=== PATIENT | male | born 1935 | race Caucasian/White ===

== ENCOUNTER → 2018-06-21 | Outpatient (CLI) | payer MEDICARE, BC ==
--- NOTE | 2018-06-21 15:39 | US ---
EXAMINATION TYPE: US kidneys/renal and bladder DATE OF EXAM: 06/21/2018 COMPARISON: 05/06/2015 CLINICAL HISTORY: D49.4 Neoplasm of unspecified behavior of bladder. EXAM MEASUREMENTS: Right Kidney: 10.6 x 6.6 x 6.2 cm Left Kidney: 12.7 x 4.4 x 5.2 cm Kidneys are difficult to visualize as they blend in with surrounding tissues. Right Kidney: thinned cortex, loss of corticomedullary differentiation Left Kidney: thinned cortex, loss of corticomedullary differentiation Bladder: surgically absent No hydronephrosis or nephrolithiasis. IMPRESSION: Findings suggest chronic medical renal disease.
--- NOTE | 2018-06-21 16:06 | XR ---
EXAMINATION TYPE: XR chest 2V DATE OF EXAM: 06/21/2018 COMPARISON: Prior chest x-ray 03/26/[address] chest 04/24/2015 HISTORY: Bladder carcinoma TECHNIQUE: Frontal and lateral views of the chest are obtained on 3 images. FINDINGS: There is no focal air space opacity, pleural effusion, or pneumothorax seen. The cardiac silhouette size is stable. Pulmonary artery is prominent, correlate for possible pulmonary artery hyp ertension. The aorta is dense. The osseous structures are intact. There is some scarring in the right costophrenic angle, chronic pleural reaction. IMPRESSION: No acute cardiopulmonary process.
== END ==
LOC: RADUSWWP 14:51
PROVIDERS: ATTEND Urology
DX: D49.4 Neoplasm of unspecified behavior of bladder (principal); Z91.013 Allergy to seafood
CPT/HCPCS: 71046; 76770

== ENCOUNTER 2018-07-01 06:49 | Day surgery (SDC) | payer MEDICARE, BC ==
[2018-06-29 09:57] VITALS: BMI 25.8
[~2018-07-01 06:49] MED LIST: LACTATED RINGERS 1,000 ML IV SCH; LIDOCAINE 1% 20 ML VIAL (10MG/ML) FOR IV START INTRADERMA PRN
[2018-07-01 07:21] VITALS: TEMP 96.5
[2018-07-01 07:25] LABS: Glucose,Whole Blood 128 mg/dL (75-99)
[2018-07-01] MEDS ORDERED: LIDOCAINE 1% INJ 10MG/ML (20 ML MDV) ONE (07:30)
[2018-07-01] MEDS ORDERED: PROPOFOL 10 MG/ML 20 ML VIAL IV ONE (07:30)
--- NOTE | 2018-07-01 07:30 | P.GSHP ---
History of Present Illness H&P Date: 07/01/18 CHIEF COMPLAINT: Colon screen HISTORY OF PRESENT ILLNESS: The patient is a 82-year-old male who presents for colon screen. Lower endoscopy was offered for further evaluation and management. PAST MEDICAL HISTORY: Please see list. PAST SURGICAL HISTORY: Please see list. MEDICATIONS: Please see list. ALLERGIES: Please see list. SOCIAL HISTORY: No illicit drug use FAMILY HISTORY: No reports of Crohn disease or ulcerative colitis. REVIEW OF ORGAN SYSTEMS: CONSTITUTIONAL: No reports of fevers or chills. PHYSICAL EXAM: VITAL SIGNS: Stable GENERAL: Well-developed pleasant in no acute distress. HEENT: No scleral icterus. Extraocular movements grossly intact. Moist buccal mucosa. NECK: Supple without lymphadenopathy. CHEST: Unlabored respirations. Equal bilateral excursions. CARDIOVASCULAR: Regular rate and rhythm. Distal 2+ pulses. ABDOMEN: Soft, nontender, nondistended. MUSCULOSKELETAL: No clubbing, cyanosis, or edema. ASSESSMENT: 1. Colon screen. PLAN: 1. Recommend proceeding with a lower endoscopy Past Medical History Past Medical History: Asthma, Cancer, COPD, Diabetes Mellitus, Hyperlipidemia, Hypertension, Myocardial Infarction (OR), Osteoarthritis (OA) Additional Past Medical History / Comment(s): VARICOSE VEINS; ARTHRITIS BACK, NECK; HX PROSTATE, BLADDER, SKIN, PLASMACYTOMA LEFT FEMUR, CANCERS. PNEUMONIA 04/01/15. HAS UROSTOMA. FX RT HIP 6 WEEKS AGO Last Myocardial Infarction Date:: 2012- UNSURE- STATES DISCOVERED ON EKG. History of Any Multi-Drug Resistant Organisms: ESBL Date of last positivie culture/infection: 03/26/2015 MDRO Source:: Urine- E.coli ESBL Past Surgical History: Bladder Surgery, Joint Replacement, Prostate Surgery Additional Past Surgical History / Comment(s): EXC LEFT FEMUR CANCER; CHEST TUMOR EXC; RADICAL PROSTATECTOMY 07/2004. TURBT 12/2014. ROBOTIC RADICAL CYSTECTOMY 02/2015. UROSTOMY, COLONOSCOPY, PARTIAL RT HIP REPLACEMENT 6 WEEKS AGO Past Anesthesia/Blood Transfusion Reactions: No Reported Reaction Smoking Status: Former smoker - Past Family History Son(s) Family Medical History: Cancer Additional Family Medical History / Comment(s): LEUKEMIA Medications and Allergies Home Medications Medication Instructions Recorded Confirmed Type Atenolol [Tenormin] 25 mg PO DAILY 12/28/14 07/01/18 History Fluticasone/Salmeterol [Advair 1 inhalation PO RT-BID 12/28/14 07/01/18 History 500-50 Diskus] Montelukast [Singulair] 10 mg PO HS 12/28/14 07/01/18 History Tiotropium [place] [Spiriva] 1 puff IH RT-DAILY 12/28/14 07/01/18 History amLODIPine BESYLATE [Norvasc] 10 mg PO DAILY 12/28/14 07/01/18 History Levothyroxine Sodium [Synthroid] 25 mcg PO DAILY 03/27/15 07/01/18 History Glimepiride [Amaryl] 8 mg PO BID 05/17/15 07/01/18 History Aspirin [Adult Low Dose Aspirin EC] 81 mg PO DAILY 06/29/18 07/01/18 History Ferrous Sulfate [Iron (65 MG 325 mg PO DAILY 06/29/18 07/01/18 History Elemental)] Insulin Glargine [Lantus] 20 unit SQ HS 06/29/18 07/01/18 History Lisinopril [Zestril] 20 mg PO BID 06/29/18 07/01/18 History Allergies Allergy/AdvReac Type Severity Reaction Status Date / Time shellfish derived [Shellfish] Allergy Mild Rash/Hives Verified 06/29/18 09:50 "if consumes alot," per patient Surgical - Exam Vital Signs Temp Pulse Resp BP Pulse Ox 96.5 F L 94 17 144/73 96 07/01/18 07:17 07/01/18 07:17 07/01/18 07:17 07/01/18 07:17 07/01/18 07:17 Results - Labs Abnormal Lab Results - Last 24 Hours (Table) 07/01/18 Range/Units 07:20 POC Glucose (mg/dL) 128 H (75-99) mg/dL
--- NOTE | 2018-07-01 07:53 | P.PCN ---
Date of Procedure: 07/01/18 Description of Procedure: PREOPERATIVE DIAGNOSIS: Personal history of colon polyps POSTOPERATIVE DIAGNOSIS: Personal history of colon polyps Sigmoid colon stricture Diverticulosis Rectal adenoma OPERATION: Colonoscopy with snare polypectomy, rectum Colonoscopy to the sigmoid colon, 40 cm from the anal verge SURGEON: Lashae Hunt MD. ANESTHESIA: MAC. INDICATIONS: The patient is a 82-year-old female who presents for colonoscopy screening. He has history of high-risk polyps. Last colonoscopy 5 years ago. Benefits and risks were described and informed consent was obtained. DESCRIPTION OF PROCEDURE: The patient had undergone Gatorade, MiraLAX and Dulcolax prep. He had been brought into the operating room and laid in the left lateral decubitus position. After adequate intravenous sedation, the rectum was examined with 2% lidocaine jelly. The prostate was without abnormalities. No external hemorrhoids were encountered. The rectal tone was loose. No lesions were palpated in the rectal vault. An Olympus colonoscope was advanced along the rectum to a very tortuous sigmoid colon. The scope was then exchanged for a pediatric colonoscope. Despite multiple maneuvers, the sigmoid colon had severe tortuosity including a stricture at 40 cm from the anal verge preventing further advancement of scope. The scope was passed to 40 cm from the anal verge. Rectal polyp of 4 mm adenoma at 10 cm from the anal verge was removed with hot snare. As the patient posed high risk for perforation with persistence of the procedure, the procedure was discontinued. The colon was desufflated. The patient had tolerated the procedure well. Withdrawal time was over 6 minutes. FINDINGS: Tortuous sigmoid colon with stricture preventing further advancement of the scope. Rectal polyp of 4 mm adenoma at 10 cm from the anal verge was removed with hot snare. Scope advanced to sigmoid colon at 40 cm. No arteriovenous malformations. Sigmoid stricture at 40 cm from the anal verge Severe sigmoid diverticulosis No focal colitis. RECOMMENDATIONS: Completion of colonoscopy evaluation with barium enema. Plan - Discharge Summary New Discharge Prescriptions: No Action amLODIPine BESYLATE [Norvasc] 10 mg PO DAILY Montelukast [Singulair] 10 mg PO HS Atenolol [Tenormin] 25 mg PO DAILY Fluticasone/Salmeterol [Advair 500-50 Diskus] 1 inhalation PO RT-BID Tiotropium [place] [Spiriva] 1 puff IH RT-DAILY Levothyroxine Sodium [Synthroid] 25 mcg PO DAILY Glimepiride [Amaryl] 8 mg PO BID Aspirin [Adult Low Dose Aspirin EC] 81 mg PO DAILY Ferrous Sulfate [Iron (65 MG Elemental)] 325 mg PO DAILY Insulin Glargine [Lantus] 20 unit SQ HS Lisinopril [Zestril] 20 mg PO BID Discharge Medication List Atenolol [Tenormin] 25 mg PO DAILY 12/28/14 [History] Fluticasone/Salmeterol [Advair 500-50 Diskus] 1 inhalation PO RT-BID 12/28/14 [ History] Montelukast [Singulair] 10 mg PO HS 12/28/14 [History] Tiotropium [place] [Spiriva] 1 puff IH RT-DAILY 12/28/14 [History] amLODIPine BESYLATE [Norvasc] 10 mg PO DAILY 12/28/14 [History] Levothyroxine Sodium [Synthroid] 25 mcg PO DAILY 03/27/15 [History] Glimepiride [Amaryl] 8 mg PO BID 05/17/15 [History] Aspirin [Adult Low Dose Aspirin EC] 81 mg PO DAILY 06/29/18 [History] Ferrous Sulfate [Iron (65 MG Elemental)] 325 mg PO DAILY 06/29/18 [History] Insulin Glargine [Lantus] 20 unit SQ HS 06/29/18 [History] Lisinopril [Zestril] 20 mg PO BID 06/29/18 [History]
[2018-07-01 08:08] VITALS: RESP 16
[2018-07-01 08:38] VITALS: BP 112/78; PULSE 88
[2018-07-01] MEDS ORDERED: oxyCODONE ER 20 MG TAB.ER.12H PO STA (12:20)
== END 2018-07-01 09:01 | disposition home or self-care (01) ==
LOC: ORWHC2ENDO 06:49
PROVIDERS: ATTEND Surgery Plastic and Reconstructive Surgery
DX: Z12.11 Encounter for screening for malignant neoplasm of colon (principal); K63.5 Polyp of colon; K62.1 Rectal polyp; Q43.8 Other specified congenital malformations of intestine; Z86.010 Personal history of colon polyps; J44.9 Chronic obstructive pulmonary disease, unspecified; E11.9 Type 2 diabetes mellitus without complications; E78.5 Hyperlipidemia, unspecified; I10 Essential (primary) hypertension; I25.2 Old myocardial infarction; M19.90 Unspecified osteoarthritis, unspecified site; Z85.46 Personal history of malignant neoplasm of prostate; Z85.51 Personal history of malignant neoplasm of bladder; Z85.828 Personal history of other malignant neoplasm of skin; Z85.89 Personal history of malignant neoplasm of other organs and systems; Z87.891 Personal history of nicotine dependence; Z79.82 Long term (current) use of aspirin; Z79.890 Hormone replacement therapy; Z79.4 Long term (current) use of insulin; Z79.899 Other long term (current) drug therapy; Z91.013 Allergy to seafood
CPT/HCPCS: 88305; 45385; J2001; J2704

== ENCOUNTER → 2018-07-11 | Outpatient (CLI) | payer MEDICARE, BC ==
--- NOTE | 2018-07-12 10:31 | XR ---
Abdomen HISTORY: Barium enema preprocedure Correlation to prior CT abdomen pelvis 04/01/2015 Frontal view of the abdomen on 2 images And postop change noted to the right hip, surgical clips are present in the pelvis. There is an ostom y in the right lower quadrant. Retained fecal debris is present throughout the distribution of the co sahra in the ascending and transverse colon regions. Lung bases are clear. Degenerative disc changes ar e present in the visualized spine. There are dense vascular calcifications. Distortion over the left iliac wing is chronic. Sclerotic focus in the left ilium is again noted. Heterotopic new bone formati on present about the right hip prosthesis, postop change also noted to the left hip. Probable vascula r calcifications over the kidneys. IMPRESSION: Retained fecal debris. Postop changes. Additional findings above.
== END | disposition home or self-care (01) ==
LOC: RADFLMAIN 08:52
PROVIDERS: ATTEND Surgery Plastic and Reconstructive Surgery
DX: R19.5 Other fecal abnormalities (principal); M89.8X5 Other specified disorders of bone, thigh; M89.8X8 Other specified disorders of bone, other site; R93.7 Abnormal findings on diagnostic imaging of other parts of musculoskeletal system; Z98.890 Other specified postprocedural states; Z93.3 Colostomy status
CPT/HCPCS: 74018

== ENCOUNTER → 2018-07-26 | Outpatient (CLI) | payer MEDICARE, BC ==
--- NOTE | 2018-07-26 10:15 | FL ---
EXAMINATION TYPE: FL barium enema DATE OF EXAM: 07/26/2018 COMPARISON: Abdominal x-ray July 11, 2018. CT abdomen and pelvis April 01, 2015. HISTORY: Incomplete colonoscopy rule out sigmoid stricture TECHNIQUE: A single contrast barium enema study is performed as requested. Double contrast however c annot be performed due to patient's limited mobility. 54 seconds of fluoroscopic time was utilized du ring procedure. 17 images are saved. FINDINGS: Collection Clerk view of the abdomen shows overall non-obstructive bowel gas pattern. Right-sided loo p ostomy from cystectomy is redemonstrated. Numerous surgical clips and pelvis are seen. Metallic nnamdi dware right hip arthroplasty is noted. There is partial visualization of fixation hardware in the lef t proximal femur with moderate to advanced narrowing, some loss of spherical shape in the femoral hea d is noted. Cannot exclude some avascular necrosis at this level. There is successful filling to the cecum. No obstructing mass or significant stricture is identified with particular attention to the sigmoid colon at area of clinical concern. Reflux of contrast into t erminal ileum is noted which is felt within normal limits. Patient had poor prep with retained fecal debris. IMPRESSION: Suboptimal study but no obstructing or constricting mass or significant stricture identi fied with successful retrograde filling to the cecum.
== END | disposition home or self-care (01) ==
LOC: RADFLMAIN 08:51
PROVIDERS: ATTEND Surgery Plastic and Reconstructive Surgery
DX: Z09 Encounter for follow-up examination after completed treatment for conditions other than malignant neoplasm (principal); Z87.19 Personal history of other diseases of the digestive system
CPT/HCPCS: 74270

== ENCOUNTER → 2018-11-21 | Outpatient (CLI) | payer MEDICARE, BC ==
--- NOTE | 2018-11-21 17:29 | US ---
EXAMINATION TYPE: US kidneys/renal and bladder DATE OF EXAM: 11/21/2018 COMPARISON: US 2018 CLINICAL HISTORY: Renal failure N18.9. CKD, history of bladder CA, bladder removed EXAM MEASUREMENTS: Right Kidney: 10.7 x 5.2 x 5.5 cm Left Kidney: 13.1 x 6.0 x 5.5 cm Right Kidney: thinned cortex, loss of corticomedullary differentiation Left Kidney: thinned cortex, loss of corticomedullary differntiation Bladder: surgically absent There is no evidence for hydronephrosis at this point in time. No nephrolithiasis is seen. No negra s are identified. The urinary bladder is anechoic. Bilateral ureteral jets are seen. IMPRESSION: Sonographic sequela of medical renal disease without hydronephrosis or nephrolithiasis. Urinary bladd er is surgically absent.
== END | disposition home or self-care (01) ==
LOC: RADUSWWP 14:54
PROVIDERS: ATTEND Family Medicine
DX: N18.9 Chronic kidney disease, unspecified (principal); Z90.6 Acquired absence of other parts of urinary tract
CPT/HCPCS: 76770

== ENCOUNTER 2019-03-03 05:48 | Day surgery (SDC) | payer MEDICARE, BC ==
[2019-03-01 09:09] VITALS: BMI 26.6
--- NOTE | 2019-03-02 23:04 | P.GSHP ---
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 He now presents for excision. PAST MEDICAL HISTORY: Please see list. PAST SURGICAL HISTORY: Please see list. MEDICATIONS: Please see list. ALLERGIES: Please see list. SOCIAL HISTORY: No illicit drug use FAMILY HISTORY: Has ulcerative colitis. REVIEW OF ORGAN SYSTEMS: CONSTITUTIONAL: No reports of fevers or chills. GI: Denies any blood in stools or constipation. PHYSICAL EXAM: VITAL SIGNS: Stable SKIN: Lesion identified along right posterior thigh and left volar hand GENERAL: Well developed and in no acute distress. Pleasant. HEENT: No sclera icterus. Extraocular movements grossly intact. Moist buccal mucosa. Head is atraumatic, normocephalic. Hears conversational speech. No nasal drainage. NECK: Supple without lymphadenopathy. No JV distention. CHEST: Non-labored respirations and equal bilateral excursions. CARDIOVASCULAR: Regular rate and rhythm. Palpable 2+ radial pulses. ABDOMEN: Soft. Non-tender. Nondistended. NEUROLOGIC: No focal or lateralizing signs. PSYCH: Appropriate affect. Alert and oriented to person, place and time. ASSESSMENT: 1. Squamous cell cancer left hand 2. Squamous cell cancer right thigh PLAN: 1. Will proceed of excision of squamous cell cancer left hand and right thigh 2. DVT prophylaxis. 3. Antibiotic prophylaxis. 4. Time of recovery, at least one week. Past Medical History Past Medical History: Asthma, Cancer, COPD, Diabetes Mellitus, Hyperlipidemia, Hypertension, Osteoarthritis (OA), Prostate Disorder Additional Past Medical History / Comment(s): VARICOSE VEINS; ARTHRITIS BACK, NECK; HX PROSTATE, BLADDER, SKIN CANDER , PLASMACYTOMA LEFT FEMUR- CANCERS. PNEUMONIA 04/01/15. HAS UROSTOMY , FX RT HIP -2018." RENAL DISEASE STAGE 4 -NO DIALYSIS " Last Myocardial Infarction Date:: 2012- UNSURE- STATES DISCOVERED ON EKG. History of Any Multi-Drug Resistant Organisms: ESBL Date of last positivie culture/infection: 03/26/2015 MDRO Source:: Urine- E.coli ESBL Past Surgical History: Bladder Surgery, Joint Replacement, Prostate Surgery Additional Past Surgical History / Comment(s): EXC LEFT FEMUR CANCER; CHEST TUMOR EXC; RADICAL PROSTATECTOMY 07/2004. , ROBOTIC RADICAL CYSTECTOMY 02/2015- UROSTOMY, COLONOSCOPY, PARTIAL RT HIP REPLACEMENT Past Anesthesia/Blood Transfusion Reactions: No Reported Reaction Smoking Status: Former smoker - Past Family History Son(s) Family Medical History: Cancer Additional Family Medical History / Comment(s): LEUKEMIA Medications and Allergies Home Medications Medication Instructions Recorded Confirmed Type Atenolol [Tenormin] 25 mg PO DAILY 12/28/14 03/01/19 History Fluticasone/Salmeterol [Advair 1 inhalation PO RT-BID 12/28/14 03/01/19 History 500-50 Diskus] Montelukast [Singulair] 10 mg PO HS 12/28/14 03/01/19 History Tiotropium [place] [Spiriva] 1 puff IH RT-DAILY 12/28/14 03/01/19 History amLODIPine BESYLATE [Norvasc] 10 mg PO DAILY 12/28/14 03/01/19 History Levothyroxine Sodium [Synthroid] 25 mcg PO DAILY 03/27/15 03/01/19 History Glimepiride [Amaryl] 8 mg PO BID 05/17/15 03/01/19 History Aspirin [Adult Low Dose Aspirin EC] 81 mg PO DAILY 06/29/18 03/01/19 History Insulin Glargine [Lantus] 20 unit SQ HS 06/29/18 03/01/19 History Cephalexin [Keflex] 500 mg PO Q8HR 03/01/19 03/01/19 History Allergies Allergy/AdvReac Type Severity Reaction Status Date / Time shellfish derived [Shellfish] Allergy Mild Rash/Hives Verified 03/01/19 09:27 "if consumes alot," per patient
[~2019-03-03 05:48] MED LIST changes: +DEXAMETHASONE SOD PHOSPHATE 10 MG/ML 1 ML VIAL IV ONE; +MIDAZOLAM 2 MG/2 ML VIAL IV PRN; +ONDANSETRON 4 MG/2 ML VIAL IVP ONE; +Pre Op ABX Message 1 EACH MISC MISCELLANE ONE; +ceFAZolin IN SWFI 2 GM/20 ML SYRINGE IVP ONE; +fentaNYL (PF) 50 MCG/ML 2 ML AMP IV PRN
[2019-03-03] MEDS ORDERED: LACTATED RINGERS 1,000 ML IV ONE (06:14)
[2019-03-03 06:21] VITALS: TEMP 97.8
[2019-03-03] MEDS ORDERED: DEXTROSE 50% SYRINGE 50 ML IVP ONE (06:29)
[2019-03-03 06:32] LABS: Glucose,Whole Blood 49 mg/dL (75-99)
[2019-03-03 06:36] LABS: Glucose,Whole Blood 48 mg/dL (75-99)
[2019-03-03 06:46] LABS: Glucose,Whole Blood 115 mg/dL (75-99)
[2019-03-03] MEDS ORDERED: PROPOFOL 10 MG/ML 20 ML VIAL IV ONE (07:02)
[2019-03-03] MEDS ORDERED: BUPIVACAIN-EPI 0.25%-1:200,000 30 ML VIAL SQ ONE ×2 (07:23→07:41)
[2019-03-03 08:35] VITALS: RESP 16
[2019-03-03 08:48] LABS: Glucose,Whole Blood 90 mg/dL (75-99)
--- NOTE | 2019-03-03 09:16 | P.PCN ---
Date of Procedure: 03/03/19 Description of Procedure: SURGEON: LASHAE HUNT MD DROP HAMMER MECHANIC: NONE. PREOPERATIVE DIAGNOSES: 1. Malignant neoplasm right posterior thigh, left volar hand 2. Hypertensive heart disease 3. Asthma 4. Diabetes type 2, insulin-dependent 5. Hypothyroidism 6. History of prostate cancer 7. History of bladder cancer 8. Stage 4 renal disease 9. Hyperlipidemia 10. Chronic obstructive pulmonary disease POSTOPERATIVE DIAGNOSES: 1. Malignant neoplasm right posterior thigh, left volar hand 2. Hypertensive heart disease 3. Asthma 4. Diabetes type 2, insulin-dependent 5. Hypothyroidism 6. History of prostate cancer 7. History of bladder cancer 8. Stage 4 renal disease 9. Hyperlipidemia 10. Chronic obstructive pulmonary disease Procedure(s) Performed: 1. Excision of posterior thigh lesion 6 cm x 3.5 cm, subcutaneous with complex skin closure, 6 cm 2. Excision of left volar hand 5 cm x 2 cm, subcutaneous with simple skin closure Anesthesia: MAC, local Estimated Blood Loss (ml): 20 Pathology: other (1. Posterior thigh, long superior, short medial) Condition: stable (2. Lower hand long medial short lateral) Disposition: same day Operative Findings: 1. Very thin skin of left volar hand with full-thickness excision. 2. Area 1.3 x 0.8 cm to heal by secondary intention 3. Application of left hand splint in neutral position 4. Subcutaneous excision of lesion posterior thigh COMPLICATIONS: None. INDICATIONS: The patient is an 83-year-old male who presents with right posterior thigh subcutaneous tumor and left volar hand malignant lesion. Surgical options, including excision was discussed. Benefits and risks were described. Informed consent was obtained. DESCRIPTION OF PROCEDURE: Patient was brought into the operating room, laid in prone position. After adequate IV sedation, the right lower leg and left hand was prepped and draped in standard sterile fashion using ChloraPrep. A timeout protocol was confirmed with the surgical team regarding patient's name including procedures to be performed. Preoperative medications was administered. Attention was brought to the right posterior thigh. Next, a local field block was administered. The right posterior thigh was measured using a ruler with borders marked with indelible marker. An elliptical incision of 6 x 3.5 cm in size into the dermis followed by circumferential dissection using electro-Bovie cautery into the subcutaneous tissue. Hemostasis was checked with electrocautery cautery. The wound was closed in multiple layers including 0 Vicryl for the deep subcutaneous tissue. 3-0 Vicryl was placed interrupted along the deep dermis. The skin was closed using 4-0 Monocryl. Dermabond tape including liquid glue and tape was used as the final fourth layer. The skin was cleansed. Optifoam dressing was placed. Attention was brought to the left volar hand. A local field block was administered. The left volar hand was measured using a ruler with borders marked with indelible marker. A longitudinal elliptical incision of 5 x 2 cm in size into the dermis was carefully placed. The skin was very thin of left volar hand with full-thickness excision performed. An area 1.3 x 0.8 cm was left to heal by secondary intention as the wound could not close from the poor integrity of his skin. To protect the skin, exofin tape with Optif oam was placed. To protect the closure, application of left hand splint in neutral position was made. At the end of the procedure, needle, sponge, and instrument count had been verified correct by the orthopedic technician. The patient was taken to the postanesthesia care unit in stable condition. Plan - Discharge Summary Discharge Rx Participant: Yes New Discharge Prescriptions: New Acetaminophen [Tylenol] 325 mg PO Q4H #30 tab No Action amLODIPine BESYLATE [Norvasc] 10 mg PO DAILY Montelukast [Singulair] 10 mg PO HS Atenolol [Tenormin] 25 mg PO DAILY Fluticasone/Salmeterol [Advair 500-50 Diskus] 1 inhalation PO RT-BID Tiotropium [place] [Spiriva] 1 puff IH RT-DAILY Levothyroxine Sodium [Synthroid] 25 mcg PO DAILY Glimepiride [Amaryl] 8 mg PO BID Aspirin [Adult Low Dose Aspirin EC] 81 mg PO DAILY Insulin Glargine [Lantus] 20 unit SQ HS Cephalexin [Keflex] 500 mg PO Q8HR Discharge Medication List Atenolol [Tenormin] 25 mg PO DAILY 12/28/14 [History] Fluticasone/Salmeterol [Advair 500-50 Diskus] 1 inhalation PO RT-BID 12/28/14 [History] Montelukast [Singulair] 10 mg PO HS 12/28/14 [History] Tiotropium [place] [Spiriva] 1 puff IH RT-DAILY 12/28/14 [History] amLODIPine BESYLATE [Norvasc] 10 mg PO DAILY 12/28/14 [History] Levothyroxine Sodium [Synthroid] 25 mcg PO DAILY 03/27/15 [History] Glimepiride [Amaryl] 8 mg PO BID 05/17/15 [History] Aspirin [Adult Low Dose Aspirin EC] 81 mg PO DAILY 06/29/18 [History] Insulin Glargine [Lantus] 20 unit SQ HS 06/29/18 [History] Cephalexin [Keflex] 500 mg PO Q8HR 03/01/19 [History] Acetaminophen [Tylenol] 325 mg PO Q4H #30 tab 03/03/19 [Rx] Follow up Appointment(s)/Referral(s): Lashae Hunt MD [STAFF PHYSICIAN] - 03/07/19 11:40 am Patient Instructions/Handouts: *Surgery [facility] - (Anesthesia) Discharge Instructions Outpatient Surgery, Excision of Skin Lesion (DC) Activity/Diet/Wound Care/Special Instructions: DO NOT REMOVE DRESSINGS. May shower. No bathtub soaks. SURGEON TO REMOVE DRESSING IN OFFICE WednesdayMARCH 07. Do not remove splint. Discharge Disposition: HOME SELF-CARE
[2019-03-03 09:30] LABS: Glucose,Whole Blood 138 mg/dL (75-99)
[2019-03-03 09:57] VITALS: BP 138/60; PULSE 67
== END 2019-03-03 09:48 | disposition home or self-care (01) ==
LOC: OR 05:48
PROVIDERS: ATTEND Surgery Plastic and Reconstructive Surgery
DX: D04.62 Carcinoma in situ of skin of left upper limb, including shoulder (principal); B07.9 Viral wart, unspecified; I13.10 Hypertensive heart and chronic kidney disease without heart failure, with stage 1 through stage 4 chronic kidney disease, or unspecified chronic kidney disease; N18.4 Chronic kidney disease, stage 4 (severe); E11.22 Type 2 diabetes mellitus with diabetic chronic kidney disease; E78.5 Hyperlipidemia, unspecified; E03.9 Hypothyroidism, unspecified; J44.9 Chronic obstructive pulmonary disease, unspecified; M19.90 Unspecified osteoarthritis, unspecified site; I25.2 Old myocardial infarction; Z96.641 Presence of right artificial hip joint; Z87.891 Personal history of nicotine dependence; Z85.46 Personal history of malignant neoplasm of prostate; Z85.51 Personal history of malignant neoplasm of bladder; Z90.79 Acquired absence of other genital organ(s); Z90.6 Acquired absence of other parts of urinary tract; Z87.01 Personal history of pneumonia (recurrent); Z79.82 Long term (current) use of aspirin; Z79.890 Hormone replacement therapy; Z79.4 Long term (current) use of insulin; Z79.899 Other long term (current) drug therapy; Z79.2 Long term (current) use of antibiotics; Z91.013 Allergy to seafood
CPT/HCPCS: 11626; 11406; 12032; 88305; J1100; J2405; J2704; J0690

== ENCOUNTER → 2019-06-26 | Outpatient (CLI) | payer MEDICARE, BC ==
--- NOTE | 2019-06-26 15:48 | US ---
EXAMINATION TYPE: US kidneys/renal and bladder DATE OF EXAM: 06/26/2019 COMPARISON: US dated 11/21/2018 CLINICAL HISTORY: D49.4 Follow up staging for bladder cancer. EXAM MEASUREMENTS: Right Kidney: 9.9 x 4.1 x 5.1 cm Left Kidney: 12.0 x 4.1 x 4.5 cm Right Kidney: thinned cortex, loss of corticomedullary differentiation. Right upper pole renal cyst i s seen measuring 1.5 x 1.3 x 1.2 cm. This has increased through transmission and is anechoic. Left Kidney: thinned cortex, loss of corticomedullary differentiation Bladder: surgically absent There is no evidence for hydronephrosis at this point in time. No nephrolithiasis is seen. No suspi cious masses are identified. The urinary bladder is surgically absent. IMPRESSION: Sequela of chronic medical renal disease. Simple appearing benign right renal cyst measuring 1.5 cm. No suspicious sonographic renal masses otherwise. Urinary bladder is surgically absent.
--- NOTE | 2019-06-26 19:33 | XR ---
EXAMINATION TYPE: XR chest 2V DATE OF EXAM: 06/26/2019 COMPARISON: Prior chest x-ray 06/21/2018 HISTORY: Follow up staging for bladder cancer TECHNIQUE: Frontal and lateral views of the chest are obtained on 3 images. FINDINGS: The exam is stable. Heart size is enlarged and unchanged. There is some patchy density pre sent at the right costophrenic angle as on prior exam, chronic pleural reaction. No evident pneumotho rax or pleural effusion. Pulmonary vascularity and rosie are stable. Aorta is dense. IMPRESSION: No acute cardiopulmonary process. Stable basilar scarring.
== END | disposition home or self-care (01) ==
LOC: RADUSWWP 14:47
PROVIDERS: ATTEND Urology
DX: J98.4 Other disorders of lung (principal); D46.9 Myelodysplastic syndrome, unspecified; Z90.6 Acquired absence of other parts of urinary tract
CPT/HCPCS: 71046; 76770

== ENCOUNTER → 2020-01-04 | Outpatient (CLI) | payer MEDICARE, BC ==
[2020-01-04 09:54] LABS: HCT 42.7 % (39.0-53.0); HGB 13.8 gm/dL (13.0-17.5); MCH 28.4 pg (25.0-35.0); MCHC 32.2 g/dL (31.0-37.0); MCV 88.1 fL (80.0-100.0); Mean Platelet Volume 6.9; Platelet Count 286 k/uL (150-450); RBC 4.85 m/uL (4.30-5.90); RDW 13.6 % (11.5-15.5); WBC 9.9 k/uL (3.8-10.6)
[2020-01-04 10:44] LABS: Amorphous Sediment,Urine Rare /hpf; Appearance,Urine Cloudy (Clear); Bacteria,Urine Occasional /hpf; Bilirubin,Urine Negative (Negative); Blood,Urine Negative (Negative); Color,Urine Yellow; Glucose,Urine (UA) Negative (Negative); Ketones,Urine Negative (Negative); Leukocyte Esterase,Urine Trace (Negative); Nitrite,Urine Negative (Negative); Protein,Urine 3+ (Negative); RBC,Urine 1 /hpf (0-5); Specific Gravity,Urine 1.012 (1.001-1.035); Squamous Epithelial Cell,Urine <1 /hpf (0-4); Triple Phosphate Crystal,Urine Occasional /hpf; WBC,Urine 10 /hpf (0-5)
[2020-01-04 15:58] LABS: Urine Creatinine 57.3 mg/dL
[2020-01-04 16:20] LABS: % Iron Saturation 30.92 (15.00-50.00); African American GFR (CKD) 25.3 (60.0-200.0); Albumin/Globulin Ratio 1.82 (1.60-3.17); Anion Gap 9.3 mmol/L (4.00-12.00); Calcium 8.7 mg/dL (8.7-10.3); Carbon Dioxide 24.7 mmol/L (21.6-31.8); Globulin 2.2 g/dL (1.6-3.3); Non-African American GFR(CKD) 21.8 (60.0-200.0); Phosphorus 4.4 mg/dL (2.4-5.1); Potassium 5.6 mmol/L (3.5-5.5); Total Bilirubin 0.5 mg/dL (0.3-1.2); Total Protein 6.2 g/dL (6.2-8.2); Uric Acid 7.5 mg/dL (3.7-8.7)
[2020-01-04 16:30] LABS: Ferritin 260.4 ng/mL (22.0-322.0)
== END | disposition home or self-care (01) ==
LOC: LABWHC1 09:26
PROVIDERS: ATTEND Internal Medicine
DX: N18.4 Chronic kidney disease, stage 4 (severe) (principal); D64.9 Anemia, unspecified; N39.0 Urinary tract infection, site not specified; R80.9 Proteinuria, unspecified; N25.81 Secondary hyperparathyroidism of renal origin; E55.9 Vitamin D deficiency, unspecified; M10.9 Gout, unspecified
CPT/HCPCS: 36415; 80053; 81001; 82043; 82306; 82570; 82728; 83540; 83550; 83735; 83970; 84100; 84550; 85027

== ENCOUNTER → 2020-05-05 | Outpatient (CLI) | payer MEDICARE, BC ==
[2020-05-05 09:32] LABS: HCT 40.5 % (39.0-53.0); HGB 12.5 gm/dL (13.0-17.5); Hypochromasia Slight; MCH 27.6 pg (25.0-35.0); MCHC 30.9 g/dL (31.0-37.0); MCV 89.3 fL (80.0-100.0); Platelet Count 295 k/uL (150-450); RBC 4.53 m/uL (4.30-5.90); RDW 14.2 % (11.5-15.5); WBC 8.4 k/uL (3.8-10.6)
[2020-05-05 10:33] LABS: Bacteria,Urine Many /hpf; Mucus,Urine Rare /hpf; RBC,Urine 8 /hpf (0-5); Squamous Epithelial Cell,Urine <1 /hpf (0-4); WBC,Urine >182 /hpf (0-5)
[2020-05-05 10:38] LABS: Appearance,Urine Slightly Cloudy (Clear); Color,Urine Yellow; Specific Gravity,Urine 1.005 (1.001-1.035)
[2020-05-05 10:39] LABS: Bilirubin,Urine Negative (Negative); Glucose,Urine (UA) Negative (Negative); Ketones,Urine Negative (Negative); Protein,Urine 3+ (Negative)
[2020-05-05 10:40] LABS: Blood,Urine Small (Negative); Leukocyte Esterase,Urine Large (Negative); Nitrite,Urine Negative (Negative); Urobilinogen,Urine <2.0 mg/dL (<2.0)
[2020-05-06 11:37] LABS: Ferritin 293.4 ng/mL (22.0-322.0)
[2020-05-06 12:02] LABS: % Iron Saturation 18.75 (15.00-50.00); ALT <8 U/L (10-49); AST 10 U/L (14-35); African American GFR (CKD) 19.7 (60.0-200.0); Albumin/Globulin Ratio 1.77 (1.60-3.17); Alkaline Phosphatase 137 U/L (41-126); BUN/Creat Ratio 18.75 Ratio (12.00-20.00); Calcium 8.4 mg/dL (8.7-10.3); Carbon Dioxide 20.4 mmol/L (21.6-31.8); Chloride 116 mmol/L (96-109); Globulin 2.2 g/dL (1.6-3.3); Glucose 184 mg/dL (70-110); Iron 36 ug/dL (65-175); Magnesium 2.1 mg/dL (1.5-2.4); Phosphorus 4.5 mg/dL (2.4-5.1); Sodium 139 mmol/L (135-145); Total Bilirubin 0.2 mg/dL (0.3-1.2); Total Iron Binding Capacity 192 ug/dL (228-460); Total Protein 6.1 g/dL (6.2-8.2); Uric Acid 8.3 mg/dL (3.7-8.7)
[2020-05-07 08:22] LABS: Potassium 6.1 mmol/L (3.5-5.5)
== END | disposition home or self-care (01) ==
LOC: LABMAIN 08:48
PROVIDERS: ATTEND Nurse Practitioner Family
DX: N39.0 Urinary tract infection, site not specified (principal); N25.81 Secondary hyperparathyroidism of renal origin; E55.9 Vitamin D deficiency, unspecified; M10.9 Gout, unspecified; N18.4 Chronic kidney disease, stage 4 (severe); D63.1 Anemia in chronic kidney disease
CPT/HCPCS: 36415; 80053; 81001; 82306; 82728; 83540; 83550; 83735; 83970; 84100; 84550; 85027; 87086

== ENCOUNTER → 2020-05-10 | Outpatient (CLI) | payer MEDICARE, BC ==
[2020-05-11 01:18] LABS: African American GFR (CKD) 21.3 (60.0-200.0); Anion Gap 10.9 mmol/L (4.00-12.00); BUN/Creat Ratio 21.33 Ratio (12.00-20.00); Calcium 8.4 mg/dL (8.7-10.3); Carbon Dioxide 22.1 mmol/L (21.6-31.8); Non-African American GFR(CKD) 18.4 (60.0-200.0); Potassium 4.6 mmol/L (3.5-5.5)
== END | disposition home or self-care (01) ==
LOC: LABWHC1 12:26
PROVIDERS: ATTEND Internal Medicine
DX: E78.5 Hyperlipidemia, unspecified (principal)
CPT/HCPCS: 36415; 80048

== ENCOUNTER 2020-06-07 14:31 | Observation (INO) | payer MEDICARE, BC ==
[2020-06-07] MEDS ORDERED: SODIUM CHLORIDE 0.9% 1,000 ML IV STA (14:41)
--- NOTE | 2020-06-07 14:52 | ED ---
General Adult HPI - General Chief complaint: Recheck/Abnormal Lab/Rx Stated complaint: Sent by pcp,Kidney related Time Seen by Provider: 06/07/20 14:40 Source: patient Mode of arrival: wheelchair Limitations: no limitations - History of Present Illness Initial comments: Dictation was produced using Flashnotes dictation software. please excuse any gramm atical, word or spelling errors. This patient was cared for during a federal and state declared state of emergency secondary to Covid 19 Chief Complaint: 84-year-old male past medical history of cancer, diabetes, urostomy presents with abnormal outpatient lab. History of Present Illness: Patient is a 4-year-old male he reports he does not have any history of kidney problems. He had outpatient labs are performed. According to patient patient has been persistently elevated creatinine and BUN. Patient not sure what the exact numbers were. States that he's had his kidney markers watched outpatient leave for several months. He had blood drawn yesterday and was told to come to the emergency department. Patient has no complaints. He has a urostomy details please 5-6 years ago. Doesn't remember why. Patient denies any abnormal coloration to his urine. He has no pain compl aints. He denies any other symptoms. The ROS documented in this emergency department record has been reviewed and confirmed by me. Those systems with pertinent positive or negative responses have been documented in the HPI. All other systems are other negative and/or noncontributory. PHYSICAL EXAM: General Impression: Alert and oriented x3, not in acute distress HEENT: Normocephalic atraumatic, extra-ocular movements intact, pupils equal and reactive to light bilaterally, mucous membranes moist. Cardiovascular: Heart regular rate and rhythm Chest: Able to complete full sentences, no retractions, no tachypnea Abdomen: abdomen soft, non-tender, non-distended, no organomegaly, urostomy at the right lower quadrant, stoma is pink and well-perfused, urine and the reservoir is yellow and clear. Musculoskeletal: Pulses present and equal in all extremities, no peripheral edema Motor: no focal deficits noted Neurological: CN II-XII grossly intact, no focal motor or sensory deficits noted Skin: Intact with no visualized rashes Psych: Normal affect and mood ED course: 84-year-old male presents with elevating creatinine and BUN. Signs upon arrival are within acceptable limits. Chart review was performed. Patient has elevating creatinine and BUN since 2018. Last available BUN and creatinine shows 64.0 and 3.0 respectively from 05/10/2020. States that he had labs drawn yesterday was found to be elevated.Laboratory evaluation obtained. Mild leukocytosis 11.2. Metabolic panel shows potassium 5.3, BUN of 74, creatinine 2.05. Glucose 191. Urinalysis shows 2+ protein. Patient be admitted with consultation to nephrology. Patient given 1 L bolus normal saline. He will also be placed on maintenance fluids. Patient be admitted to [facility] hospitalist group. - Related Data Home Medications Medication Instructions Recorded Confirmed Montelukast [Singulair] 10 mg PO HS 12/28/14 06/07/20 amLODIPine BESYLATE [Norvasc] 10 mg PO DAILY 12/28/14 06/07/20 atenoloL [Tenormin] 25 mg PO DAILY 12/28/14 06/07/20 Levothyroxine Sodium [Synthroid] 25 mcg PO DAILY 03/27/15 06/07/20 Glimepiride [Amaryl] 4 mg PO BID 05/17/15 06/07/20 Aspirin [Adult Low Dose Aspirin EC] 81 mg PO DAILY 06/29/18 06/07/20 Albuterol Inhaler [Ventolin Hfa 2 puff INHALATION RT-QID PRN 06/07/20 06/07/20 Inhaler] Atorvastatin Calcium [Lipitor] 20 mg PO DAILY 06/07/20 06/07/20 Insulin Glargine,Hum.rec.anlog 20 unit SQ DAILY 06/07/20 06/07/20 [Basaglar [place] U-100] Levofloxacin [Levaquin] 500 mg PO DAILY 06/07/20 06/07/20 Tiotropium [place] [Spiriva 2 spray INHALATION RT-DAILY 06/07/20 06/07/20 Respimat] calcitrioL [Calcitriol] 0.25 mcg PO DAILY 06/07/20 06/07/20 lisinopriL 20 mg PO DAILY 06/07/20 06/07/20 predniSONE See Taper PO DIRECTED 06/07/20 06/07/20 Allergies Allergy/AdvReac Type Severity Reaction Status Date / Time shellfish derived [Shellfish] Allergy Mild Rash/Hives Verified 06/07/20 14:37 "if consumes alot," per patient Review of Systems ROS Statement: Those systems with pertinent positive or pertinent negative responses have been documented in the HPI. ROS Other: All systems not noted in ROS Statement are negative. Past Medical History Past Medical History: Asthma, Cancer, COPD, Diabetes Mellitus, Hyperlipidemia, Hypertension, Osteoarthritis (OA), Prostate Disorder Additional Past Medical History / Comment(s): VARICOSE VEINS; ARTHRITIS BACK, NECK; HX PROSTATE, BLADDER, SKIN CANDER , PLASMACYTOMA LEFT FEMUR- CANCERS. PNEUMONIA 04/01/15. HAS UROSTOMY , FX RT HIP -2017." RENAL DISEASE STAGE 4 -NO DIALYSIS " Last Myocardial Infarction Date:: 2012- UNSURE- STATES DISCOVERED ON EKG. History of Any Multi-Drug Resistant Organisms: ESBL Date of last positivie culture/infection: 03/26/2015 MDRO Source:: Urine- E.coli ESBL Past Surgical History: Bladder Surgery, Joint Replacement, Prostate Surgery Additional Past Surgical History / Comment(s): EXC LEFT FEMUR CANCER; CHEST TUMOR EXC; RADICAL PROSTATECTOMY 07/2004. , ROBOTIC RADICAL CYSTECTOMY 02/2015- UROSTOMY, COLONOSCOPY, PARTIAL RT HIP REPLACEMENT Past Anesthesia/Blood Transfusion Reactions: No Reported Reaction Past Psychological History: No Psychological Hx Reported Smoking Status: Former smoker Past Alcohol Use History: None Reported Past Drug Use History: None Reported - Past Family History Son(s) Family Medical History: Cancer Additional Family Medical History / Comment(s): LEUKEMIA General Exam Limitations: no limitations Course Vital Signs 06/07/20 14:37 Temperature 97.7 F Pulse Rate 63 Respiratory 18 Rate Blood Pressure 158/70 O2 Sat by Pulse 100 Oximetry Medical Decision Making - Lab Data Result diagrams: 06/07/20 14:55 06/07/20 14:55 Lab Results 06/07/20 06/07/20 06/07/20 Range/Units 14:55 14:55 14:55 WBC 11.2 H (3.8-10.6) k/uL RBC 4.89 (4.30-5.90) m/uL Hgb 13.3 (13.0-17.5) gm/dL Hct 42.8 (39.0-53.0) % MCV 87.4 (80.0-100.0) fL MCH 27.2 (25.0-35.0) pg MCHC 31.1 (31.0-37.0) g/dL RDW 13.8 (11.5-15.5) % Plt Count 284 (150-450) k/uL Neutrophils % 93 % Lymphocytes % 4 % Monocytes % 3 % Eosinophils % 1 % Basophils % 0 % Neutrophils # 10.4 H (1.3-7.7) k/uL Lymphocytes # 0.5 L (1.0-4.8) k/uL Monocytes # 0.3 (0-1.0) k/uL Eosinophils # 0.1 (0-0.7) k/uL Basophils # 0.0 (0-0.2) k/uL Sodium 137 (137-145) mmol/L Potassium 5.3 H (3.5-5.1) mmol/L Chloride 110 H (98-107) mmol/L Carbon Dioxide 18 L (22-30) mmol/L Anion Gap 9 mmol/L BUN 74 H (9-20) mg/dL Creatinine 3.05 H (0.66-1.25) mg/dL Est GFR (CKD-EPI)AfAm 21 (>60 ml/min/1.73 sqM) Est GFR (CKD-EPI)NonAf 18 (>60 ml/min/1.73 sqM) Glucose 191 H (74-99) mg/dL Calcium 8.4 (8.4-10.2) mg/dL Total Bilirubin 0.4 (0.2-1.3) mg/dL AST 13 L (17-59) U/L ALT 16 (4-49) U/L Alkaline Phosphatase 82 (38-126) U/L Total Protein 6.3 (6.3-8.2) g/dL Albumin 3.7 (3.5-5.0) g/dL Urine Color Light Yellow Urine Appearance Clear (Clear) Urine pH 6.0 (5.0-8.0) Ur Specific Halls 1.011 (1.001-1.035) Urine Protein 2+ H (Negative) Urine Glucose (UA) Trace H (Negative) Urine Ketones Negative (Negative) Urine Blood Negative (Negative) Urine Nitrite Negative (Negative) Urine Bilirubin Negative (Negative) Urine Urobilinogen <2.0 (<2.0) mg/dL Ur Leukocyte Esterase Negative (Negative) Urine RBC <1 (0-5) /hpf Urine WBC <1 (0-5) /hpf Urine Mucus Rare H (None) /hpf Disposition Clinical Impression: SWETHA (acute kidney injury) Disposition: ADMITTED IP TO THIS HOSP Condition: Fair Referrals: Kev Queen MD [Primary Care Provider] - 1-2 days Decision Time: 16:01
[2020-06-07 15:07] LABS: Appearance,Urine Clear (Clear); Bilirubin,Urine Negative (Negative); Blood,Urine Negative (Negative); Color,Urine Light Yellow; Glucose,Urine (UA) Trace (Negative); Ketones,Urine Negative (Negative); Leukocyte Esterase,Urine Negative (Negative); Mucus,Urine Rare /hpf; Nitrite,Urine Negative (Negative); Protein,Urine 2+ (Negative); RBC,Urine <1 /hpf (0-5); Specific Gravity,Urine 1.011 (1.001-1.035); Urobilinogen,Urine <2.0 mg/dL (<2.0); WBC,Urine <1 /hpf (0-5)
[2020-06-07 15:35] LABS: Basophils % (A) 0 %; Eosinophils # (A) 0.1 k/uL (0-0.7); Eosinophils % (A) 1 %; HCT 42.8 % (39.0-53.0); HGB 13.3 gm/dL (13.0-17.5); Lymphocytes # (A) 0.5 k/uL (1.0-4.8); Lymphocytes % (A) 4 %; MCH 27.2 pg (25.0-35.0); MCHC 31.1 g/dL (31.0-37.0); MCV 87.4 fL (80.0-100.0); Mean Platelet Volume 6.7; Monocytes # (A) 0.3 k/uL (0-1.0); Monocytes % (A) 3 %; Neutrophils # (A) 10.4 k/uL (1.3-7.7); Neutrophils % (A) 93 %; Platelet Count 284 k/uL (150-450); RBC 4.89 m/uL (4.30-5.90); RDW 13.8 % (11.5-15.5); WBC 11.2 k/uL (3.8-10.6)
[2020-06-07 15:47] LABS: Albumin 3.7 g/dL (3.5-5.0); Calcium 8.4 mg/dL (8.4-10.2); Potassium 5.3 mmol/L (3.5-5.1); Total Bilirubin 0.4 mg/dL (0.2-1.3); Total Protein 6.3 g/dL (6.3-8.2)
[2020-06-07] MEDS ORDERED: NALOXONE 0.4 MG/ML 1 ML VIAL IV PRN (16:01)
[2020-06-07] MEDS: SODIUM CHLORIDE 0.9% 1,000 ML IV SCH (16:08)
[2020-06-07] MEDS ORDERED: ALBUTEROL NEBULIZED 2.5 MG/3 ML INHALATION PRN (18:21)
[2020-06-07] MEDS ORDERED: hydrALAZINE HCL 20 MG/ML 1 ML VIAL IVP STA (18:28)
[2020-06-07] MEDS ORDERED: predniSONE 1 MG TAB PO ONE (18:45)
[2020-06-07] MEDS: amLODIPine 10 MG TAB PO SCH (19:48)
[2020-06-07] MEDS: atenoloL 25 MG TAB PO SCH (19:48)
[2020-06-07] MEDS ORDERED: MONTELUKAST 10 MG TAB PO SCH (21:00)
[2020-06-07 21:50] LABS: Glucose,Whole Blood 248 mg/dL (75-99)
[2020-06-07] MEDS: INSULIN ASPART (NovoLOG) 100 UNIT/ML VIAL SQ SCH (22:02)
[2020-06-08] MEDS: SODIUM CHLORIDE 0.9% 1,000 ML IV SCH (03:33)
[2020-06-08 06:00] LABS: Glucose,Whole Blood 69 mg/dL (75-99)
[2020-06-08 06:30] LABS: Glucose,Whole Blood 87 mg/dL (75-99)
[2020-06-08] MEDS ORDERED: LEVOTHYROXINE 25 MCG TAB PO SCH (06:30)
[2020-06-08] MEDS: IPRATROPIUM 0.5 MG/2.5 ML NEBU INHALATION SCH ×2 (07:29→11:25)
[2020-06-08] MEDS: INSULIN ASPART (NovoLOG) 100 UNIT/ML VIAL SQ SCH ×2 (08:20→12:34)
[2020-06-08] MEDS: amLODIPine 10 MG TAB PO SCH (08:26)
[2020-06-08] MEDS: atenoloL 25 MG TAB PO SCH (08:27)
[2020-06-08] MEDS ORDERED: LEVOFLOXACIN 250 MG TAB PO SCH (09:00)
[2020-06-08] MEDS ORDERED: ATORVASTATIN 20 MG TAB PO SCH (09:00)
[2020-06-08] MEDS ORDERED: ASPIRIN 81 MG PO SCH (09:00)
[2020-06-08] MEDS ORDERED: predniSONE 1 MG TAB PO SCH (09:00)
[2020-06-08 09:46] VITALS: BP 147/67; RESP 18; TEMP 98.2
[2020-06-08 11:40] VITALS: PULSE 96
[2020-06-08 12:01] LABS: Glucose,Whole Blood 199 mg/dL (75-99)
[2020-06-08 13:19] LABS: Calcium 7.8 mg/dL (8.4-10.2); Potassium 4.9 mmol/L (3.5-5.1)
--- NOTE | 2020-06-08 13:37 | CONS ---
CONSULTATION REASON FOR CONSULT: Renal failure. HISTORY OF PRESENT ILLNESS: Patient is an 84-year-old male with history of chronic kidney disease, NKF stage IV with most recent baseline creatinine of about 3 mg/dL. Patient was admitted to the hospital due to abnormal labs as outpatient. He has a history of prostatic cancer status post cystectomy and ileal loop urostomy. The patient's potassium was 5.3 mEq/L on admission. He denied any complaints of nausea, vomiting, abdominal pain or diarrhea. He states his appetite is fair. The patient denies any urinary symptoms. He states his output from the urostomy has been adequate. Blood pressure has been improved. Initially it was 198, but running now at 137-147 mmHg systolic. Serum creatinine is at 3.0 mg/dL. PAST MEDICAL HISTORY: CKD stage 4, history of prostatic cancer with bladder cancer, status post cystectomy ileal loop urostomy, history of plasmacytoma left femur, pneumonia, COPD, type 2 diabetes, hyperlipidemia, hypertension, asthma, history of varicose veins, osteoarthritis. PAST SURGICAL HISTORY: Cystectomy, prostatectomy, colonoscopy, ileal loop urostomy, left femur surgery for excision of cancer. SOCIAL HISTORY: Patient is a former smoker. No history of drug abuse or alcohol abuse. MEDICATIONS: Medications at home prior to admission included Singulair, Norvasc Tenormin, Synthroid, Amaryl, aspirin, Lipitor, Levaquin, calcitriol, lisinopril, prednisone. ALLERGIES: INCLUDE SHELLFISH CAUSES RASH AND HIVES. REVIEW OF SYSTEMS: As per HPI. Other systems negative. EXAMINATION: Patient is comfortable, awake, alert, oriented x3, not in any acute distress. Blood pressure is 147/67, heart rate 98 per minute. He is afebrile. Examination of the heart S1, S2. Examination of the lungs, bilateral breath sounds are heard. Abdomen is soft, nontender. Examination of lower extremities shows no evidence of edema. PRIVATE D[employer]Y AIDE exam is grossly intact. LABS SHOW: Sodium of 137, potassium 5.3, chloride 110, CO2 is 18, BUN 74, serum creatinine 3.05. Hemoglobin 13.3 g/dL. ASSESSMENT: 1. Chronic kidney disease NKF stage IV with renal function currently close to baseline. No plans for dialysis at this time. I will decrease the dose of GHAZAL inhibitors given the mild hyperkalemia and if patient develops acute kidney injury or worsening hyperkalemia, we can discontinue the GHAZAL inhibitors. 2. Hypertension currently controlled. Continue with Norvasc and decrease dose of lisinopril. 3. CKD mineral bone disorder. 4. Mild hyperkalemia associated with chronic kidney disease which is advanced in the setting of use of GHAZAL inhibitors. PLAN: Decrease the dose of lisinopril post discharge. Maintain patient on low-potassium diet. Repeat labs in 3-4 days as outpatient. May continue other medications as prescribed. We will see the patient back for followup in about one week's time post discharge. He will consider discontinuation of GHAZAL inhibitors depending on repeat labs and renal function. Thank you for this consultation. Will continue to follow the patient with you during his hospitalization. MMODL / IJN: [id number] /
--- NOTE | 2020-06-08 14:31 | P.HPIM ---
History of Present Illness Patient is a 84-year-old male he reports he does not have any history of kidney problems. He had outpatient labs are performed. According to patient patient has been persistently elevated creatinine and BUN. Patient not sure what the exact numbers were. States that he's had his kidney markers watched outpatient leave for several months. He had blood drawn yesterday and was told to come to the emergency department. Patient has no complaints. He has a urostomy details please 5-6 years ago. Doesn't remember why. Patient denies any abnormal coloration to his urine. He has no pain complaints. He denies any other symptoms. Patient creatinine was around 2.0. Patient baseline is around that. Patient was given IV fluids was subsequently admitted to the hospital. Patient is found to have elevated potassium. Nephrology valid the patient since the creatinine is at his baseline and patient avidly eventually will need hemodialysis they recommended discharging the patient patient will be discharged and followed nephrology as outpatient because of hyperkalemia and cutting down the dose of lisinopril. was advised to use low potassium and low sodium, cardiac diet. Review of Systems REVIEW OF SYSTEMS: CONSTITUTIONAL: No fever, no malaise, no fatigue. HEENT: No recent visual problems or hearing problems. Denied any sore throat. CARDIOVASCULAR: No chest pain, orthopnea, PND, no palpitations, no syncope. PULMONARY: No shortness of breath, no cough, no hemoptysis. GASTROINTESTINAL: No diarrhea, no nausea, no vomiting, no abdominal pain. NEUROLOGICAL: No headaches, no weakness, no numbness. HEMATOLOGICAL: Denies any bleeding or petechiae. GENITOURINARY: Denies any burning micturition, frequency, or urgency. MUSCULOSKELETAL/RHEUMATOLOGICAL: Denies any joint pain, swelling, or any muscle pain. ENDOCRINE: Denies any polyuria or polydipsia. The rest of the 14-point review of systems is negative. Past Medical History Past Medical History: Asthma, Cancer, COPD, Diabetes Mellitus, Hyperlipidemia, Hypertension, Osteoarthritis (OA), Prostate Disorder Additional Past Medical History / Comment(s): VARICOSE VEINS; ARTHRITIS BACK, NECK; HX PROSTATE, BLADDER, SKIN CANDER , PLASMACYTOMA LEFT FEMUR- CANCERS. PNEUMONIA 04/01/15. HAS UROSTOMY , FX RT HIP -2018." RENAL DISEASE STAGE 4 -NO DIALYSIS " Last Myocardial Infarction Date:: 2012- UNSURE- STATES DISCOVERED ON EKG. History of Any Multi-Drug Resistant Organisms: ESBL Date of last positivie culture/infection: 03/26/2015 MDRO Source:: Urine- E.coli ESBL Past Surgical History: Bladder Surgery, Joint Replacement, Prostate Surgery Additional Past Surgical History / Comment(s): EXC LEFT FEMUR CANCER; CHEST TUMOR EXC; RADICAL PROSTATECTOMY 07/2004. , ROBOTIC RADICAL CYSTECTOMY 02/2015- UROSTOMY, COLONOSCOPY, PARTIAL RT HIP REPLACEMENT Past Anesthesia/Blood Transfusion Reactions: No Reported Reaction Past Psychological History: No Psychological Hx Reported Smoking Status: Former smoker Past Alcohol Use History: None Reported Additional Past Alcohol Use History / Comment(s): STARTED AGE 14 QUIT 1957 SMOKED 1PPD Past Drug Use History: None Reported - Past Family History Son(s) Family Medical History: Cancer Additional Family Medical History / Comment(s): LEUKEMIA Medications and Allergies Home Medications Medication Instructions Recorded Confirmed Type Montelukast [Singulair] 10 mg PO HS 12/28/14 06/07/20 History amLODIPine BESYLATE [Norvasc] 10 mg PO DAILY 12/28/14 06/07/20 History atenoloL [Tenormin] 25 mg PO DAILY 12/28/14 06/07/20 History Levothyroxine Sodium [Synthroid] 25 mcg PO DAILY 03/27/15 06/07/20 History Glimepiride [Amaryl] 4 mg PO BID 05/17/15 06/07/20 History Aspirin [Adult Low Dose Aspirin EC] 81 mg PO DAILY 06/29/18 06/07/20 History Albuterol Inhaler [Ventolin Hfa 2 puff INHALATION RT-QID PRN 06/07/20 06/07/20 History Inhaler] Atorvastatin Calcium [Lipitor] 20 mg PO DAILY 06/07/20 06/07/20 History Insulin Glargine,Hum.rec.anlog 20 unit SQ DAILY 06/07/20 06/07/20 History [Basaglar Kwikpen U-100] Levofloxacin [Levaquin] 500 mg PO DAILY 06/07/20 06/07/20 History Tiotropium [place] [Spiriva 2 spray INHALATION RT-DAILY 06/07/20 06/07/20 History Respimat] calcitrioL [Calcitriol] 0.25 mcg PO DAILY 06/07/20 06/07/20 History predniSONE See Taper PO DIRECTED 06/07/20 06/07/20 History lisinopriL 10 mg PO DAILY #0 06/08/20 06/07/20 Rx Allergies Allergy/AdvReac Type Severity Reaction Status Date / Time shellfish derived [Shellfish] Allergy Mild Rash/Hives Verified 06/07/20 14:37 "if consumes alot," per patient Physical Exam Vitals: Vital Signs Temp Pulse Pulse Resp BP BP Pulse Ox 06/08/20 11:39 96 06/08/20 11:25 94 06/08/20 09:00 98.2 F 98 18 147/67 98 06/08/20 07:40 66 06/08/20 07:29 66 06/08/20 03:00 97.9 F 61 16 141/67 99 06/07/20 22:24 68 06/07/20 22:17 66 06/07/20 21:35 98.1 F 69 16 137/50 99 06/07/20 16:30 97.9 F 89 16 157/74 97 06/07/20 16:12 98.9 F 64 16 198/84 98 06/07/20 14:37 97.7 F 63 18 158/70 100 Intake and Output 06/07/20 06/08/20 06/08/20 22:59 06:59 14:59 Output Total 700 Balance -700 Output: Urine 700 Other: # Voids 1 Weight 77.111 kg PHYSICAL EXAMINATION: GENERAL: The patient is alert and oriented x3, not in any acute distress. Well developed, well nourished. HEENT: Pupils are round and equally reacting to light. EOMI. No scleral icterus. No conjunctival pallor. Normocephalic, atraumatic. No pharyngeal erythema. No thyromegaly. CARDIOVASCULAR: S1 and S2 present. No murmurs, rubs, or gallops. PULMONARY: Chest is clear to auscultation, no wheezing or crackles. ABDOMEN: Soft, nontender, nondistended, normoactive bowel sounds. No palpable organomegaly. MUSCULOSKELETAL: No joint swelling or deformity. EXTREMITIES: No cyanosis, clubbing, or pedal edema. NEUROLOGICAL: Gross neurological examination did not reveal any focal deficits. SKIN: No rashes. Results CBC & Chem 7: 06/07/20 14:55 06/08/20 12:25 Labs: Abnormal Lab Results - Last 24 Hours (Table) 06/07/20 06/07/20 06/07/20 Range/Units 14:55 14:55 14:55 WBC 11.2 H (3.8-10.6) k/uL Neutrophils # 10.4 H (1.3-7.7) k/uL Lymphocytes # 0.5 L (1.0-4.8) k/uL Potassium 5.3 H (3.5-5.1) mmol/L Chloride 110 H (98-107) mmol/L Carbon Dioxide 18 L (22-30) mmol/L BUN 74 H (9-20) mg/dL Creatinine 3.05 H (0.66-1.25) mg/dL Glucose 191 H (74-99) mg/dL POC Glucose (mg/dL) (75-99) mg/dL Calcium (8.4-10.2) mg/dL AST 13 L (17-59) U/L Urine Protein 2+ H (Negative) Urine Glucose (UA) Trace H (Negative) Urine Mucus Rare H (None) /hpf 06/07/20 06/08/20 06/08/20 Range/Units 21:47 05:57 12:00 WBC (3.8-10.6) k/uL Neutrophils # (1.3-7.7) k/uL Lymphocytes # (1.0-4.8) k/uL Potassium (3.5-5.1) mmol/L Chloride (98-107) mmol/L Carbon Dioxide (22-30) mmol/L BUN (9-20) mg/dL Creatinine (0.66-1.25) mg/dL Glucose (74-99) mg/dL POC Glucose (mg/dL) 248 H 69 L 199 H (75-99) mg/dL Calcium (8.4-10.2) mg/dL AST (17-59) U/L Urine Protein (Negative) Urine Glucose (UA) (Negative) Urine Mucus (None) /hpf 06/08/20 Range/Units 12:25 WBC (3.8-10.6) k/uL Neutrophils # (1.3-7.7) k/uL Lymphocytes # (1.0-4.8) k/uL Potassium (3.5-5.1) mmol/L Chloride 115 H (98-107) mmol/L Carbon Dioxide 16 L (22-30) mmol/L BUN 67 H (9-20) mg/dL Creatinine 2.77 H (0.66-1.25) mg/dL Glucose 208 H (74-99) mg/dL POC Glucose (mg/dL) (75-99) mg/dL Calcium 7.8 L (8.4-10.2) mg/dL AST (17-59) U/L Urine Protein (Negative) Urine Glucose (UA) (Negative) Urine Mucus (None) /hpf Thrombosis Risk Factor Assmnt - Choose All That Apply Any of the Below Risk Factors Present?: No Other Risk Factors: No Thrombosis Risk Factor Assessment Level: Very Low Risk Assessment and Plan Plan: -Renal failure: Mostly appears to be chronic kidney disease stage IV patient's creatinine is close to his baseline patient will be discharged today. Patient has mild acute renal failure which improved at this time -Hyperkalemia secondary to GHAZAL inhibitor and acute renal failure lisinopril dose will be decreased to 10 mg and patient will be changed to renal light and cardiac diet -Hypertension continue with Norvasc and cutting down the lisinopril as mentioned above -Type 2 diabetes mellitus -COPD -Hyperlipidemia -Hypertension - benign prostatic hypertrophy For above-mentioned chronic medical problems patient can resume his home medications.
--- NOTE | 2020-06-08 14:31 | P.DS ---
Providers Date of admission: 06/07/20 16:06 Attending physician: Shira Gilbert Consults: 06/07/20 15:52 Consult Physician Routine Consulting Provider: Larissa Powell Consult Reason/Comments: dahlia Do you want consulting provider notified?: Yes Primary care physician: Kev Queen [facility] Course: Please refer to my history of present illness for further details Patient Condition at Discharge: Fair Plan - Discharge Summary Discharge Rx Participant: Yes New Discharge Prescriptions: Continue amLODIPine BESYLATE [Norvasc] 10 mg PO DAILY Montelukast [Singulair] 10 mg PO HS atenoloL [Tenormin] 25 mg PO DAILY Levothyroxine Sodium [Synthroid] 25 mcg PO DAILY Glimepiride [Amaryl] 4 mg PO BID Aspirin [Adult Low Dose Aspirin EC] 81 mg PO DAILY Albuterol Inhaler [Ventolin Hfa Inhaler] 2 puff INHALATION RT-QID PRN PRN Reason: Shortness Of Breath Atorvastatin Calcium [Lipitor] 20 mg PO DAILY calcitrioL [Calcitriol] 0.25 mcg PO DAILY Insulin Glargine,Hum.rec.anlog [Basaglar Kwikpen U-100] 20 unit SQ DAILY Levofloxacin [Levaquin] 500 mg PO DAILY Tiotropium [place] [Spiriva Respimat] 2 spray INHALATION RT-DAILY predniSONE See Taper PO DIRECTED Changed lisinopriL 10 mg PO DAILY #0 Discharge Medication List Montelukast [Singulair] 10 mg PO HS 12/28/14 [History] amLODIPine BESYLATE [Norvasc] 10 mg PO DAILY 12/28/14 [History] atenoloL [Tenormin] 25 mg PO DAILY 12/28/14 [History] Levothyroxine Sodium [Synthroid] 25 mcg PO DAILY 03/27/15 [History] Glimepiride [Amaryl] 4 mg PO BID 05/17/15 [History] Aspirin [Adult Low Dose Aspirin EC] 81 mg PO DAILY 06/29/18 [History] Albuterol Inhaler [Ventolin Hfa Inhaler] 2 puff INHALATION RT-QID PRN 06/07/20 [History] Atorvastatin Calcium [Lipitor] 20 mg PO DAILY 06/07/20 [History] Insulin Glargine,Hum.rec.anlog [Basaglar Kwikpen U-100] 20 unit SQ DAILY 06/07/20 [History] Levofloxacin [Levaquin] 500 mg PO DAILY 06/07/20 [History] Tiotropium [place] [Spiriva Respimat] 2 spray INHALATION RT-DAILY 06/07/20 [History] calcitrioL [Calcitriol] 0.25 mcg PO DAILY 06/07/20 [History] predniSONE See Taper PO DIRECTED 06/07/20 [History] lisinopriL 10 mg PO DAILY #0 06/08/20 [Rx] Follow up Appointment(s)/Referral(s): Kev Queen MD [Primary Care Provider] - 3 Days Ambulatory/Diagnostic Orders: Basic Metabolic Panel [LAB.AMB] Time Frame: 2 Days, Location: None Selected Patient Instructions/Handouts: Acute Kidney Injury (GEN) Activity/Diet/Wound Care/Special Instructions: low potassium and cardiac diet Discharge Disposition: HOME SELF-CARE
[2020-06-08 16:21] LABS: Hemoglobin A1C 6.1 % (4.0-6.0)
--- NOTE | 2020-06-13 16:44 | CDI ---
Date: 06.13.2020 CDS/Sound Designer Name: Karma Gonzalez Phone: If any questions, call Vicky Santiago Zumba Instructor at [phone] Patient Name: Mame Banks Admit Date 06.07.20 Discharge Date: 06.08.20 ATTENTION: The [facility] Coding Staff appreciate your assistance in clarifying documentation. Please respond to the clarification below the line at the bottom and electronically sign. The [facility] Coding staff will review the response and follow-up if needed. Please note: Queries are made part of the Legal Health Record. If you have any questions, please contact the Zumba Instructor. Dear Dr. Whelan In order to code to the greatest specificity and for data accuracy I need the following information: On your H&P, you documented under the past medical/surgical history that the pt had a radical prostatectomy 07/2004, then under the assessment and plan, you documented benign prostatic hypertrophy. Please clarify whether pt has history of radical prostatectomy or he indeed does have BPH currently? Thank you for your kind consideration. BPH is past history not current MTDD
== END 2020-06-08 15:00 | disposition home or self-care (01) ==
LOC: EC 14:31 → 1SOBS 16:06
PROVIDERS: ADMIT Hospitalist; ATTEND Hospitalist
DX: I12.9 Hypertensive chronic kidney disease with stage 1 through stage 4 chronic kidney disease, or unspecified chronic kidney disease (principal); N18.4 Chronic kidney disease, stage 4 (severe); N17.9 Acute kidney failure, unspecified; E87.5 Hyperkalemia; E11.22 Type 2 diabetes mellitus with diabetic chronic kidney disease; J44.9 Chronic obstructive pulmonary disease, unspecified; E78.5 Hyperlipidemia, unspecified; Z93.6 Other artificial openings of urinary tract status; D72.829 Elevated white blood cell count, unspecified; M19.90 Unspecified osteoarthritis, unspecified site; I83.90 Asymptomatic varicose veins of unspecified lower extremity; M89.9 Disorder of bone, unspecified; E83.9 Disorder of mineral metabolism, unspecified; M47.892 Other spondylosis, cervical region; Z79.899 Other long term (current) drug therapy; Z79.890 Hormone replacement therapy; Z79.82 Long term (current) use of aspirin; Z79.4 Long term (current) use of insulin; Z91.013 Allergy to seafood; Z85.46 Personal history of malignant neoplasm of prostate; Z85.51 Personal history of malignant neoplasm of bladder; Z85.828 Personal history of other malignant neoplasm of skin; Z85.79 Personal history of other malignant neoplasms of lymphoid, hematopoietic and related tissues; Z87.01 Personal history of pneumonia (recurrent); Z87.81 Personal history of (healed) traumatic fracture; Z86.19 Personal history of other infectious and parasitic diseases; Z98.890 Other specified postprocedural states; Z96.641 Presence of right artificial hip joint; Z90.79 Acquired absence of other genital organ(s); Z90.6 Acquired absence of other parts of urinary tract; Z87.891 Personal history of nicotine dependence; Z80.6 Family history of leukemia
CPT/HCPCS: 96374; 96361; 99284; 36415; 94640 ×3; 80053; 80048; 85025; 81001; 83036; G0378 ×2; J0360; J7512 ×2

== ENCOUNTER → 2020-07-19 | Outpatient (CLI) | payer MEDICARE, BC ==
[2020-07-19 14:53] LABS: Basophils % (A) 1 %; Eosinophils # (A) 0.1 k/uL (0-0.7); Eosinophils % (A) 2 %; HCT 39.1 % (39.0-53.0); HGB 12.3 gm/dL (13.0-17.5); Hypochromasia Slight; Lymphocytes # (A) 0.7 k/uL (1.0-4.8); Lymphocytes % (A) 11 %; MCH 28.6 pg (25.0-35.0); MCHC 31.5 g/dL (31.0-37.0); MCV 90.9 fL (80.0-100.0); Mean Platelet Volume 6.9; Monocytes # (A) 0.3 k/uL (0-1.0); Monocytes % (A) 5 %; Neutrophils # (A) 5.1 k/uL (1.3-7.7); Neutrophils % (A) 81 %; Platelet Count 233 k/uL (150-450); RDW 14.1 % (11.5-15.5); WBC 6.4 k/uL (3.8-10.6)
[2020-07-19 15:03] LABS: Amorphous Sediment,Urine Few /hpf; Appearance,Urine Cloudy (Clear); Bacteria,Urine Many /hpf; Bilirubin,Urine Negative (Negative); Blood,Urine Trace (Negative); Color,Urine Yellow; Glucose,Urine (UA) Negative (Negative); Granular Casts,Urine 24 /lpf (0); Hyaline Casts,Urine 2 /lpf (0-2); Ketones,Urine Negative (Negative); Leukocyte Esterase,Urine Negative (Negative); Mucus,Urine Rare /hpf; Nitrite,Urine Negative (Negative); PH, Urine 6.5 (5.0-8.0); Protein,Urine 3+ (Negative); RBC,Urine 1 /hpf (0-5); Specific Gravity,Urine 1.013 (1.001-1.035); Squamous Epithelial Cell,Urine <1 /hpf (0-4); Urobilinogen,Urine <2.0 mg/dL (<2.0); WBC,Urine 5 /hpf (0-5)
[2020-07-19 20:20] LABS: Ferritin 260.9 ng/mL (22.0-322.0)
[2020-07-19 20:21] LABS: % Iron Saturation 13.79 (15.00-50.00); African American GFR (CKD) 25.3 (60.0-200.0); Albumin 3.6 g/dL (3.80-4.90); Albumin/Globulin Ratio 1.89 (1.60-3.17); Anion Gap 9.7 mmol/L (4.00-12.00); BUN/Creat Ratio 17.69 Ratio (12.00-20.00); Calcium 8.3 mg/dL (8.7-10.3); Carbon Dioxide 18.3 mmol/L (21.6-31.8); Globulin 1.9 g/dL (1.6-3.3); Magnesium 1.7 mg/dL (1.5-2.4); Non-African American GFR(CKD) 21.8 (60.0-200.0); Phosphorus 4.3 mg/dL (2.4-5.1); Potassium 4.4 mmol/L (3.5-5.5); Total Bilirubin 0.3 mg/dL (0.2-1.2); Total Protein 5.5 g/dL (6.2-8.2); Uric Acid 8.8 mg/dL (3.7-8.7)
== END | disposition home or self-care (01) ==
LOC: LABWHC1 13:21
PROVIDERS: ATTEND Nurse Practitioner Family
DX: N39.0 Urinary tract infection, site not specified (principal); N18.4 Chronic kidney disease, stage 4 (severe); D63.1 Anemia in chronic kidney disease; N25.81 Secondary hyperparathyroidism of renal origin; E55.9 Vitamin D deficiency, unspecified; M10.9 Gout, unspecified
CPT/HCPCS: 36415; 80053; 81001; 82306; 82728; 83540; 83550; 83735; 83970; 84100; 84550; 85025

== ENCOUNTER → 2020-07-31 | Outpatient (CLI) | payer MEDICARE, BC ==
--- NOTE | 2020-07-31 16:15 | US ---
EXAMINATION TYPE: US kidneys/renal and bladder DATE OF EXAM: 07/31/2020 COMPARISON: US 2018. CT April 01, 2015 CLINICAL HISTORY: D49.4 Staging for Bladder Cancer. EXAM MEASUREMENTS: Right Kidney: 11.1 x 7.5 x 6.0 cm Left Kidney: 12.1 x 5.1 x 5.9 cm Technically difficult study due to echogenic kidneys are hard to see. Right Kidney: cyst upper pole measures 1.9 x 1.6 x 1.7 cm. thinned cortex. Left Kidney: thinned cortex Bladder: surgically absent Increased cortical echogenicity and cortical thinning bilaterally. Technologist doyle a 1.7 cm simple appearing thin-walled cyst right kidney upper pole level. No hydronephrosis is noted bilaterally. IMPRESSION: Findings of chronic medical renal disease. No hydronephrosis noted bilaterally.
== END | disposition home or self-care (01) ==
LOC: RADUSWWP 15:03
PROVIDERS: ATTEND Urology
DX: D49.4 Neoplasm of unspecified behavior of bladder (principal)
CPT/HCPCS: 76770

== ENCOUNTER → 2020-08-09 | Outpatient (CLI) | payer MEDICARE, BC | END | disposition home or self-care (01) | LOC: LABWHC1 12:08 | PROVIDERS: ATTEND Nurse Practitioner | DX: Z20.828 Contact with and (suspected) exposure to other viral communicable diseases (principal) | CPT/HCPCS: U0003; C9803 ==

== ENCOUNTER 2020-09-06 15:39 | Observation (INO) | payer MEDICARE, BC ==
--- NOTE | 2020-09-06 16:12 | ED ---
General Adult HPI - General Chief complaint: Recheck/Abnormal Lab/Rx Stated complaint: High Potassium Time Seen by Provider: 09/06/20 15:53 Source: patient, RN notes reviewed, Caregiver Mode of arrival: wheelchair Limitations: no limitations - History of Present Illness Initial comments: 84-year-old male with a past medical history of asthma, COPD, diabetes mellitus, hyperlipidemia, hypertension, cancer, stage IV renal disease presents to the emergency room for a chief complaint of high potassium and low kidney function. Patient reports he gets his blood drawn every 2 months at his doctor's office. States that today his doctor told him his potassium was high and his kidney function was lower than normal. He recommended he come to the ER. Patient states he feels completely fine otherwise.Patient has no other complaints at this time including shortness of breath, chest pain, abdominal pain, nausea or vomiting, headache, or visual changes. - Related Data Home Medications Medication Instructions Recorded Confirmed Montelukast [Singulair] 10 mg PO HS 12/28/14 06/07/20 amLODIPine BESYLATE [Norvasc] 10 mg PO DAILY 12/28/14 06/07/20 atenoloL [Tenormin] 25 mg PO DAILY 12/28/14 06/07/20 Levothyroxine Sodium [Synthroid] 25 mcg PO DAILY 03/27/15 06/07/20 Glimepiride [Amaryl] 4 mg PO BID 05/17/15 06/07/20 Aspirin [Adult Low Dose Aspirin EC] 81 mg PO DAILY 06/29/18 06/07/20 Albuterol Inhaler [Ventolin Hfa 2 puff INHALATION RT-QID PRN 06/07/20 06/07/20 Inhaler] Atorvastatin Calcium [Lipitor] 20 mg PO DAILY 06/07/20 06/07/20 Insulin Glargine,Hum.rec.anlog 20 unit SQ DAILY 06/07/20 06/07/20 [Basaglbrianda Mcclellan U-100] Levofloxacin [Levaquin] 500 mg PO DAILY 06/07/20 06/07/20 Tiotropium [place] [Spiriva 2 spray INHALATION RT-DAILY 06/07/20 06/07/20 Respimat] calcitrioL [Calcitriol] 0.25 mcg PO DAILY 06/07/20 06/07/20 predniSONE See Taper PO DIRECTED 06/07/20 06/07/20 Previous Rx's Medication Instructions Recorded lisinopriL 10 mg PO DAILY #0 06/08/20 Allergies Allergy/AdvReac Type Severity Reaction Status Date / Time shellfish derived [Shellfish] Allergy Mild Rash/Hives Verified 09/06/20 15:48 "if consumes alot," per patient Review of Systems ROS Statement: Those systems with pertinent positive or pertinent negative responses have been documented in the HPI. ROS Other: All systems not noted in ROS Statement are negative. Past Medical History Past Medical History: Asthma, Cancer, COPD, Diabetes Mellitus, Hyperlipidemia, Hypertension, Osteoarthritis (OA), Prostate Disorder Additional Past Medical History / Comment(s): VARICOSE VEINS; ARTHRITIS BACK, NECK; HX PROSTATE, BLADDER, SKIN CANDER , PLASMACYTOMA LEFT FEMUR- CANCERS. PNEUMONIA 04/01/15. HAS UROSTOMY , FX RT HIP -2017." RENAL DISEASE STAGE 4 -NO DIALYSIS " Last Myocardial Infarction Date:: 2012- UNSURE- STATES DISCOVERED ON EKG. History of Any Multi-Drug Resistant Organisms: ESBL Date of last positivie culture/infection: 03/26/2015 MDRO Source:: Urine- E.coli ESBL Past Surgical History: Bladder Surgery, Joint Replacement, Prostate Surgery Additional Past Surgical History / Comment(s): EXC LEFT FEMUR CANCER; CHEST TUMOR EXC; RADICAL PROSTATECTOMY 07/2004. , ROBOTIC RADICAL CYSTECTOMY 02/2015- UROSTOMY, COLONOSCOPY, PARTIAL RT HIP REPLACEMENT Past Anesthesia/Blood Transfusion Reactions: No Reported Reaction Past Psychological History: No Psychological Hx Reported Smoking Status: Former smoker Past Alcohol Use History: None Reported Past Drug Use History: None Reported - Past Family History Son(s) Family Medical History: Cancer Additional Family Medical History / Comment(s): LEUKEMIA General Exam Limitations: no limitations General appearance: alert, in no apparent distress Head exam: Present: atraumatic, normocephalic, normal inspection Eye exam: Present: normal appearance, PERRL, EOMI. Absent: scleral icterus, conjunctival injection, periorbital swelling ENT exam: Present: normal exam, mucous membranes moist Neck exam: Present: normal inspection, full ROM. Absent: tenderness, meningismus, lymphadenopathy Respiratory exam: Present: normal lung sounds bilaterally. Absent: respiratory distress, wheezes, rales, rhonchi, stridor Cardiovascular Exam: Present: regular rate, normal rhythm, normal heart sounds. Absent: systolic murmur, diastolic murmur, rubs, gallop, clicks GI/Abdominal exam: Present: soft, normal bowel sounds. Absent: distended, tenderness, guarding, rebound, rigid Course Vital Signs 09/06/20 15:45 Temperature 97.9 F Pulse Rate 104 H Respiratory 18 Rate Blood Pressure 152/83 O2 Sat by Pulse 100 Oximetry EKG Findings - EKG Comments: EKG Findings:: Sinus rhythm, ventricular rate 91, OH interval 166, QTC 496 Medical Decision Making - Medical Decision Making Vitals are stable. Patient was sent over by his doctor for his high potassium. In the office it was 6.1. Today in the ER it is 5.3 which is improved. Creatinine however has remained elevated at 3.46. EKG does not show any acute hyperkalemic changes. This was compared to previous EKG from 03/03/2019. I did discuss this case with Dr. Bret Campbell's nurse practitioner who does wish to admit the patient. I discussed this with patient and he does agree to stay in the hospital for further management. Patient was given calcium as well as insulin/dextrose. His potassium will be rechecked in 4 hours and again tomorrow morning. - Lab Data Result diagrams: 09/06/20 16:02 09/06/20 16:02 Lab Results 09/06/20 09/06/20 Range/Units 16:02 16:02 WBC 7.7 (3.8-10.6) k/uL RBC 4.37 (4.30-5.90) m/uL Hgb 12.5 L (13.0-17.5) gm/dL Hct 37.5 L (39.0-53.0) % MCV 86.0 (80.0-100.0) fL MCH 28.6 (25.0-35.0) pg MCHC 33.3 (31.0-37.0) g/dL RDW 14.2 (11.5-15.5) % Plt Count 303 (150-450) k/uL MPV 6.8 Neutrophils % 77 % Lymphocytes % 11 % Monocytes % 5 % Eosinophils % 6 % Basophils % 0 % Neutrophils # 5.9 (1.3-7.7) k/uL Lymphocytes # 0.8 L (1.0-4.8) k/uL Monocytes # 0.4 (0-1.0) k/uL Eosinophils # 0.5 (0-0.7) k/uL Basophils # 0.0 (0-0.2) k/uL Sodium 138 (137-145) mmol/L Potassium 5.3 H (3.5-5.1) mmol/L Chloride 112 H (98-107) mmol/L Carbon Dioxide 18 L (22-30) mmol/L Anion Gap 8 mmol/L BUN 73 H (9-20) mg/dL Creatinine 3.46 H (0.66-1.25) mg/dL Est GFR (CKD-EPI)AfAm 18 (>60 ml/min/1.73 sqM) Est GFR (CKD-EPI)NonAf 15 (>60 ml/min/1.73 sqM) Glucose 276 H (74-99) mg/dL Calcium 8.4 (8.4-10.2) mg/dL Magnesium 2.0 (1.6-2.3) mg/dL Total Bilirubin 0.4 (0.2-1.3) mg/dL AST 14 L (17-59) U/L ALT 9 (4-49) U/L Alkaline Phosphatase 135 H (38-126) U/L Total Protein 6.6 (6.3-8.2) g/dL Albumin 3.6 (3.5-5.0) g/dL Disposition Clinical Impression: Hyperkalemia, Acute on chronic renal failure Disposition: ADMITTED IP TO THIS HOSP Is patient prescribed a controlled substance at d/c from ED?: No Referrals: Kev Queen MD [Primary Care Provider] - 1-2 days Time of Disposition: 17:00
[2020-09-06 16:19] LABS: Basophils % (A) 0 %; Eosinophils # (A) 0.5 k/uL (0-0.7); Eosinophils % (A) 6 %; HCT 37.5 % (39.0-53.0); HGB 12.5 gm/dL (13.0-17.5); Lymphocytes # (A) 0.8 k/uL (1.0-4.8); Lymphocytes % (A) 11 %; MCH 28.6 pg (25.0-35.0); MCHC 33.3 g/dL (31.0-37.0); Mean Platelet Volume 6.8; Monocytes # (A) 0.4 k/uL (0-1.0); Monocytes % (A) 5 %; Neutrophils # (A) 5.9 k/uL (1.3-7.7); Neutrophils % (A) 77 %; Platelet Count 303 k/uL (150-450); RBC 4.37 m/uL (4.30-5.90); RDW 14.2 % (11.5-15.5); WBC 7.7 k/uL (3.8-10.6)
[2020-09-06 16:34] LABS: Albumin 3.6 g/dL (3.5-5.0); Calcium 8.4 mg/dL (8.4-10.2); Potassium 5.3 mmol/L (3.5-5.1); Total Bilirubin 0.4 mg/dL (0.2-1.3); Total Protein 6.6 g/dL (6.3-8.2)
[2020-09-06] MEDS ORDERED: INSULIN REGULAR 100 UNIT/ML VIAL IV ONE (16:52)
[2020-09-06] MEDS ORDERED: CALCIUM GLUCONATE 1 GM in SODIUM CHLORIDE 0.9% 100 ML IVPB ONE (16:52)
[2020-09-06] MEDS ORDERED: DEXTROSE 50% SYRINGE 50 ML IVP ONE (16:52)
[2020-09-06] MEDS ORDERED: NALOXONE 0.4 MG/ML 1 ML VIAL IV PRN (16:54)
[2020-09-06] MEDS: SODIUM CHLORIDE 0.9% 1,000 ML IV STA (17:06)
[2020-09-06 17:11] LABS: Glucose,Whole Blood 261 mg/dL (75-99)
[2020-09-06] MEDS: INSULIN ASPART (NovoLOG) 100 UNIT/ML VIAL SQ SCH (17:56)
[2020-09-06 21:31] LABS: Glucose,Whole Blood 83 mg/dL (75-99)
[2020-09-06] MEDS: MONTELUKAST 10 MG TAB PO SCH (21:42)
[2020-09-06] MEDS: ATORVASTATIN 20 MG TAB PO SCH (21:42)
[2020-09-07 07:44] LABS: Glucose,Whole Blood 142 mg/dL (75-99)
[2020-09-07] MEDS: IPRATROPIUM 0.5 MG/2.5 ML NEBU INHALATION SCH ×4 (07:52→20:42)
[2020-09-07] MEDS: SYMBICORT 160-4.5 MCG INHALER INHALATION SCH ×2 (07:52→20:42)
[2020-09-07] MEDS: INSULIN DETEMIR (LEVEMIR) 100 UNIT/ML SYR SQ SCH (07:56)
[2020-09-07] MEDS: INSULIN ASPART (NovoLOG) 100 UNIT/ML VIAL SQ SCH ×5 (08:04→22:45)
[2020-09-07] MEDS: atenoloL 25 MG TAB PO SCH ×2 (08:06→08:13)
[2020-09-07] MEDS: amLODIPine 10 MG TAB PO SCH (08:13)
[2020-09-07 11:36] LABS: Basophils % (A) 0 %; Eosinophils # (A) 0.5 k/uL (0-0.7); Eosinophils % (A) 7 %; HCT 33.2 % (39.0-53.0); HGB 10.8 gm/dL (13.0-17.5); Lymphocytes # (A) 0.7 k/uL (1.0-4.8); Lymphocytes % (A) 11 %; MCHC 32.6 g/dL (31.0-37.0); MCV 85.7 fL (80.0-100.0); Monocytes # (A) 0.3 k/uL (0-1.0); Monocytes % (A) 5 %; Neutrophils % (A) 75 %; Platelet Count 253 k/uL (150-450); RBC 3.88 m/uL (4.30-5.90); RDW 14.5 % (11.5-15.5); WBC 6.7 k/uL (3.8-10.6)
[2020-09-07 12:25] LABS: Glucose,Whole Blood 211 mg/dL (75-99)
[2020-09-07] MEDS: SODIUM CHLORIDE 0.9% 1,000 ML IV STA (12:41)
--- NOTE | 2020-09-07 14:43 | P.NPCON ---
History of Present Illness - Reason for Consult Consult date: 09/07/20 acute renal failure, hyperkalemia - Chief Complaint Abnormal labs - History of Present Illness Presented to the hospital with abnormal labs. He has history of CK D stage IV with a baseline creatinine around 3.0 MG per DL. He has prostate cancer status post cystectomy with ileo-loop urostomy. String of hyperkalemia in the past. Currently creatinine slightly higher than baseline. Also takes lisinopril 20 mg twice a day at home. Unable to get a good history. No recent contrast studies or NSAID use. Currently on IV fluids Review of Systems Constitutional: Reports as per HPI Past Medical History Past Medical History: Asthma, Cancer, COPD, Diabetes Mellitus, Hyperlipidemia, Hypertension, Osteoarthritis (OA), Prostate Disorder Additional Past Medical History / Comment(s): VARICOSE VEINS; ARTHRITIS BACK, NECK; HX PROSTATE, BLADDER, (4 -5 years ago) & SKIN CANCER (4-5 yrs ago) , PLASMACYTOMA LEFT FEMUR- CANCERS. PNEUMONIA 04/01/15. HAS UROSTOMY , FX RT HIP -2017." RENAL DISEASE STAGE 4 -NO DIALYSIS as yet not at that advanced stage" Last Myocardial Infarction Date:: 2012- UNSURE- STATES DISCOVERED ON EKG. History of Any Multi-Drug Resistant Organisms: ESBL Date of last positivie culture/infection: 03/26/2015 MDRO Source:: Urine- E.coli ESBL Past Surgical History: Bladder Surgery, Joint Replacement, Prostate Surgery Additional Past Surgical History / Comment(s): EXC LEFT FEMUR CANCER; CHEST TUMOR EXC; RADICAL PROSTATECTOMY 07/2004. , ROBOTIC RADICAL CYSTECTOMY 02/2015- UROSTOMY, COLONOSCOPY, PARTIAL RT HIP REPLACEMENT Past Anesthesia/Blood Transfusion Reactions: No Reported Reaction Past Psychological History: No Psychological Hx Reported Smoking Status: Former smoker Past Alcohol Use History: None Reported Additional Past Alcohol Use History / Comment(s): STARTED AGE 14 QUIT 8 S MOKED 1PPD Past Drug Use History: None Reported - Past Family History Son(s) Family Medical History: Cancer Additional Family Medical History / Comment(s): LEUKEMIA Medications and Allergies Home Medications Medication Instructions Recorded Confirmed Type Montelukast [Singulair] 10 mg PO HS 12/28/14 09/06/20 History amLODIPine BESYLATE [Norvasc] 10 mg PO DAILY 12/28/14 09/06/20 History atenoloL [Tenormin] 25 mg PO DAILY 12/28/14 09/06/20 History Glimepiride [Amaryl] 4 mg PO BID 05/17/15 09/06/20 History Albuterol Inhaler [Ventolin Hfa 2 puff INHALATION RT-QID PRN 06/07/20 09/06/20 History Inhaler] Atorvastatin Calcium [Lipitor] 20 mg PO HS 06/07/20 09/06/20 History Insulin Glargine,Hum.rec.anlog 20 unit SQ DAILY 06/07/20 09/06/20 History [Basaglar Kwikpen U-100] Tiotropium [place] [Spiriva 2 spray INHALATION RT-DAILY 06/07/20 09/06/20 History Respimat] calcitrioL [Calcitriol] 0.25 mcg PO DAILY 06/07/20 09/06/20 History Fluticasone Propion/Salmeterol 1 puff INHALATION RT-BID 09/06/20 09/06/20 His tory [Wixela 500-50 Inhub] lisinopriL 20 mg PO BID 09/06/20 09/06/20 History Allergies Allergy/AdvReac Type Severity Reaction Status Date / Time shellfish derived [Shellfish] Allergy Mild Rash/Hives Verified 09/06/20 17:32 "if consumes alot," per patient Physical Exam Vitals: Vital Signs Temp Pulse Pulse Resp BP BP BP 09/07/20 11:29 83 09/07/20 11:20 81 09/07/20 08:28 97.1 F L 79 16 191/78 09/07/20 08:05 86 09/07/20 07:55 87 09/07/20 02:31 97.2 F L 65 16 182/69 09/06/20 23:15 98.4 F 64 20 142/66 09/06/20 20:30 20 09/06/20 20:00 97.8 F 74 20 179/80 09/06/20 18:55 97.0 F L 16 145/78 09/06/20 18:02 86 16 154/89 09/06/20 15:45 97.9 F 104 H 18 152/83 Pulse Ox 09/07/20 11:29 09/07/20 11:20 09/07/20 08:28 09/07/20 08:05 09/07/20 07:55 09/07/20 02:31 99 09/06/20 23:15 100 09/06/20 20:30 09/06/20 20:00 98 09/06/20 18:55 09/06/20 18:02 97 09/06/20 15:45 100 Intake and Output 09/06/20 09/07/20 09/07/20 22:59 06:59 14:59 Intake Total 360 550 Output Total 1250 600 Balance 360 -700 -600 Intake: Intake, IV Titration 550 Amount Sodium Chloride 0.9% 1, 550 000 ml @ 50 mls/hr IV . Q20H STA Rx#:[id number] Oral 360 Output: Urine 1250 600 Other: Voiding Method Ileal Conduit (Right) # Bowel Movements 1 Weight 78.018 kg 78.018 kg No acute distress S1-S2 heard Lungs clear Abdomen soft with urostomy bag No edema Results - Lab Results Most recent lab results Calcium 8.4 mg/dL (8.4-10.2) 09/06/20 16:02 Magnesium 2.0 mg/dL (1.6-2.3) 09/06/20 16:02 09/07/20 11:14 09/06/20 21:11 Assessment and Plan Assessment: #1 nonoliguric acute kidney injury suspect prerenal process. #2 hyperkalemia recurrent secondary to lisinopril. Rule out obstruction #3 metabolic acidosis secondary to acute kidney injury #4 prostate cancer status post cystectomy with ileostomy loop #5 chronic kidney disease stage IV with a baseline creatinine around 3.0 MG per DL. Plan: #1 continue with IV fluids, change to bicarb drip at 75 ML's an hour. #2 check renal ultrasound to rule out hydronephrosis #3 urine analysis, urine electrolytes. #4 medical management for hyperkalemia #5 labs in the morning
--- NOTE | 2020-09-07 15:38 | US ---
EXAMINATION TYPE: US kidneys/renal and bladder DATE OF EXAM: 09/07/2020 COMPARISON: US CLINICAL HISTORY: hydronephrosis. history of bladder cancer. EXAM MEASUREMENTS: Right Kidney: 8.9 x 5.9 x 4.5 cm Left Kidney: 13.2 x 4.3 x 4.9 cm Kidneys are difficult to visualize. Left kidney is enlarged as compared to right. Right Kidney: upper pole cyst measures 2.1 x 1.9 x 2.1 cm Left Kidney: lower pole cyst measures 1.0 x 1.0 x 1.4 cm Bladder: surgically absent IMPRESSION: No evidence of a solid renal mass. Small renal cortical cysts. No evidence of renal obstruction.
[2020-09-07 16:40] LABS: Amorphous Sediment,Urine Rare /hpf; Appearance,Urine Turbid (Clear); Bacteria,Urine Many /hpf; Bilirubin,Urine Negative (Negative); Blood,Urine Trace (Negative); Color,Urine Light Yellow; Glucose,Urine (UA) Negative (Negative); Ketones,Urine Negative (Negative); Leukocyte Esterase,Urine Large (Negative); Nitrite,Urine Negative (Negative); Protein,Urine 2+ (Negative); RBC,Urine 3 /hpf (0-5); Specific Gravity,Urine 1.012 (1.001-1.035); Urobilinogen,Urine <2.0 mg/dL (<2.0); WBC,Urine 73 /hpf (0-5)
[2020-09-07 16:45] LABS: Glucose,Whole Blood 107 mg/dL (75-99)
[2020-09-07 17:37] LABS: ALT 8 U/L (4-49); AST 13 U/L (17-59); African American GFR (CKD) 20 (>60 ml/min/1.73 sqM); Albumin 2.9 g/dL (3.5-5.0); Albumin/Globulin Ratio 1.1; Alkaline Phosphatase 106 U/L (38-126); Anion Gap 4 mmol/L; Blood Urea Nitrogen 66 mg/dL (9-20); Carbon Dioxide 19 mmol/L (22-30); Chloride 114 mmol/L (98-107); Globulin 2.7 g/dL; Glucose 110 mg/dL (74-99); Non-African American GFR(CKD) 18 (>60 ml/min/1.73 sqM); Sodium 137 mmol/L (137-145); Total Bilirubin 0.4 mg/dL (0.2-1.3); Total Protein 5.6 g/dL (6.3-8.2)
[2020-09-07 18:15] LABS: Potassium 6.3 mmol/L (3.5-5.1)
[2020-09-07] MEDS ORDERED: SODIUM POLYSTYRENE SULFONATE 15 GM/60 ML BOTTLE PO STA (18:28)
[2020-09-07] MEDS ORDERED: DEXTROSE 50% SYRINGE 50 ML IVP STA (18:29)
[2020-09-07] MEDS ORDERED: SODIUM POLYSTYRENE SULFONATE 15 GM/60 ML BOTTLE PO ONE (18:31)
[2020-09-07] MEDS ORDERED: INSULIN REGULAR 100 UNIT/ML VIAL IV ONE (18:31)
[2020-09-07] MEDS ORDERED: DEXTROSE 50% SYRINGE 50 ML IVP ONE (18:31)
[2020-09-07 19:06] LABS: African American GFR (CKD) 21.3 (60.0-200.0); Albumin 3.3 g/dL (3.80-4.90); Albumin/Globulin Ratio 1.74 (1.60-3.17); Anion Gap 6.2 mmol/L (4.00-12.00); Calcium 8.3 mg/dL (8.7-10.3); Carbon Dioxide 18.8 mmol/L (21.6-31.8); Globulin 1.9 g/dL (1.6-3.3); Magnesium 1.9 mg/dL (1.5-2.4); Non-African American GFR(CKD) 18.4 (60.0-200.0); Potassium 5.6 mmol/L (3.5-5.5); Total Bilirubin 0.2 mg/dL (0.3-1.2); Total Protein 5.2 g/dL (6.2-8.2)
[2020-09-07 19:13] LABS: Glucose,Whole Blood 166 mg/dL (75-99)
[2020-09-07] MEDS: DEXTROSE 5% IN WATER 1,000 ML with SODIUM BICARB (1 MEQ/ML) 150 ML IV SCH (19:20)
[2020-09-07] MEDS: ATORVASTATIN 20 MG TAB PO SCH (20:09)
[2020-09-07] MEDS: MONTELUKAST 10 MG TAB PO SCH (20:09)
[2020-09-07 20:30] LABS: Glucose,Whole Blood 137 mg/dL (75-99)
--- NOTE | 2020-09-07 21:22 | P.HPIM ---
History of Present Illness H&P Date: 09/07/20 Chief Complaint: Hyperkalemia Patient is a 84-year-old male with a known history of hypertension, hyperlipidemia, diabetes type 2 insulin-dependent, osteoarthritis, COPD, chronic kidney disease stage IV, history of prostate, bladder cancer status post radical prostatectomy and cystectomy with urostomy and previous history of plasmacytoma left femur and previous history of smoking and other multiple medical problems was sent to ER by his primary care physician due to acute kidney injury and elevated potassium level. Patient states that he recently had blood test done h is primary care physician's office. Patient states that he has been feeling weak recently. Denied any complaints of nausea vomiting or diarrhea. No complaints of abdominal pain. No complaints of chest pain or shortness of breath. Laboratory data showed WBC 6.7, hemoglobin 10.8, platelets 253, sodium 140, potassium 5.6 and chloride 115, BUN 72 and creatinine 3.0 Blood sugar is 214 Review of Systems Constitutional: Patient denies any fever or chills . generalized weakness present. Abdomen: Patient denied nausea vomiting and diarrhea and abdominal pain. Cardiovascular: Patient denies any chest pain or short of breath no palpitations. Respiratory: patient denied any cough or sputum production. No shortness of breath Neurologic: Patient denied any numbness or tingling headache. Musculoskeletal: Patient denies any complaints of joint swelling or deformity. Skin: Negative Psychiatric: Negative Endocrine: No heat or cold intolerance. No recent weight gain. Genitourinary: No dysuria or hematuria. All other 14 point ROS negative except the above Past Medical History Past Medical History: Asthma, Cancer, COPD, Diabetes Mellitus, Hyperlipidemia, Hypertension, Osteoarthritis (OA), Prostate Disorder Additional Past Medical History / Comment(s): VARICOSE VEINS; ARTHRITIS BACK, NECK; HX PROSTATE, BLADDER, (4 -5 years ago) & SKIN CANCER (4-5 yrs ago) , PLASMACYTOMA LEFT FEMUR- CANCERS. PNEUMONIA 04/01/15. HAS UROSTOMY , FX RT HIP -2018." RENAL DISEASE STAGE 4 -NO DIALYSIS as yet not at that advanced stage" Last Myocardial Infarction Date:: 2012- UNSURE- STATES DISCOVERED ON EKG. History of Any Multi-Drug Resistant Organisms: ESBL Date of last positivie culture/infection: 03/26/2015 MDRO Source:: Urine- E.coli ESBL Past Surgical History: Bladder Surgery, Joint Replacement, Prostate Surgery Additional Past Surgical History / Comment(s): EXC LEFT FEMUR CANCER; CHEST TUMOR EXC; RADICAL PROSTATECTOMY 07/2004. , ROBOTIC RADICAL CYSTECTOMY 02/2015- UROSTOMY, COLONOSCOPY, PARTIAL RT HIP REPLACEMENT Past Anesthesia/Blood Transfusion Reactions: No Reported Reaction Past Psychological History: No Psychological Hx Reported Smoking Status: Former smoker Past Alcohol Use History: None Reported Additional Past Alcohol Use History / Comment(s): STARTED AGE 14 QUIT 8 SMOKED 1PPD Past Drug Use History: None Reported - Past Family History Son(s) Family Medical History: Cancer Additional Family Medical History / Comment(s): LEUKEMIA Medications and Allergies Home Medications Medication Instructions Recorded Confirmed Type Montelukast [Singulair] 10 mg PO HS 12/28/14 09/06/20 History amLODIPine BESYLATE [Norvasc] 10 mg PO DAILY 12/28/14 09/06/20 History atenoloL [Tenormin] 25 mg PO DAILY 12/28/14 09/06/20 History Glimepiride [Amaryl] 4 mg PO BID 05/17/15 09/06/20 History Albuterol Inhaler [Ventolin Hfa 2 puff INHALATION RT-QID PRN 06/07/20 09/06/20 History Inhaler] Atorvastatin Calcium [Lipitor] 20 mg PO HS 06/07/20 09/06/20 History Insulin Glargine,Hum.rec.anlog 20 unit SQ DAILY 06/07/20 09/06/20 History [Basaglar Kwikpen U-100] Tiotropium [place] [Spiriva 2 spray INHALATION RT-DAILY 06/07/20 09/06/20 History Respimat] calcitrioL [Calcitriol] 0.25 mcg PO DAILY 06/07/20 09/06/20 History Fluticasone Propion/Salmeterol 1 puff INHALATION RT-BID 09/06/20 09/06/20 History [Wixela 500-50 Inhub] lisinopriL 20 mg PO BID 09/06/20 09/06/20 History Allergies Allergy/AdvReac Type Severity Reaction Status Date / Time shellfish derived [Shellfish] Allergy Mild Rash/Hives Verified 09/06/20 17:32 "if consumes alot," per patient Physical Exam Vitals: Vital Signs Temp Pulse Pulse Resp BP BP BP 09/07/20 11:29 83 09/07/20 11:20 81 09/07/20 08:28 97.1 F L 79 16 191/78 09/07/20 08:05 86 09/07/20 07:55 87 09/07/20 02:31 97.2 F L 65 16 182/69 09/06/20 23:15 98.4 F 64 20 142/66 09/06/20 20:30 20 09/06/20 20:00 97.8 F 74 20 179/80 09/06/20 18:55 97.0 F L 16 145/78 09/06/20 18:02 86 16 154/89 09/06/20 15:45 97.9 F 104 H 18 152/83 Pulse Ox 09/07/20 11:29 09/07/20 11:20 09/07/20 08:28 09/07/20 08:05 09/07/20 07:55 09/07/20 02:31 99 09/06/20 23:15 100 09/06/20 20:30 09/06/20 20:00 98 09/06/20 18:55 09/06/20 18:02 97 09/06/20 15:45 100 Intake and Output 09/06/20 09/07/20 09/07/20 22:59 06:59 14:59 Intake Total 360 550 Output Total 1250 600 Balance 360 -700 -600 Intake: Intake, IV Titration 550 Amount Sodium Chloride 0.9% 1, 550 000 ml @ 50 mls/hr IV . Q20H STA Rx#:[id number] Oral 360 Output: Urine 1250 600 Other: Voiding Method Ileal Conduit (Right) # Bowel Movements 1 Weight 78.018 kg 78.018 kg PHYSICAL EXAMINATION: Patient is lying in the bed comfortably, no acute distress, awake alert and oriented.. HEENT: Normocephalic. Neck is supple. Pupils reactive. Nostrils clear. Oral cavity is moist. Ears reveal no drainage. Neck reveals no JVD, carotid bruits, or thyromegaly. CHEST EXAMINATION: Trachea is central. Symmetrical expansion. Lung cline clear to auscultation and percussion. CARDIAC: Normal S1, S2 with no gallops. No murmurs ABDOMEN: Soft. Bowel sounds normal. No organomegaly. No abdominal bruits. Extremities: reveal no edema. No clubbing or cyanosis Neurologically awake, alert, oriented x3 with well-coordinated movements. No focal deficits noted Skin: No rash or skin lesions. Psychiatric: Coperative. Nonsuicidal Musculoskeletal: No joint swelling or deformity. Normal range of motion. Results CBC & Chem 7: 09/07/20 11:14 09/07/20 16:57 Labs: Abnormal Lab Results - Last 24 Hours (Table) 09/06/20 09/06/20 09/06/20 Range/Units 16:02 16:02 17:03 RBC (4.30-5.90) m/uL Hgb 12.5 L (13.0-17.5) gm/dL Hct 37.5 L (39.0-53.0) % Lymphocytes # 0.8 L (1.0-4.8) k/uL Potassium 5.3 H (3.5-5.1) mmol/L Chloride 112 H (98-107) mmol/L Carbon Dioxide 18 L (22-30) mmol/L BUN 73 H (9-20) mg/dL Creatinine 3.46 H (0.66-1.25) mg/dL Glucose 276 H (74-99) mg/dL POC Glucose (mg/dL) 261 H (75-99) mg/dL AST 14 L (17-59) U/L Alkaline Phosphatase 135 H (38-126) U/L 09/06/20 09/07/20 09/07/20 Range/Units 21:11 07:42 11:14 RBC 3.88 L (4.30-5.90) m/uL Hgb 10.8 L (13.0-17.5) gm/dL Hct 33.2 L (39.0-53.0) % Lymphocytes # 0.7 L (1.0-4.8) k/uL Potassium 5.3 H (3.5-5.1) mmol/L Chloride (98-107) mmol/L Carbon Dioxide (22-30) mmol/L BUN (9-20) mg/dL Creatinine (0.66-1.25) mg/dL Glucose (74-99) mg/dL POC Glucose (mg/dL) 142 H (75-99) mg/dL AST (17-59) U/L Alkaline Phosphatase (38-126) U/L 09/07/20 Range/Units 12:24 RBC (4.30-5.90) m/uL Hgb (13.0-17.5) gm/dL Hct (39.0-53.0) % Lymphocytes # (1.0-4.8) k/uL Potassium (3.5-5.1) mmol/L Chloride (98-107) mmol/L Carbon Dioxide (22-30) mmol/L BUN (9-20) mg/dL Creatinine (0.66-1.25) mg/dL Glucose (74-99) mg/dL POC Glucose (mg/dL) 211 H (75-99) mg/dL AST (17-59) U/L Alkaline Phosphatase (38-126) U/L Thrombosis Risk Factor Assmnt - DVT/VTE Prophylaxis DVT/VTE Prophylaxis: Pharmacologic Prophylaxis ordered - Choose All That Apply Each Risk Factor Represents 3 Points: Age 75 years or older Other congenital or acquired thrombophilia - If yes, enter type in comment: No Thrombosis Risk Factor Assessment Total Risk Factor Score: 3 Thrombosis Risk Factor Assessment Level: Moderate Risk Assessment and Plan Assessment: Acute on chronic kidney disease stage IV Hyperkalemia secondary to acute kidney injury nonoliguric Uncontrolled hypertension Diabetes type 2 insulin-dependent History of prostate and bladder cancer status post prostatectomy, radical cystectomy and urostomy placement. Hyperlipidemia Asthma/COPD Previous history of smoking DVT prophylaxis with heparin subcu Plan: Patient will be continued IV hydration and monitor renal function. Patient was given insulin/dextrose for hyperkalemia and follow-up repeat potassium level. Nephrology was consulted. Continue with blood pressure medications including Norvasc and atenolol. Insulin sliding scale and continue with Levemir. Lisinopril is on hold due to hyperkalemia. Follow-up CBC and BMP and further recommendations based on clinical course. Time with Patient: Greater than 30
[2020-09-07 21:50] LABS: Glucose,Whole Blood 145 mg/dL (75-99)
[2020-09-07] MEDS: hydrALAZINE HCL 25 MG TAB PO SCH (22:47)
[2020-09-08 06:17] LABS: Glucose,Whole Blood 144 mg/dL (75-99)
[2020-09-08 07:39] LABS: Glucose,Whole Blood 152 mg/dL (75-99)
[2020-09-08] MEDS: INSULIN DETEMIR (LEVEMIR) 100 UNIT/ML SYR SQ SCH (08:10)
[2020-09-08] MEDS: INSULIN ASPART (NovoLOG) 100 UNIT/ML VIAL SQ SCH ×4 (08:15→23:16)
[2020-09-08] MEDS: ALBUTEROL NEBULIZED 2.5 MG/3 ML INHALATION PRN ×2 (08:40→12:53)
[2020-09-08] MEDS: SYMBICORT 160-4.5 MCG INHALER INHALATION SCH ×2 (08:40→20:34)
[2020-09-08] MEDS: IPRATROPIUM 0.5 MG/2.5 ML NEBU INHALATION SCH ×4 (08:41→20:34)
[2020-09-08 09:18] LABS: Basophils % (A) 1 %; Eosinophils # (A) 0.6 k/uL (0-0.7); Eosinophils % (A) 8 %; HGB 10.5 gm/dL (13.0-17.5); Lymphocytes # (A) 0.7 k/uL (1.0-4.8); Lymphocytes % (A) 10 %; MCH 28.2 pg (25.0-35.0); MCHC 32.9 g/dL (31.0-37.0); MCV 85.7 fL (80.0-100.0); Mean Platelet Volume 6.9; Monocytes # (A) 0.3 k/uL (0-1.0); Monocytes % (A) 5 %; Neutrophils # (A) 5.1 k/uL (1.3-7.7); Neutrophils % (A) 76 %; Platelet Count 249 k/uL (150-450); RBC 3.74 m/uL (4.30-5.90); RDW 14.4 % (11.5-15.5); WBC 6.8 k/uL (3.8-10.6)
[2020-09-08 09:25] LABS: ALT 8 U/L (4-49); AST 11 U/L (17-59); African American GFR (CKD) 23 (>60 ml/min/1.73 sqM); Albumin 2.6 g/dL (3.5-5.0); Alkaline Phosphatase 100 U/L (38-126); Anion Gap 5 mmol/L; Blood Urea Nitrogen 60 mg/dL (9-20); Calcium 7.8 mg/dL (8.4-10.2); Carbon Dioxide 23 mmol/L (22-30); Chloride 108 mmol/L (98-107); Globulin 2.5 g/dL; Glucose 217 mg/dL (74-99); Magnesium 1.7 mg/dL (1.6-2.3); Non-African American GFR(CKD) 20 (>60 ml/min/1.73 sqM); Potassium 5.3 mmol/L (3.5-5.1); Sodium 136 mmol/L (137-145); Total Bilirubin 0.4 mg/dL (0.2-1.3); Total Protein 5.1 g/dL (6.3-8.2)
[2020-09-08] MEDS: atenoloL 25 MG TAB PO SCH (09:42)
[2020-09-08] MEDS: amLODIPine 10 MG TAB PO SCH (09:42)
[2020-09-08] MEDS: hydrALAZINE HCL 25 MG TAB PO SCH ×4 (09:43→21:32)
[2020-09-08] MEDS: DEXTROSE 5% IN WATER 1,000 ML with SODIUM BICARB (1 MEQ/ML) 150 ML IV SCH (09:55)
[2020-09-08 11:49] LABS: Glucose,Whole Blood 235 mg/dL (75-99)
--- NOTE | 2020-09-08 14:29 | P.PN ---
Subjective Progress Note Date: 09/08/20 Follow-up for acute kidney injury. Feeling better. Sitting in the chair. No nausea vomiting diarrhea. Objective - Vital Signs Vital signs: Vital Signs Temp 97.6 F 09/08/20 08:15 Pulse 83 09/08/20 13:03 Resp 16 09/08/20 08:15 BP 157/72 09/08/20 08:15 Pulse Ox 98 09/08/20 08:15 Intake & Output 09/07/20 09/08/20 09/08/20 18:59 06:59 18:59 Intake Total 530 1235 486 Output Total 600 1700 Balance -70 -465 486 Intake: Intake, IV Titration 875 Amount Dextrose 5% in Water 1, 825 000 ml @ 75 mls/hr IV . [id number] WOLFGANG with Sodium Bicarb (1 Meq/ml) 150 ml Rx#:[id number] cefTRIAXone 1 gm In 50 Sodium Chloride 0.9% 50 ml @ 100 mls/hr IVPB Q24H WOLFGANG Rx#:[id number] Oral 530 360 486 Output: Urine 600 1700 Other: Voiding Method Ileal Conduit (Right) Ileal Conduit (Right) # Bowel Movements 1 - Exam No acute distress. S1-S2 heard Diminished breath sounds Urostomy bag right iliac fossa Trace edema - Labs CBC & Chem 7: 09/08/20 08:49 09/08/20 08:49 Labs: Abnormal Lab Results - Last 24 Hours (Table) 09/07/20 09/07/20 09/07/20 Range/Units 11:14 16:04 16:43 RBC (4.30-5.90) m/uL Hgb (13.0-17.5) gm/dL Hct (39.0-53.0) % Lymphocytes # (1.0-4.8) k/uL Sodium (137-145) mmol/L Potassium 5.6 H (3.5-5.5) mmol/L Chloride 115 H (96-109) mmol/L Carbon Dioxide 18.8 L (21.6-31.8) mmol/L BUN 72.0 H (9.0-27.0) mg/dL Creatinine 3.0 H (0.6-1.5) mg/dL Est GFR (CKD-EPI)AfAm 21.3 L (60.0-200.0) Est GFR (CKD-EPI)NonAf 18.4 L (60.0-200.0) BUN/Creatinine Ratio 24.00 H (12.00-20.00) Ratio Glucose 214 H (70-110) mg/dL POC Glucose (mg/dL) 107 H (75-99) mg/dL Calcium 8.3 L (8.7-10.3) mg/dL Total Bilirubin 0.2 L (0.3-1.2) mg/dL AST 9 L (14-35) U/L Alkaline Phosphatase 127 H (41-126) U/L Total Protein 5.2 L (6.2-8.2) g/dL Albumin 3.30 L (3.80-4.90) g/dL Urine Protein 2+ H (Negative) Urine Blood Trace H (Negative) Ur Leukocyte Esterase Large H (Negative) Urine WBC 73 H (0-5) /hpf Urine WBC Clumps Many H (None) /hpf Amorphous Sediment Rare H (None) /hpf Urine Bacteria Many H (None) /hpf 09/07/20 09/07/20 09/07/20 Range/Units 16:57 19:11 20:18 RBC (4.30-5.90) m/uL Hgb (13.0-17.5) gm/dL Hct (39.0-53.0) % Lymphocytes # (1.0-4.8) k/uL Sodium (137-145) mmol/L Potassium 6.3 H* (3.5-5.5) mmol/L Chloride 114 H (96-109) mmol/L Carbon Dioxide 19 L (21.6-31.8) mmol/L BUN 66 H (9.0-27.0) mg/dL Creatinine 3.12 H (0.6-1.5) mg/dL Est GFR (CKD-EPI)AfAm (60.0-200.0) Est GFR (CKD-EPI)NonAf (60.0-200.0) BUN/Creatinine Ratio (12.00-20.00) Ratio Glucose 110 H (70-110) mg/dL POC Glucose (mg/dL) 166 H 137 H (75-99) mg/dL Calcium 8.0 L (8.7-10.3) mg/dL Total Bilirubin (0.3-1.2) mg/dL AST 13 L (14-35) U/L Alkaline Phosphatase (41-126) U/L Total Protein 5.6 L (6.2-8.2) g/dL Albumin 2.9 L (3.80-4.90) g/dL Urine Protein (Negative) Urine Blood (Negative) Ur Leukocyte Esterase (Negative) Urine WBC (0-5) /hpf Urine WBC Clumps (None) /hpf Amorphous Sediment (None) /hpf Urine Bacteria (None) /hpf 09/07/20 09/08/20 09/08/20 Range/Units 21:38 00:23 06:16 RBC (4.30-5.90) m/uL Hgb (13.0-17.5) gm/dL Hct (39.0-53.0) % Lymphocytes # (1.0-4.8) k/uL Sodium (137-145) mmol/L Potassium 5.5 H (3.5-5.5) mmol/L Chloride (96-109) mmol/L Carbon Dioxide (21.6-31.8) mmol/L BUN (9.0-27.0) mg/dL Creatinine (0.6-1.5) mg/dL Est GFR (CKD-EPI)AfAm (60.0-200.0) Est GFR (CKD-EPI)NonAf (60.0-200.0) BUN/Creatinine Ratio (12.00-20.00) Ratio Glucose (70-110) mg/dL POC Glucose (mg/dL) 145 H 144 H (75-99) mg/dL Calcium (8.7-10.3) mg/dL Total Bilirubin (0.3-1.2) mg/dL AST (14-35) U/L Alkaline Phosphatase (41-126) U/L Total Protein (6.2-8.2) g/dL Albumin (3.80-4.90) g/dL Urine Protein (Negative) Urine Blood (Negative) Ur Leukocyte Esterase (Negative) Urine WBC (0-5) /hpf Urine WBC Clumps (None) /hpf Amorphous Sediment (None) /hpf Urine Bacteria (None) /hpf 09/08/20 09/08/20 09/08/20 Range/Units 07:37 08:49 08:49 RBC 3.74 L (4.30-5.90) m/uL Hgb 10.5 L (13.0-17.5) gm/dL Hct 32.0 L (39.0-53.0) % Lymphocytes # 0.7 L (1.0-4.8) k/uL Sodium 136 L (137-145) mmol/L Potassium 5.3 H (3.5-5.5) mmol/L Chloride 108 H (96-109) mmol/L Carbon Dioxide (21.6-31.8) mmol/L BUN 60 H (9.0-27.0) mg/dL Creatinine 2.83 H (0.6-1.5) mg/dL Est GFR (CKD-EPI)AfAm (60.0-200.0) Est GFR (CKD-EPI)NonAf (60.0-200.0) BUN/Creatinine Ratio (12.00-20.00) Ratio Glucose 217 H (70-110) mg/dL POC Glucose (mg/dL) 152 H (75-99) mg/dL Calcium 7.8 L (8.7-10.3) mg/dL Total Bilirubin (0.3-1.2) mg/dL AST 11 L (14-35) U/L Alkaline Phosphatase (41-126) U/L Total Protein 5.1 L (6.2-8.2) g/dL Albumin 2.6 L (3.80-4.90) g/dL Urine Protein (Negative) Urine Blood (Negative) Ur Leukocyte Esterase (Negative) Urine WBC (0-5) /hpf Urine WBC Clumps (None) /hpf Amorphous Sediment (None) /hpf Urine Bacteria (None) /hpf 09/08/20 Range/Units 11:48 RBC (4.30-5.90) m/uL Hgb (13.0-17.5) gm/dL Hct (39.0-53.0) % Lymphocytes # (1.0-4.8) k/uL Sodium (137-145) mmol/L Potassium (3.5-5.5) mmol/L Chloride (96-109) mmol/L Carbon Dioxide (21.6-31.8) mmol/L BUN (9.0-27.0) mg/dL Creatinine (0.6-1.5) mg/dL Est GFR (CKD-EPI)AfAm (60.0-200.0) Est GFR (CKD-EPI)NonAf (60.0-200.0) BUN/Creatinine Ratio (12.00-20.00) Ratio Glucose (70-110) mg/dL POC Glucose (mg/dL) 235 H (75-99) mg/dL Calcium (8.7-10.3) mg/dL Total Bilirubin (0.3-1.2) mg/dL AST (14-35) U/L Alkaline Phosphatase (41-126) U/L Total Protein (6.2-8.2) g/dL Albumin (3.80-4.90) g/dL Urine Protein (Negative) Urine Blood (Negative) Ur Leukocyte Esterase (Negative) Urine WBC (0-5) /hpf Urine WBC Clumps (None) /hpf Amorphous Sediment (None) /hpf Urine Bacteria (None) /hpf Assessment and Plan Assessment: #1 nonoliguric acute kidney injury suspect prerenal process. #2 hyperkalemia recurrent secondary to lisinopril. Rule out obstruction #3 metabolic acidosis secondary to acute kidney injury #4 prostate cancer status post cystectomy with ileostomy loop #5 chronic kidney disease stage IV with a baseline creatinine around 3.0 MG per DL. Plan: #1 stop IV fluids. #2 no hydronephrosis on renal ultrasound. #3 urine analysis consistent with UTI. #4 add Lasix 40 mg by mouth twice a day #5 labs in the morning
[2020-09-08] MEDS: FUROSEMIDE 40 MG TAB PO SCH (16:19)
[2020-09-08 16:49] LABS: Glucose,Whole Blood 263 mg/dL (75-99)
[2020-09-08] MEDS: ATORVASTATIN 20 MG TAB PO SCH (21:32)
[2020-09-08] MEDS: MONTELUKAST 10 MG TAB PO SCH (21:32)
[2020-09-08 21:41] LABS: Glucose,Whole Blood 259 mg/dL (75-99)
[2020-09-08] MEDS ORDERED: Potassium Replacement Protocol 1 EACH MISC MISCELLANE PRN (23:10)
--- NOTE | 2020-09-08 23:11 | P.PN ---
Subjective Progress Note Date: 09/08/20 Principal diagnosis: Acute on chronic kidney disease stage IV Patient is a 84-year-old male with a known history of hypertension, hyperlipidemia, diabetes type 2 insulin-dependent, osteoarthritis, COPD, chronic kidney disease stage IV, history of prostate, bladder cancer status post radical prostatectomy and cystectomy with urostomy and previous history of plasmacytoma left femur and previous history of smoking and other multiple medical problems was sent to ER by his primary care physician due to acute kidney injury and elevated potassium level. Patient states that he recently had blood test done his primary care physician's office. Patient states that he has been feeling weak recently. Denied any complaints of nausea vomiting or diarrhea. No complaints of abdominal pain. No complaints of chest pain or shortness of breath. Laboratory data showed WBC 6.7, hemoglobin 10.8, platelets 253, sodium 140, potassium 5.6 and chloride 115, BUN 72 and creatinine 3.0 Blood sugar is 214 09/08/2018 Patient is currently sitting in a chair comfortably. Potassium came down to 5.3. Patient was started on Lasix. Nephrology is following. Patient otherwise denied any complaints of chest pain or shortness of breath. Blood sugar is slightly elevated and patient was started on preprandial insulin. Other lab data reviewed.Laboratory test showed sodium 136, potassium 5.3, BUN 60 and creatinine 2.83 magnesium 1.7 Current medications reviewed. Objective - Vital Signs Vital signs: Vital Signs Temp 99.0 F 09/08/20 14:00 Pulse 80 09/08/20 20:46 Resp 16 09/08/20 20:46 BP 164/74 09/08/20 14:00 Pulse Ox 98 09/08/20 14:00 Intake & Output 09/08/20 09/08/20 09/09/20 06:59 18:59 06:59 Intake Total 1235 486 Output Total 1700 900 Balance -465 -414 Intake: Intake, IV Titration 875 Amount Dextrose 5% in Water 1, 825 000 ml @ 75 mls/hr IV . [id number] WOLFGANG with Sodium Bicarb (1 Meq/ml) 150 ml Rx#:[id number] cefTRIAXone 1 gm In 50 Sodium Chloride 0.9% 50 ml @ 100 mls/hr IVPB Q24H WOLFGANG Rx#:[id number] Oral 360 486 Output: Urine 1700 900 Other: Voiding Method Ileal Conduit (Right) Ileal Conduit (Right) - Exam PHYSICAL EXAMINATION: Patient is lying in the bed comfortably, no acute distress, awake alert and oriented.. HEENT: Normocephalic. Neck is supple. Pupils reactive. Nostrils clear. Oral cavity is moist. Ears reveal no drainage. Neck reveals no JVD, carotid bruits, or thyromegaly. CHEST EXAMINATION: Trachea is central. Symmetrical expansion. Lung cline clear to auscultation and percussion. CARDIAC: Normal S1, S2 with no gallops. No murmurs ABDOMEN: Soft. Bowel sounds normal. No organomegaly. No abdominal bruits. Extremities: + edema. No clubbing or cyanosis Neurologically awake, alert, oriented x3 with well-coordinated movements. No focal deficits noted Skin: No rash or skin lesions. Psychiatric: Coperative. Nonsuicidal Musculoskeletal: No joint swelling or deformity. Normal range of motion. - Labs CBC & Chem 7: 09/08/20 08:49 09/08/20 08:49 Labs: Abnormal Lab Results - Last 24 Hours (Table) 09/08/20 09/08/20 09/08/20 Range/Units 00:23 06:16 07:37 RBC (4.30-5.90) m/uL Hgb (13.0-17.5) gm/dL Hct (39.0-53.0) % Lymphocytes # (1.0-4.8) k/uL Sodium (137-145) mmol/L Potassium 5.5 H (3.5-5.1) mmol/L Chloride (98-107) mmol/L BUN (9-20) mg/dL Creatinine (0.66-1.25) mg/dL Glucose (74-99) mg/dL POC Glucose (mg/dL) 144 H 152 H (75-99) mg/dL Calcium (8.4-10.2) mg/dL AST (17-59) U/L Total Protein (6.3-8.2) g/dL Albumin (3.5-5.0) g/dL 09/08/20 09/08/20 09/08/20 Range/Units 08:49 08:49 11:48 RBC 3.74 L (4.30-5.90) m/uL Hgb 10.5 L (13.0-17.5) gm/dL Hct 32.0 L (39.0-53.0) % Lymphocytes # 0.7 L (1.0-4.8) k/uL Sodium 136 L (137-145) mmol/L Potassium 5.3 H (3.5-5.1) mmol/L Chloride 108 H (98-107) mmol/L BUN 60 H (9-20) mg/dL Creatinine 2.83 H (0.66-1.25) mg/dL Glucose 217 H (74-99) mg/dL POC Glucose (mg/dL) 235 H (75-99) mg/dL Calcium 7.8 L (8.4-10.2) mg/dL AST 11 L (17-59) U/L Total Protein 5.1 L (6.3-8.2) g/dL Albumin 2.6 L (3.5-5.0) g/dL 09/08/20 09/08/20 Range/Units 16:47 21:40 RBC (4.30-5.90) m/uL Hgb (13.0-17.5) gm/dL Hct (39.0-53.0) % Lymphocytes # (1.0-4.8) k/uL Sodium (137-145) mmol/L Potassium (3.5-5.1) mmol/L Chloride (98-107) mmol/L BUN (9-20) mg/dL Creatinine (0.66-1.25) mg/dL Glucose (74-99) mg/dL POC Glucose (mg/dL) 263 H 259 H (75-99) mg/dL Calcium (8.4-10.2) mg/dL AST (17-59) U/L Total Protein (6.3-8.2) g/dL Albumin (3.5-5.0) g/dL Assessment and Plan Assessment: Acute on chronic kidney disease stage IV Hyperkalemia secondary to acute kidney injury nonoliguric Uncontrolled hypertension Diabetes type 2 insulin-dependent History of prostate and bladder cancer status post prostatectomy, radical cystectomy and urostomy placement. Hyperlipidemia Asthma/COPD Previous history of smoking DVT prophylaxis with heparin subcu Plan: Patient will be continued IV hydration and monitor renal function. Patient was given insulin/dextrose for hyperkalemia and follow-up repeat potassium level. Nephrology is following. Continue with blood pressure medications including Norvasc and atenolol. Insulin sliding scale and continue with Levemir. Lisinopril is on hold due to hyperkalemia. Follow-up CBC and BMP and further recommendations based on clinical course. Time with Patient: Greater than 30
[2020-09-08] MEDS: MAGNESIUM SULFATE-D5W PMX 1 GM in DEXTROSE/WATER 1 100ML.BAG IVPB SCH (23:43)
[2020-09-09] MEDS: MAGNESIUM SULFATE-D5W PMX 1 GM in DEXTROSE/WATER 1 100ML.BAG IVPB SCH (00:55)
[2020-09-09] MEDS: SYMBICORT 160-4.5 MCG INHALER INHALATION SCH (07:52)
[2020-09-09] MEDS: IPRATROPIUM 0.5 MG/2.5 ML NEBU INHALATION SCH ×3 (07:52→16:43)
[2020-09-09 08:26] LABS: Glucose,Whole Blood 205 mg/dL (75-99)
[2020-09-09] MEDS: hydrALAZINE HCL 25 MG TAB PO SCH ×2 (08:26→12:08)
[2020-09-09] MEDS: amLODIPine 10 MG TAB PO SCH (08:26)
[2020-09-09] MEDS: atenoloL 25 MG TAB PO SCH (08:26)
[2020-09-09] MEDS: FUROSEMIDE 40 MG TAB PO SCH (08:26)
[2020-09-09] MEDS: INSULIN DETEMIR (LEVEMIR) 100 UNIT/ML SYR SQ SCH (08:26)
[2020-09-09] MEDS: INSULIN ASPART (NovoLOG) 100 UNIT/ML VIAL SQ SCH ×4 (08:34→13:20)
--- NOTE | 2020-09-09 10:28 | P.PN ---
Subjective Patient is seen in follow-up for acute kidney injury on chronic kidney disease. Awake and alert. Oral intake fair. No vomiting or diarrhea. Eager to go home. Vital signs are stable. General: The patient appeared well nourished and normally developed. HEENT: Head exam is unremarkable. Neck is without jugular venous distension. LUNGS: Breath sounds decreased. HEART: Rate and Rhythm are regular. ABDOMEN: Soft, nontender. EXTREMITITES: Trace edema. Objective - Vital Signs Vital signs: Vital Signs Temp 97.1 F L 09/09/20 08:00 Pulse 88 09/09/20 08:03 Resp 20 09/09/20 08:00 BP 179/80 09/09/20 08:00 Pulse Ox 96 09/09/20 08:00 Intake & Output 09/08/20 09/09/20 09/09/20 18:59 06:59 18:59 Intake Total 486 Output Total 900 1700 Balance -414 -1700 Intake: Oral 486 Output: Urine 900 1700 Other: Voiding Method Ileal Conduit (Right) Ileal Conduit (Right) # Voids 700 # Bowel Movements 1 - Labs CBC & Chem 7: 09/08/20 08:49 09/08/20 08:49 Labs: Abnormal Lab Results - Last 24 Hours (Table) 09/08/20 09/08/20 09/08/20 Range/Units 11:48 16:47 21:40 POC Glucose (mg/dL) 235 H 263 H 259 H (75-99) mg/dL 09/09/20 Range/Units 08:24 POC Glucose (mg/dL) 205 H (75-99) mg/dL Assessment and Plan Plan: Assessment: 1. Acute kidney injury mostly prerenal. Creatinine 2.83 as of yesterday. Nonoliguric. 2. Hyperkalemia secondary to acute kidney injury and lisinopril. No evidence of hydronephrosis on renal ultrasound. 3. Chronic kidney disease stage IV with baseline creatinine near 3 secondary to diabetic kidney disease. 4. Prostate cancer status post cystectomy with ileostomy loop. 5. Metabolic acidosis secondary to acute kidney injury. Improved. 6. Chronic kidney disease mineral bone disease maintained on calcitriol. 7. Hypertension with chronic kidney disease. Stable. 8. Diabetes mellitus. Plan: Maintain Lasix 40 mg orally twice daily. Continue to monitor renal function and urine output. Increase dose of hydralazine if blood pressures staying persistently above 140/90. Morning labs pending.
[2020-09-09 11:44] LABS: Basophils % (A) 0 %; Eosinophils # (A) 0.5 k/uL (0-0.7); Eosinophils % (A) 5 %; HCT 32.8 % (39.0-53.0); Lymphocytes # (A) 0.7 k/uL (1.0-4.8); Lymphocytes % (A) 9 %; MCH 28.5 pg (25.0-35.0); MCHC 33.5 g/dL (31.0-37.0); MCV 84.8 fL (80.0-100.0); Mean Platelet Volume 6.7; Monocytes # (A) 0.5 k/uL (0-1.0); Monocytes % (A) 5 %; Neutrophils # (A) 6.8 k/uL (1.3-7.7); Neutrophils % (A) 80 %; Platelet Count 256 k/uL (150-450); RBC 3.87 m/uL (4.30-5.90); RDW 14.3 % (11.5-15.5); WBC 8.5 k/uL (3.8-10.6)
[2020-09-09 11:49] LABS: Glucose,Whole Blood 219 mg/dL (75-99)
[2020-09-09 12:34] VITALS: RESP 18
[2020-09-09 15:28] LABS: ALT 10 U/L (4-49); AST 13 U/L (17-59); African American GFR (CKD) 23 (>60 ml/min/1.73 sqM); Albumin 3.1 g/dL (3.5-5.0); Albumin/Globulin Ratio 1.1; Alkaline Phosphatase 115 U/L (38-126); Anion Gap 6 mmol/L; Blood Urea Nitrogen 63 mg/dL (9-20); Calcium 8.4 mg/dL (8.4-10.2); Carbon Dioxide 24 mmol/L (22-30); Chloride 106 mmol/L (98-107); Globulin 2.7 g/dL; Glucose 80 mg/dL (74-99); Magnesium 2.2 mg/dL (1.6-2.3); Non-African American GFR(CKD) 20 (>60 ml/min/1.73 sqM); Potassium 4.7 mmol/L (3.5-5.1); Sodium 136 mmol/L (137-145); Total Bilirubin 0.3 mg/dL (0.2-1.3); Total Protein 5.8 g/dL (6.3-8.2)
[2020-09-09 16:11] VITALS: BP 148/73; TEMP 98
[2020-09-09 16:44] VITALS: PULSE 84
[2020-09-09 17:14] LABS: Glucose,Whole Blood 125 mg/dL (75-99)
--- NOTE | 2020-09-10 12:34 | P.DS ---
Providers Date of admission: 09/06/20 16:54 Expected date of discharge: 09/09/20 Attending physician: Kev Queen Consults: 09/06/20 16:54 Consult Physician Routine Consulting Provider: Driss Holloway Consult Reason/Comments: acute on chronic renal failure, hyperkalemia Do you want consulting provider notified?: Yes Primary care physician: Kev Queen Hospital Course: Final diagnosis Acute on chronic kidney disease stage IV Hyperkalemia secondary to acute kidney injury nonoliguric Uncontrolled hypertension Diabetes type 2 insulin-dependent History of prostate and bladder cancer status post prostatectomy, radical cystectomy and urostomy placement. Hyperlipidemia Asthma/COPD Previous history of smoking DVT prophylaxis Discharge disposition Patient is being discharged in a stable condition with guarded prognosis to home. Patient will follow-up with Dr. Queen in the outpatient setting upon discharge. Patient is to continue with hydralazine 3 times daily along with Norvasc, Lasix, and atenolol. Patient will continue to hold lisinopril until primary care follow-up. Patient will also continue on a short course of oral antibiotics in the form of Ceftin 500 mg twice daily for the next 4 days to complete the course. Total time taken is greater than 35 minutes. History of present illness This is a 84-year-old male who was recently admitted with acute kidney injury along with elevated potassium level. Patient was on lisinopril which will be held until primary care follow-up. Patient's repeat potassium today was 4.7 and creatinine slowly trending down at 2.84. Patient provided prescriptions for repeat labs in a few days and instructed to follow-up with primary care provider in the outpatient setting. Patient was seen and evaluated by nephrology recommending continue Lasix, Norvasc, atenolol and continue to hold lisinopril and follow a low potassium diet as well. Patient was also being treated for possible acute urinary tract infection in the form of ceftriaxone IV and will continue with oral Ceftin 500 mg twice daily for the next 4 days to complete the course. Currently no reports of chest pain, shortness of breath, or palpit ations. Patient is afebrile. No reports of nausea or vomiting and patient is tolerating diet. Patient will be going discharged home today. On exam vital signs are stable. Temp is 98.0F, pulse is 84, respirations are 18, blood pressure is 148/73, oxygen saturation is 95% on room air. Cardio S1, S2 are muffled. Respiratory system shows diminished breath sounds at the bases with no wheezing or rhonchi noted. Abdomen is soft and nontender. Nervous system shows no focal deficits. Please refer to medication reconciliation sheet for a list of medications. Patient Condition at Discharge: Fair Plan - Discharge Summary Discharge Rx Participant: No New Discharge Prescriptions: New hydrALAZINE HCL [Apresoline] 25 mg PO QID 30 Days #120 tab Furosemide [Lasix] 40 mg PO BID@0900,1600 30 Days #60 tab Cefuroxime Axetil [Ceftin] 500 mg PO BID 4 Days #8 tab Continue amLODIPine BESYLATE [Norvasc] 10 mg PO DAILY Montelukast [Singulair] 10 mg PO HS atenoloL [Tenormin] 25 mg PO DAILY Glimepiride [Amaryl] 4 mg PO BID Albuterol Inhaler [Ventolin Hfa Inhaler] 2 puff INHALATION RT-QID PRN PRN Reason: Shortness Of Breath Atorvastatin Calcium [Lipitor] 20 mg PO HS calcitrioL [Calcitriol] 0.25 mcg PO DAILY Insulin Glargine,Hum.rec.anlog [Basaglar Kwikpen U-100] 20 unit SQ DAILY Tiotropium [place] [Spiriva Respimat] 2 spray INHALATION RT-DAILY Fluticasone Propion/Salmeterol [Wixela 500-50 Inhub] 1 puff INHALATION RT-BID Discontinued lisinopriL 20 mg PO BID Discharge Medication List Montelukast [Singulair] 10 mg PO HS 12/28/14 [History] amLODIPine BESYLATE [Norvasc] 10 mg PO DAILY 12/28/14 [History] atenoloL [Tenormin] 25 mg PO DAILY 12/28/14 [History] Glimepiride [Amaryl] 4 mg PO BID 05/17/15 [History] Albuterol Inhaler [Ventolin Hfa Inhaler] 2 puff INHALATION RT-QID PRN 06/07/20 [History] Atorvastatin Calcium [Lipitor] 20 mg PO HS 06/07/20 [History] Insulin Glargine,Hum.rec.anlog [Basaglar Kwikpen U-100] 20 unit SQ DAILY 06/07/20 [History] Tiotropium [place] [Spiriva Respimat] 2 spray INHALATION RT-DAILY 06/07/20 [History] calcitrioL [Calcitriol] 0.25 mcg PO DAILY 06/07/20 [History] Fluticasone Propion/Salmeterol [Wixela 500-50 Inhub] 1 puff INHALATION RT-BID 09/06/20 [History] Cefuroxime Axetil [Ceftin] 500 mg PO BID 4 Days #8 tab 09/09/20 [Rx] Furosemide [Lasix] 40 mg PO BID@0900,1600 30 Days #60 tab 09/09/20 [Rx] hydrALAZINE HCL [Apresoline] 25 mg PO QID 30 Days #120 tab 09/09/20 [Rx] Follow up Appointment(s)/Referral(s): Kev Queen MD [Primary Care Provider] - 09/11/20 11:00 am Ambulatory/Diagnostic Orders: Basic Metabolic Panel [LAB.AMB] Time Frame: 3 Days, Location: None Selected Patient Instructions/Handouts: Hyperkalemia (GEN) Activity/Diet/Wound Care/Special Instructions: Awaiting repeat blood draw for potassium Activity Limited until follow-up Continue with antibiotics for the next 4 days to complete the course Follow-up with primary care provider upon discharge Continue to monitor blood pressure and keep a diary for primary care follow-up Continue to hold lisinopril Repeat labs in 2-3 days to monitor kidney functions and electrolytes Continue with low potassium diet Discharge Disposition: HOME SELF-CARE
== END 2020-09-09 17:30 | disposition home or self-care (01) ==
LOC: EC 15:39 → 5NMEDONC 16:54
PROVIDERS: ADMIT Family Medicine; ATTEND Family Medicine
DX: N17.9 Acute kidney failure, unspecified (principal); I12.9 Hypertensive chronic kidney disease with stage 1 through stage 4 chronic kidney disease, or unspecified chronic kidney disease; E11.22 Type 2 diabetes mellitus with diabetic chronic kidney disease; N18.4 Chronic kidney disease, stage 4 (severe); E87.2 Acidosis; M19.90 Unspecified osteoarthritis, unspecified site; I83.90 Asymptomatic varicose veins of unspecified lower extremity; T46.4X5A Adverse effect of angiotensin-converting-enzyme inhibitors, initial encounter; E87.5 Hyperkalemia; E78.5 Hyperlipidemia, unspecified; M47.812 Spondylosis without myelopathy or radiculopathy, cervical region; M47.816 Spondylosis without myelopathy or radiculopathy, lumbar region; J44.9 Chronic obstructive pulmonary disease, unspecified; Z87.891 Personal history of nicotine dependence; Z85.46 Personal history of malignant neoplasm of prostate; Z85.51 Personal history of malignant neoplasm of bladder; Z85.828 Personal history of other malignant neoplasm of skin; Z87.81 Personal history of (healed) traumatic fracture; Z85.79 Personal history of other malignant neoplasms of lymphoid, hematopoietic and related tissues; Z87.01 Personal history of pneumonia (recurrent); Z93.6 Other artificial openings of urinary tract status; I25.2 Old myocardial infarction; Z86.19 Personal history of other infectious and parasitic diseases; Z90.79 Acquired absence of other genital organ(s); Z96.641 Presence of right artificial hip joint; Z98.890 Other specified postprocedural states; Z80.6 Family history of leukemia; M89.8X9 Other specified disorders of bone, unspecified site; Z79.890 Hormone replacement therapy; Z79.4 Long term (current) use of insulin; Z79.82 Long term (current) use of aspirin; Z79.899 Other long term (current) drug therapy; Z91.013 Allergy to seafood
CPT/HCPCS: 96376; 96366 ×2; 96367; 96368; 96365; 96375; 99285; 36415; 94640 ×6; 93005 ×2; 82570; 80053 ×4; 84133; 83735 ×4; 84132 ×2; 85025 ×4; 81001; 76770; G0378 ×4; J0696 ×2; J3475 ×2; J0610

== ENCOUNTER 2021-01-24 19:33 | Inpatient (IN) | payer MEDICARE, BC ==
[2021-01-24] MEDS ORDERED: SODIUM CHLORIDE 0.9% 500 ML 500 ML IV ONE (20:05)
--- NOTE | 2021-01-24 20:07 | ED ---
Recheck HPI - General Chief Complaint: Recheck/Abnormal Lab/Rx Stated Complaint: Kidney problems Time Seen by Provider: 01/24/21 19:53 Source: patient, family Mode of arrival: ambulatory - History of Present Illness Initial Comments: 85 year-old male patient presents to the emergency department sent by his primary care physician for abnormal labs. Reports that his kidney function is worsening. Patient states he was having routine labs performed when this was found. States he feels well. Has been eating and drinking without difficulty. Has nausea or vomiting. Denies any pain. Having normal bowel movements. Has seen nephrology in the past. He has a urostomy, reports normal output. Patient denies any recent rash, fever, chills, cough, shortness of breath, chest pain, abdominal pain, diarrhea, constipation, back pain, numbness, tingling, dizziness, weakness, hematuria, headache, visual changes, or any other complaints. - Related Data Home Medications Medication Instructions Recorded Confirmed Montelukast [Singulair] 10 mg PO HS 12/28/14 01/24/21 amLODIPine BESYLATE [Norvasc] 10 mg PO DAILY 12/28/14 01/24/21 atenoloL [Tenormin] 25 mg PO DAILY 12/28/14 01/24/21 Atorvastatin Calcium [Lipitor] 20 mg PO HS 06/07/20 01/24/21 Insulin Glargine,Hum.rec.anlog 20 unit SQ HS 06/07/20 01/24/21 [Basaglar Kwikpen U-100] Fluticasone Propion/Salmeterol 1 puff INHALATION RT-BID 09/06/20 01/24/21 [Wixela 500-50 Inhub] Albuterol Inhaler [Ventolin Hfa 2 puff INHALATION RT-QID PRN 01/24/21 01/24/21 Inhaler] Tiotropium 2.5 Mcg/Puff [Spiriva 2 puff INHALATION RT-DAILY 01/24/21 01/24/21 Respimat 2.5 Mcg] Allergies Allergy/AdvReac Type Severity Reaction Status Date / Time shellfish derived [Shellfish] Allergy Mild Rash/Hives Verified 01/24/21 21:24 "if consumes alot," per patient Review of Systems ROS Statement: Those systems with pertinent positive or pertinent negative responses have been documented in the HPI. ROS Other: All systems not noted in ROS Statement are negative. Past Medical History Past Medical History: Asthma, Cancer, COPD, Diabetes Mellitus, Hyperlipidemia, Hypertension, Osteoarthritis (OA), Prostate Disorder Additional Past Medical History / Comment(s): VARICOSE VEINS; ARTHRITIS BACK, NECK; HX PROSTATE, BLADDER, (4 -5 years ago) & SKIN CANCER (4-5 yrs ago) , PLASMACYTOMA LEFT FEMUR- CANCERS. PNEUMONIA 04/01/15. HAS UROSTOMY , FX RT HIP -2017." RENAL DISEASE STAGE 4 -NO DIALYSIS as yet not at that advanced stage" Last Myocardial Infarction Date:: 2012- UNSURE- STATES DISCOVERED ON EKG. History of Any Multi-Drug Resistant Organisms: ESBL Date of last positivie culture/infection: 03/26/2015 MDRO Source:: Urine- E.coli ESBL Past Surgical History: Bladder Surgery, Joint Replacement, Prostate Surgery Additional Past Surgical History / Comment(s): EXC LEFT FEMUR CANCER; CHEST TUMOR EXC; RADICAL PROSTATECTOMY 07/2004. , ROBOTIC RADICAL CYSTECTOMY 02/2015- UROSTOMY, COLONOSCOPY, PARTIAL RT HIP REPLACEMENT Past Anesthesia/Blood Transfusion Reactions: No Reported Reaction Past Psychological History: No Psychological Hx Reported Smoking Status: Former smoker Past Alcohol Use History: None Reported Past Drug Use History: None Reported - Past Family History Son(s) Family Medical History: Cancer Additional Family Medical History / Comment(s): LEUKEMIA General Exam General appearance: alert, in no apparent distress, other (This is a well- developed, well-nourished elderly male patient in no acute distress. Vital signs upon presentation are temperature 98.0F, pulse 70, respirations 16, blood pressure 167/61, pulse ox 100% on room air.) Eye exam: Present: normal appearance, PERRL, EOMI. Absent: scleral icterus, conjunctival injection, periorbital swelling ENT exam: Present: normal exam, normal oropharynx, mucous membranes moist Respiratory exam: Present: normal lung sounds bilaterally. Absent: respiratory distress, wheezes, rales, rhonchi, stridor Cardiovascular Exam: Present: regular rate, normal rhythm, normal heart sounds. Absent: systolic murmur, diastolic murmur, rubs, gallop, clicks GI/Abdominal exam: Present: soft, normal bowel sounds. Absent: distended, tenderness, guarding, rebound, rigid Neurological exam: Present: alert, oriented X3, CN II-XII intact Psychiatric exam: Present: normal affect, normal mood Skin exam: Present: warm, dry, intact, normal color. Absent: rash Course Vital Signs 01/24/21 19:45 Temperature 98.0 F Pulse Rate 70 Respiratory 16 Rate Blood Pressure 167/61 O2 Sat by Pulse 100 Oximetry Medical Decision Making - Medical Decision Making 85-year-old male patient who presented for abnormal labs. Reviewed outpatient labs which showed elevated BUN and Cr. Repeated labs here they remain elevated. Potassium is 5.2. He will be admitted for further evaluation by nephrology. He was given IV fluids. He is agreeable. Case discussed with my attending Dr. Perry. - Lab Data Result diagrams: 01/24/21 20:15 01/24/21 20:15 Lab Results 01/24/21 01/24/21 Range/Units 20:15 20:15 WBC 9.7 (3.8-10.6) k/uL RBC 3.67 L (4.30-5.90) m/uL Hgb 11.1 L (13.0-17.5) gm/dL Hct 33.3 L (39.0-53.0) % MCV 90.8 (80.0-100.0) fL MCH 30.2 (25.0-35.0) pg MCHC 33.3 (31.0-37.0) g/dL RDW 15.4 (11.5-15.5) % Plt Count 256 (150-450) k/uL MPV 7.4 Neutrophils % 79 % Lymphocytes % 10 % Monocytes % 5 % Eosinophils % 5 % Basophils % 0 % Neutrophils # 7.7 (1.3-7.7) k/uL Lymphocytes # 1.0 (1.0-4.8) k/uL Monocytes # 0.5 (0-1.0) k/uL Eosinophils # 0.5 (0-0.7) k/uL Basophils # 0.0 (0-0.2) k/uL Hypochromasia Slight Poikilocytosis Slight Sodium 138 (137-145) mmol/L Potassium 5.2 H (3.5-5.1) mmol/L Chloride 114 H (98-107) mmol/L Carbon Dioxide 13 L (22-30) mmol/L Anion Gap 11 mmol/L BUN 100 H (9-20) mg/dL Creatinine 4.80 H (0.66-1.25) mg/dL Est GFR (CKD-EPI)AfAm 12 (>60 ml/min/1.73 sqM) Est GFR (CKD-EPI)NonAf 10 (>60 ml/min/1.73 sqM) Glucose 130 H (74-99) mg/dL Calcium 7.8 L (8.4-10.2) mg/dL Magnesium 2.0 (1.6-2.3) mg/dL Total Bilirubin 0.3 (0.2-1.3) mg/dL AST 15 L (17-59) U/L ALT 10 (4-49) U/L Alkaline Phosphatase 109 (38-126) U/L Total Protein 5.9 L (6.3-8.2) g/dL Albumin 3.3 L (3.5-5.0) g/dL Disposition Clinical Impression: Acute kidney injury Disposition: ADMITTED IP TO THIS [facility] Condition: Serious Decision to Admit Reason: Admit from EC Decision Date: 01/24/21 Decision Time: 21:14
[2021-01-24 20:26] LABS: Basophils % (A) 0 %; Eosinophils # (A) 0.5 k/uL (0-0.7); Eosinophils % (A) 5 %; HCT 33.3 % (39.0-53.0); HGB 11.1 gm/dL (13.0-17.5); Hypochromasia Slight; Lymphocytes % (A) 10 %; MCH 30.2 pg (25.0-35.0); MCHC 33.3 g/dL (31.0-37.0); MCV 90.8 fL (80.0-100.0); Mean Platelet Volume 7.4; Monocytes # (A) 0.5 k/uL (0-1.0); Monocytes % (A) 5 %; Neutrophils # (A) 7.7 k/uL (1.3-7.7); Neutrophils % (A) 79 %; Platelet Count 256 k/uL (150-450); Poikilocytosis Slight; RBC 3.67 m/uL (4.30-5.90); RDW 15.4 % (11.5-15.5); WBC 9.7 k/uL (3.8-10.6)
[2021-01-24 20:39] LABS: Albumin 3.3 g/dL (3.5-5.0); Calcium 7.8 mg/dL (8.4-10.2); Potassium 5.2 mmol/L (3.5-5.1); Total Bilirubin 0.3 mg/dL (0.2-1.3); Total Protein 5.9 g/dL (6.3-8.2)
[2021-01-24] MEDS ORDERED: NALOXONE 0.4 MG/ML 1 ML VIAL IV PRN (21:13)
--- NOTE | 2021-01-25 09:02 | P.NPCON ---
History of Present Illness - Reason for Consult acute renal failure, chronic renal failure - History of Present Illness Reason for consultation: Acute kidney injury on chronic kidney disease History of present illness: Patient is a 85-year-old male seen in renal consultation for acute kidney injury on chronic kidney disease. Patient has chronic kidney disease stage IV with baseline creatinine in the range of 2.5-3 secondary to diabetic kidney disease. Patient was sent to the hospital by the primary care physician yesterday due to worsening renal function and acidosis. Creatinine on admission yesterday was 4.8 and bicarb level was 13. He did receive a liter of normal saline bolus but is currently not on any fluids. He has a right-sided urostomy with good output and also voids on his own. Denies any hematuria or dysuria. No vomiting or diarrhea. Oral intake is fair. Denies chest pain or shortness of breath. No edema. Hemodynamically stable. Patient has long-standing history of diabetes mellitus. Denies use of nonsteroidals. Vital signs are stable. General: The patient appeared well nourished and normally developed. HEENT: Head exam is unremarkable. LUNGS: Breath sounds decreased. HEART: Rate and Rhythm are regular. ABDOMEN: Soft, nontender. Urostomy noted. EXTREMITITES: No edema. Past Medical History Past Medical History: Asthma, Cancer, COPD, Diabetes Mellitus, Hyperlipidemia, Hypertension, Osteoarthritis (OA), Prostate Disorder Additional Past Medical History / Comment(s): VARICOSE VEINS; ARTHRITIS BACK, NECK; HX PROSTATE, BLADDER, (4 -5 years ago) & SKIN CANCER (4-5 yrs ago) , PLASMACYTOMA LEFT FEMUR- CANCERS. PNEUMONIA 04/01/15. HAS UROSTOMY , FX RT HIP -2017." RENAL DISEASE STAGE 4 -NO DIALYSIS as yet not at that advanced stage" Last Myocardial Infarction Date:: 2012- UNSURE- STATES DISCOVERED ON EKG. History of Any Multi-Drug Resistant Organisms: ESBL Date of last positivie culture/infection: 03/26/2015 MDRO Source:: Urine- E.coli ESBL Past Surgical History: Bladder Surgery, Joint Replacement, Prostate Surgery Additional Past Surgical History / Comment(s): EXC LEFT FEMUR CANCER; CHEST TUMOR EXC; RADICAL PROSTATECTOMY 07/2004. , ROBOTIC RADICAL CYSTECTOMY 02/2015- UROSTOMY, COLONOSCOPY, PARTIAL RT HIP REPLACEMENT Past Anesthesia/Blood Transfusion Reactions: No Reported Reaction Past Psychological History: No Psychological Hx Reported Smoking Status: Former smoker Past Alcohol Use History: None Reported Past Drug Use History: None Reported - Past Family History Son(s) Family Medical History: Cancer Additional Family Medical History / Comment(s): LEUKEMIA Medications and Allergies Home Medications Medication Instructions Recorded Confirmed Type Montelukast [Singulair] 10 mg PO HS 12/28/14 01/24/21 History amLODIPine BESYLATE [Norvasc] 10 mg PO DAILY 12/28/14 01/24/21 History atenoloL [Tenormin] 25 mg PO DAILY 12/28/14 01/24/21 History Atorvastatin Calcium [Lipitor] 20 mg PO HS 06/07/20 01/24/21 History Insulin Glargine,Hum.rec.anlog 20 unit SQ HS 06/07/20 01/24/21 History [Basaglar Kwikpen U-100] Fluticasone Propion/Salmeterol 1 puff INHALATION RT-BID 09/06/20 01/24/21 History [Wixela 500-50 Inhub] Albuterol Inhaler [Ventolin Hfa 2 puff INHALATION RT-QID PRN 01/24/21 01/24/21 History Inhaler] Tiotropium 2.5 Mcg/Puff [Spiriva 2 puff INHALATION RT-DAILY 01/24/21 01/24/21 History Respimat 2.5 Mcg] Allergies Allergy/AdvReac Type Severity Reaction Status Date / Time shellfish derived [Shellfish] Allergy Mild Rash/Hives Verified 01/24/21 21:24 "if consumes alot," per patient Physical Exam Vitals: Vital Signs Temp Pulse Pulse Resp BP BP Pulse Ox 01/25/21 04:44 98.3 F 61 18 124/62 96 01/25/21 00:54 97.7 F 63 16 177/62 98 01/25/21 00:40 64 18 143/68 97 01/24/21 21:59 98.3 F 64 18 151/74 99 01/24/21 19:45 98.0 F 70 16 167/61 100 Intake and Output 01/24/21 01/25/21 01/25/21 22:59 06:59 14:59 Intake Total 240 Output Total 300 Balance -60 Intake: Oral 240 Output: Drainage 300 Right Abdomen 300 Other: Voiding Method Ileal Conduit (Right) Ileal Conduit (Right) Weight 76.657 kg Results - Lab Results Most recent lab results Calcium 7.8 mg/dL (8.4-10.2) L 01/24/21 20:15 Magnesium 2.0 mg/dL (1.6-2.3) 01/24/21 20:15 01/24/21 20:15 01/24/21 20:15 Assessment and Plan Plan: Assessment: 1. Acute kidney injury mostly prerenal versus progression of underlying chronic kidney disease. Creatinine 4.8 yesterday. 2. Chronic kidney disease stage IV with baseline creatinine in the range of 2.5-3 secondary to diabetic kidney disease. 3. Status post right-sided urostomy. 4. Metabolic acidosis secondary to acute kidney injury. 5. Diabetes mellitus. 6. Hypertension with chronic kidney disease. Stable. Plan: Start bicarb drip at 100 mL an hour. Check bladder scan to rule out urinary retention. Check renal ultrasound. Avoid nephrotoxins. Continue to monitor renal function and urine output. Continue to assess daily for need for renal replacement therapy. Thank you for the consultation. I will continue to follow the patient with you during his hospital stay.
[2021-01-25 09:35] LABS: ALT 9 U/L (4-49); AST 12 U/L (17-59); African American GFR (CKD) 12 (>60 ml/min/1.73 sqM); Albumin 2.8 g/dL (3.5-5.0); Albumin/Globulin Ratio 1.1; Alkaline Phosphatase 97 U/L (38-126); Anion Gap 12 mmol/L; Blood Urea Nitrogen 96 mg/dL (9-20); Calcium 7.7 mg/dL (8.4-10.2); Carbon Dioxide 11 mmol/L (22-30); Chloride 117 mmol/L (98-107); Globulin 2.6 g/dL; Glucose 115 mg/dL (74-99); Magnesium 2.1 mg/dL (1.6-2.3); Non-African American GFR(CKD) 11 (>60 ml/min/1.73 sqM); Potassium 4.7 mmol/L (3.5-5.1); Sodium 140 mmol/L (137-145); Total Bilirubin 0.3 mg/dL (0.2-1.3); Total Protein 5.4 g/dL (6.3-8.2)
[2021-01-25] MEDS: DEXTROSE 5% IN WATER 1,000 ML with SODIUM BICARB (1 MEQ/ML) 150 ML IV SCH ×2 (10:22→20:43)
--- NOTE | 2021-01-25 10:51 | US ---
EXAMINATION TYPE: US kidneys/renal and bladder DATE OF EXAM: 01/25/2021 COMPARISON: Multiple US's CLINICAL HISTORY: dahlia. EXAM MEASUREMENTS: Right Kidney: 10.5 x 5.8 x 5.5 cm Left Kidney: 12.6 x 5.5 x 5.0 cm Right Kidney: Upper pole cystic area measures 1.8 x 1.4 x 1.8 cm. Left Kidney: lower pole cystic area measures 1.1 x 1.2 x 1.5 cm Bladder: surgically absent There is no evidence for hydronephrosis at this point in time. No nephrolithiasis is seen. IMPRESSION: 1. Bilateral renal cysts.
[2021-01-25] MEDS ORDERED: ALBUTEROL NEBULIZED 2.5 MG/3 ML INHALATION PRN (13:00)
--- NOTE | 2021-01-25 14:12 | P.HPIM ---
History of Present Illness H&P Date: 01/25/21 Chief Complaint: Abnormal labs Mr. Banks is an 85-year-old male with a past medical history of COPD, diabetes mellitus, hypertension, hyperlipidemia, osteoarthritis, prostate disorder, CK D stage IV was sent to the emergency department by his primary care physician Dr. Kev Queen for abnormal labs. Patient states that he had routine blood work done in his PCPs office and there she was told that his creatinine has worsened. Patient has history of right-sided urostomy with good urinary output and also voids on his own. At the time of admission patient's creatinine was 4.8 and his bicarbonate was 13, he was given IV fluids in the ED and admitted for further management. Patient denies having any fevers chills or rigors. No chest pain or palpitations. No cough or difficulty in breathing. No abdominal pain nausea vomiting or diarrhea. No dysuria or hematuria. On reviewing his vitals at the time of admission temperature of 98, heart rate 70, respiratory rate 16, blood pressure 167/66, saturating at 100% on room air. On reviewing the labs white count of 9.7, hemoglobin 11.1, platelets 256. Sodium 138, potassium 5.2, Chloride 114, bicarbonate 13, BUN 100, creatinine 4.8, calcium 7.8, albumin 3.3. Patel virus PCR negative. Review of Systems REVIEW OF SYSTEMS: CONSTITUTIONAL:Denies Generalized weakness or fatigue. No fever, chills or rigors HEENT: No recent visual problems or hearing problems. Denied any sore throat. CARDIOVASCULAR: No chest pain, orthopnea, PND, no palpitations, no syncope. PULMONARY: no hemoptysis. GASTROINTESTINAL: No diarrhea, no nausea, no vomiting, no abdominal pain. NEUROLOGICAL: As per HPI HEMATOLOGICAL: Denies any bleeding or petechiae. GENITOURINARY: Denies any burning micturition, frequency, or urgency. MUSCULOSKELETAL/RHEUMATOLOGICAL: Denies any joint pain, swelling, or any muscle pain. ENDOCRINE: Denies any polyuria or polydipsia. The rest of the 14-point review of systems is negative. Past Medical History Past Medical History: Asthma, Cancer, COPD, Diabetes Mellitus, Hyperlipidemia, Hypertension, Osteoarthritis (OA), Prostate Disorder Additional Past Medical History / Comment(s): VARICOSE VEINS; ARTHRITIS BACK, NECK; HX PROSTATE, BLADDER, (4 -5 years ago) & SKIN CANCER (4-5 yrs ago) , PL ASMACYTOMA LEFT FEMUR- CANCERS. PNEUMONIA 04/01/15. HAS UROSTOMY , FX RT HIP - 2017." RENAL DISEASE STAGE 4 -NO DIALYSIS as yet not at that advanced stage" Last Myocardial Infarction Date:: 2012- UNSURE- STATES DISCOVERED ON EKG. History of Any Multi-Drug Resistant Organisms: ESBL Date of last positivie culture/infection: 03/26/2015 MDRO Source:: Urine- E.coli ESBL Past Surgical History: Bladder Surgery, Joint Replacement, Prostate Surgery Additional Past Surgical History / Comment(s): EXC LEFT FEMUR CANCER; CHEST TUMOR EXC; RADICAL PROSTATECTOMY 07/2004. , ROBOTIC RADICAL CYSTECTOMY 02/2015- UROSTOMY, COLONOSCOPY, PARTIAL RT HIP REPLACEMENT Past Anesthesia/Blood Transfusion Reactions: No Reported Reaction Past Psychological History: No Psychological Hx Reported Smoking Status: Former smoker Past Alcohol Use History: None Reported Past Drug Use History: None Reported - Past Family History Son(s) Family Medical History: Cancer Additional Family Medical History / Comment(s): LEUKEMIA Medications and Allergies Home Medications Medication Instructions Recorded Confirmed Type Montelukast [Singulair] 10 mg PO HS 12/28/14 01/24/21 History amLODIPine BESYLATE [Norvasc] 10 mg PO DAILY 12/28/14 01/24/21 History atenoloL [Tenormin] 25 mg PO DAILY 12/28/14 01/24/21 History Atorvastatin Calcium [Lipitor] 20 mg PO HS 06/07/20 01/24/21 History Insulin Glargine,Hum.rec.anlog 20 unit SQ HS 06/07/20 01/24/21 History [Kermit Luispen U-100] Fluticasone Propion/Salmeterol 1 puff INHALATION RT-BID 09/06/20 01/24/21 History [Wixela 500-50 Inhub] Albuterol Inhaler [Ventolin Hfa 2 puff INHALATION RT-QID PRN 01/24/21 01/24/21 History Inhaler] Tiotropium 2.5 Mcg/Puff [Spiriva 2 puff INHALATION RT-DAILY 01/24/21 01/24/21 History Respimat 2.5 Mcg] Allergies Allergy/AdvReac Type Severity Reaction Status Date / Time shellfish derived [Shellfish] Allergy Mild Rash/Hives Verified 01/24/21 21:24 "if consumes alot," per patient Physical Exam Vitals: Vital Signs Temp Pulse Pulse Resp BP BP Pulse Ox 01/25/21 11:31 97.8 F 67 18 131/54 98 01/25/21 04:44 98.3 F 61 18 124/62 96 01/25/21 00:54 97.7 F 63 16 177/62 98 01/25/21 00:40 64 18 143/68 97 01/24/21 21:59 98.3 F 64 18 151/74 99 01/24/21 19:45 98.0 F 70 16 167/61 100 Intake and Output 01/24/21 01/25/21 01/25/21 22:59 06:59 14:59 Intake Total 240 Output Total 300 Balance -60 Intake: Oral 240 Output: Drainage 300 Right Abdomen 300 Other: Voiding Method Ileal Conduit (Right) Ileal Conduit (Right) Weight 76.657 kg PHYSICAL EXAMINATION: GENERAL: Elderly male lying in bed appears to be in no acute distress. HEENT: Pupils are round and equally reacting to light. EOMI. No scleral icterus. No conjunctival pallor. Normocephalic, atraumatic. No pharyngeal erythema. No thyromegaly. CARDIOVASCULAR: S1 and S2 present. PULMONARY: Bilateral breath sounds are positive. No wheeze or crackles. ABDOMEN: Soft, nontender, nondistended, normoactive bowel sounds. No palpable organomegaly. Right-sided urostomy in place good urinary output MUSCULOSKELETAL: No joint swelling or deformity. EXTREMITIES: No cyanosis, clubbing, or pedal edema. NEUROLOGICAL: patient is alert awake oriented 3 .Gross neurological examination did not reveal any focal deficits. SKIN: No rashes. Results CBC & Chem 7: 01/24/21 20:15 01/25/21 08:58 Labs: Abnormal Lab Results - Last 24 Hours (Table) 01/24/21 01/24/21 01/25/21 Range/Units 20:15 20:15 08:58 RBC 3.67 L (4.30-5.90) m/uL Hgb 11.1 L (13.0-17.5) gm/dL Hct 33.3 L (39.0-53.0) % Potassium 5.2 H (3.5-5.1) mmol/L Chloride 114 H 117 H (98-107) mmol/L Carbon Dioxide 13 L 11 L (22-30) mmol/L BUN 100 H 96 H (9-20) mg/dL Creatinine 4.80 H 4.63 H (0.66-1.25) mg/dL Glucose 130 H 115 H (74-99) mg/dL Calcium 7.8 L 7.7 L (8.4-10.2) mg/dL AST 15 L 12 L (17-59) U/L Total Protein 5.9 L 5.4 L (6.3-8.2) g/dL Albumin 3.3 L 2.8 L (3.5-5.0) g/dL Thrombosis Risk Factor Assmnt - Choose All That Apply Any of the Below Risk Factors Present?: No Other Risk Factors: Yes Each Risk Factor Represents 3 Points: Age 75 years or older Thrombosis Risk Factor Assessment Total Risk Factor Score: 3 Thrombosis Risk Factor Assessment Level: Moderate Risk Assessment and Plan Assessment: ASSESSMENT Acute kidney injury Chronic kidney disease stage IV Metabolic acidosis secondary to acute kidney injury Status post right-sided urostomy in place Anemia of chronic disease Type 2 diabetes mellitus Hypertension COPD 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 Patient was started on bicarbonate drip, by nephrology. Renal ultrasound and bladder scan was ordered. Patient has been restarted on his home medications. We will continue to monitor BMP and urine output. Further recommendations to follow depending on the progress of the patient.
[2021-01-25] MEDS: IPRATROPIUM 0.5 MG/2.5 ML NEBU INHALATION SCH ×2 (15:50→19:03)
[2021-01-25] MEDS: SYMBICORT 160-4.5 MCG INHALER INHALATION SCH (19:03)
[2021-01-25 20:16] LABS: Glucose,Whole Blood 213 mg/dL (75-99)
[2021-01-25] MEDS: INSULIN DETEMIR (LEVEMIR) 100 UNIT/ML SYR SQ SCH (20:43)
[2021-01-25] MEDS: MONTELUKAST 10 MG TAB PO SCH (20:43)
[2021-01-25] MEDS: ATORVASTATIN 20 MG TAB PO SCH (20:43)
[2021-01-25] MEDS: SODIUM BICARBONATE TAB 650 MG TAB PO SCH (20:43)
[2021-01-26 08:43] LABS: African American GFR (CKD) 13 (>60 ml/min/1.73 sqM); Anion Gap 9 mmol/L; Blood Urea Nitrogen 95 mg/dL (9-20); Calcium 7.5 mg/dL (8.4-10.2); Carbon Dioxide 20 mmol/L (22-30); Chloride 114 mmol/L (98-107); Glucose 76 mg/dL (74-99); Magnesium 1.9 mg/dL (1.6-2.3); Non-African American GFR(CKD) 11 (>60 ml/min/1.73 sqM); Potassium 4.3 mmol/L (3.5-5.1); Sodium 143 mmol/L (137-145)
[2021-01-26] MEDS: amLODIPine 10 MG TAB PO SCH (08:56)
[2021-01-26] MEDS: atenoloL 25 MG TAB PO SCH (08:56)
[2021-01-26] MEDS: SODIUM BICARBONATE TAB 650 MG TAB PO SCH ×2 (08:56→21:28)
--- NOTE | 2021-01-26 08:58 | P.PN ---
Subjective Patient is seen in follow-up for acute kidney injury and chronic kidney disease. Renal function slightly better. Acidosis improved. Currently on bicarb drip. Oral intake fair. Good urine output. Vital signs are stable. General: The patient appeared well nourished and normally developed. HEENT: Head exam is unremarkable. Neck is without jugular venous distension. LUNGS: Breath sounds decreased. HEART: Rate and Rhythm are regular. ABDOMEN: Soft, nontender. Right urostomy noted. EXTREMITITES: No edema. Objective - Vital Signs Vital signs: Vital Signs Temp 97.7 F 01/26/21 04:33 Pulse 78 01/26/21 04:33 Resp 18 01/26/21 04:33 BP 157/58 01/26/21 04:33 Pulse Ox 100 01/26/21 04:33 Intake & Output 01/25/21 01/26/21 01/26/21 18:59 06:59 18:59 Intake Total 800 1680 Output Total 1400 Balance 800 280 Intake: Intake, IV Titration 800 1200 Amount Dextrose 5% in Water 1, 800 1200 000 ml @ 100 mls/hr IV . [id number] with Sodium Bicarb (1 Meq/ml) 150 ml Rx#:[id number] Oral 480 Output: Drainage 1400 Right Abdomen 1400 Other: Voiding Method Ileal Conduit (Right) Ileal Conduit (Right) # Bowel Movements 1 - Labs CBC & Chem 7: 01/24/21 20:15 01/26/21 07:13 Labs: Abnormal Lab Results - Last 24 Hours (Table) 01/25/21 01/25/21 01/26/21 Range/Units 08:58 20:15 07:13 Chloride 117 H 114 H (98-107) mmol/L Carbon Dioxide 11 L 20 L (22-30) mmol/L BUN 96 H 95 H (9-20) mg/dL Creatinine 4.63 H 4.45 H (0.66-1.25) mg/dL Glucose 115 H (74-99) mg/dL POC Glucose (mg/dL) 213 H (75-99) mg/dL Calcium 7.7 L 7.5 L (8.4-10.2) mg/dL AST 12 L (17-59) U/L Total Protein 5.4 L (6.3-8.2) g/dL Albumin 2.8 L (3.5-5.0) g/dL Assessment and Plan Plan: Assessment: 1. Acute kidney injury mostly prerenal versus progression of underlying chronic kidney disease. Creatinine 4.8 on admission and is 4.45 today. No evidence of hydronephrosis noted on kidney ultrasound. 2. Chronic kidney disease stage IV with baseline creatinine in the range of 2.5-3 secondary to diabetic kidney disease. 3. Status post right-sided urostomy. 4. Metabolic acidosis secondary to acute kidney injury. Improved. 5. Diabetes mellitus. 6. Hypertension with chronic kidney disease. Stable. Plan: Stop bicarb drip. Start normal saline at 75 mL an hour. Maintain oral bicarb. Avoid nephrotoxins. Continue to monitor renal function and urine output. Continue to assess daily for need for renal replacement therapy. No urgency at this time. Check phosphorus level.
[2021-01-26] MEDS ORDERED: ENOXAPARIN 40 MG/0.4 ML SYRINGE SQ SCH (09:00)
[2021-01-26] MEDS: IPRATROPIUM 0.5 MG/2.5 ML NEBU INHALATION SCH ×4 (09:06→21:24)
[2021-01-26] MEDS: SYMBICORT 160-4.5 MCG INHALER INHALATION SCH ×2 (09:07→21:24)
[2021-01-26] MEDS: DEXTROSE 5% IN WATER 1,000 ML with SODIUM BICARB (1 MEQ/ML) 150 ML IV SCH (09:30)
[2021-01-26] MEDS: SODIUM CHLORIDE 0.9% 1,000 ML IV SCH ×2 (09:37→22:04)
--- NOTE | 2021-01-26 14:47 | P.PN ---
Subjective Progress Note Date: 01/26/21 Principal diagnosis: Acute metabolic acidosis due to acute kidney injury Mr. Banks is an 85-year-old male with a past medical history of COPD, diabetes mellitus, hypertension, hyperlipidemia, osteoarthritis, prostate disorder, CK D stage IV was sent to the emergency department by his primary care physician Dr. Kev Queen for abnormal labs. Patient states that he had routine blood work done in his PCPs office and there she was told that his creatinine has worsened. Patient has history of right-sided urostomy with good urinary output and also voids on his own. At the time of admission patient's creatinine was 4.8 and his bicarbonate was 13, he was given IV fluids in the ED and admitted for further management. Patient denies having any fevers chills or rigors. No chest pain or palpitations. No cough or difficulty in breathing. No abdominal pain nausea vomiting or diarrhea. No dysuria or hematuria. On reviewing his vitals at the time of admission temperature of 98, heart rate 70, respiratory rate 16, blood pressure 167/66, saturating at 100% on room air. On reviewing the labs white count of 9.7, hemoglobin 11.1, platelets 256. Sodium 138, potassium 5.2, Chloride 114, bicarbonate 13, BUN 100, creatinine 4.8, calcium 7.8, albumin 3.3. Patel virus PCR negative. On 01/26/2021 - patient was seen and examined at the bedside. No overnight acute events reported by nursing staff. As per discussion with nursing staff, patient has good urinary output since being started on IV fluids. Patient denies having any chest pain or palpations. No cough or difficulty in breathing. On our pain nausea vomiting or diarrhea. No dysuria or hematuria. He denies having any fevers chills or rigors. On reviewing his vitals temperature 98.3, heart rate 78, respiratory 16 PRESSURE 157/58, saturating 100% on room air. Reviewing the labs from this morning sodium 143, potassium 4.3, chloride 114, bicarbonate 20, BUN 95, creatinine 4.45. Phosphorus 6.5. Active Medications Albuterol Sulfate (Albuterol Nebulized 2.5 Mg/3 Ml) 2.5 mg INHALATION RT-QID PRN PRN Reason: Shortness Of Breath Amlodipine Besylate (Amlodipine 10 Mg Tab) 10 mg PO DAILY [facility] Last Admin: 01/26/21 08:56 Dose: 10 mg Documented by: Atenolol (Atenolol 25 Mg Tab) 25 mg PO DAILY [facility] Last Admin: 01/26/21 08:56 Dose: 25 mg Documented by: Atorvastatin Calcium (Atorvastatin 20 Mg Tab) 20 mg PO [facility] Last Admin: 01/25/21 20:43 Dose: 20 mg Documented by: Budesonide/Formoterol Fumarate (Symbicort 160-4.5 Mcg Inhaler) 2 puff INHALATION RT-BID [facility] Last Admin: 01/26/21 09:07 Dose: 2 puff Documented by: Enoxaparin Sodium (Enoxaparin 40 Mg/0.4 Ml Syringe) 40 mg SQ DAILY [facility] Last Admin: 01/26/21 08:56 Dose: 40 mg Documented by: Sodium Chloride (Saline 0.9%) 1,000 mls @ 75 mls/hr IV .[id number] [facility] Last Admin: 01/26/21 09:37 Dose: 75 mls/hr Documented by: Insulin Detemir (Insulin Detemir (Levemir) 100 Unit/Ml Syr) 20 unit SQ [facility] Last Admin: 01/25/21 20:43 Dose: 20 unit Documented by: Ipratropium [place] (Ipratropium 0.5 Mg/2.5 Ml Nebu) 0.5 mg INHALATION RT-QID [facility] Last Admin: 01/26/21 12:12 Dose: Not Given Documented by: Montelukast Sodium (Montelukast 10 Mg Tab) 10 mg PO [facility] Last Admin: 01/25/21 20:43 Dose: 10 mg Documented by: Naloxone HCl (Naloxone 0.4 Mg/Ml 1 Ml Vial) 0.2 mg IV Q2M PRN PRN Reason: Opioid Reversal Sodium Bicarbonate (Sodium Bicarbonate Tab 650 Mg Tab) 650 mg PO BID [facility] Last Admin: 01/26/21 08:56 Dose: 650 mg Documented by: Objective - Vital Signs Vital signs: Vital Signs Temp 97.7 F 01/26/21 04:33 Pulse 78 01/26/21 09:17 Resp 16 01/26/21 09:17 BP 157/58 01/26/21 04:33 Pulse Ox 100 01/26/21 04:33 Intake & Output 01/25/21 01/26/21 01/26/21 18:59 06:59 18:59 Intake Total 800 1680 Output Total 1400 450 Balance 800 280 -450 Intake: Intake, IV Titration 800 1200 Amount Dextrose 5% in Water 1, 800 1200 000 ml @ 100 mls/hr IV . [id number] [facility] with Sodium Bicarb (1 Meq/ml) 150 ml Rx#:[id number] Oral 480 Output: Drainage 1400 Right Abdomen 1400 Urine 450 Other: Voiding Method Ileal Conduit (Right) Ileal Conduit (Right) Ileal Conduit (Right) # Bowel Movements 1 - Exam PHYSICAL EXAMINATION: GENERAL: Elderly male lying in bed appears to be in no acute distress. HEENT: Pupils are round and equally reacting to light. EOMI. No scleral icterus. No conjunctival pallor. CARDIOVASCULAR: S1 and S2 present. PULMONARY: Bilateral breath sounds are positive. No wheeze or crackles. ABDOMEN: Soft, nontender, nondistended, normoactive bowel sounds. No palpable organomegaly. Right-sided urostomy in place good urinary output MUSCULOSKELETAL: No joint swelling or deformity. EXTREMITIES: No cyanosis, clubbing, or pedal edema. NEUROLOGICAL: patient is alert awake oriented 3 .Gross neurological examination did not reveal any focal deficits. SKIN: No rashes. 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 Patient's creatinine has been trending down slightly, acidosis improved. Renal ultrasound done showing no evidence of hydronephrosis, bilateral renal cysts. We will continue to monitor BMP and urine output. Further recommendations to follow depending on the progress of the patient.
[2021-01-26] MEDS: INSULIN DETEMIR (LEVEMIR) 100 UNIT/ML SYR SQ SCH (21:27)
[2021-01-26] MEDS: ATORVASTATIN 20 MG TAB PO SCH (21:27)
[2021-01-26] MEDS: MONTELUKAST 10 MG TAB PO SCH (21:27)
[2021-01-27] MEDS: IPRATROPIUM 0.5 MG/2.5 ML NEBU INHALATION SCH ×4 (08:28→21:15)
[2021-01-27] MEDS: SYMBICORT 160-4.5 MCG INHALER INHALATION SCH ×2 (08:28→21:15)
[2021-01-27] MEDS: ENOXAPARIN 30 MG/0.3 ML SYRINGE SQ SCH (08:40)
[2021-01-27] MEDS: amLODIPine 10 MG TAB PO SCH (08:40)
[2021-01-27] MEDS: SODIUM BICARBONATE TAB 650 MG TAB PO SCH ×3 (08:40→21:29)
[2021-01-27] MEDS: atenoloL 25 MG TAB PO SCH (08:40)
[2021-01-27 10:28] LABS: African American GFR (CKD) 14.5 (60.0-200.0); Anion Gap 7.8 mmol/L (4.00-12.00); BUN/Creat Ratio 22.44 Ratio (12.00-20.00); Calcium 7.1 mg/dL (8.7-10.3); Carbon Dioxide 20.2 mmol/L (21.6-31.8); Magnesium 1.7 mg/dL (1.5-2.4); Non-African American GFR(CKD) 12.5 (60.0-200.0); Potassium 4.4 mmol/L (3.5-5.5)
--- NOTE | 2021-01-27 10:40 | P.PN ---
Subjective Patient is seen in follow-up for acute kidney injury and chronic kidney disease. Renal function a little better today. Maintained on IV fluids. Oral intake fair. Good urine output. No edema. Good urine output. Vital signs are stable. General: The patient appeared well nourished and normally developed. HEENT: Head exam is unremarkable. Neck is without jugular venous distension. LUNGS: Breath sounds decreased. HEART: Rate and Rhythm are regular. ABDOMEN: Soft, nontender. Right urostomy noted. EXTREMITITES: No edema. Objective - Vital Signs Vital signs: Vital Signs Temp 97.7 F 01/27/21 04:15 Pulse 76 01/27/21 08:40 Resp 16 01/27/21 04:15 BP 147/68 01/27/21 04:15 Pulse Ox 96 01/27/21 04:15 Intake & Output 01/26/21 01/27/21 01/27/21 18:59 06:59 18:59 Intake Total 750 725 Output Total 450 1025 250 Balance 300 -300 -250 Intake: Intake, IV Titration 750 725 Amount Sodium Chloride 0.9% 1, 750 725 000 ml @ 75 mls/hr IV . [id number] [facility] Rx#:[id number] Output: Urine 450 1025 250 Other: Voiding Method Ileal Conduit (Right) Ileal Conduit (Right) Ileal Conduit (Right) - Labs CBC & Chem 7: 01/24/21 20:15 01/27/21 06:02 Labs: Abnormal Lab Results - Last 24 Hours (Table) 01/27/21 Range/Units 06:02 Sodium 146 H (135-145) mmol/L Chloride 118 H (96-109) mmol/L Carbon Dioxide 20.2 L (21.6-31.8) mmol/L BUN 92.0 H (9.0-27.0) mg/dL Creatinine 4.1 H (0.6-1.5) mg/dL Est GFR (CKD-EPI)AfAm 14.5 L (60.0-200.0) Est GFR (CKD-EPI)NonAf 12.5 L (60.0-200.0) BUN/Creatinine Ratio 22.44 H (12.00-20.00) Ratio Glucose 51 L (70-110) mg/dL Calcium 7.1 L (8.7-10.3) mg/dL Assessment and Plan Plan: Assessment: 1. Acute kidney injury mostly prerenal versus progression of underlying chronic kidney disease. Creatinine 4.8 on admission and is 4.1 today. No evidence of hydronephrosis noted on kidney ultrasound. 2. Chronic kidney disease stage IV with baseline creatinine in the range of 2.5-3 secondary to diabetic kidney disease. 3. Status post right-sided urostomy. 4. Metabolic acidosis secondary to acute kidney injury. Status post bicarb drip. Maintained on oral bicarbonate. 5. Diabetes mellitus. 6. Hypertension with chronic kidney disease. Stable. 7. Mild hypernatremia from lack of oral water intake. 8. Hyperphosphatemia secondary to acute kidney injury. Plan: I will change IV fluids to half-normal saline to be run at 100 mL an hour. Encourage oral intake, including free water. Maintain oral bicarb. I will increase the dose. Avoid nephrotoxins. Continue to monitor renal function and urine output. Add PhosLo with meals. Continue to assess daily for need for renal replacement therapy. No urgency at this time. Patient wishes to go home and is refusing to start dialysis this admission at this time. He will need to follow-up outpatient within 1 week for close monitoring of his renal function.
[2021-01-27] MEDS: SODIUM CHLORIDE 0.45% 1,000 ML IV SCH ×2 (11:12→22:56)
[2021-01-27] MEDS ORDERED: MAGNESIUM SULFATE-D5W PMX 1 GM in DEXTROSE/WATER 1 100ML.BAG IVPB ONE (11:30)
[2021-01-27] MEDS: CALCIUM ACETATE 667 MG TAB PO SCH ×2 (12:52→17:25)
--- NOTE | 2021-01-27 14:46 | P.PN ---
Subjective Progress Note Date: 01/27/21 Acute metabolic acidosis due to acute kidney injury Mr. Banks is an 85-year-old male with a past medical history of COPD, diabetes mellitus, hypertension, hyperlipidemia, osteoarthritis, prostate disor braulio, CK D stage IV was sent to the emergency department by his primary care physician Dr. Kev Queen for abnormal labs. Patient states that he had routine blood work done in his PCPs office and there she was told that his creatinine has worsened. Patient has history of right-sided urostomy with good urinary output and also voids on his own. At the time of admission patient's creatinine was 4.8 and his bicarbonate was 13, he was given IV fluids in the ED and admitted for further management. Patient denies having any fevers chills or rigors. No chest pain or palpitations. No cough or difficulty in breathing. No abdominal pain nausea vomiting or diarrhea. No dysuria or hematuria. On reviewing his vitals at the time of admission temperature of 98, heart rate 70, respiratory rate 16, blood pressure 167/66, saturating at 100% on room air. On reviewing the labs white count of 9.7, hemoglobin 11.1, platelets 256. Sodium 138, potassium 5.2, Chloride 114, bicarbonate 13, BUN 100, creatinine 4.8, calcium 7.8, albumin 3.3. Patel virus PCR negative. On 01/26/2021 - patient was seen and examined at the bedside. No overnight acute events reported by nursing staff. As per discussion with nursing staff, patient has good urinary output since being started on IV fluids. Patient de nies having any chest pain or palpations. No cough or difficulty in breathing. On our pain nausea vomiting or diarrhea. No dysuria or hematuria. He denies having any fevers chills or rigors. On reviewing his vitals temperature 98.3, heart rate 78, respiratory 16 PRESSURE 157/58, saturating 100% on room air. Reviewing the labs from this morning sodium 143, potassium 4.3, chloride 114, bicarbonate 20, BUN 95, creatinine 4.45. Phosphorus 6.5. 01/27/2021 Patient is seen and evaluated and follow-up with nephrology closely following. Patient sodium is worse today at 146 with a potassium of 4.4, current BUN 92 with a creatinine slightly improved at 4.1. Magnesium 1.7 will give 1 g magnesi um and repeat labs tomorrow. As mentioned previously nephrology is following and patient was started on half-normal saline and is being started on sodium bicarb tablets with repeat labs in the morning. Patient is making urine per nursing staff and will continue to follow kidney functions and monitor closely. Review of systems: Constitutional: No reports of fatigue, fever, or chills Cardiovascular: No reports of chest pain or palpitations Respiratory: No reports of shortness of breath or cough GI: No reports of nausea, vomiting, or diarrhea : No reports of dysuria or retention Neurovascular: No reports of weakness or numbness All medications have been reviewed Active Medications Albuterol Sulfate (Albuterol Nebulized 2.5 Mg/3 Ml) 2.5 mg INHALATION RT-QID HI N PRN Reason: Shortness Of Breath Amlodipine Besylate (Amlodipine 10 Mg Tab) 10 mg PO DAILY [facility] Last Admin: 01/27/21 08:40 Dose: 10 mg Documented by: Atenolol (Atenolol 25 Mg Tab) 25 mg PO DAILY [facility] Last Admin: 01/27/21 08:40 Dose: 25 mg Documented by: Atorvastatin Calcium (Atorvastatin 20 Mg Tab) 20 mg PO [facility] Last Admin: 01/26/21 21:27 Dose: 20 mg Documented by: Budesonide/Formoterol Fumarate (Symbicort 160-4.5 Mcg Inhaler) 2 puff INHALATION RT-BID [facility] Last Admin: 01/27/21 08:28 Dose: 2 puff Documented by: Calcium Acetate (Calcium Acetate 667 Mg Tab) 667 mg PO TID-W/MEALS [facility] Last Admin: 01/27/21 12:52 Dose: 667 mg Documented by: Enoxaparin Sodium (Enoxaparin 30 Mg/0.3 Ml Syringe) 30 mg SQ DAILY [facility] Last Admin: 01/27/21 08:40 Dose: 30 mg Documented by: Sodium Chloride (Saline 0.45%) 1,000 mls @ 100 mls/hr IV .Q10H [facility] Last Admin: 01/27/21 11:12 Dose: 100 mls/hr Documented by: Insulin Detemir (Insulin Detemir (Levemir) 100 Unit/Ml Syr) 20 unit SQ [facility] Last Admin: 01/26/21 21:27 Dose: 20 unit Documented by: Ipratropium [place] (Ipratropium 0.5 Mg/2.5 Ml Nebu) 0.5 mg INHALATION RT-QID [facility] Last Admin: 01/27/21 12:01 Dose: 0.5 mg Documented by: Montelukast Sodium (Montelukast 10 Mg Tab) 10 mg PO HS [facility] Last Admin: 01/26/21 21:27 Dose: 10 mg Documented by: Naloxone HCl (Naloxone 0.4 Mg/Ml 1 Ml Vial) 0.2 mg IV Q2M PRN PRN Reason: Opioid Reversal Sodium Bicarbonate (Sodium Bicarbonate Tab 650 Mg Tab) 650 mg PO TID [facility] Objective - Vital Signs Vital signs: Vital Signs Temp 97.7 F 01/27/21 04:15 Pulse 76 01/27/21 08:40 Resp 16 01/27/21 04:15 BP 147/68 01/27/21 04:15 Pulse Ox 96 01/27/21 04:15 Intake & Output 01/26/21 01/27/21 01/27/21 18:59 06:59 18:59 Intake Total 750 725 Output Total 450 1025 250 Balance 300 -300 -250 Intake: Intake, IV Titration 750 725 Amount Sodium Chloride 0.9% 1, 750 725 000 ml @ 75 mls/hr IV . [id number] [facility] Rx#:[id number] Output: Urine 450 1025 250 Other: Voiding Method Ileal Conduit (Right) Ileal Conduit (Right) Ileal Conduit (Right) - Exam GENERAL: Elderly male lying in bed appears to be in no acute distress. HEENT: Pupils are round and equally reacting to light. EOMI. No scleral icterus. No conjunctival pallor. CARDIOVASCULAR: S1 and S2 present. PULMONARY: Bilateral breath sounds are positive. No wheeze or crackles. ABDOMEN: Soft, nontender, nondistended, normoactive bowel sounds. No palpable organomegaly. Right-sided urostomy in place good urinary output MUSCULOSKELETAL: No joint swelling or deformity. EXTREMITIES: No cyanosis, clubbing, or pedal edema. NEUROLOGICAL: patient is alert awake oriented 3 .Gross neurological examination did not reveal any focal deficits. SKIN: No rashes. - Labs CBC & Chem 7: 01/24/21 20:15 01/27/21 06:02 Labs: Abnormal Lab Results - Last 24 Hours (Table) 01/27/21 Range/Units 06:02 Sodium 146 H (135-145) mmol/L Chloride 118 H (96-109) mmol/L Carbon Dioxide 20.2 L (21.6-31.8) mmol/L BUN 92.0 H (9.0-27.0) mg/dL Creatinine 4.1 H (0.6-1.5) mg/dL Est GFR (CKD-EPI)AfAm 14.5 L (60.0-200.0) Est GFR (CKD-EPI)NonAf 12.5 L (60.0-200.0) BUN/Creatinine Ratio 22.44 H (12.00-20.00) Ratio Glucose 51 L (70-110) mg/dL Calcium 7.1 L (8.7-10.3) mg/dL Assessment and Plan Assessment: Acute kidney injury Chronic kidney disease stage IV Metabolic acidosis secondary to acute kidney injury 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 Patient's creatinine continues to be trending down slightly, acidosis improved. Patient continues to have good urine output and will repeat labs. Magnesium slightly low at 1.7 and will give 1 g and repeat magnesium level as well and the morning. Further recommendations to follow depending on the progress of the patient. Possible discharge in 24 hours.
[2021-01-27 19:25] LABS: Glucose,Whole Blood 202 mg/dL (75-99)
[2021-01-27] MEDS: INSULIN DETEMIR (LEVEMIR) 100 UNIT/ML SYR SQ SCH (21:29)
[2021-01-27] MEDS: MONTELUKAST 10 MG TAB PO SCH (21:29)
[2021-01-27] MEDS: ATORVASTATIN 20 MG TAB PO SCH (21:29)
--- NOTE | 2021-01-28 06:49 | XR ---
EXAMINATION TYPE: XR chest 2V DATE OF EXAM: 01/28/2021 COMPARISON: Chest x-ray 06/26/2019 HISTORY: Shortness of breath TECHNIQUE: Frontal and lateral views of the chest are obtained. FINDINGS: Interstitium is increased. There is no evident pneumothorax. Abnormal increased density is present along the right costophrenic angle. Cardiac silhouette is enlarged, aorta is dense. There is flattening the hemidiaphragms suggesting underlying air trapping, COPD. Coronary artery calcificatio ns are suspected. IMPRESSION: Correlate for possible congestive heart failure in a patient with pre-existing COPD, rig ht pleural effusion. Pneumonia not excluded.
[2021-01-28 07:03] LABS: Basophils % (A) 0 %; Eosinophils # (A) 0.7 k/uL (0-0.7); Eosinophils % (A) 6 %; HCT 33.5 % (39.0-53.0); HGB 10.9 gm/dL (13.0-17.5); Lymphocytes # (A) 1.2 k/uL (1.0-4.8); Lymphocytes % (A) 10 %; MCH 29.4 pg (25.0-35.0); MCHC 32.6 g/dL (31.0-37.0); MCV 89.9 fL (80.0-100.0); Mean Platelet Volume 7.1; Monocytes # (A) 0.7 k/uL (0-1.0); Monocytes % (A) 6 %; Neutrophils # (A) 8.8 k/uL (1.3-7.7); Neutrophils % (A) 77 %; Platelet Count 266 k/uL (150-450); RBC 3.73 m/uL (4.30-5.90); RDW 15.1 % (11.5-15.5); WBC 11.5 k/uL (3.8-10.6)
[2021-01-28 07:15] LABS: Glucose,Whole Blood 97 mg/dL (75-99)
[2021-01-28 07:28] LABS: ALT 10 U/L (4-49); AST 14 U/L (17-59); African American GFR (CKD) 16 (>60 ml/min/1.73 sqM); Albumin 3.1 g/dL (3.5-5.0); Albumin/Globulin Ratio 1.1; Alkaline Phosphatase 103 U/L (38-126); Anion Gap 9 mmol/L; Blood Urea Nitrogen 75 mg/dL (9-20); Calcium 7.8 mg/dL (8.4-10.2); Carbon Dioxide 20 mmol/L (22-30); Chloride 112 mmol/L (98-107); Globulin 2.8 g/dL; Glucose 93 mg/dL (74-99); Magnesium 1.9 mg/dL (1.6-2.3); Non-African American GFR(CKD) 14 (>60 ml/min/1.73 sqM); Potassium 4.4 mmol/L (3.5-5.1); Sodium 141 mmol/L (137-145); Total Bilirubin 0.4 mg/dL (0.2-1.3); Total Protein 5.9 g/dL (6.3-8.2)
--- NOTE | 2021-01-28 07:36 | P.PN ---
Subjective Progress Note Date: 01/28/21 Principal diagnosis: Acute metabolic acidosis due to acute kidney injury 85-year-old male with past medical history of COPD, diabetes mellitus, hypertension, hyperlipidemia, osteoarthritis, prostate disorder chronic kidney disease stage IV was sent to the emergency department by our services for abnormal labs. Patient has history of right sided urostomy with good urinary output and also is able to void on his own. Creatinine upon admission was 4.8 and bicarb was 13, he was given IV fluids and admitted for further medical management. Nephrology was consulted for recommendations and treatment plan regarding acute kidney injury. 01/26/2021 He had significant amount of urinary output with IV fluids creatinine and BUNs improved throughout the day 01/27/2021 Patient continues to have urinary output with IV fluids and strict I&O's. Renal functioning continue to improve. 01/28/2021 Evaluated patient this a.m. resting comfortably in bed, patient having mild shortness of breath with exertion and generalized weakness throughout the night and this a.m. Lengthy discussion with patient regarding wishes for dialysis due to worsening kidney function and repeat admissions for acute kidney injury with metabolic acidosis. Consult to vascular surgery for dialysis access. Further discussion to be made with nephrology regarding plans for dialysis. Patient denies fever, chills chest pain, palpitations, abdominal pain, nausea, or diarrhea at this time. Patient continues to endorse generalized weakness and exertional shortness of breath. Awaiting diagnostic labs from this a.m. Objective - Vital Signs Vital signs: Vital Signs Temp 98 F 01/28/21 04:36 Pulse 60 01/28/21 04:36 Resp 16 01/28/21 04:36 BP 156/74 01/28/21 04:36 Pulse Ox 96 01/28/21 04:36 Intake & Output 01/27/21 01/28/21 01/28/21 18:59 06:59 18:59 Intake Total 1100 Output Total 900 1000 Balance 200 -1000 Intake: Intake, IV Titration 1100 Amount Sodium Chloride 0.45% 1, 800 000 ml @ 100 mls/hr IV . Q10H [facility] Rx#:[id number] Sodium Chloride 0.9% 1, 300 000 ml @ 75 mls/hr IV . [id number] [facility] Rx#:[id number] Output: Urine 900 1000 Other: Voiding Method Ileal Conduit (Right) Ileal Conduit (Right) - Constitutional General appearance: Present: mild distress - EENT Eyes: Present: EOMI, PERRLA, normal appearance Ears: bilateral: normal - Neck Neck: Present: normal ROM Carotids: bilateral: upstroke normal Thyroid: bilateral: normal size - Respiratory Respiratory: bilateral: diminished (Anterior lung cline), rales (Posterior lung cline) - Cardiovascular Heart rate: 60 Rhythm: regular Heart sounds: normal: S1, S2 - Peripheral edema ankle Peripheral Edema: bilateral: Trace - Peripheral pulses radial pulse Peripheral Pulses: bilateral: Normal dorsalis pedis Peripheral Pulses: bilateral: Normal - Gastrointestinal General gastrointestinal: Present: normal bowel sounds - Integumentary Integumentary: Present: pale - Neurologic Neurologic: Present: CNII-XII intact - Musculoskeletal Musculoskeletal: Present: generalized weakness - Psychiatric Psychiatric: Present: A&O x's 3, appropriate affect, intact judgment & insight - Allied health notes Allied health notes reviewed: nursing - Labs CBC & Chem 7: 01/28/21 06:38 01/27/21 06:02 Labs: Abnormal Lab Results - Last 24 Hours (Table) 01/27/21 01/27/21 01/28/21 Range/Units 06:02 19:18 06:38 WBC 11.5 H (3.8-10.6) k/uL RBC 3.73 L (4.30-5.90) m/uL Hgb 10.9 L (13.0-17.5) gm/dL Hct 33.5 L (39.0-53.0) % Neutrophils # 8.8 H (1.3-7.7) k/uL Sodium 146 H (135-145) mmol/L Chloride 118 H (96-109) mmol/L Carbon Dioxide 20.2 L (21.6-31.8) mmol/L BUN 92.0 H (9.0-27.0) mg/dL Creatinine 4.1 H (0.6-1.5) mg/dL Est GFR (CKD-EPI)AfAm 14.5 L (60.0-200.0) Est GFR (CKD-EPI)NonAf 12.5 L (60.0-200.0) BUN/Creatinine Ratio 22.44 H (12.00-20.00) Ratio Glucose 51 L (70-110) mg/dL POC Glucose (mg/dL) 202 H (75-99) mg/dL Calcium 7.1 L (8.7-10.3) mg/dL - Imaging and Cardiology Chest x-ray: report reviewed Assessment and Plan Assessment: Acute kidney injury Chronic kidney disease stage IV Metabolic acidosis secondary to acute kidney injury 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 Anemia of chronic kidney disease Diabetes mellitus type 2 Hypertension COPD History of plasmacytoma of left femur Osteoarthritis Prostate disorder Moderate protein calorie malnutrition Plan: Acute kidney injurycontinue IV fluids,monitor strict I's and O's, continue oral sodium bicarbcontinue consultation with nephrology for recommendations and treatment plan Chronic kidney disease stage IVlengthy discussion with patient regarding wishes for dialysis consulted vascular for dialysis accesscontinue consultation with nephrology for recommendations and treatment plan Metabolic acidosis secondary to acute kidney injurywith sodium bicarb Continue home medications Continue to monitor diagnostic testing and vital signs Continue medical management Further recommendations to come based on patient's clinical condition Time with Patient: Greater than 30
[2021-01-28] MEDS: INSULIN ASPART (NovoLOG) 100 UNIT/ML VIAL SQ SCH ×4 (08:37→21:18)
[2021-01-28] MEDS: IPRATROPIUM 0.5 MG/2.5 ML NEBU INHALATION SCH ×4 (08:42→20:23)
[2021-01-28] MEDS: SYMBICORT 160-4.5 MCG INHALER INHALATION SCH ×2 (08:42→20:23)
[2021-01-28] MEDS: amLODIPine 10 MG TAB PO SCH (08:43)
[2021-01-28] MEDS: atenoloL 25 MG TAB PO SCH (08:43)
[2021-01-28] MEDS: CALCIUM ACETATE 667 MG TAB PO SCH ×3 (08:45→17:20)
[2021-01-28] MEDS: SODIUM CHLORIDE 0.45% 1,000 ML IV SCH (08:45)
[2021-01-28] MEDS: SODIUM BICARBONATE TAB 650 MG TAB PO SCH ×3 (08:46→21:20)
[2021-01-28] MEDS: ENOXAPARIN 30 MG/0.3 ML SYRINGE SQ SCH (10:01)
--- NOTE | 2021-01-28 11:02 | P.PN ---
Subjective Patient is seen in follow-up for acute kidney injury and chronic kidney disease. Renal function improving. Maintained on IV fluids. Oral intake is good. Good urine output. No edema. Vital signs are stable. General: The patient appeared well nourished and normally developed. HEENT: Head exam is unremarkable. Neck is without jugular venous distension. LUNGS: Breath sounds decreased. HEART: Rate and Rhythm are regular. ABDOMEN: Soft, nontender. Right urostomy noted. EXTREMITITES: No edema. Objective - Vital Signs Vital signs: Vital Signs Temp 98 F 01/28/21 04:36 Pulse 72 01/28/21 08:55 Resp 16 01/28/21 08:00 BP 156/74 01/28/21 04:36 Pulse Ox 96 01/28/21 04:36 Intake & Output 01/27/21 01/28/21 01/28/21 18:59 06:59 18:59 Intake Total 1100 Output Total 900 1000 Balance 200 -1000 Intake: Intake, IV Titration 1100 Amount Sodium Chloride 0.45% 1, 800 000 ml @ 100 mls/hr IV . Q10H [facility] Rx#:[id number] Sodium Chloride 0.9% 1, 300 000 ml @ 75 mls/hr IV . [id number] [facility] Rx#:[id number] Output: Urine 900 1000 Other: Voiding Method Ileal Conduit (Right) Ileal Conduit (Right) Ileal Conduit (Right) - Labs CBC & Chem 7: 01/28/21 06:38 01/28/21 06:38 Labs: Abnormal Lab Results - Last 24 Hours (Table) 01/27/21 01/28/21 01/28/21 Range/Units 19:18 06:38 06:38 WBC 11.5 H (3.8-10.6) k/uL RBC 3.73 L (4.30-5.90) m/uL Hgb 10.9 L (13.0-17.5) gm/dL Hct 33.5 L (39.0-53.0) % Neutrophils # 8.8 H (1.3-7.7) k/uL Chloride 112 H (98-107) mmol/L Carbon Dioxide 20 L (22-30) mmol/L BUN 75 H (9-20) mg/dL Creatinine 3.84 H (0.66-1.25) mg/dL POC Glucose (mg/dL) 202 H (75-99) mg/dL Calcium 7.8 L (8.4-10.2) mg/dL AST 14 L (17-59) U/L Total Protein 5.9 L (6.3-8.2) g/dL Albumin 3.1 L (3.5-5.0) g/dL Assessment and Plan Plan: Assessment: 1. Acute kidney injury mostly prerenal versus progression of underlying chronic kidney disease. Creatinine 4.8 on admission and is 3.84 today. No evidence of hydronephrosis noted on kidney ultrasound. 2. Chronic kidney disease stage IV with baseline creatinine in the range of 2.5-3 secondary to diabetic kidney disease. 3. Status post right-sided urostomy. 4. Metabolic acidosis secondary to acute kidney injury. Status post bicarb drip. Maintained on oral bicarbonate. 5. Diabetes mellitus. 6. Hypertension with chronic kidney disease. Stable. 7. Mild hypernatremia from lack of oral water intake. Improved. 8. Hyperphosphatemia secondary to acute kidney injury. Maintained on PhosLo. Plan: I will change IV fluids to normal saline at 50 mL an hour. Encourage oral intake, including free water. Avoid nephrotoxins. Continue to monitor renal function and urine output. No urgent need for renal replacement therapy at this time. He will need to follow-up outpatient within 1 week for close monitoring of his renal function.
[2021-01-28] MEDS: SODIUM CHLORIDE 0.9% 1,000 ML IV SCH (11:31)
[2021-01-28 11:56] LABS: Glucose,Whole Blood 121 mg/dL (75-99)
[2021-01-28 16:24] LABS: Hemoglobin A1C 5.5 % (4.0-6.0)
[2021-01-28 17:13] LABS: Glucose,Whole Blood 181 mg/dL (75-99)
[2021-01-28 20:33] LABS: Glucose,Whole Blood 185 mg/dL (75-99)
[2021-01-28] MEDS: ATORVASTATIN 20 MG TAB PO SCH (21:19)
[2021-01-28] MEDS: MONTELUKAST 10 MG TAB PO SCH (21:19)
[2021-01-28] MEDS: AZITHROMYCIN 500 MG TAB PO SCH (21:19)
[2021-01-28] MEDS: INSULIN DETEMIR (LEVEMIR) 100 UNIT/ML SYR SQ SCH (21:19)
[2021-01-29 06:24] LABS: Basophils % (A) 0 %; Eosinophils # (A) 0.6 k/uL (0-0.7); Eosinophils % (A) 7 %; HGB 9.5 gm/dL (13.0-17.5); Lymphocytes # (A) 0.6 k/uL (1.0-4.8); Lymphocytes % (A) 7 %; MCH 29.5 pg (25.0-35.0); MCHC 32.8 g/dL (31.0-37.0); MCV 89.7 fL (80.0-100.0); Mean Platelet Volume 6.9; Monocytes # (A) 0.5 k/uL (0-1.0); Monocytes % (A) 7 %; Neutrophils # (A) 6.5 k/uL (1.3-7.7); Neutrophils % (A) 79 %; Platelet Count 213 k/uL (150-450); RBC 3.24 m/uL (4.30-5.90); RDW 14.9 % (11.5-15.5); WBC 8.3 k/uL (3.8-10.6)
[2021-01-29 06:32] LABS: ALT 9 U/L (4-49); AST 13 U/L (17-59); African American GFR (CKD) 17 (>60 ml/min/1.73 sqM); Albumin 2.6 g/dL (3.5-5.0); Alkaline Phosphatase 88 U/L (38-126); Anion Gap 7 mmol/L; Blood Urea Nitrogen 73 mg/dL (9-20); Calcium 7.6 mg/dL (8.4-10.2); Carbon Dioxide 18 mmol/L (22-30); Chloride 114 mmol/L (98-107); Globulin 2.6 g/dL; Glucose 80 mg/dL (74-99); Non-African American GFR(CKD) 14 (>60 ml/min/1.73 sqM); Potassium 4.4 mmol/L (3.5-5.1); Sodium 139 mmol/L (137-145); Total Bilirubin 0.2 mg/dL (0.2-1.3); Total Protein 5.2 g/dL (6.3-8.2)
--- NOTE | 2021-01-29 06:57 | P.PN ---
Subjective Progress Note Date: 01/29/21 Principal diagnosis: Acute metabolic acidosis due to acute kidney injury Possible community acquired pneumonia 85-year-old male with past medical history of COPD, diabetes mellitus, hypertension, hyperlipidemia, osteoarthritis, prostate disorder chronic kidney disease stage IV was sent to the emergency department by our services for abnormal labs. Patient has history of right sided urostomy with good urinary output and also is able to void on his own. Creatinine upon admission was 4.8 and bicarb was 13, he was given IV fluids and admitted for further medical management. Nephrology was consulted for recommendations and treatment plan regarding acute kidney injury. 01/26/2021 He had significant amount of urinary output with IV fluids creatinine and BUNs improved throughout the day 01/27/2021 Patient continues to have urinary output with IV fluids and strict I&O's. Renal functioning continue to improve. 01/28/2021 Evaluated patient this a.m. resting comfortably in bed, patient having mild shortness of breath with exertion and generalized weakness throughout the night and this a.m. Lengthy discussion with patient regarding wishes for dialysis due to worsening kidney function and repeat admissions for acute kidney injury with metabolic acidosis. Consult to vascular surgery for dialysis access. Further discussion to be made with nephrology regarding plans for dialysis. Patient denies fever, chills chest pain, palpitations, abdominal pain, nausea, or d iarrhea at this time. Patient continues to endorse generalized weakness and exertional shortness of breath. Awaiting diagnostic labs from this a.m. 01/29/2021 Evaluated patient this a.m. patient continues to endorse mild shortness of breath with exertion and generalized weakness.chest x-ray from 01/28/2021 showed possible pulmonary congestion versus pneumoniaelevated Procalcitonin and CRP noted. Patient started on Zithromax and Rocephin for possible community acquired pneumonia. Nephrology had discussion with patient regarding kidney function no need for vascular access at this time. Patient denies fever, chills, chest pain, palpitations, abdominal pain, nausea or diarrhea at this armen e. Kidney function improving hopeful discharge within 24 hours Objective - Vital Signs Vital signs: Vital Signs Temp 97.6 F 01/29/21 05:00 Pulse 73 01/29/21 05:00 Resp 16 01/29/21 05:00 BP 170/70 01/29/21 05:00 Pulse Ox 96 01/29/21 05:00 Intake & Output 01/28/21 01/28/21 01/29/21 06:59 18:59 06:59 Output Total 1000 900 700 Balance -1000 -900 -700 Output: Urine 1000 900 700 Other: Voiding Method Ileal Conduit (Right) Ileal Conduit (Right) Ileal Conduit (Right) # Voids 2 - Constitutional General appearance: Present: mild distress - EENT Eyes: Present: EOMI, PERRLA ENT: Present: normal oropharynx Ears: bilateral: normal - Neck Neck: Present: normal ROM Carotids: bilateral: upstroke normal Thyroid: negative: normal size - Respiratory Respiratory: bilateral: diminished (Anterior lung cline), rales (Posterior lung cline) - Cardiovascular Heart rate: 74 Rhythm: regular Heart sounds: normal: S1, S2 - Peripheral pulses radial pulse Peripheral Pulses: bilateral: Normal dorsalis pedis Peripheral Pulses: bilateral: Normal - Gastrointestinal General gastrointestinal: Present: normal bowel sounds - Integumentary Integumentary: Present: normal turgor - Neurologic Neurologic: Present: CNII-XII intact - Musculoskeletal Musculoskeletal: Present: generalized weakness - Psychiatric Psychiatric: Present: A&O x's 3, appropriate affect, intact judgment & insight - Labs CBC & Chem 7: 01/29/21 05:44 01/29/21 05:44 Labs: Abnormal Lab Results - Last 24 Hours (Table) 01/28/21 01/28/21 01/28/21 Range/Units 06:38 06:38 06:38 WBC 11.5 H (3.8-10.6) k/uL RBC 3.73 L (4.30-5.90) m/uL Hgb 10.9 L (13.0-17.5) gm/dL Hct 33.5 L (39.0-53.0) % Neutrophils # 8.8 H (1.3-7.7) k/uL Lymphocytes # (1.0-4.8) k/uL Chloride 112 H (98-107) mmol/L Carbon Dioxide 20 L (22-30) mmol/L BUN 75 H (9-20) mg/dL Creatinine 3.84 H (0.66-1.25) mg/dL POC Glucose (mg/dL) (75-99) mg/dL Calcium 7.8 L (8.4-10.2) mg/dL AST 14 L (17-59) U/L C-Reactive Protein (<1.0) mg/dL Total Protein 5.9 L (6.3-8.2) g/dL Albumin 3.1 L (3.5-5.0) g/dL Procalcitonin 0.31 H (0.02-0.09) ng/mL 01/28/21 01/28/21 01/28/21 Range/Units 06:38 11:55 16:56 WBC (3.8-10.6) k/uL RBC (4.30-5.90) m/uL Hgb (13.0-17.5) gm/dL Hct (39.0-53.0) % Neutrophils # (1.3-7.7) k/uL Lymphocytes # (1.0-4.8) k/uL Chloride (98-107) mmol/L Carbon Dioxide (22-30) mmol/L BUN (9-20) mg/dL Creatinine (0.66-1.25) mg/dL POC Glucose (mg/dL) 121 H 181 H (75-99) mg/dL Calcium (8.4-10.2) mg/dL AST (17-59) U/L C-Reactive Protein 2.9 H (<1.0) mg/dL Total Protein (6.3-8.2) g/dL Albumin (3.5-5.0) g/dL Procalcitonin (0.02-0.09) ng/mL 01/28/21 01/29/21 01/29/21 Range/Units 20:22 05:44 05:44 WBC (3.8-10.6) k/uL RBC 3.24 L (4.30-5.90) m/uL Hgb 9.5 L (13.0-17.5) gm/dL Hct 29.0 L (39.0-53.0) % Neutrophils # (1.3-7.7) k/uL Lymphocytes # 0.6 L (1.0-4.8) k/uL Chloride 114 H (98-107) mmol/L Carbon Dioxide 18 L (22-30) mmol/L BUN 73 H (9-20) mg/dL Creatinine 3.64 H (0.66-1.25) mg/dL POC Glucose (mg/dL) 185 H (75-99) mg/dL Calcium 7.6 L (8.4-10.2) mg/dL AST 13 L (17-59) U/L C-Reactive Protein (<1.0) mg/dL Total Protein 5.2 L (6.3-8.2) g/dL Albumin 2.6 L (3.5-5.0) g/dL Procalcitonin (0.02-0.09) ng/mL Assessment and Plan Assessment: Acute kidney injury Possible community acquired pneumonia Possible pulmonary congestion Chronic kidney disease stage IV Metabolic acidosis secondary to acute kidney injury 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 Anemia of chronic kidney disease Diabetes mellitus type 2 Hypertension COPD History of plasmacytoma of left femur Osteoarthritis Prostate disorder Moderate protein calorie malnutrition Full code Plan: Acute kidney injurycontinue IV fluids,monitor strict I's and O's, continue oral sodium bicarbcontinue consultation with nephrology for recommendations and treatment plan Possible community acquired pneumonia continue IV antibiotics Chronic kidney disease stage IVcontinue consultation with nephrology for recommendations and treatment plan Metabolic acidosis secondary to acute kidney injurywith sodium bicarb Continue home medications Continue to monitor diagnostic testing and vital signs Continue medical management Further recommendations to come based on patient's clinical condition Time with Patient: Greater than 30
[2021-01-29 07:10] LABS: Glucose,Whole Blood 72 mg/dL (75-99)
[2021-01-29] MEDS: INSULIN ASPART (NovoLOG) 100 UNIT/ML VIAL SQ SCH ×4 (07:17→21:30)
[2021-01-29] MEDS: SYMBICORT 160-4.5 MCG INHALER INHALATION SCH ×2 (07:56→20:58)
[2021-01-29] MEDS: IPRATROPIUM 0.5 MG/2.5 ML NEBU INHALATION SCH ×4 (07:56→20:58)
[2021-01-29] MEDS: SODIUM BICARBONATE TAB 650 MG TAB PO SCH ×2 (08:52→20:53)
[2021-01-29] MEDS: CALCIUM ACETATE 667 MG TAB PO SCH ×3 (08:52→17:53)
[2021-01-29] MEDS: atenoloL 25 MG TAB PO SCH (08:52)
[2021-01-29] MEDS: SODIUM CHLORIDE 0.9% 1,000 ML IV SCH (08:53)
[2021-01-29] MEDS: amLODIPine 10 MG TAB PO SCH (08:53)
[2021-01-29] MEDS: ENOXAPARIN 30 MG/0.3 ML SYRINGE SQ SCH (08:53)
--- NOTE | 2021-01-29 11:16 | P.PN ---
Subjective Patient is seen in follow-up for acute kidney injury and chronic kidney disease. Renal function improving. Maintained on IV fluids. Oral intake is good. Good urine output. No edema. No changes overnight. Vital signs are stable. General: The patient appeared well nourished and normally developed. HEENT: Head exam is unremarkable. Neck is without jugular venous distension. LUNGS: Breath sounds decreased. HEART: Rate and Rhythm are regular. ABDOMEN: Soft, nontender. Right urostomy noted. EXTREMITITES: No edema. Objective - Vital Signs Vital signs: Vital Signs Temp 97.6 F 01/29/21 05:00 Pulse 74 01/29/21 08:08 Resp 16 01/29/21 05:00 BP 170/70 01/29/21 05:00 Pulse Ox 96 01/29/21 05:00 Intake & Output 01/28/21 01/29/21 01/29/21 18:59 06:59 18:59 Output Total 900 700 300 Balance -900 -700 -300 Output: Urine 900 700 300 Other: Voiding Method Ileal Conduit (Right) Ileal Conduit (Right) Ileal Conduit (Right) # Voids 2 - Labs CBC & Chem 7: 01/29/21 05:44 01/29/21 05:44 Labs: Abnormal Lab Results - Last 24 Hours (Table) 01/28/21 01/28/21 01/28/21 Range/Units 06:38 06:38 11:55 RBC (4.30-5.90) m/uL Hgb (13.0-17.5) gm/dL Hct (39.0-53.0) % Lymphocytes # (1.0-4.8) k/uL Chloride (98-107) mmol/L Carbon Dioxide (22-30) mmol/L BUN (9-20) mg/dL Creatinine (0.66-1.25) mg/dL POC Glucose (mg/dL) 121 H (75-99) mg/dL Calcium (8.4-10.2) mg/dL AST (17-59) U/L C-Reactive Protein 2.9 H (<1.0) mg/dL Total Protein (6.3-8.2) g/dL Albumin (3.5-5.0) g/dL Procalcitonin 0.31 H (0.02-0.09) ng/mL 01/28/21 01/28/21 01/29/21 Range/Units 16:56 20:22 05:44 RBC 3.24 L (4.30-5.90) m/uL Hgb 9.5 L (13.0-17.5) gm/dL Hct 29.0 L (39.0-53.0) % Lymphocytes # 0.6 L (1.0-4.8) k/uL Chloride (98-107) mmol/L Carbon Dioxide (22-30) mmol/L BUN (9-20) mg/dL Creatinine (0.66-1.25) mg/dL POC Glucose (mg/dL) 181 H 185 H (75-99) mg/dL Calcium (8.4-10.2) mg/dL AST (17-59) U/L C-Reactive Protein (<1.0) mg/dL Total Protein (6.3-8.2) g/dL Albumin (3.5-5.0) g/dL Procalcitonin (0.02-0.09) ng/mL 01/29/21 01/29/21 Range/Units 05:44 07:08 RBC (4.30-5.90) m/uL Hgb (13.0-17.5) gm/dL Hct (39.0-53.0) % Lymphocytes # (1.0-4.8) k/uL Chloride 114 H (98-107) mmol/L Carbon Dioxide 18 L (22-30) mmol/L BUN 73 H (9-20) mg/dL Creatinine 3.64 H (0.66-1.25) mg/dL POC Glucose (mg/dL) 72 L (75-99) mg/dL Calcium 7.6 L (8.4-10.2) mg/dL AST 13 L (17-59) U/L C-Reactive Protein (<1.0) mg/dL Total Protein 5.2 L (6.3-8.2) g/dL Albumin 2.6 L (3.5-5.0) g/dL Procalcitonin (0.02-0.09) ng/mL Assessment and Plan Plan: Assessment: 1. Acute kidney injury mostly prerenal versus progression of underlying chronic kidney disease. Creatinine 4.8 on admission and is 3.64 today. No evidence of hydronephrosis noted on kidney ultrasound. 2. Chronic kidney disease stage IV with baseline creatinine in the range of 2.5-3 secondary to diabetic kidney disease. 3. Status post right-sided urostomy. 4. Metabolic acidosis secondary to acute kidney injury and IVFs. Status post bicarb drip. Maintained on oral bicarbonate. 5. Diabetes mellitus. 6. Hypertension with chronic kidney disease. 7. Mild hypernatremia from lack of oral water intake. Resolved. 8. Hyperphosphatemia secondary to acute kidney injury. Maintained on PhosLo. Plan: Maintain normal saline at 50 mL an hour. Encourage oral intake. Avoid nephrotoxins. Increase bicarb dose. Add hydralazine 25 mg 3 times daily. Continue to monitor renal function and urine output. No urgent need for renal replacement therapy at this time. He will need to follow-up outpatient within 1 week post-discharge for close monitoring of his renal function.
[2021-01-29 12:04] LABS: Glucose,Whole Blood 290 mg/dL (75-99)
[2021-01-29] MEDS: hydrALAZINE HCL 25 MG TAB PO SCH ×3 (12:46→21:33)
[2021-01-29 17:36] LABS: Glucose,Whole Blood 70 mg/dL (75-99)
[2021-01-29] MEDS: MONTELUKAST 10 MG TAB PO SCH (20:53)
[2021-01-29] MEDS: ATORVASTATIN 20 MG TAB PO SCH (20:54)
[2021-01-29] MEDS: INSULIN DETEMIR (LEVEMIR) 100 UNIT/ML SYR SQ SCH (21:02)
[2021-01-29 21:09] LABS: Glucose,Whole Blood 166 mg/dL (75-99)
[2021-01-29] MEDS: AZITHROMYCIN 500 MG TAB PO SCH (21:28)
[2021-01-30] MEDS: SODIUM CHLORIDE 0.9% 1,000 ML IV SCH (03:19)
--- NOTE | 2021-01-30 06:45 | XR ---
EXAMINATION TYPE: XR chest 2V DATE OF EXAM: 01/30/2021 COMPARISON: 01/28/2021 HISTORY: Pneumonia. TECHNIQUE: Frontal and lateral views of the chest are obtained. FINDINGS: There is increasing right basilar consolidation and pleural effusion and decreasing right- sided lung volume. This could be due to pneumonia. Mild pulmonary vascular congestion without overt C HF. Heart appears prominent. Mediastinum is within normal limits. There is no pneumothorax. IMPRESSION: Slight worsening compared to 2 days ago.
[2021-01-30 07:22] LABS: Glucose,Whole Blood 60 mg/dL (75-99)
[2021-01-30 07:26] LABS: Basophils % (A) 0 %; Eosinophils # (A) 0.4 k/uL (0-0.7); Eosinophils % (A) 5 %; HCT 30.1 % (39.0-53.0); HGB 9.8 gm/dL (13.0-17.5); Lymphocytes # (A) 0.7 k/uL (1.0-4.8); Lymphocytes % (A) 9 %; MCH 29.3 pg (25.0-35.0); MCHC 32.6 g/dL (31.0-37.0); MCV 89.7 fL (80.0-100.0); Mean Platelet Volume 6.9; Monocytes # (A) 0.6 k/uL (0-1.0); Monocytes % (A) 7 %; Neutrophils # (A) 6.3 k/uL (1.3-7.7); Neutrophils % (A) 78 %; Platelet Count 241 k/uL (150-450); RBC 3.35 m/uL (4.30-5.90); RDW 14.9 % (11.5-15.5)
--- NOTE | 2021-01-30 07:26 | P.PN ---
Subjective Progress Note Date: 01/30/21 Principal diagnosis: Acute metabolic acidosis due to acute kidney injury Possible community acquired pneumonia 85-year-old male with past medical history of COPD, diabetes mellitus, hypertension, hyperlipidemia, osteoarthritis, prostate disorder chronic kidney disease stage IV was sent to the emergency department by our services for abnormal labs. Patient has history of right sided urostomy with good urinary output and also is able to void on his own. Creatinine upon admission was 4.8 and bicarb was 13, he was given IV fluids and admitted for further medical management. Nephrology was consulted for recommendations and treatment plan regarding acute kidney injury. 01/26/2021 He had significant amount of urinary output with IV fluids creatinine and BUNs improved throughout the day 01/27/2021 Patient continues to have urinary output with IV fluids and strict I&O's. Renal functioning continue to improve. 01/28/2021 Evaluated patient this a.m. resting comfortably in bed, patient having mild shortness of breath with exertion and generalized weakness throughout the night and this a.m. Lengthy discussion with patient regarding wishes for dialysis due to worsening kidney function and repeat admissions for acute kidney injury with metabolic acidosis. Consult to vascular surgery for dialysis access. Further discussion to be made with nephrology regarding plans for dialysis. Patient denies fever, chills chest pain, palpitations, abdominal pain, nausea, or d iarrhea at this time. Patient continues to endorse generalized weakness and exertional shortness of breath. Awaiting diagnostic labs from this a.m. 01/29/2021 Evaluated patient this a.m. patient continues to endorse mild shortness of breath with exertion and generalized weakness.chest x-ray from 01/28/2021 showed possible pulmonary congestion versus pneumoniaelevated Procalcitonin and CRP noted. Patient started on Zithromax and Rocephin for possible community acquired pneumonia. Nephrology had discussion with patient regarding kidney function no need for vascular access at this time. Patient denies fever, chills, chest pain, palpitations, abdominal pain, nausea or diarrhea at this armen e. Kidney function improving hopeful discharge within 24 hours 01/30/2021 Elevated patient this a.m., resting comfortably in bed. Patient continues to endorse shortness of breath and generalized fatigue. This a.m. chest x-ray progression of pneumonia and pulmonary congestion without overt CHF. Patient continued to be on IV Rocephin and Zithromax for community-acquired pneumonia. Patient denies fever, chills, chest pain, palpitations, abdominal pain, nausea or diarrhea at this time. Patient possibly need for IV diuretics 1 time dose due to pulmonary congestion. Objective - Vital Signs Vital signs: Vital Signs Temp 98.1 F 01/30/21 04:26 Pulse 69 01/30/21 04:26 Resp 18 01/30/21 04:26 BP 139/72 01/30/21 04:26 Pulse Ox 93 L 01/30/21 04:26 Intake & Output 01/29/21 01/30/21 01/30/21 18:59 06:59 18:59 Intake Total 600 1040 Output Total 300 300 Balance 300 740 Intake: Intake, IV Titration 600 700 Amount Sodium Chloride 0.9% 1, 600 000 ml @ 50 mls/hr IV . Q20H [facility] Rx#:[id number] cefTRIAXone 1 gm In 600 100 Sodium Chloride 0.9% 50 ml @ 100 mls/hr IVPB HS [facility] Rx#:[id number] Oral 340 Output: Urine 300 300 Other: Voiding Method Ileal Conduit (Right) Ileal Conduit (Right) # Voids 1 - Constitutional General appearance: Present: mild distress - EENT Eyes: Present: EOMI, PERRLA ENT: Present: normal oropharynx Ears: bilateral: normal - Neck Neck: Present: normal ROM Carotids: bilateral: upstroke normal Thyroid: bilateral: normal size - Respiratory Respiratory: bilateral: wheezing (Anterior and posterior lung cline) - Cardiovascular Heart rate: 68 Rhythm: regular Heart sounds: normal: S1, S2 - Peripheral pulses radial pulse Peripheral Pulses: bilateral: Normal dorsalis pedis Peripheral Pulses: bilateral: Normal - Gastrointestinal General gastrointestinal: Present: normal bowel sounds - Integumentary Integumentary: Present: decreased turgor - Musculoskeletal Musculoskeletal: Present: generalized weakness - Psychiatric Psychiatric: Present: A&O x's 3, appropriate affect, intact judgment & insight - Allied health notes Allied health notes reviewed: nursing - Labs CBC & Chem 7: 01/29/21 05:44 01/29/21 05:44 Labs: Abnormal Lab Results - Last 24 Hours (Table) 01/29/21 01/29/21 01/29/21 Range/Units 12:03 17:35 21:08 POC Glucose (mg/dL) 290 H 70 L 166 H (75-99) mg/dL - Imaging and Cardiology Chest x-ray: report reviewed Assessment and Plan Assessment: Acute kidney injury Possible community acquired pneumonia Possible pulmonary congestion Chronic kidney disease stage IV Metabolic acidosis secondary to acute kidney injury 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 Anemia of chronic kidney disease Diabetes mellitus type 2 Hypertension COPD History of plasmacytoma of left femur Osteoarthritis Prostate disorder Moderate protein calorie malnutrition Full code Plan: Acute kidney injurycontinue IV fluids,monitor strict I's and O's, continue oral sodium bicarbcontinue consultation with nephrology for recommendations and treatment plan Possible community acquired pneumonia continue IV antibiotics Pulmonary congestionpossible need for 1 time dose of IV diuretics Chronic kidney disease stage IVcontinue consultation with nephrology for petra mmendations and treatment plan Metabolic acidosis secondary to acute kidney injurywith sodium bicarb Continue home medications Continue to monitor diagnostic testing and vital signs Continue medical management Further recommendations to come based on patient's clinical condition Time with Patient: Greater than 30
[2021-01-30 07:38] LABS: Glucose,Whole Blood 66 mg/dL (75-99)
[2021-01-30 07:46] LABS: ALT 12 U/L (4-49); AST 15 U/L (17-59); African American GFR (CKD) 17 (>60 ml/min/1.73 sqM); Albumin 2.7 g/dL (3.5-5.0); Alkaline Phosphatase 89 U/L (38-126); Anion Gap 8 mmol/L; Blood Urea Nitrogen 69 mg/dL (9-20); Carbon Dioxide 18 mmol/L (22-30); Chloride 117 mmol/L (98-107); Globulin 2.6 g/dL; Glucose 60 mg/dL (74-99); Non-African American GFR(CKD) 15 (>60 ml/min/1.73 sqM); Potassium 4.6 mmol/L (3.5-5.1); Sodium 143 mmol/L (137-145); Total Bilirubin 0.3 mg/dL (0.2-1.3); Total Protein 5.3 g/dL (6.3-8.2)
[2021-01-30] MEDS ORDERED: FUROSEMIDE 10 MG/ML 2 ML VIAL IV ONE (07:49)
[2021-01-30 07:57] LABS: Glucose,Whole Blood 90 mg/dL (75-99)
[2021-01-30] MEDS: hydrALAZINE HCL 25 MG TAB PO SCH ×3 (08:24→20:16)
[2021-01-30] MEDS: CALCIUM ACETATE 667 MG TAB PO SCH ×3 (08:24→17:00)
[2021-01-30] MEDS: atenoloL 25 MG TAB PO SCH (08:24)
[2021-01-30] MEDS: SODIUM BICARBONATE TAB 650 MG TAB PO SCH ×2 (08:24→20:16)
[2021-01-30] MEDS: amLODIPine 10 MG TAB PO SCH (08:24)
[2021-01-30] MEDS: INSULIN ASPART (NovoLOG) 100 UNIT/ML VIAL SQ SCH ×4 (08:26→20:25)
[2021-01-30] MEDS: ENOXAPARIN 30 MG/0.3 ML SYRINGE SQ SCH (08:26)
[2021-01-30] MEDS: ALBUTEROL NEBULIZED 2.5 MG/3 ML INHALATION SCH ×4 (08:34→20:23)
[2021-01-30] MEDS: IPRATROPIUM 0.5 MG/2.5 ML NEBU INHALATION SCH ×4 (08:34→20:26)
[2021-01-30] MEDS: SYMBICORT 160-4.5 MCG INHALER INHALATION SCH ×2 (08:35→20:24)
--- NOTE | 2021-01-30 11:54 | P.PN ---
Subjective Patient is seen in follow-up for acute kidney injury and chronic kidney disease. Renal function improving. Oral intake is good. Good urine output. No edema. No changes overnight. On room air. Vital signs are stable. General: The patient appeared well nourished and normally developed. HEENT: Head exam is unremarkable. Neck is without jugular venous distension. LUNGS: Breath sounds decreased. HEART: Rate and Rhythm are regular. ABDOMEN: Soft, nontender. Right urostomy noted. EXTREMITITES: No edema. Objective - Vital Signs Vital signs: Vital Signs Temp 98.1 F 01/30/21 04:26 Pulse 69 01/30/21 11:44 Resp 18 01/30/21 08:00 BP 139/72 01/30/21 04:26 Pulse Ox 93 L 01/30/21 04:26 Intake & Output 01/29/21 01/30/21 01/30/21 18:59 06:59 18:59 Intake Total 600 1040 360 Output Total 300 300 Balance 300 740 360 Intake: Intake, IV Titration 600 700 Amount Sodium Chloride 0.9% 1, 600 000 ml @ 50 mls/hr IV . Q20H [facility] Rx#:[id number] cefTRIAXone 1 gm In 600 100 Sodium Chloride 0.9% 50 ml @ 100 mls/hr IVPB HS [facility] Rx#:[id number] Oral 340 360 Output: Urine 300 300 Other: Voiding Method Ileal Conduit (Right) Ileal Conduit (Right) Ileal Conduit (Right) # Voids 1 - Labs CBC & Chem 7: 01/30/21 06:52 01/30/21 06:52 Labs: Abnormal Lab Results - Last 24 Hours (Table) 01/29/21 01/29/21 01/29/21 Range/Units 12:03 17:35 21:08 RBC (4.30-5.90) m/uL Hgb (13.0-17.5) gm/dL Hct (39.0-53.0) % Lymphocytes # (1.0-4.8) k/uL Chloride (98-107) mmol/L Carbon Dioxide (22-30) mmol/L BUN (9-20) mg/dL Creatinine (0.66-1.25) mg/dL Glucose (74-99) mg/dL POC Glucose (mg/dL) 290 H 70 L 166 H (75-99) mg/dL Calcium (8.4-10.2) mg/dL AST (17-59) U/L Total Protein (6.3-8.2) g/dL Albumin (3.5-5.0) g/dL 01/30/21 01/30/21 01/30/21 Range/Units 06:52 06:52 07:21 RBC 3.35 L (4.30-5.90) m/uL Hgb 9.8 L (13.0-17.5) gm/dL Hct 30.1 L (39.0-53.0) % Lymphocytes # 0.7 L (1.0-4.8) k/uL Chloride 117 H (98-107) mmol/L Carbon Dioxide 18 L (22-30) mmol/L BUN 69 H (9-20) mg/dL Creatinine 3.55 H (0.66-1.25) mg/dL Glucose 60 L (74-99) mg/dL POC Glucose (mg/dL) 60 L (75-99) mg/dL Calcium 8.0 L (8.4-10.2) mg/dL AST 15 L (17-59) U/L Total Protein 5.3 L (6.3-8.2) g/dL Albumin 2.7 L (3.5-5.0) g/dL 01/30/21 Range/Units 07:37 RBC (4.30-5.90) m/uL Hgb (13.0-17.5) gm/dL Hct (39.0-53.0) % Lymphocytes # (1.0-4.8) k/uL Chloride (98-107) mmol/L Carbon Dioxide (22-30) mmol/L BUN (9-20) mg/dL Creatinine (0.66-1.25) mg/dL Glucose (74-99) mg/dL POC Glucose (mg/dL) 66 L (75-99) mg/dL Calcium (8.4-10.2) mg/dL AST (17-59) U/L Total Protein (6.3-8.2) g/dL Albumin (3.5-5.0) g/dL Assessment and Plan Plan: Assessment: 1. Acute kidney injury mostly prerenal versus progression of underlying chronic kidney disease. Creatinine 4.8 on admission and is 3.55 today. No evidence of hydronephrosis noted on kidney ultrasound. 2. Chronic kidney disease stage IV with baseline creatinine in the range of 2.5-3 secondary to diabetic kidney disease. 3. Status post right-sided urostomy. 4. Metabolic acidosis secondary to acute kidney injury and IVFs. Status post bicarb drip. Maintained on oral bicarbonate. 5. Diabetes mellitus. 6. Hypertension with chronic kidney disease. Stable. 7. Mild hypernatremia from lack of oral water intake. Resolved. 8. Hyperphosphatemia secondary to acute kidney injury. Maintained on PhosLo. 9. Possible pneumonia maintained on antibiotics. Plan: Off IVFs. S/p IV lasix 20 mg this AM. Add po lasix starting tomorrow. Encourage oral intake. Avoid nephrotoxins. Continue to monitor renal function and urine output. No urgent need for renal replacement therapy at this time. He will need to follow-up outpatient within 1 week post-discharge for close monitoring of his renal function.
[2021-01-30 12:28] LABS: Glucose,Whole Blood 219 mg/dL (75-99)
[2021-01-30 15:30] VITALS: BMI 24.9
[2021-01-30 16:37] LABS: Glucose,Whole Blood 167 mg/dL (75-99)
[2021-01-30] MEDS: AZITHROMYCIN 500 MG TAB PO SCH (20:16)
[2021-01-30] MEDS: ATORVASTATIN 20 MG TAB PO SCH (20:16)
[2021-01-30] MEDS: MONTELUKAST 10 MG TAB PO SCH (20:16)
[2021-01-30] MEDS: INSULIN DETEMIR (LEVEMIR) 100 UNIT/ML SYR SQ SCH (20:17)
[2021-01-30 20:22] LABS: Glucose,Whole Blood 160 mg/dL (75-99)
[2021-01-31 05:31] LABS: Basophils % (A) 0 %; Eosinophils # (A) 0.4 k/uL (0-0.7); Eosinophils % (A) 5 %; HCT 28.1 % (39.0-53.0); HGB 9.2 gm/dL (13.0-17.5); Lymphocytes # (A) 0.6 k/uL (1.0-4.8); Lymphocytes % (A) 7 %; MCH 29.3 pg (25.0-35.0); MCHC 32.7 g/dL (31.0-37.0); MCV 89.6 fL (80.0-100.0); Mean Platelet Volume 6.9; Monocytes # (A) 0.5 k/uL (0-1.0); Monocytes % (A) 6 %; Neutrophils # (A) 7.2 k/uL (1.3-7.7); Neutrophils % (A) 82 %; Platelet Count 225 k/uL (150-450); RBC 3.14 m/uL (4.30-5.90); RDW 15.1 % (11.5-15.5); WBC 8.8 k/uL (3.8-10.6)
[2021-01-31 07:30] LABS: Glucose,Whole Blood 83 mg/dL (75-99)
--- NOTE | 2021-01-31 07:31 | XR ---
EXAMINATION TYPE: XR chest 2V DATE OF EXAM: 01/31/2021 TECHNIQUE: Frontal and lateral views of the chest are obtained. FINDINGS: There is increasing right basilar and right lateral consolidation and pleural effusion and decreasing right-sided lung volume. This could be due to pneumonia. Mild pulmonary vascular congestion without overt CHF. Heart appears prominent. Mediastinum is within normal limits. There is no pneumothorax. IMPRESSION: Increasing right lateral consolidation. Cardiomegaly. Pneumonia and CHF are in the diffe rential.
[2021-01-31] MEDS: SYMBICORT 160-4.5 MCG INHALER INHALATION SCH ×2 (07:36→20:27)
[2021-01-31] MEDS: ALBUTEROL NEBULIZED 2.5 MG/3 ML INHALATION SCH (07:36)
[2021-01-31] MEDS: IPRATROPIUM 0.5 MG/2.5 ML NEBU INHALATION SCH (07:37)
[2021-01-31] MEDS: IPRATROPIUM-ALBUTEROL 3 ML NEB INHALATION SCH ×4 (08:21→20:27)
[2021-01-31] MEDS: hydrALAZINE HCL 25 MG TAB PO SCH ×3 (08:27→20:57)
[2021-01-31] MEDS: ENOXAPARIN 30 MG/0.3 ML SYRINGE SQ SCH (08:27)
[2021-01-31] MEDS: INSULIN ASPART (NovoLOG) 100 UNIT/ML VIAL SQ SCH ×4 (08:27→21:07)
[2021-01-31] MEDS: amLODIPine 10 MG TAB PO SCH (08:27)
[2021-01-31] MEDS: atenoloL 25 MG TAB PO SCH (08:27)
[2021-01-31] MEDS: SODIUM BICARBONATE TAB 650 MG TAB PO SCH ×2 (08:27→21:06)
[2021-01-31] MEDS: CALCIUM ACETATE 667 MG TAB PO SCH ×3 (08:27→17:23)
[2021-01-31] MEDS ORDERED: FUROSEMIDE 20 MG TAB PO SCH (09:00)
[2021-01-31 10:43] LABS: African American GFR (CKD) 16.4 (60.0-200.0); Anion Gap 10.1 mmol/L (4.00-12.00); BUN/Creat Ratio 21.08 Ratio (12.00-20.00); Calcium 7.5 mg/dL (8.7-10.3); Carbon Dioxide 18.9 mmol/L (21.6-31.8); Magnesium 1.6 mg/dL (1.5-2.4); Non-African American GFR(CKD) 14.1 (60.0-200.0); Potassium 4.6 mmol/L (3.5-5.5)
[2021-01-31 12:40] LABS: Glucose,Whole Blood 129 mg/dL (75-99)
--- NOTE | 2021-01-31 13:09 | P.PN ---
Subjective Patient is seen in follow-up for acute kidney injury and chronic kidney disease. Renal function a little worse from diuresis. Oral intake is good. Good urine output. No edema. On 3 L nasal cannula. Vital signs are stable. General: The patient appeared well nourished and normally developed. HEENT: Head exam is unremarkable. Neck is without jugular venous distension. LUNGS: Breath sounds decreased. HEART: Rate and Rhythm are regular. ABDOMEN: Soft, nontender. Right urostomy noted. EXTREMITITES: No edema. Objective - Vital Signs Vital signs: Vital Signs Temp 98.2 F 01/31/21 04:48 Pulse 72 01/31/21 08:00 Resp 18 01/31/21 08:00 BP 147/68 01/31/21 04:48 Pulse Ox 99 01/31/21 04:48 Intake & Output 01/30/21 01/31/21 01/31/21 18:59 06:59 18:59 Intake Total 1606 420 240 Output Total 700 800 125 Balance 906 -380 115 Weight 76.657 kg Intake: Intake, IV Titration 50 100 Amount cefTRIAXone 1 gm In 50 100 Sodium Chloride 0.9% 50 ml @ 100 mls/hr IVPB [facility] Rx#:[id number] Oral 1556 320 240 Output: Drainage 675 Right Abdomen 675 Urine 700 125 125 Other: Voiding Method Ileal Conduit (Right) Ileal Conduit (Right) Ileal Conduit (Right) # Voids 1 # Bowel Movements 1 - Labs CBC & Chem 7: 01/31/21 04:25 01/31/21 04:25 Labs: Abnormal Lab Results - Last 24 Hours (Table) 01/30/21 01/30/21 01/31/21 Range/Units 16:35 20:16 04:25 RBC (4.30-5.90) m/uL Hgb (13.0-17.5) gm/dL Hct (39.0-53.0) % Lymphocytes # (1.0-4.8) k/uL Chloride 114 H (96-109) mmol/L Carbon Dioxide 18.9 L (21.6-31.8) mmol/L BUN 78.0 H (9.0-27.0) mg/dL Creatinine 3.7 H (0.6-1.5) mg/dL Est GFR (CKD-EPI)AfAm 16.4 L (60.0-200.0) Est GFR (CKD-EPI)NonAf 14.1 L (60.0-200.0) BUN/Creatinine Ratio 21.08 H (12.00-20.00) Ratio Glucose 125 H (70-110) mg/dL POC Glucose (mg/dL) 167 H 160 H (75-99) mg/dL Calcium 7.5 L (8.7-10.3) mg/dL 01/31/21 01/31/21 Range/Units 04:25 12:20 RBC 3.14 L (4.30-5.90) m/uL Hgb 9.2 L (13.0-17.5) gm/dL Hct 28.1 L (39.0-53.0) % Lymphocytes # 0.6 L (1.0-4.8) k/uL Chloride (96-109) mmol/L Carbon Dioxide (21.6-31.8) mmol/L BUN (9.0-27.0) mg/dL Creatinine (0.6-1.5) mg/dL Est GFR (CKD-EPI)AfAm (60.0-200.0) Est GFR (CKD-EPI)NonAf (60.0-200.0) BUN/Creatinine Ratio (12.00-20.00) Ratio Glucose (70-110) mg/dL POC Glucose (mg/dL) 129 H (75-99) mg/dL Calcium (8.7-10.3) mg/dL Microbiology - Last 24 Hours (Table) 01/30/21 08:14 Blood Culture - Preliminary Blood No Growth after 24 hours 01/30/21 08:14 Blood Culture - Preliminary Blood No Growth after 24 hours Assessment and Plan Plan: Assessment: 1. Acute kidney injury mostly prerenal versus progression of underlying chronic kidney disease. Creatinine 4.8 on admission and is 3.7 today. No evidence of hydronephrosis noted on kidney ultrasound. 2. Chronic kidney disease stage IV with baseline creatinine in the range of 2.5-3 secondary to diabetic kidney disease. 3. Status post right-sided urostomy. 4. Metabolic acidosis secondary to acute kidney injury and IVFs. Status post bicarb drip. Maintained on oral bicarbonate. 5. Diabetes mellitus. 6. Hypertension with chronic kidney disease. Stable. 7. Mild hypernatremia from lack of oral water intake. Resolved. 8. Hyperphosphatemia secondary to acute kidney injury. Maintained on PhosLo. 9. Possible pneumonia maintained on antibiotics. 10. Mild volume overload. Plan: Increase Lasix to 40 mg orally once daily. Encourage oral intake. Avoid nephrotoxins. Continue to monitor renal function and urine output. No urgent need for renal replacement therapy at this time. He will need to follow-up outpatient within 1 week post-discharge for close monitoring of his renal function.
[2021-01-31] MEDS: MAGNESIUM SULFATE-D5W PMX 1 GM in DEXTROSE/WATER 1 100ML.BAG IVPB SCH ×2 (14:00→15:26)
--- NOTE | 2021-01-31 14:52 | P.PN ---
Subjective Progress Note Date: 01/31/21 This is an 85-year-old male who follows with Dr. Queen in the outpatient setting with an extensive past medical history of chronic obstructive pulmonary disease, diabetes mellitus, hypertension, hyperlipidemia, osteoarthritis, prostate disorder, chronic kidney disease stage IV and was recently admitted for abnormal labs and is being closely monitored. Nephrology following closely his kidney functions continue to be impaired. Creatinine today is 3.7 with a BUN of 78. Sodium today is 143 with a potassium of 4.6 and magnesium found to be slightly low at 1.6 and will give a gram of magnesium. Patient also being closely monitored for increased weakness and possibly community-acquired pneumonia. Mo st recent chest x-ray done today shows increasing right lateral consolidation with cardiomegaly and possible pneumonia and CHF in the differential along with decreased right-sided lung volume. Per nursing along with patient, he experienced some shortness of breath and difficulty in breathing this morning and was placed on 3 L of oxygen. Patient states he does not normally wear oxygen in the outpatient setting. Patient was maintained on IV Lasix and is being transitioned oral Lasix. Patient is weak although states he has will begin walking around on his own. Will have PT/OT therapy evaluate the patient. Discussed with the patient about discharge planning once stabilized and he states he will be going home on discharge. Is not agreeable with any form of rehab. Patient is maintained on oral Zithromax along with IV ceftriaxone and will continue at this time along with breathing inhalational treatments. Review of systems: Constitutional: Reports fatigue, no reports of fever, or chills Cardiovascular: No reports of chest pain or palpitations Respiratory: reports of shortness of breath and continued cough this morning GI: No reports of nausea, vomiting, or diarrhea : No reports of dysuria or retention Neurovascular: RePorts generalized weakness All medications have been reviewed Active Medications Albuterol/Ipratropium (Ipratropium-Albuterol 3 Ml Neb) 3 ml INHALATION RT-QID PRN PRN Reason: Shortness Of Breath Or Wheezing Albuterol/Ipratropium (Ipratropium-Albuterol 3 Ml Neb) 3 ml INHALATION RT-QID [facility] Last Admin: 01/31/21 11:34 Dose: Not Given Documented by: Amlodipine Besylate (Amlodipine 10 Mg Tab) 10 mg PO DAILY [facility] Last Admin: 01/31/21 08:27 Dose: 10 mg Documented by: Atenolol (Atenolol 25 Mg Tab) 25 mg PO DAILY [facility] Last Admin: 01/31/21 08:27 Dose: 25 mg Documented by: Atorvastatin Calcium (Atorvastatin 20 Mg Tab) 20 mg PO [facility] Last Admin: 01/30/21 20:16 Dose: 20 mg Documented by: Azithromycin (Azithromycin 500 Mg Tab) 500 mg PO [facility] Last Admin: 01/30/21 20:16 Dose: 500 mg Documented by: Budesonide/Formoterol Fumarate (Symbicort 160-4.5 Mcg Inhaler) 2 puff INHALATION RT-BID [facility] Last Admin: 01/31/21 07:36 Dose: 2 puff Documented by: Calcium Acetate (Calcium Acetate 667 Mg Tab) 667 mg PO TID-W/MEALS [facility] Last Admin: 01/31/21 12:52 Dose: 667 mg Documented by: Enoxaparin Sodium (Enoxaparin 30 Mg/0.3 Ml Syringe) 30 mg SQ DAILY [facility] Last Admin: 01/31/21 08:27 Dose: 30 mg Documented by: Furosemide (Furosemide 40 Mg Tab) 40 mg PO DAILY [facility] Hydralazine HCl (Hydralazine Hcl 25 Mg Tab) 25 mg PO TID [facility] Last Admin: 01/31/21 08:27 Dose: 25 mg Documented by: Ceftriaxone Sodium 1 gm/ (Sodium Chloride) 50 mls @ 100 mls/hr IVPB [facility] Last Admin: 01/30/21 20:17 Dose: 100 mls/hr Documented by: Magnesium Sulfate/Dextrose 1 (gm/ IV Solution) 100 mls @ 100 mls/hr IVPB Q1H [facility] Stop: 01/31/21 15:14 Last Admin: 01/31/21 14:00 Dose: 100 mls/hr Documented by: Insulin Aspart (Insulin Aspart (Novolog) 100 Unit/Ml Vial) 0 unit SQ [facility]; Protocol Last Admin: 01/31/21 12:41 Dose: Not Given Documented by: Insulin Detemir (Insulin Detemir (Levemir) 100 Unit/Ml Syr) 20 unit SQ [facility] Last Admin: 01/30/21 20:17 Dose: 20 unit Documented by: Montelukast Sodium (Montelukast 10 Mg Tab) 10 mg PO [facility] Last Admin: 01/30/21 20:16 Dose: 10 mg Documented by: Naloxone HCl (Naloxone 0.4 Mg/Ml 1 Ml Vial) 0.2 mg IV Q2M PRN PRN Reason: Opioid Reversal Sodium Bicarbonate (Sodium Bicarbonate Tab 650 Mg Tab) 1,300 mg PO BID [facility] Last Admin: 01/31/21 08:27 Dose: 1,300 mg Documented by: Objective - Vital Signs Vital signs: Vital Signs Temp 97.5 F L 01/31/21 12:17 Pulse 77 01/31/21 12:17 Resp 18 01/31/21 12:17 BP 134/71 01/31/21 12:17 Pulse Ox 96 01/31/21 12:17 Intake & Output 01/30/21 01/31/21 01/31/21 18:59 06:59 18:59 Intake Total 1606 420 240 Output Total 700 800 125 Balance 906 -380 115 Weight 76.657 kg Intake: Intake, IV Titration 50 100 Amount cefTRIAXone 1 gm In 50 100 Sodium Chloride 0.9% 50 ml @ 100 mls/hr IVPB [facility] Rx#:[id number] Oral 1556 320 240 Output: Drainage 675 Right Abdomen 675 Urine 700 125 125 Other: Voiding Method Ileal Conduit (Right) Ileal Conduit (Right) Ileal Conduit (Right) # Voids 1 # Bowel Movements 1 - Exam Gen: This is a 85-year-old male sleeping although easily arousable. Alert and oriented 3. Ill-appearing. Temp is 98.2F, pulse is 78, respirations are 18, blood pressures 147/68, oxygen saturation is 99% on 3 L via nasal cannula HEENT: Head is atraumatic, normocephalic. Pupils equal, round. Sclerae is anicteric. NECK: Supple. No JVD. No lymphadenopathy. No thyromegaly. LUNGS: Diminished breath sounds bilaterally with some faint expiratory wheezing noted of the lower bases bilaterally. No intercostal retractions. HEART: S1, S2 are muffled ABDOMEN: Soft. Bowel sounds are present. No masses. No tenderness. EXTREMITIES: No pedal edema. No calf tenderness. NEUROLOGICAL: Patient is asleep although easily arousable, alert and oriented x3. Cranial nerves 2 through 12 are grossly intact. Diffuse weakness - Labs CBC & Chem 7: 01/31/21 04:25 01/31/21 04:25 Labs: Abnormal Lab Results - Last 24 Hours (Table) 01/30/21 01/30/21 01/31/21 Range/Units 16:35 20:16 04:25 RBC (4.30-5.90) m/uL Hgb (13.0-17.5) gm/dL Hct (39.0-53.0) % Lymphocytes # (1.0-4.8) k/uL Chloride 114 H (96-109) mmol/L Carbon Dioxide 18.9 L (21.6-31.8) mmol/L BUN 78.0 H (9.0-27.0) mg/dL Creatinine 3.7 H (0.6-1.5) mg/dL Est GFR (CKD-EPI)AfAm 16.4 L (60.0-200.0) Est GFR (CKD-EPI)NonAf 14.1 L (60.0-200.0) BUN/Creatinine Ratio 21.08 H (12.00-20.00) Ratio Glucose 125 H (70-110) mg/dL POC Glucose (mg/dL) 167 H 160 H (75-99) mg/dL Calcium 7.5 L (8.7-10.3) mg/dL 01/31/21 01/31/21 Range/Units 04:25 12:20 RBC 3.14 L (4.30-5.90) m/uL Hgb 9.2 L (13.0-17.5) gm/dL Hct 28.1 L (39.0-53.0) % Lymphocytes # 0.6 L (1.0-4.8) k/uL Chloride (96-109) mmol/L Carbon Dioxide (21.6-31.8) mmol/L BUN (9.0-27.0) mg/dL Creatinine (0.6-1.5) mg/dL Est GFR (CKD-EPI)AfAm (60.0-200.0) Est GFR (CKD-EPI)NonAf (60.0-200.0) BUN/Creatinine Ratio (12.00-20.00) Ratio Glucose (70-110) mg/dL POC Glucose (mg/dL) 129 H (75-99) mg/dL Calcium (8.7-10.3) mg/dL Microbiology - Last 24 Hours (Table) 01/30/21 08:14 Blood Culture - Preliminary Blood No Growth after 24 hours 01/30/21 08:14 Blood Culture - Preliminary Blood No Growth after 24 hours Assessment and Plan Assessment: Acute kidney injury Possible unity acquired pneumonia Possible pulmonary congestion as noted on x-ray Chronic kidney disease stage IV Metabolic acidosis secondary to acute kidney injury Status post right-sided urostomy in place Anemia of chronic disease Type 2 diabetes mellitus Hypertension COPD 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 Nephrology following closely his kidney functions continue to be elevated and was on IV Lasix and will transition to oral Lasix. Magnesium was found to be slightly low and will give 1 g of magnesium and repeat labs in the morning. C hest x-ray showing increasing right lateral consolidation with cardiomegaly the possibility of pneumonia and CHF in the differential with decreased right-sided lung volume. Per nursing staff patient had some difficulty in breathing and worsening shortness of breath throughout the night and was placed on 3 L of oxygen via nasal cannula. Patient states he does not normally wear oxygen the outpatient setting and will continue to wean as tolerated. Will have PT/OT therapy evaluate the patient as he continues to be weak although refusing rehab and states he is going home once discharged. Appreciate nephrology recommendations and will continue to follow closely. Further recommendations to follow depending on the progress of the patient. Time with Patient: Greater than 30
[2021-01-31 17:01] LABS: Glucose,Whole Blood 189 mg/dL (75-99)
[2021-01-31 20:01] LABS: Glucose,Whole Blood 225 mg/dL (75-99)
[2021-01-31] MEDS: AZITHROMYCIN 500 MG TAB PO SCH (21:06)
[2021-01-31] MEDS: MONTELUKAST 10 MG TAB PO SCH (21:06)
[2021-01-31] MEDS: INSULIN DETEMIR (LEVEMIR) 100 UNIT/ML SYR SQ SCH (21:07)
[2021-01-31] MEDS: ATORVASTATIN 20 MG TAB PO SCH (21:07)
[2021-02-01] MEDS: IPRATROPIUM-ALBUTEROL 3 ML NEB INHALATION SCH ×5 (07:21→19:24)
[2021-02-01] MEDS: SYMBICORT 160-4.5 MCG INHALER INHALATION SCH ×2 (07:21→19:25)
[2021-02-01 07:24] LABS: Glucose,Whole Blood 50 mg/dL (75-99)
[2021-02-01] MEDS: INSULIN ASPART (NovoLOG) 100 UNIT/ML VIAL SQ SCH ×4 (07:31→21:10)
[2021-02-01 07:43] LABS: Glucose,Whole Blood 74 mg/dL (75-99)
[2021-02-01] MEDS: FUROSEMIDE 40 MG TAB PO SCH (08:36)
[2021-02-01] MEDS: CALCIUM ACETATE 667 MG TAB PO SCH ×3 (08:36→18:10)
[2021-02-01] MEDS: hydrALAZINE HCL 25 MG TAB PO SCH ×4 (08:36→21:10)
[2021-02-01] MEDS: ENOXAPARIN 30 MG/0.3 ML SYRINGE SQ SCH (08:36)
[2021-02-01] MEDS: atenoloL 25 MG TAB PO SCH (08:36)
[2021-02-01] MEDS: amLODIPine 10 MG TAB PO SCH (08:36)
[2021-02-01] MEDS: SODIUM BICARBONATE TAB 650 MG TAB PO SCH ×2 (08:37→21:12)
[2021-02-01 10:03] LABS: African American GFR (CKD) 14.9 (60.0-200.0); Anion Gap 10.1 mmol/L (4.00-12.00); BUN/Creat Ratio 21.5 Ratio (12.00-20.00); Calcium 7.9 mg/dL (8.7-10.3); Carbon Dioxide 19.9 mmol/L (21.6-31.8); Magnesium 2.3 mg/dL (1.5-2.4); Non-African American GFR(CKD) 12.9 (60.0-200.0); Potassium 4.9 mmol/L (3.5-5.5)
[2021-02-01 11:49] LABS: Glucose,Whole Blood 232 mg/dL (75-99)
--- NOTE | 2021-02-01 16:24 | PN ---
PROGRESS NOTE Patient is seen for followup for acute kidney injury. The patient is being diuresed. His Lasix was decreased yesterday. Serum creatinine had increased to 3.7 from 3.5, today it is at 4.0. Overall, patient states that he is feeling better. He has had good urine. He has an ileal conduit. Twenty-four hour output documented at about 1.5 L. PHYSICAL EXAMINATION: On examination today, blood pressure was 136/62, heart rate 53 per minute, he is afebrile. Examination of the heart S1, S2. Examination of the lungs, bilateral breath sounds are heard. Abdomen is soft, nontender. Examination lower extremities: Chronic skin changes, edema 1+. [employer] exam grossly intact. LABS: Show sodium 144, potassium 4.9, chloride 114, CO2 is 19.9, BUN 86, creatinine 4.0. ASSESSMENT: 1. Acute kidney injury, mostly cardiorenal. No evidence of obstruction. 2. Chronic kidney disease, stage 4. Baseline creatinine 2.5-3 secondary to diabetic kidney disease. 3. 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 4. Metabolic acidosis associated with acute kidney injury, status post bicarb drip, currently maintained on oral sodium bicarb. 5. Hypernatremia associated with free water deficit. 6. Possible pneumonia maintained on antibiotics. PLAN: Continue with current dose of oral Lasix. Repeat labs in a.m. Avoid hypotension. Continue with oral sodium bicarb as well. No need for renal replacement therapy yet. MMODL / IJN: [id number] /
[2021-02-01 17:25] LABS: Glucose,Whole Blood 175 mg/dL (75-99)
[2021-02-01 20:14] LABS: Glucose,Whole Blood 195 mg/dL (75-99)
--- NOTE | 2021-02-01 21:02 | PN ---
PROGRESS NOTE DATE OF SERVICE: 02/01/2021 This 85-year-old gentleman who was admitted with community-acquired pneumonia also had possible pulmonary congestion. The patient also had chronic kidney stage 4. Patient is being closely monitored. No chest pain. No palpitations. No fever. PHYSICAL EXAMINATION: Alert and oriented x2. Pulse blood 77, blood pressure 130/60, respirations 16, temperature 97.2, pulse ox 98% on 3 L. HEENT: Conjunctivae normal. Oral mucosa moist. NECK: No jugular venous distention. No lymph node enlargement. CARDIOVASCULAR: S1, S2, muffled. No S3, no S4, RESPIRATORY: Diminished breath sounds at the bases. A few scattered rhonchi. ABDOMEN: Soft, nontender. LEGS: No edema, no swelling. NERVOUS SYSTEM: No focal deficits. LAB STUDIES: WBC 8, hemoglobin 9.2 and creatinine is 4. The most recent chest x-ray which was reviewed personally by me showed bilateral infiltrates and right pleural effusion. ASSESSMENT: 1. Acute community-acquired pneumonia. 2. Right pleural effusion. 3. Chronic kidney disease stage 4. 4. Metabolic acidosis secondary to acute kidney injury. 5. Acute on chronic renal failure. 6. Status post right sided urostomy in place. 7. Anemia of chronic disease. 8. Diabetes mellitus type 2. 9. Hypertension. 10.History of COPD. 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 13.Prostate disorder. 14.Moderate protein calorie malnutrition. 15.FULL CODE. RECOMMENDATIONS AND DISCUSSION: Recommend to continue current management and symptomatic treatment. Otherwise, at this time I recommend follow closely with Nephrology, the creatinine is elevated. Patient also had a pleural effusion on the right. I would also recommend pulmonary consultation for evaluation of pleural effusion. MMODL / IJN: [id number] /
[2021-02-01] MEDS: INSULIN DETEMIR (LEVEMIR) 100 UNIT/ML SYR SQ SCH (21:10)
[2021-02-01] MEDS: MELATONIN 3 MG TABLET PO PRN (21:10)
[2021-02-01] MEDS: MONTELUKAST 10 MG TAB PO SCH (21:10)
[2021-02-01] MEDS: ATORVASTATIN 20 MG TAB PO SCH (21:10)
[2021-02-01] MEDS: AZITHROMYCIN 500 MG TAB PO SCH (21:12)
[2021-02-01] MEDS: IPRATROPIUM-ALBUTEROL 3 ML NEB INHALATION PRN (23:52)
[2021-02-02 01:38] LABS: Glucose,Whole Blood 128 mg/dL (75-99)
[2021-02-02 06:04] LABS: Basophils % (A) 0 %; Eosinophils # (A) 0.4 k/uL (0-0.7); Eosinophils % (A) 4 %; HCT 27.6 % (39.0-53.0); HGB 8.8 gm/dL (13.0-17.5); Hypochromasia Slight; Lymphocytes # (A) 0.7 k/uL (1.0-4.8); Lymphocytes % (A) 7 %; MCH 29.1 pg (25.0-35.0); MCHC 31.8 g/dL (31.0-37.0); MCV 91.5 fL (80.0-100.0); Mean Platelet Volume 7.1; Monocytes # (A) 0.6 k/uL (0-1.0); Monocytes % (A) 7 %; Neutrophils % (A) 82 %; Platelet Count 241 k/uL (150-450); RBC 3.01 m/uL (4.30-5.90); RDW 14.8 % (11.5-15.5); WBC 9.7 k/uL (3.8-10.6)
[2021-02-02 07:03] LABS: Glucose,Whole Blood 105 mg/dL (75-99)
[2021-02-02] MEDS: SYMBICORT 160-4.5 MCG INHALER INHALATION SCH ×2 (08:50→21:26)
[2021-02-02] MEDS: IPRATROPIUM-ALBUTEROL 3 ML NEB INHALATION SCH ×4 (08:50→21:26)
--- NOTE | 2021-02-02 08:53 | US ---
EXAMINATION TYPE: US chest DATE OF EXAM: 02/02/2021 COMPARISON: CXR CLINICAL HISTORY: Markings for thoracentesis by pulmonary staff. Effusion TECHNIQUE: Targeted ultrasound of the posterior lower bilateral hemithoraces EXAM MEASUREMENTS: Left Pleural Effusion pocket size: 9.5 cm Left skin surface to fluid distance: 3.7 cm Right side NOT marked for possible thoracentesis outside the dept, complex collection with debris. Left side marked for possible thoracentesis outside the dept. Pulmonologists are able to review the images in the patient?s EMR. IMPRESSIONS: 1. Small complex pleural fluid on the right. 2. Left pleural effusion.
[2021-02-02] MEDS: amLODIPine 10 MG TAB PO SCH (09:04)
[2021-02-02] MEDS: ENOXAPARIN 30 MG/0.3 ML SYRINGE SQ SCH (09:04)
[2021-02-02] MEDS: hydrALAZINE HCL 25 MG TAB PO SCH ×3 (09:04→21:11)
[2021-02-02] MEDS: CALCIUM ACETATE 667 MG TAB PO SCH ×3 (09:04→17:46)
[2021-02-02] MEDS: atenoloL 25 MG TAB PO SCH (09:04)
[2021-02-02] MEDS: FUROSEMIDE 40 MG TAB PO SCH ×2 (09:05→17:46)
[2021-02-02] MEDS: INSULIN ASPART (NovoLOG) 100 UNIT/ML VIAL SQ SCH ×4 (09:05→20:43)
[2021-02-02] MEDS: SODIUM BICARBONATE TAB 650 MG TAB PO SCH ×2 (09:05→21:10)
[2021-02-02 10:37] LABS: African American GFR (CKD) 14.1 (60.0-200.0); Anion Gap 7.5 mmol/L (4.00-12.00); BUN/Creat Ratio 21.43 Ratio (12.00-20.00); Carbon Dioxide 21.5 mmol/L (21.6-31.8); Non-African American GFR(CKD) 12.1 (60.0-200.0); Potassium 5.2 mmol/L (3.5-5.5)
[2021-02-02 12:17] LABS: Glucose,Whole Blood 248 mg/dL (75-99)
--- NOTE | 2021-02-02 14:05 | P.CNPUL ---
History of Present Illness Consult date: 02/02/21 Requesting physician: Kev Queen Reason for consult: abnormal CXR/CT Chief complaint: Abnormal labs History of present illness: This is an 85-year-old gentleman who follows with Dr. Queen as his primary care provider. He has a history of hyperlipidemia, diabetes mellitus, hypertension, chronic obstructive pulmonary disease, former smoker. He was referred to the emergency room back on 01/24/2021 with report of worsening kidney function on his recent lab results. The patient at that time had been feeling well. Interim been eating and drinking without difficulty. No shortness of breath, cough or congestion. He was found to have acute kidney injury suspected as cardio renal. No evidence of obstruction. The patient does have chronic kidney disease, stage IV. 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 We're consulted today abnormal chest x-ray revealing increasing right lateral consolidation, decreased right-sided lung volume. Ultrasound of the chest was ordered and revealed a complex collection with debris on the right and a 9.5 cm free-flowing fluid effusion on the left. Presently, he is sitting up in a chair at the bedside. Awake and alert in no acute distress. He is maintaining good O2 saturations in the 90s on 3 L/m per nasal cannula. Denies any worsening shortness of breath, cough or congestion. No hemoptysis. Blood cultures reveal no growth. White count 9.7. Hemoglobin 8.8. Sodium 142. Potassium 5.2. Creatinine 4.2. BUN 90. ProBNP 15,700. He is currently on Symbicort, DuoNeb inhalations, Singulair, antibiotics in the form of ceftriaxone and azithromycin, oral diuretics. Review of Systems REVIEW OF SYSTEMS: CONSTITUTIONAL: Denies any recent significant weight loss or weight gain. EYES: Denies change in vision. EARS, NOSE, MOUTH, THROAT: Denies headaches, denies sore throat. CARDIOVASCULAR: Denies chest pain, palpitations or syncopal episodes. RESPIRATORY: Denies shortness of breath, cough, congestion or hemoptysis. GASTROINTESTINAL: Denies change in appetite, denies abdominal pain GENITOURINARY: Denies hematuria, denies infections. MUSKULOSKELETAL: Denies pain, denies swelling. INTEGUMENTARY: Denies rash, denies eczema. NEUROLOGICAL: Denies recent memory loss, no recent seizure activity. PSYCHIATRIC: Denies anxiety, denies depression. HEMATOLOGIC/LYMPHATIC: Denies anemia, denies enlarged lymph nodes. Past Medical History Past Medical History: Asthma, Cancer, COPD, Diabetes Mellitus, Hyperlipidemia, Hypertension, Osteoarthritis (OA), Prostate Disorder Additional Past Medical History / Comment(s): VARICOSE VEINS; ARTHRITIS BACK, NECK; HX PROSTATE, BLADDER, (4 -5 years ago) & SKIN CANCER (4-5 yrs ago) , P LASMACYTOMA LEFT FEMUR- CANCERS. PNEUMONIA 04/01/15. HAS UROSTOMY , FX RT HIP -2017." RENAL DISEASE STAGE 4 -NO DIALYSIS as yet not at that advanced stage" Last Myocardial Infarction Date:: 2012- UNSURE- STATES DISCOVERED ON EKG. History of Any Multi-Drug Resistant Organisms: ESBL Date of last positivie culture/infection: 03/26/2015 MDRO Source:: Urine- E.coli ESBL Past Surgical History: Bladder Surgery, Joint Replacement, Prostate Surgery Additional Past Surgical History / Comment(s): EXC LEFT FEMUR CANCER; CHEST TUMOR EXC; RADICAL PROSTATECTOMY 07/2004. , ROBOTIC RADICAL CYSTECTOMY 02/2015- UROSTOMY, COLONOSCOPY, PARTIAL RT HIP REPLACEMENT Past Anesthesia/Blood Transfusion Reactions: No Reported Reaction Past Psychological History: No Psychological Hx Reported Smoking Status: Former smoker Past Alcohol Use History: None Reported Past Drug Use History: None Reported - Past Family History Son(s) Family Medical History: Cancer Additional Family Medical History / Comment(s): LEUKEMIA Medications and Allergies Home Medications Medication Instructions Recorded Confirmed Type Montelukast [Singulair] 10 mg PO HS 12/28/14 01/24/21 History amLODIPine BESYLATE [Norvasc] 10 mg PO DAILY 12/28/14 01/24/21 History atenoloL [Tenormin] 25 mg PO DAILY 12/28/14 01/24/21 History Atorvastatin Calcium [Lipitor] 20 mg PO HS 06/07/20 01/24/21 History Insulin Glargine,Hum.rec.anlog 20 unit SQ HS 06/07/20 01/24/21 History [Yuridiaaglbrianda Luispen U-100] Fluticasone Propion/Salmeterol 1 puff INHALATION RT-BID 09/06/20 01/24/21 History [Wixela 500-50 Inhub] Albuterol Inhaler [Ventolin Hfa 2 puff INHALATION RT-QID PRN 05/07/21 05/07/21 History Inhaler] Tiotropium 2.5 Mcg/Puff [Spiriva 2 puff INHALATION RT-DAILY 01/24/21 01/24/21 History Respimat 2.5 Mcg] Allergies Allergy/AdvReac Type Severity Reaction Status Date / Time shellfish derived [Shellfish] Allergy Mild Rash/Hives Verified 01/24/21 21:24 "if consumes alot," per patient Physical Exam Vitals: Vital Signs Temp Pulse Pulse Resp BP Pulse Ox 02/02/21 13:27 84 02/02/21 13:16 80 02/02/21 12:31 97.4 F L 77 20 135/52 97 02/02/21 09:01 78 02/02/21 08:50 80 96 02/02/21 04:48 97.3 F L 72 18 122/58 98 02/02/21 00:01 76 02/01/21 23:52 76 02/01/21 19:14 97.2 F L 77 16 131/61 99 02/01/21 18:00 73 02/01/21 17:51 72 02/01/21 15:16 70 02/01/21 15:01 68 Intake and Output 02/01/21 02/02/21 02/02/21 22:59 06:59 14:59 Intake Total 920 50 Output Total 1200 250 Balance -280 -200 Intake: Intake, IV Titration 50 Amount cefTRIAXone 1 gm In 50 Sodium Chloride 0.9% 50 ml @ 100 mls/hr IVPB [facility] Rx#:[id number] Oral 920 Output: Urine 1200 250 Other: Voiding Method Ileal Conduit (Right) Ileal Conduit (Right) # Bowel Movements 1 GENERAL EXAM: Alert, pleasant 85-year-old gentleman, on 3 L nasal cannula, comfortable in no apparent distress. HEAD: Normocephalic. EYES: Normal reaction of pupils, equal size. NOSE: Clear with pink turbinates. THROAT: No erythema or exudates. NECK: No masses, no JVD. CHEST: No chest wall deformity. LUNGS: Equal air entry with crackles in the posterior bases left greater than right. CVS: S1 and S2 normal with no audible murmur, regular rhythm. ABDOMEN: No hepatosplenomegaly, normal bowel sounds, no guarding or rigidity. SPINE: No scoliosis or deformity SKIN: No rashes CENTRAL NERVOUS SYSTEM: No focal deficits, tone is normal in all 4 extremities. EXTREMITIES: There is no peripheral edema. No clubbing, no cyanosis. Peripher al pulses are intact. Results - Laboratory Findings CBC and BMP: 02/02/21 05:13 02/02/21 05:13 Abnormal lab findings: Abnormal Labs 01/24/21 01/24/21 01/25/21 20:15 20:15 08:58 WBC RBC 3.67 L Hgb 11.1 L Hct 33.3 L Neutrophils # Lymphocytes # Sodium Potassium 5.2 H Chloride 114 H 117 H Carbon Dioxide 13 L 11 L BUN 100 H 96 H Creatinine 4.80 H 4.63 H Est GFR (CKD-EPI)AfAm Est GFR (CKD-EPI)NonAf BUN/Creatinine Ratio Glucose 130 H 115 H POC Glucose (mg/dL) Calcium 7.8 L 7.7 L Phosphorus AST 15 L 12 L C-Reactive Protein Total Protein 5.9 L 5.4 L Albumin 3.3 L 2.8 L Procalcitonin 01/25/21 01/26/21 01/26/21 20:15 07:13 07:13 WBC RBC Hgb Hct Neutrophils # Lymphocytes # Sodium Potassium Chloride 114 H Carbon Dioxide 20 L BUN 95 H Creatinine 4.45 H Est GFR (CKD-EPI)AfAm Est GFR (CKD-EPI)NonAf BUN/Creatinine Ratio Glucose POC Glucose (mg/dL) 213 H Calcium 7.5 L Phosphorus 6.5 H AST C-Reactive Protein Total Protein Albumin Procalcitonin 01/27/21 01/27/21 01/28/21 06:02 19:18 06:38 WBC 11.5 H RBC 3.73 L Hgb 10.9 L Hct 33.5 L Neutrophils # 8.8 H Lymphocytes # Sodium 146 H Potassium Chloride 118 H Carbon Dioxide 20.2 L BUN 92.0 H Creatinine 4.1 H Est GFR (CKD-EPI)AfAm 14.5 L Est GFR (CKD-EPI)NonAf 12.5 L BUN/Creatinine Ratio 22.44 H Glucose 51 L POC Glucose (mg/dL) 202 H Calcium 7.1 L Phosphorus AST C-Reactive Protein Total Protein Albumin Procalcitonin 01/28/21 01/28/21 01/28/21 06:38 06:38 06:38 WBC RBC Hgb Hct Neutrophils # Lymphocytes # Sodium Potassium Chloride 112 H Carbon Dioxide 20 L BUN 75 H Creatinine 3.84 H Est GFR (CKD-EPI)AfAm Est GFR (CKD-EPI)NonAf BUN/Creatinine Ratio Glucose POC Glucose (mg/dL) Calcium 7.8 L Phosphorus AST 14 L C-Reactive Protein 2.9 H Total Protein 5.9 L Albumin 3.1 L Procalcitonin 0.31 H 01/28/21 01/28/21 01/28/21 11:55 16:56 20:22 WBC RBC Hgb Hct Neutrophils # Lymphocytes # Sodium Potassium Chloride Carbon Dioxide BUN Creatinine Est GFR (CKD-EPI)AfAm Est GFR (CKD-EPI)NonAf BUN/Creatinine Ratio Glucose POC Glucose (mg/dL) 121 H 181 H 185 H Calcium Phosphorus AST C-Reactive Protein Total Protein Albumin Procalcitonin 01/29/21 01/29/21 01/29/21 05:44 05:44 07:08 WBC RBC 3.24 L Hgb 9.5 L Hct 29.0 L Neutrophils # Lymphocytes # 0.6 L Sodium Potassium Chloride 114 H Carbon Dioxide 18 L BUN 73 H Creatinine 3.64 H Est GFR (CKD-EPI)AfAm Est GFR (CKD-EPI)NonAf BUN/Creatinine Ratio Glucose POC Glucose (mg/dL) 72 L Calcium 7.6 L Phosphorus AST 13 L C-Reactive Protein Total Protein 5.2 L Albumin 2.6 L Procalcitonin 01/29/21 01/29/21 01/29/21 12:03 17:35 21:08 WBC RBC Hgb Hct Neutrophils # Lymphocytes # Sodium Potassium Chloride Carbon Dioxide BUN Creatinine Est GFR (CKD-EPI)AfAm Est GFR (CKD-EPI)NonAf BUN/Creatinine Ratio Glucose POC Glucose (mg/dL) 290 H 70 L 166 H Calcium Phosphorus AST C-Reactive Protein Total Protein Albumin Procalcitonin 01/30/21 01/30/21 01/30/21 06:52 06:52 07:21 WBC RBC 3.35 L Hgb 9.8 L Hct 30.1 L Neutrophils # Lymphocytes # 0.7 L Sodium Potassium Chloride 117 H Carbon Dioxide 18 L BUN 69 H Creatinine 3.55 H Est GFR (CKD-EPI)AfAm Est GFR (CKD-EPI)NonAf BUN/Creatinine Ratio Glucose 60 L POC Glucose (mg/dL) 60 L Calcium 8.0 L Phosphorus AST 15 L C-Reactive Protein Total Protein 5.3 L Albumin 2.7 L Procalcitonin 01/30/21 01/30/21 01/30/21 07:37 12:27 16:35 WBC RBC Hgb Hct Neutrophils # Lymphocytes # Sodium Potassium Chloride Carbon Dioxide BUN Creatinine Est GFR (CKD-EPI)AfAm Est GFR (CKD-EPI)NonAf BUN/Creatinine Ratio Glucose POC Glucose (mg/dL) 66 L 219 H 167 H Calcium Phosphorus AST C-Reactive Protein Total Protein Albumin Procalcitonin 01/30/21 01/31/21 01/31/21 20:16 04:25 04:25 WBC RBC 3.14 L Hgb 9.2 L Hct 28.1 L Neutrophils # Lymphocytes # 0.6 L Sodium Potassium Chloride 114 H Carbon Dioxide 18.9 L BUN 78.0 H Creatinine 3.7 H Est GFR (CKD-EPI)AfAm 16.4 L Est GFR (CKD-EPI)NonAf 14.1 L BUN/Creatinine Ratio 21.08 H Glucose 125 H POC Glucose (mg/dL) 160 H Calcium 7.5 L Phosphorus AST C-Reactive Protein Total Protein Albumin Procalcitonin 01/31/21 01/31/21 01/31/21 12:20 16:59 19:59 WBC RBC Hgb Hct Neutrophils # Lymphocytes # Sodium Potassium Chloride Carbon Dioxide BUN Creatinine Est GFR (CKD-EPI)AfAm Est GFR (CKD-EPI)NonAf BUN/Creatinine Ratio Glucose POC Glucose (mg/dL) 129 H 189 H 225 H Calcium Phosphorus AST C-Reactive Protein Total Protein Albumin Procalcitonin 02/01/21 02/01/21 02/01/21 05:07 07:15 07:42 WBC RBC Hgb Hct Neutrophils # Lymphocytes # Sodium Potassium Chloride 114 H Carbon Dioxide 19.9 L BUN 86.0 H Creatinine 4.0 H Est GFR (CKD-EPI)AfAm 14.9 L Est GFR (CKD-EPI)NonAf 12.9 L BUN/Creatinine Ratio 21.50 H Glucose 52 L POC Glucose (mg/dL) 50 L 74 L Calcium 7.9 L Phosphorus AST C-Reactive Protein Total Protein Albumin Procalcitonin 02/01/21 02/01/21 02/01/21 11:27 17:23 20:12 WBC RBC Hgb Hct Neutrophils # Lymphocytes # Sodium Potassium Chloride Carbon Dioxide BUN Creatinine Est GFR (CKD-EPI)AfAm Est GFR (CKD-EPI)NonAf BUN/Creatinine Ratio Glucose POC Glucose (mg/dL) 232 H 175 H 195 H Calcium Phosphorus AST C-Reactive Protein Total Protein Albumin Procalcitonin 02/02/21 02/02/21 02/02/21 01:36 05:13 05:13 WBC RBC 3.01 L Hgb 8.8 L Hct 27.6 L Neutrophils # 8.0 H Lymphocytes # 0.7 L Sodium Potassium Chloride 113 H Carbon Dioxide 21.5 L BUN 90.0 H Creatinine 4.2 H Est GFR (CKD-EPI)AfAm 14.1 L Est GFR (CKD-EPI)NonAf 12.1 L BUN/Creatinine Ratio 21.43 H Glucose POC Glucose (mg/dL) 128 H Calcium 8.0 L Phosphorus AST C-Reactive Protein Total Protein Albumin Procalcitonin 02/02/21 02/02/21 07:01 12:12 WBC RBC Hgb Hct Neutrophils # Lymphocytes # Sodium Potassium Chloride Carbon Dioxide BUN Creatinine Est GFR (CKD-EPI)AfAm Est GFR (CKD-EPI)NonAf BUN/Creatinine Ratio Glucose POC Glucose (mg/dL) 105 H 248 H Calcium Phosphorus AST C-Reactive Protein Total Protein Albumin Procalcitonin - Diagnostic Findings Chest x-ray: image reviewed Assessment and Plan Assessment: 1 Acute kidney injury felt to be possibly cardiorenal in nature. 2 Chronic kidney disease stage IV 3 Bilateral pleural effusions with complex loculated right pleural effusion and a 9.5 cm free-flowing effusion on the left 4 Right-sided urostomy in place 5 Diabetes Tremaine, type II 6 Hypertension. 7 History of chronic obstructive pulmonary disease 7 Former smoker 8 Anemia Plan: The patient was seen and evaluated by Dr. Hall Chest x-ray, labs, ultrasound reviewed We'll increase diuretics Check pro calcitonin Continue antibiotics for now Continue bronchodilators Titrate down the FiO2 as tolerated Follow-up chest x-ray in a.m. May require a left-sided thoracentesis Right-sided pleural effusion is loculated We will continue to follow and make further recommendations based on his clinical status I, the cosigning physician, performed a history & physical examination of the patient. Lungs sounds with crackles in the bilateral posterior bases. Maintaining good O2 saturations in the 90s on 3 L/m per nasal cannula. I discussed the assessment and plan of care with my nurse practitioner, Ingrid Singh. I attest to the above note as dictated by her. Time with Patient: Greater than 30
--- NOTE | 2021-02-02 15:04 | PN ---
PROGRESS NOTE Patient is seen for followup for acute kidney injury. His renal function has deteriorated further with creatinine back up to 4.2 mg/dL. Patient's urine output has been poor for 24 hours, it is documented at 375, but I do see for 1450 as well. I am not sure if that is accurate. He is not complaining of any significant chest pains or shortness of breath. Blood pressure has not been low. EXAMINATION: Today blood pressure is 135/52, heart rate of 77 per minute, he is afebrile. Examination of the heart S1, S2. Examination of the lungs, upper airway breath sounds are heard. Decreased breath sounds at the bases. Abdomen is soft. No significant tenderness noted. Examination of lower extremities shows trace edema bilaterally. [employer] exam grossly intact. LAB: Show sodium 142, potassium 5.2, chloride 113, CO2 is 21.5, BUN 90, creatinine 4.2, glucose was 21.43, calcium 8.0. ASSESSMENT: 1. Acute kidney injury. Serum creatinine at 4.2. The patient is currently being diuresed. He has good urine output. The chest x-ray from January 31 continues to show right-sided infiltrates. Blood pressure has been borderline. I will decrease the Norvasc to 5 mg daily. There are no other nephrotoxic medications on board. 2. Pneumonia, right-sided, maintained on antibiotics. 3. 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 4. Metabolic acidosis associated with acute kidney injury, status post bicarb drip, maintained on oral sodium bicarb. 5. Hypernatremia associated with free water deficit, now improved. 6. Chronic kidney disease, stage 4. Baseline creatinine 2.5-3 secondary to diabetic kidney disease. PLAN: Continue gentle diuresis. Monitor urine output. Repeat labs in a.m. Repeat chest x- ray. Agree with possible thoracentesis from pulmonary standpoint. MMODL / IJN: [id number] / [facility]ERShelley
[2021-02-02 17:12] LABS: Glucose,Whole Blood 141 mg/dL (75-99)
--- NOTE | 2021-02-02 18:39 | PN ---
PROGRESS NOTE DATE OF SERVICE: 02/02/2021 INTERVAL HISTORY: This 85-year-old gentleman was admitted with acute community-acquired pneumonia is being closely monitored. The patient has a right pleural effusion also. No chest pain. No palpitations. No fever. Chest ultrasound showed a small complex pleural effusion on the right side. Left pleural effusion also noted. Dr. Hall from Pulmonary has seen the patient and recommended to increase the diuresis and follow up chest x-ray in the morning. No chest pain. No palpitations. No fever. PHYSICAL EXAMINATION: GENERAL: Patient is alert and oriented times three. VITAL SIGNS: Pulse 77, blood pressure 135/52, respirations 20, temperature 97.4, pulse ox 97% on 3 liters. HEENT: Conjunctivae normal. Oral mucosa moist. NECK: No jugular venous distention. No carotid bruits. No lymph node enlargement. RESPIRATORY: Breath sounds diminished at the bases. A few scattered rhonchi and crackles. HEART: S1 and S2, muffled. ABDOMEN: Soft, no tenderness. EXTREMITIES: No edema, no swelling. NERVOUS: No focal deficits. LABS: At this time shows WBC 8.8, sodium 142, potassium 5.2, glucose noted, procalcitonin 0.60. ASSESSMENT: 1. Acute community-acquired pneumonia. 2. Right pleural effusion, complex. 3. Chronic kidney disease stage 4. 4. Metabolic acidosis secondary to acute kidney injury. 5. Acute on chronic renal failure. 6. Status post right-sided urostomy in place. 7. Anemia of chronic disease. 8. Diabetes mellitus type 2. 9. Hypertension. 10.History of COPD. 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 13.History of prostate disorder. 14.Moderate protein calorie malnutrition. 15.FULL CODE. RECOMMENDATIONS AND DISCUSSION: Continue current management and symptomatic treatment. Otherwise, at this time PT, OT evaluation. Dr. Hall's input appreciated. Consider possible ECF rehab. Guarded prognosis. Further recommendations to follow. The patient is on Rocephin. MMODL / IJN: [id number] /
[2021-02-02 20:29] LABS: Glucose,Whole Blood 119 mg/dL (75-99)
[2021-02-02] MEDS: INSULIN DETEMIR (LEVEMIR) 100 UNIT/ML SYR SQ SCH (21:10)
[2021-02-02] MEDS: MONTELUKAST 10 MG TAB PO SCH (21:11)
[2021-02-02] MEDS: AZITHROMYCIN 500 MG TAB PO SCH (21:11)
[2021-02-02] MEDS: ATORVASTATIN 20 MG TAB PO SCH (21:11)
[2021-02-03] MEDS: IPRATROPIUM-ALBUTEROL 3 ML NEB INHALATION PRN (02:19)
[2021-02-03] MEDS: SYMBICORT 160-4.5 MCG INHALER INHALATION SCH ×2 (07:05→20:44)
[2021-02-03] MEDS: IPRATROPIUM-ALBUTEROL 3 ML NEB INHALATION SCH ×4 (07:05→20:44)
[2021-02-03 07:33] LABS: Glucose,Whole Blood 122 mg/dL (75-99)
[2021-02-03] MEDS: INSULIN ASPART (NovoLOG) 100 UNIT/ML VIAL SQ SCH ×4 (07:45→20:46)
[2021-02-03] MEDS: FUROSEMIDE 40 MG TAB PO SCH ×2 (07:48→16:23)
[2021-02-03] MEDS: atenoloL 25 MG TAB PO SCH (07:48)
[2021-02-03] MEDS: SODIUM BICARBONATE TAB 650 MG TAB PO SCH ×2 (07:49→20:41)
[2021-02-03] MEDS: hydrALAZINE HCL 25 MG TAB PO SCH ×3 (07:49→21:55)
[2021-02-03] MEDS: amLODIPine 10 MG TAB PO SCH (07:49)
[2021-02-03] MEDS: ENOXAPARIN 30 MG/0.3 ML SYRINGE SQ SCH (07:49)
[2021-02-03] MEDS: CALCIUM ACETATE 667 MG TAB PO SCH ×3 (07:49→17:42)
--- NOTE | 2021-02-03 08:34 | XR ---
EXAMINATION TYPE: XR chest 1V portable DATE OF EXAM: 02/03/2021 COMPARISON: Chest x-ray 01/31/2021, ultrasound 02/02/2021 HISTORY: Pleural effusions TECHNIQUE: Single frontal view of the chest is obtained. FINDINGS: Pleural-parenchymal changes are similar to prior exam. Interstitium and central vascularit y appear prominently. No evident pneumothorax. Heart remains enlarged. Technique is somewhat apical l ordotic. IMPRESSION: There may be some improvement in volume status, correlate for interstitial edema. Right pleural effusion appeared loculated on ultrasound. Cardiomegaly.
[2021-02-03 12:18] LABS: Glucose,Whole Blood 167 mg/dL (75-99)
--- NOTE | 2021-02-03 14:48 | P.PN ---
Subjective Progress Note Date: 02/03/21 Principal diagnosis: Acute kidney injury This is an 85-year-old gentleman who follows with Dr. Queen as his primary care provider. He has a history of hyperlipidemia, diabetes mellitus, hypertension, chronic obstructive pulmonary disease, former smoker. He was referred to the emergency room back on 01/24/2021 with report of worsening kidney function on his recent lab results. The patient at that time had been feeling well. Interim been eating and drinking without difficulty. No shortness of breath, cough or congestion. He was found to have acute kidney injury suspected as cardio renal. No evidence of obstruction. The patient does have chronic kidney disease, stage IV. 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 We're consulted today abnormal chest x-ray revealing increasing right lateral consolidation, decreased right-sided lung volume. Ultrasound of the chest was ordered and revealed a complex collection with debris on the right and a 9.5 cm free-flowing fluid effusion on the left. Presently, he is sitting up in a chair at the bedside. Awake and alert in no acute distress. He is maintaining good O2 saturations in the 90s on 3 L/m per nasal cannula. Denies any worsening shortness of breath, cough or congestion. No hemoptysis. Blood cultures reveal no growth. White count 9.7. Hemoglobin 8.8. Sodium 142. Potassium 5.2. Creatinine 4.2. BUN 90. ProBNP 15,700. He is currently on Symbicort, DuoNeb inhalations, Singulair, antibiotics in the form of ceftriaxone and azithromycin, oral diuretics. On 02/03/2021 patient seen in follow-up on medical surgical floor. He looks fatigued, he sleeping in bed, but no acute distress, no signs of any respiratory difficulty. He is currently on 3 L of oxygen his pulse ox is 97%, he remains on oral Lasix at 40 mg twice daily, his net fluid balance is very difficult to estimate related to lack of accurate intake and output his weight was not completed today. No new labs today. His proBNP from yesterday was elevated at 15,700. His pro calcitonin on 02/02/2021 was 0.60. Renal profile was steadily worsening over the last few days. Nephrology is following. Cultures have been negative. Patient has had no fever or chills. His chest x-ray today shows some improvement in Status, right pleural effusion that was loculated on ultrasound, cardiomegaly. His ultrasound of the chest from 02/02/2021 showed left pleural effusion of 9.5 cm, and complex pleural fluid collection on the right Objective - Vital Signs Vital signs: Vital Signs Temp 97.6 F 02/03/21 12:06 Pulse 70 02/03/21 12:06 Resp 16 02/03/21 12:06 BP 116/62 02/03/21 12:06 Pulse Ox 97 02/03/21 12:06 Intake & Output 02/02/21 02/03/21 02/03/21 18:59 06:59 18:59 Intake Total 50 160 Output Total 300 Balance 50 -140 Intake: Intake, IV Titration 50 Amount cefTRIAXone 1 gm In 50 Sodium Chloride 0.9% 50 ml @ 100 mls/hr IVPB HS [facility] Rx#:[id number] Oral 160 Output: Drainage 300 Right Abdomen 300 Other: Voiding Method Ileal Conduit (Right) Ileal Conduit (Right) Ileal Conduit (Right) - Exam GENERAL EXAM: Alert, very pleasant, 85-year-old white male, resting comfortably in bed, a 3 L of oxygen pulse ox 97% comfortable in no apparent distress. HEAD: Normocephalic/atraumatic. EYES: Normal reaction of pupils, equal size. Conjunctiva pink, sclera white. NOSE: Clear with pink turbinates. THROAT: No erythema or exudates. NECK: No masses, no JVD, no thyroid enlargement, no adenopathy. CHEST: No chest wall deformity. Symmetrical expansion. LUNGS: Equal air entry with diminished breath sounds at the bases CVS: Regular rate and rhythm, normal S1 and S2, no gallops, no murmurs, no rubs ABDOMEN: Soft, nontender. No hepatosplenomegaly, normal bowel sounds, no guarding or rigidity. EXTREMITIES: No clubbing, no edema, no cyanosis, 2+ pulses and upper and lower extremities. MUSCULOSKELETAL: Muscle strength and tone normal. SPINE: No scoliosis or deformity SKIN: No rashes CENTRAL NERVOUS SYSTEM: Alert and oriented -3. No focal deficits, tone is normal in all 4 extremities. PSYCHIATRIC: Alert and oriented -3. Appropriate affect. Intact judgment and insight. - Labs CBC & Chem 7: 02/02/21 05:13 02/02/21 05:13 Labs: Abnormal Lab Results - Last 24 Hours (Table) 02/02/21 02/02/21 02/03/21 Range/Units 17:11 20:12 07:31 POC Glucose (mg/dL) 141 H 119 H 122 H (75-99) mg/dL 02/03/21 Range/Units 12:17 POC Glucose (mg/dL) 167 H (75-99) mg/dL Microbiology - Last 24 Hours (Table) 01/30/21 08:14 Blood Culture - Preliminary Blood No Growth after 96 hours 01/30/21 08:14 Blood Culture - Preliminary Blood No Growth after 96 hours Assessment and Plan Plan: Assessment: 1 Acute kidney injury felt to be possibly cardiorenal in nature. 2 Chronic kidney disease stage IV 3 Bilateral pleural effusions with complex loculated right pleural effusion and a 9.5 cm free-flowing effusion on the left 4 Right-sided urostomy in place 5 Diabetes Tremaine, type II 6 Hypertension. 7 History of chronic obstructive pulmonary disease 7 Former smoker 8 Anemia Plan: Obtain consent and the set up for left-sided thoracentesis tomorrow on 02/03/2021 Continue antibiotics Continue diuretics Follow-up labs Follow-up chest x-ray If tomorrow's chest x-ray shows significant pleural fluid on the left open proceed with left-sided thoracentesis We'll continue to follow I performed a history & physical examination of the patient and discussed their management with my nurse practitioner, Sherley Curiel. I reviewed the nurse practitioner's note and agree with the documented findings and plan of care. Lung sounds are positive for diminished breath sounds with bibasilar crackles. The findings and the impression was discussed with the patient. I attest to the documentation by the nurse practitioner. Time with Patient: Less than 30
--- NOTE | 2021-02-03 15:27 | PN ---
PROGRESS NOTE Patient is seen for followup for acute kidney injury. His serum creatinine had increased to 4.2 yesterday. Patient is maintained on low-dose loop diuretics. Chest x- ray from today shows some improvement in volume status. The patient continues to have right pleural effusion, which is being considered for thoracentesis. On examination today, blood pressure 116/62, heart rate 70 per minute. He is afebrile. EXAMINATION OF THE HEART: S1 and S2. EXAMINATION OF LUNGS: Decreased breath sounds, particularly right side. Examination of lower extremities shows 1+ edema, chronic skin changes. Labs are not available from today. ASSESSMENT: 1. Acute kidney injury, acute tubular necrosis versus cardiorenal. Blood pressure had been borderline. Norvasc was decreased yesterday. Check labs today. May continue with current dose of oral Lasix. Chest x-ray is improved. 2. Pneumonia, maintained on antibiotics. 3. 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 4. Metabolic acidosis associated with acute kidney injury, status post bicarb drip, maintained on oral sodium bicarb. 5. Hypernatremia associated with free water deficit, now improved. 6. Chronic kidney disease, stage 4. Baseline creatinine 2.5 to 3. Etiology is diabetic kidney disease. PLAN: Check labs today. Continue with Lasix 40 mg p.o. b.i.d. MMODL / IJN: [id number] /
--- NOTE | 2021-02-03 15:40 | P.PN ---
Subjective Progress Note Date: 02/03/21 This is an 85-year-old male who was recently admitted with acute community- acquired pneumonia and is being closely monitored. Patient also has bilateral pleural effusions and pulmonary was consulted and planning for possible left side thoracentesis tomorrow. Repeat chest x-ray this morning shows maybe some improvement in volume status and to correlate for interstitial edema in the right pleural effusion appears loculated on ultrasound. Patient is maintained on diuretics and will continue and nephrology also following as patient's kidney functions continue to worsen. Most recent creatinine is 4.2 with a BUN of 90. Will repeat a.m. labs and continue to monitor closely. Review of systems: Constitutional: No reports of fatigue, fever, or chills Cardiovascular: No reports of chest pain or palpitations Respiratory: Reports shortness of breath GI: No reports of nausea, vomiting, or diarrhea : No reports of dysuria or retention Neurovascular: No reports of weakness or numbness All medications have been reviewed Active Medications Albuterol/Ipratropium (Ipratropium-Albuterol 3 Ml Neb) 3 ml INHALATION RT-QID PRN PRN Reason: Shortness Of Breath Or Wheezing Last Admin: 02/03/21 02:19 Dose: 3 ml Documented by: Albuterol/Ipratropium (Ipratropium-Albuterol 3 Ml Neb) 3 ml INHALATION RT-QID [facility] Last Admin: 02/03/21 11:43 Dose: 3 ml Documented by: Amlodipine Besylate (Amlodipine 10 Mg Tab) 10 mg PO DAILY [facility] Last Admin: 02/03/21 07:49 Dose: 10 mg Documented by: Atenolol (Atenolol 25 Mg Tab) 25 mg PO DAILY [facility] Last Admin: 02/03/21 07:48 Dose: 25 mg Documented by: Atorvastatin Calcium (Atorvastatin 20 Mg Tab) 20 mg PO [facility] Last Admin: 02/02/21 21:11 Dose: 20 mg Documented by: Azithromycin (Azithromycin 500 Mg Tab) 500 mg PO [facility] Last Admin: 02/02/21 21:11 Dose: 500 mg Documented by: Budesonide/Formoterol Fumarate (Symbicort 160-4.5 Mcg Inhaler) 2 puff INHALATION RT-BID [facility] Last Admin: 02/03/21 07:05 Dose: 2 puff Documented by: Calcium Acetate (Calcium Acetate 667 Mg Tab) 667 mg PO TID-W/MEALS [facility] Last Admin: 02/03/21 12:24 Dose: 667 mg Documented by: Enoxaparin Sodium (Enoxaparin 30 Mg/0.3 Ml Syringe) 30 mg SQ DAILY [facility] Last Admin: 02/03/21 07:49 Dose: 30 mg Documented by: Furosemide (Furosemide 40 Mg Tab) 40 mg PO BID@0900,1600 [facility] Last Admin: 02/03/21 07:48 Dose: 40 mg Documented by: Hydralazine HCl (Hydralazine Hcl 25 Mg Tab) 25 mg PO TID [facility] Last Admin: 02/03/21 07:49 Dose: 25 mg Documented by: Ceftriaxone Sodium 1 gm/ (Sodium Chloride) 50 mls @ 100 mls/hr IVPB [facility] Last Admin: 02/02/21 21:10 Dose: 100 mls/hr Documented by: Insulin Aspart (Insulin Aspart (Novolog) 100 Unit/Ml Vial) 0 unit SQ [facility]; Protocol Last Admin: 02/03/21 12:24 Dose: 2 unit Documented by: Insulin Detemir (Insulin Detemir (Levemir) 100 Unit/Ml Syr) 20 unit SQ [facility] Last Admin: 02/02/21 21:10 Dose: 20 unit Documented by: Melatonin (Melatonin 3 Mg Tablet) 3 mg PO HS PRN PRN Reason: Insomnia Last Admin: 02/01/21 21:10 Dose: 3 mg Documented by: Montelukast Sodium (Montelukast 10 Mg Tab) 10 mg PO [facility] Last Admin: 02/02/21 21:11 Dose: 10 mg Documented by: Naloxone HCl (Naloxone 0.4 Mg/Ml 1 Ml Vial) 0.2 mg IV Q2M PRN PRN Reason: Opioid Reversal Sodium Bicarbonate (Sodium Bicarbonate Tab 650 Mg Tab) 1,300 mg PO BID [facility] Last Admin: 02/03/21 07:49 Dose: 1,300 mg Documented by: Objective - Vital Signs Vital signs: Vital Signs Temp 97.6 F 02/03/21 12:06 Pulse 70 02/03/21 12:06 Resp 16 02/03/21 12:06 BP 116/62 02/03/21 12:06 Pulse Ox 97 02/03/21 12:06 Intake & Output 02/02/21 02/03/21 02/03/21 18:59 06:59 18:59 Intake Total 50 160 Output Total 300 Balance 50 -140 Intake: Intake, IV Titration 50 Amount cefTRIAXone 1 gm In 50 Sodium Chloride 0.9% 50 ml @ 100 mls/hr IVPB [facility] Rx#:[id number] Oral 160 Output: Drainage 300 Right Abdomen 300 Other: Voiding Method Ileal Conduit (Right) Ileal Conduit (Right) Ileal Conduit (Right) - Exam Gen: This is a 85-year-old male sleeping although easily arousable. Alert and oriented 3. Ill-appearing. Temp is 97.6F, pulse is 84, respirations are 16, blood pressures 116/62, oxygen saturation is 97% on 3 L via nasal cannula HEENT: Head is atraumatic, normocephalic. Pupils equal, round. Sclerae is anicteric. NECK: Supple. No JVD. No lymphadenopathy. No thyromegaly. LUNGS: Diminished breath sounds bilaterally more so on the left than the right with some faint expiratory wheezing noted of the lower bases bilaterally. No intercostal retractions. HEART: S1, S2 are muffled ABDOMEN: Soft. Bowel sounds are present. No masses. No tenderness. EXTREMITIES: No pedal edema. No calf tenderness. NEUROLOGICAL: Patient is asleep although easily arousable, alert and oriented x3. Cranial nerves 2 through 12 are grossly intact. Diffuse weakness - Labs CBC & Chem 7: 02/02/21 05:13 02/02/21 05:13 Labs: Abnormal Lab Results - Last 24 Hours (Table) 02/02/21 02/02/21 02/02/21 Range/Units 05:13 17:11 20:12 POC Glucose (mg/dL) 141 H 119 H (75-99) mg/dL Procalcitonin 0.60 H (0.02-0.09) ng/mL 02/03/21 02/03/21 Range/Units 07:31 12:17 POC Glucose (mg/dL) 122 H 167 H (75-99) mg/dL Procalcitonin (0.02-0.09) ng/mL Microbiology - Last 24 Hours (Table) 01/30/21 08:14 Blood Culture - Preliminary Blood No Growth after 96 hours 01/30/21 08:14 Blood Culture - Preliminary Blood No Growth after 96 hours Assessment and Plan Assessment: Acute on chronic renal failure Acute community acquired pneumonia Right pleural effusion, complex Chronic kidney disease stage IV Metabolic acidosis secondary to acute kidney injury 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 Nephrology following closely and renal functions continued to worsen and patient is maintained on oral Lasix. Pulmonary also following and planning on thoracentesis tomorrow for continued pleural effusions. Will have PT/OT therapy evaluate the patient as he continues to be weak although refusing rehab and states he is going home once discharged. Patient would likely benefit from ECF for strength and mobility. Due to multiple complex medical issues, prognosis is guarded. Further recommendations to follow depending on the progress of the patient.
[2021-02-03 17:15] LABS: Glucose,Whole Blood 152 mg/dL (75-99)
[2021-02-03 20:29] LABS: Glucose,Whole Blood 130 mg/dL (75-99)
[2021-02-03] MEDS: AZITHROMYCIN 500 MG TAB PO SCH (20:40)
[2021-02-03] MEDS: ATORVASTATIN 20 MG TAB PO SCH (20:40)
[2021-02-03] MEDS: INSULIN DETEMIR (LEVEMIR) 100 UNIT/ML SYR SQ SCH (20:40)
[2021-02-03] MEDS: MONTELUKAST 10 MG TAB PO SCH (20:41)
[2021-02-03 21:35] LABS: Anion Gap 11.2 mmol/L (4.00-12.00); BUN/Creat Ratio 21.88 Ratio (12.00-20.00); Carbon Dioxide 20.8 mmol/L (21.6-31.8); Non-African American GFR(CKD) 10.3 (60.0-200.0); Potassium 5.7 mmol/L (3.5-5.5)
[2021-02-04] MEDS: IPRATROPIUM-ALBUTEROL 3 ML NEB INHALATION PRN (00:19)
[2021-02-04 06:49] LABS: Basophils % (A) 0 %; Eosinophils # (A) 0.3 k/uL (0-0.7); Eosinophils % (A) 4 %; HCT 27.1 % (39.0-53.0); HGB 8.8 gm/dL (13.0-17.5); Hypochromasia Moderate; Lymphocytes # (A) 0.7 k/uL (1.0-4.8); Lymphocytes % (A) 8 %; MCHC 32.5 g/dL (31.0-37.0); MCV 92.2 fL (80.0-100.0); Mean Platelet Volume 6.9; Monocytes # (A) 0.6 k/uL (0-1.0); Monocytes % (A) 7 %; Neutrophils # (A) 7.5 k/uL (1.3-7.7); Neutrophils % (A) 81 %; Platelet Count 291 k/uL (150-450); RBC 2.94 m/uL (4.30-5.90); RDW 14.8 % (11.5-15.5); WBC 9.3 k/uL (3.8-10.6)
[2021-02-04] MEDS: IPRATROPIUM-ALBUTEROL 3 ML NEB INHALATION SCH ×4 (07:02→19:40)
[2021-02-04] MEDS: SYMBICORT 160-4.5 MCG INHALER INHALATION SCH ×2 (07:02→19:40)
[2021-02-04 07:13] LABS: African American GFR (CKD) 11 (>60 ml/min/1.73 sqM); Anion Gap 12 mmol/L; Calcium 8.2 mg/dL (8.4-10.2); Carbon Dioxide 17 mmol/L (22-30); Chloride 112 mmol/L (98-107); Glucose 98 mg/dL (74-99); Non-African American GFR(CKD) 10 (>60 ml/min/1.73 sqM); Potassium 5.8 mmol/L (3.5-5.1); Sodium 141 mmol/L (137-145)
[2021-02-04 07:20] LABS: Glucose,Whole Blood 114 mg/dL (75-99)
[2021-02-04] MEDS: INSULIN ASPART (NovoLOG) 100 UNIT/ML VIAL SQ SCH ×4 (07:21→20:41)
[2021-02-04 07:28] LABS: Blood Urea Nitrogen 110 mg/dL (9-20)
[2021-02-04] MEDS: FUROSEMIDE 40 MG TAB PO SCH (07:50)
[2021-02-04] MEDS: ENOXAPARIN 30 MG/0.3 ML SYRINGE SQ SCH (07:50)
[2021-02-04] MEDS: SODIUM BICARBONATE TAB 650 MG TAB PO SCH ×2 (07:50→20:40)
[2021-02-04] MEDS: CALCIUM ACETATE 667 MG TAB PO SCH ×3 (07:50→17:43)
[2021-02-04] MEDS: hydrALAZINE HCL 25 MG TAB PO SCH ×3 (07:51→21:50)
[2021-02-04] MEDS: amLODIPine 10 MG TAB PO SCH (07:51)
[2021-02-04] MEDS: atenoloL 25 MG TAB PO SCH (07:51)
[2021-02-04] MEDS ORDERED: DEXTROSE 50% SYRINGE 50 ML IVP STA (08:32)
[2021-02-04] MEDS ORDERED: INSULIN REGULAR 100 UNIT/ML VIAL IV ONE (08:33)
[2021-02-04 09:10] LABS: Glucose,Whole Blood 103 mg/dL (75-99)
[2021-02-04 11:45] LABS: Glucose,Whole Blood 113 mg/dL (75-99)
--- NOTE | 2021-02-04 12:52 | P.PN ---
Subjective Progress Note Date: 02/04/21 Principal diagnosis: Acute kidney injury This is an 85-year-old gentleman who follows with Dr. Queen as his primary care provider. He has a history of hyperlipidemia, diabetes mellitus, hypertension, chronic obstructive pulmonary disease, former smoker. He was referred to the emergency room back on 01/24/2021 with report of worsening kidney function on his recent lab results. The patient at that time had been feeling well. Interim been eating and drinking without difficulty. No shortness of breath, cough or congestion. He was found to have acute kidney injury suspected as cardio renal. No evidence of obstruction. The patient does have chronic kidney disease, stage IV. 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 We're consulted today abnormal chest x-ray revealing increasing right lateral consolidation, decreased right-sided lung volume. Ultrasound of the chest was ordered and revealed a complex collection with debris on the right and a 9.5 cm free-flowing fluid effusion on the left. Presently, he is sitting up in a chair at the bedside. Awake and alert in no acute distress. He is maintaining good O2 saturations in the 90s on 3 L/m per nasal cannula. Denies any worsening shortness of breath, cough or congestion. No hemoptysis. Blood cultures reveal no growth. White count 9.7. Hemoglobin 8.8. Sodium 142. Potassium 5.2. Creatinine 4.2. BUN 90. ProBNP 15,700. He is currently on Symbicort, DuoNeb inhalations, Singulair, antibiotics in the form of ceftriaxone and azithromycin, oral diuretics. On 02/03/2021 patient seen in follow-up on medical surgical floor. He looks fatigued, he sleeping in bed, but no acute distress, no signs of any respiratory difficulty. He is currently on 3 L of oxygen his pulse ox is 97%, he remains on oral Lasix at 40 mg twice daily, his net fluid balance is very difficult to estimate related to lack of accurate intake and output his weight was not completed today. No new labs today. His proBNP from yesterday was elevated at 15,700. His pro calcitonin on 02/02/2021 was 0.60. Renal profile was steadily worsening over the last few days. Nephrology is following. Cultures have been negative. Patient has had no fever or chills. His chest x-ray today shows some improvement in Status, right pleural effusion that was loculated on ultrasound, cardiomegaly. His ultrasound of the chest from 02/02/2021 showed left pleural effusion of 9.5 cm, and complex pleural fluid collection on the right On 02/04/2021 patient seen in follow-up on medical oncology floor, currently on 3 L of oxygen pulse ox 97%, his been afebrile, hemodynamically he is stable, he is short of breath with any exertion, and sleeping a lot. His chest x-ray has been reviewed showing complex pleural fluid collection on the right, and minimal left pleural effusion, although the ultrasound those completed on 02/02/2021 indicated left pleural effusion pocket of 9.5 cm we certainly don't appreciate that on the chest x-ray from today. We initially wanted to do left-sided thoracentesis today, however looking at the chest x-ray today there is probably not enough fluid for us to proceed with the procedure. Patient is scheduled for hemodialysis cath placement this afternoon and he will be started on he modialysis. We will obtain ultrasound of the chest following his first hemodialysis treatment. Today's labs have been reviewed, his white blood cell count was 9.3, hemoglobin is 8.8, potassium is 5.8, chloride is 112, CO2 17, his BUN is 110, and creatinine is 5.01. He remains on antibiotics in the form of azithromycin and Rocephin, he is on Symbicort and breathing treatments. Objective - Vital Signs Vital signs: Vital Signs Temp 97.5 F L 02/04/21 11:45 Pulse 72 02/04/21 11:45 Resp 22 02/04/21 11:45 BP 116/55 02/04/21 11:45 Pulse Ox 97 02/04/21 11:45 Intake & Output 02/03/21 02/04/21 02/04/21 18:59 06:59 18:59 Intake Total 270 270 Output Total 400 Balance 270 -130 Intake: Intake, IV Titration 50 Amount cefTRIAXone 1 gm In 50 Sodium Chloride 0.9% 50 ml @ 100 mls/hr IVPB [facility] Rx#:[id number] Oral 270 220 Output: Drainage 400 Right Abdomen 400 Other: Voiding Method Ileal Conduit (Right) Ileal Conduit (Right) Ileal Conduit (Right) - Exam GENERAL EXAM: Alert, very pleasant, 85-year-old white male, resting comfortably in bed, a 3 L of oxygen pulse ox 97% comfortable in no apparent distress. HEAD: Normocephalic/atraumatic. EYES: Normal reaction of pupils, equal size. Conjunctiva pink, sclera white. NOSE: Clear with pink turbinates. THROAT: No erythema or exudates. NECK: No masses, no JVD, no thyroid enlargement, no adenopathy. CHEST: No chest wall deformity. Symmetrical expansion. LUNGS: Equal air entry with diminished breath sounds at the bases CVS: Regular rate and rhythm, normal S1 and S2, no gallops, no murmurs, no rubs ABDOMEN: Soft, nontender. No hepatosplenomegaly, normal bowel sounds, no guarding or rigidity. EXTREMITIES: No clubbing, no edema, no cyanosis, 2+ pulses and upper and lower extremities. MUSCULOSKELETAL: Muscle strength and tone normal. SPINE: No scoliosis or deformity SKIN: No rashes CENTRAL NERVOUS SYSTEM: Alert and oriented -3. No focal deficits, tone is normal in all 4 extremities. PSYCHIATRIC: Alert and oriented -3. Appropriate affect. Intact judgment and insight. - Labs CBC & Chem 7: 02/04/21 06:37 02/04/21 06:37 Labs: Abnormal Lab Results - Last 24 Hours (Table) 02/03/21 02/03/21 02/03/21 Range/Units 14:23 17:14 20:10 RBC (4.30-5.90) m/uL Hgb (13.0-17.5) gm/dL Hct (39.0-53.0) % Lymphocytes # (1.0-4.8) k/uL Potassium 5.7 H (3.5-5.5) mmol/L Chloride 110 H (96-109) mmol/L Carbon Dioxide 20.8 L (21.6-31.8) mmol/L BUN 105.0 H* (9.0-27.0) mg/dL Creatinine 4.8 H (0.6-1.5) mg/dL Est GFR (CKD-EPI)AfAm 12.0 L (60.0-200.0) Est GFR (CKD-EPI)NonAf 10.3 L (60.0-200.0) BUN/Creatinine Ratio 21.88 H (12.00-20.00) Ratio Glucose 121 H (70-110) mg/dL POC Glucose (mg/dL) 152 H 130 H (75-99) mg/dL Calcium 8.0 L (8.7-10.3) mg/dL 02/04/21 02/04/21 02/04/21 Range/Units 06:37 06:37 07:13 RBC 2.94 L (4.30-5.90) m/uL Hgb 8.8 L (13.0-17.5) gm/dL Hct 27.1 L (39.0-53.0) % Lymphocytes # 0.7 L (1.0-4.8) k/uL Potassium 5.8 H (3.5-5.5) mmol/L Chloride 112 H (96-109) mmol/L Carbon Dioxide 17 L (21.6-31.8) mmol/L BUN 110 H* (9.0-27.0) mg/dL Creatinine 5.01 H (0.6-1.5) mg/dL Est GFR (CKD-EPI)AfAm (60.0-200.0) Est GFR (CKD-EPI)NonAf (60.0-200.0) BUN/Creatinine Ratio (12.00-20.00) Ratio Glucose (70-110) mg/dL POC Glucose (mg/dL) 114 H (75-99) mg/dL Calcium 8.2 L (8.7-10.3) mg/dL 02/04/21 02/04/21 Range/Units 09:03 11:34 RBC (4.30-5.90) m/uL Hgb (13.0-17.5) gm/dL Hct (39.0-53.0) % Lymphocytes # (1.0-4.8) k/uL Potassium (3.5-5.5) mmol/L Chloride (96-109) mmol/L Carbon Dioxide (21.6-31.8) mmol/L BUN (9.0-27.0) mg/dL Creatinine (0.6-1.5) mg/dL Est GFR (CKD-EPI)AfAm (60.0-200.0) Est GFR (CKD-EPI)NonAf (60.0-200.0) BUN/Creatinine Ratio (12.00-20.00) Ratio Glucose (70-110) mg/dL POC Glucose (mg/dL) 103 H 113 H (75-99) mg/dL Calcium (8.7-10.3) mg/dL Microbiology - Last 24 Hours (Table) 01/30/21 08:14 Blood Culture - Preliminary Blood No Growth after 120 hours 01/30/21 08:14 Blood Culture - Preliminary Blood No Growth after 120 hours Assessment and Plan Plan: Assessment: 1 Acute kidney injury felt to be possibly cardiorenal in nature. 2 Chronic kidney disease stage IV 3 Bilateral pleural effusions with complex loculated right pleural effusion and a 9.5 cm free-flowing effusion on the left, which is difficult to appreciate on the chest x-ray 4 Right-sided urostomy in place 5 Diabetes Trem[place], type II 6 Hypertension. 7 History of chronic obstructive pulmonary disease 7 Former smoker 8 Anemia Plan: Today's chest x-ray reviewed We don't appreciate much pleural fluid on the left Patient is in no acute distress, or worsening dyspnea He is supposed to have hemodialysis catheter placement today and he supposed to start hemodialysis today Obtain ultrasound of the chest after his first hemodialysis treatment We will review the film and make a decision on thoracentesis based on that. For now no plans for thoracentesis in the immediate future I performed a history & physical examination of the patient and discussed their management with my nurse practitioner, Sherley Curiel. I reviewed the nurse practitioner's note and agree with the documented findings and plan of care. Lung sounds are positive for diminished breath sounds with bibasilar crackles. The findings and the impression was discussed with the patient. I attest to the documentation by the nurse practitioner. Time with Patient: Less than 30
--- NOTE | 2021-02-04 13:04 | PN ---
PROGRESS NOTE Patient is seen for followup for acute kidney injury. His renal function has worsened since yesterday. Serum potassium is also elevated today. Patient continues to be short of breath. Previously he had stated that he would want to proceed with renal replacement therapy if indicated. This morning patient is awake, comfortable. He is not in any acute distress. He did state that it would be okay if we had to dialyze him. Urine output from the ileal conduit charted at about 400 mL for 24 hours. PHYSICAL EXAMINATION: On examination today, blood pressure 116/55, heart rate 72 per minute. Patient is afebrile. EXAMINATION OF THE HEART: S1, S2. EXAMINATION OF THE LUNGS: Decreased breath sounds at bases. Wheezing is heard bilaterally. Abdomen is soft, distended. Examination of lower extremities shows trace edema bilaterally. [employer] exam shows patient is moving all 4 extremities. He is lethargic. LABS: Labs show sodium 141, potassium 5.8, chloride 112, CO2 is 17, BUN 110, serum creatinine 5.0, hemoglobin 8.8 g/dL. ASSESSMENT: 1. Progressive acute kidney injury, acute tubular necrosis/cardiorenal. We will proceed with dialysis. I will consult Vascular Surgery for catheter placement. We will plan for first treatment today. 2. Congestive heart failure/volume overload, maintained on Lasix. We will try an ultrafiltration 1-2 L as tolerated today with dialysis. 3. Pneumonia, maintained on antibiotics. 4. 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 5. Metabolic acidosis. 6. Chronic kidney disease, stage 4. Baseline creatinine 2.5-3 secondary to diabetic kidney disease. PLAN: Proceed with vascular surgery consult, dialysis catheter placement. We will plan for first treatment today. Treat the hyperkalemia with IV medications as well. We will repeat another treatment tomorrow. MMODL / IJN: [id number] /
--- NOTE | 2021-02-04 13:34 | XR ---
EXAMINATION TYPE: XR chest 1V portable DATE OF EXAM: 02/04/2021 COMPARISON: Prior chest x-ray 02/03/2021 HISTORY: Pleural effusion TECHNIQUE: Single frontal view of the chest is obtained. FINDINGS: Pleural-parenchymal changes are similar to prior exam. Abnormal attenuation at the right l debbie base obscures the hemidiaphragm, there is blunting the right cost phrenic angle. Heart remains en larged. Aorta is dense. There is prominence and central vascularity and interstitium. No evident pneu mothorax. There are overlying leads. IMPRESSION: Correlate for congestive heart failure with basilar effusion, pneumonia not excluded.
--- NOTE | 2021-02-04 14:10 | P.GSCN ---
History of Present Illness History of present illness: 85-year-old gentleman with multiple medical problem patient has a 2 need a with high BUN/creatinine. I was consulted for placement of the dialysis catheter Neck is supple. Chest has rhonchi bilateral Abdomen is distended no apparent sign noted Vascular femoral pulses are 1+ plan is placement of a dialysis catheter risk and complication discussed Past Medical History Past Medical History: Asthma, Cancer, COPD, Diabetes Mellitus, Hyperlipidemia, Hypertension, Osteoarthritis (OA), Prostate Disorder Additional Past Medical History / Comment(s): VARICOSE VEINS; ARTHRITIS BACK, NECK; HX PROSTATE, BLADDER, (4 -5 years ago) & SKIN CANCER (4-5 yrs ago) , PLASMACYTOMA LEFT FEMUR- CANCERS. PNEUMONIA 04/01/15. HAS UROSTOMY , FX RT HIP -2017." RENAL DISEASE STAGE 4 -NO DIALYSIS as yet not at that advanced stage" Last Myocardial Infarction Date:: 2012- UNSURE- STATES DISCOVERED ON EKG. History of Any Multi-Drug Resistant Organisms: ESBL Year Discovered:: 03/26/2015 MDRO Source:: Urine- E.coli ESBL Past Surgical History: Bladder Surgery, Joint Replacement, Prostate Surgery Additional Past Surgical History / Comment(s): EXC LEFT FEMUR CANCER; CHEST TUMOR EXC; RADICAL PROSTATECTOMY 07/2004. , ROBOTIC RADICAL CYSTECTOMY 02/2015- UROSTOMY, COLONOSCOPY, PARTIAL RT HIP REPLACEMENT Past Anesthesia/Blood Transfusion Reactions: No Reported Reaction Past Psychological History: No Psychological Hx Reported Smoking Status: Former smoker Past Alcohol Use History: None Reported Past Drug Use History: None Reported - Past Family History Son(s) Family Medical History: Cancer Additional Family Medical History / Comment(s): LEUKEMIA Medications and Allergies Home Medications Medication Instructions Recorded Confirmed Type Montelukast [Singulair] 10 mg PO HS 12/28/14 01/24/21 History amLODIPine BESYLATE [Norvasc] 10 mg PO DAILY 12/28/14 01/24/21 History atenoloL [Tenormin] 25 mg PO DAILY 12/28/14 01/24/21 History Atorvastatin Calcium [Lipitor] 20 mg PO HS 06/07/20 01/24/21 History Insulin Glargine,Hum.rec.anlog 20 unit SQ HS 06/07/20 01/24/21 History [Kermit Mcclellan U-100] Fluticasone Propion/Salmeterol 1 puff INHALATION RT-BID 09/06/20 01/24/21 History [Wixela 500-50 Inhub] Albuterol Inhaler [Ventolin Hfa 2 puff INHALATION RT-QID PRN 01/24/21 01/24/21 History Inhaler] Tiotropium 2.5 Mcg/Puff [Spiriva 2 puff INHALATION RT-DAILY 01/24/21 01/24/21 History Respimat 2.5 Mcg] Allergies Allergy/AdvReac Type Severity Reaction Status Date / Time shellfish derived [Shellfish] Allergy Mild Rash/Hives Verified 01/24/21 21:24 "if consumes alot," per patient Surgical - Exam Vital Signs Temp Pulse Resp BP Pulse Ox 98.0 F 70 16 167/61 100 01/24/21 19:45 01/24/21 19:45 01/24/21 19:45 01/24/21 19:45 01/24/21 19:45 Results - Labs 02/04/21 06:37 02/04/21 06:37 Abnormal Lab Results - Last 24 Hours (Table) 02/03/21 02/03/21 02/03/21 Range/Units 14:23 17:14 20:10 RBC (4.30-5.90) m/uL Hgb (13.0-17.5) gm/dL Hct (39.0-53.0) % Lymphocytes # (1.0-4.8) k/uL Potassium 5.7 H (3.5-5.5) mmol/L Chloride 110 H (96-109) mmol/L Carbon Dioxide 20.8 L (21.6-31.8) mmol/L BUN 105.0 H* (9.0-27.0) mg/dL Creatinine 4.8 H (0.6-1.5) mg/dL Est GFR (CKD-EPI)AfAm 12.0 L (60.0-200.0) Est GFR (CKD-EPI)NonAf 10.3 L (60.0-200.0) BUN/Creatinine Ratio 21.88 H (12.00-20.00) Ratio Glucose 121 H (70-110) mg/dL POC Glucose (mg/dL) 152 H 130 H (75-99) mg/dL Calcium 8.0 L (8.7-10.3) mg/dL 02/04/21 02/04/21 02/04/21 Range/Units 06:37 06:37 07:13 RBC 2.94 L (4.30-5.90) m/uL Hgb 8.8 L (13.0-17.5) gm/dL Hct 27.1 L (39.0-53.0) % Lymphocytes # 0.7 L (1.0-4.8) k/uL Potassium 5.8 H (3.5-5.5) mmol/L Chloride 112 H (96-109) mmol/L Carbon Dioxide 17 L (21.6-31.8) mmol/L BUN 110 H* (9.0-27.0) mg/dL Creatinine 5.01 H (0.6-1.5) mg/dL Est GFR (CKD-EPI)AfAm (60.0-200.0) Est GFR (CKD-EPI)NonAf (60.0-200.0) BUN/Creatinine Ratio (12.00-20.00) Ratio Glucose (70-110) mg/dL POC Glucose (mg/dL) 114 H (75-99) mg/dL Calcium 8.2 L (8.7-10.3) mg/dL 02/04/21 02/04/21 Range/Units 09:03 11:34 RBC (4.30-5.90) m/uL Hgb (13.0-17.5) gm/dL Hct (39.0-53.0) % Lymphocytes # (1.0-4.8) k/uL Potassium (3.5-5.5) mmol/L Chloride (96-109) mmol/L Carbon Dioxide (21.6-31.8) mmol/L BUN (9.0-27.0) mg/dL Creatinine (0.6-1.5) mg/dL Est GFR (CKD-EPI)AfAm (60.0-200.0) Est GFR (CKD-EPI)NonAf (60.0-200.0) BUN/Creatinine Ratio (12.00-20.00) Ratio Glucose (70-110) mg/dL POC Glucose (mg/dL) 103 H 113 H (75-99) mg/dL Calcium (8.7-10.3) mg/dL Microbiology - Last 24 Hours (Table) 05/13/21 08:14 Blood Culture - Preliminary Blood No Growth after 120 hours 01/30/21 08:14 Blood Culture - Preliminary Blood No Growth after 120 hours Diabetes panel 02/03/21 02/04/21 Range/Units 14:23 06:37 Sodium 142 141 (135-145) mmol/L Potassium 5.7 H 5.8 H (3.5-5.5) mmol/L Chloride 110 H 112 H (96-109) mmol/L Carbon Dioxide 20.8 L 17 L (21.6-31.8) mmol/L BUN 105.0 H* 110 H* (9.0-27.0) mg/dL Creatinine 4.8 H 5.01 H (0.6-1.5) mg/dL Glucose 121 H 98 (70-110) mg/dL Calcium 8.0 L 8.2 L (8.7-10.3) mg/dL Calcium panel 02/03/21 02/04/21 Range/Units 14:23 06:37 Calcium 8.0 L 8.2 L (8.7-10.3) mg/dL Pituitary panel 02/03/21 02/04/21 Range/Units 14:23 06:37 Sodium 142 141 (135-145) mmol/L Potassium 5.7 H 5.8 H (3.5-5.5) mmol/L Chloride 110 H 112 H (96-109) mmol/L Carbon Dioxide 20.8 L 17 L (21.6-31.8) mmol/L BUN 105.0 H* 110 H* (9.0-27.0) mg/dL Creatinine 4.8 H 5.01 H (0.6-1.5) mg/dL Glucose 121 H 98 (70-110) mg/dL Calcium 8.0 L 8.2 L (8.7-10.3) mg/dL Adrenal panel 02/03/21 02/04/21 Range/Units 14:23 06:37 Sodium 142 141 (135-145) mmol/L Potassium 5.7 H 5.8 H (3.5-5.5) mmol/L Chloride 110 H 112 H (96-109) mmol/L Carbon Dioxide 20.8 L 17 L (21.6-31.8) mmol/L BUN 105.0 H* 110 H* (9.0-27.0) mg/dL Creatinine 4.8 H 5.01 H (0.6-1.5) mg/dL Glucose 121 H 98 (70-110) mg/dL Calcium 8.0 L 8.2 L (8.7-10.3) mg/dL
[2021-02-04] MEDS ORDERED: LIDOCAINE 1% INJ 10MG/ML (20 ML MDV) ONE (14:31)
[2021-02-04] MEDS ORDERED: LIDOCAINE 1% INJ 10MG/ML (20 ML MDV) SQ ONE (14:35)
[2021-02-04] MEDS ORDERED: HEPARIN SODIUM 1,000 UN/ML (10ML VL) ONE (14:38)
--- NOTE | 2021-02-04 15:31 | IR ---
EXAMINATION TYPE: IR cvc insert non tunneled DATE OF EXAM: 02/04/2021 COMPARISON: NONE HISTORY: Renal failure Fluoroscopy support supplied to the referring clinician. See dictated report from vascular surgery, 65 intraoperative C-arm images document the procedure, 0.1 minutes fluoroscopy time
--- NOTE | 2021-02-04 16:01 | PCN ---
PROCEDURE NOTE PREOPERATIVE DIAGNOSIS: Acute on chronic renal failure. POSTOPERATIVE DIAGNOSIS: Acute on chronic renal failure. PROCEDURE: Ultrasound-guided micropuncture introduced right groin after prep and drapes applied in usual sterile manner. Micropuncture right femoral vein and micropuncture guidewire was passed and 4-German dilator advanced on top of the guidewire. Then we passed a regular guidewire without any resistance. Dilators were advanced and then we placed a 20 cm dialysis catheter on top of the guidewire. The guidewire was removed, flushed with heparin saline and hep-locked, secured with 3-0 nylon. Dressing applied. Patient tolerated the procedure well. [id number] / IJN: [id number] /
[2021-02-04 17:27] LABS: Glucose,Whole Blood 102 mg/dL (75-99)
[2021-02-04 19:30] LABS: Hepatitis B Surface AB- Quant 3.5 mIU/mL; Hepatitis B Surface Antibody Non-Reactive (Non-Reactive); Hepatitis B Surface Antigen Non-Reactive (Non-Reactive)
[2021-02-04 20:12] LABS: Glucose,Whole Blood 145 mg/dL (75-99)
--- NOTE | 2021-02-04 20:27 | P.PN ---
Subjective Progress Note Date: 02/04/21 (0700) Principal diagnosis: Acute metabolic acidosis due to acute kidney injury community acquired pneumonia Uremic encephalopathy 85-year-old male with past medical history of COPD, diabetes mellitus, hypertension, hyperlipidemia, osteoarthritis, prostate disorder chronic kidney disease stage IV was sent to the emergency department by our services for abnormal labs. Patient has history of right sided urostomy with good urinary output and also is able to void on his own. Creatinine upon admission was 4.8 and bicarb was 13, he was given IV fluids and admitted for further medical management. Nephrology was consulted for recommendations and treatment plan regarding acute kidney injury. 01/26/2021 He had significant amount of urinary output with IV fluids creatinine and BUNs improved throughout the day 01/27/2021 Patient continues to have urinary output with IV fluids and strict I&O's. Renal functioning continue to improve. 01/28/2021 Evaluated patient this a.m. resting comfortably in bed, patient having mild shortness of breath with exertion and generalized weakness throughout the night and this a.m. Lengthy discussion with patient regarding wishes for dialysis due to worsening kidney function and repeat admissions for acute kidney injury with metabolic acidosis. Consult to vascular surgery for dialysis access. Further discussion to be made with nephrology regarding plans for dialysis. Patient denies fever, chills chest pain, palpitations, abdominal pain, nausea, or diarrhea at this time. Patient continues to endorse generalized weakness and exertional shortness of breath. Awaiting diagnostic labs from this a.m. 01/29/2021 Evaluated patient this a.m. patient continues to endorse mild shortness of breath with exertion and generalized weakness.chest x-ray from 01/28/2021 showed possible pulmonary congestion versus pneumoniaelevated Procalcitonin and CRP noted. Patient started on Zithromax and Rocephin for possible community acquired pneumonia. Nephrology had discussion with patient regarding kidney function no need for vascular access at this time. Patient denies fever, chills, chest pain, palpitations, abdominal pain, nausea or diarrhea at this time. Kidney function improving hopeful discharge within 24 hours 01/30/2021 Elevated patient this a.m., resting comfortably in bed. Patient continues to endorse shortness of breath and generalized fatigue. This a.m. chest x-ray progression of pneumonia and pulmonary congestion without overt CHF. Patient continued to be on IV Rocephin and Zithromax for community-acquired pneumonia. Patient denies fever, chills, chest pain, palpitations, abdominal pain, nausea or diarrhea at this time. Patient possibly need for IV diuretics 1 time dose due to pulmonary congestion. January 31, 2021 to February 03, 2021 see hospitalist coverage notes February 04, 2021 evaluated patient this a.m., patient resting in bed with mild labored breathing, able to speak few word sentences, and noted to have moderate confusion. Patient continues to endorse shortness of breath and weakness. Contacted nephrology and vascular, due to worsening kidney function and fluid volume overload, vascular surgeon to place temporary dialysis catheter for dialysis. Objective - Vital Signs Vital signs: Vital Signs Temp 97 F L 02/04/21 17:45 Pulse 83 02/04/21 19:50 Resp 18 02/04/21 19:50 BP 99/61 02/04/21 17:45 Pulse Ox 97 02/04/21 11:45 Intake & Output 02/04/21 02/04/21 02/05/21 06:59 18:59 06:59 Intake Total 270 Output Total 400 1974 Balance - Intake: Intake, IV Titration 50 Amount cefTRIAXone 1 gm In 50 Sodium Chloride 0.9% 50 ml @ 100 mls/hr IVPB [facility] Rx#:[id number] Oral 220 Output: Drainage 400 Right Abdomen 400 Urine 475 Hemodialysis 1500 Other: Voiding Method Ileal Conduit (Right) Ileal Conduit (Right) - Constitutional General appearance: Present: mild distress - EENT Eyes: Present: EOMI, PERRLA ENT: Present: hard of hearing Ears: bilateral: normal - Neck Thyroid: bilateral: normal size - Respiratory Respiratory: bilateral: prolonged expiration (Anterior and posterior lung cline) - Cardiovascular Heart rate: 72 Rhythm: regular Heart sounds: normal: S1, S2 - Peripheral pulses radial pulse Peripheral Pulses: bilateral: Normal - Gastrointestinal General gastrointestinal: Present: normal bowel sounds - Integumentary Integumentary: Present: pale - Musculoskeletal Musculoskeletal: Present: generalized weakness - Psychiatric Psychiatric Comment(s): Alert the person and place Noted to have confusion and time and situation - Allied health notes Allied health notes reviewed: nursing - Labs CBC & Chem 7: 02/04/21 06:37 02/04/21 06:37 Labs: Abnormal Lab Results - Last 24 Hours (Table) 02/03/21 02/03/21 02/04/21 Range/Units 14:23 20:10 06:37 RBC 2.94 L (4.30-5.90) m/uL Hgb 8.8 L (13.0-17.5) gm/dL Hct 27.1 L (39.0-53.0) % Lymphocytes # 0.7 L (1.0-4.8) k/uL Potassium 5.7 H (3.5-5.5) mmol/L Chloride 110 H (96-109) mmol/L Carbon Dioxide 20.8 L (21.6-31.8) mmol/L BUN 105.0 H* (9.0-27.0) mg/dL Creatinine 4.8 H (0.6-1.5) mg/dL Est GFR (CKD-EPI)AfAm 12.0 L (60.0-200.0) Est GFR (CKD-EPI)NonAf 10.3 L (60.0-200.0) BUN/Creatinine Ratio 21.88 H (12.00-20.00) Ratio Glucose 121 H (70-110) mg/dL POC Glucose (mg/dL) 130 H (75-99) mg/dL Calcium 8.0 L (8.7-10.3) mg/dL 02/04/21 02/04/21 02/04/21 Range/Units 06:37 07:13 09:03 RBC (4.30-5.90) m/uL Hgb (13.0-17.5) gm/dL Hct (39.0-53.0) % Lymphocytes # (1.0-4.8) k/uL Potassium 5.8 H (3.5-5.5) mmol/L Chloride 112 H (96-109) mmol/L Carbon Dioxide 17 L (21.6-31.8) mmol/L BUN 110 H* (9.0-27.0) mg/dL Creatinine 5.01 H (0.6-1.5) mg/dL Est GFR (CKD-EPI)AfAm (60.0-200.0) Est GFR (CKD-EPI)NonAf (60.0-200.0) BUN/Creatinine Ratio (12.00-20.00) Ratio Glucose (70-110) mg/dL POC Glucose (mg/dL) 114 H 103 H (75-99) mg/dL Calcium 8.2 L (8.7-10.3) mg/dL 02/04/21 02/04/21 02/04/21 Range/Units 11:34 17:18 20:10 RBC (4.30-5.90) m/uL Hgb (13.0-17.5) gm/dL Hct (39.0-53.0) % Lymphocytes # (1.0-4.8) k/uL Potassium (3.5-5.5) mmol/L Chloride (96-109) mmol/L Carbon Dioxide (21.6-31.8) mmol/L BUN (9.0-27.0) mg/dL Creatinine (0.6-1.5) mg/dL Est GFR (CKD-EPI)AfAm (60.0-200.0) Est GFR (CKD-EPI)NonAf (60.0-200.0) BUN/Creatinine Ratio (12.00-20.00) Ratio Glucose (70-110) mg/dL POC Glucose (mg/dL) 113 H 102 H 145 H (75-99) mg/dL Calcium (8.7-10.3) mg/dL Microbiology - Last 24 Hours (Table) 01/30/21 08:14 Blood Culture - Preliminary Blood No Growth after 120 hours 01/30/21 08:14 Blood Culture - Preliminary Blood No Growth after 120 hours - Imaging and Cardiology Chest x-ray: pending Assessment and Plan Assessment: Acute kidney injury Uremic encephalopathy community acquired pneumonia pulmonary congestion, Pleural effusions Chronic kidney disease stage IV Metabolic acidosis secondary to acute kidney injury 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 Anemia of chronic kidney disease Diabetes mellitus type 2 Hypertension COPD History of plasmacytoma of left femur Osteoarthritis Prostate disorder Moderate protein calorie malnutrition Full code Plan: Acute kidney injurycontinue IV fluids,monitor strict I's and O's, continue oral sodium bicarbcontinue consultation with nephrology for recommendations and treatment plan Community acquired pneumonia, continue IV antibiotics Pulmonary congestion, Pleural effusions noted, continue consultation with pulmonary critical care for possible thoracentesis Chronic kidney disease stage IV, Consultation with vascular and nephrology for temporary dialysis due to worsening kidney function uremic encephalopathy, dialysis therapy Metabolic acidosis secondary to acute kidney injurywith sodium bicarb Continue home medications Continue to monitor diagnostic testing and vital signs Continue medical management Further recommendations to come based on patient's clinical condition Time with Patient: Greater than 30
--- NOTE | 2021-02-04 20:33 | US ---
EXAMINATION TYPE: US chest DATE OF EXAM: 02/04/2021 COMPARISON: US CLINICAL HISTORY: US of the left chest with markings after dialysis. Pleural effusion. TECHNIQUE: Targeted ultrasound of the posterior lower left hemithorax EXAM MEASUREMENTS: Right Pleural Effusion pocket size: Complex fluid seen. Left Pleural Effusion pocket size: 7.49 cm Left skin surface to fluid distance: 3.07 cm Right side NOT marked for possible thoracentesis outside the dept. Left side marked for possible thoracentesis outside the dept. Original marking from 2 days ago 02/02/2021. Images taken at this marking. Pulmonologists are able to review the images in the patient?s EMR. IMPRESSIONS: Pleural effusions as above.
[2021-02-04] MEDS: AZITHROMYCIN 500 MG TAB PO SCH (20:41)
[2021-02-04] MEDS: ATORVASTATIN 20 MG TAB PO SCH (20:41)
[2021-02-04] MEDS: MONTELUKAST 10 MG TAB PO SCH (20:41)
[2021-02-04] MEDS: INSULIN DETEMIR (LEVEMIR) 100 UNIT/ML SYR SQ SCH (20:43)
[2021-02-04 22:41] LABS: Basophils % (A) 1 %; Eosinophils # (A) 0.3 k/uL (0-0.7); Eosinophils % (A) 3 %; HCT 26.2 % (39.0-53.0); HGB 8.5 gm/dL (13.0-17.5); Hypochromasia Moderate; Lymphocytes # (A) 0.6 k/uL (1.0-4.8); Lymphocytes % (A) 8 %; MCH 29.9 pg (25.0-35.0); MCHC 32.6 g/dL (31.0-37.0); MCV 91.8 fL (80.0-100.0); Mean Platelet Volume 7.1; Monocytes # (A) 0.6 k/uL (0-1.0); Monocytes % (A) 7 %; Neutrophils # (A) 6.4 k/uL (1.3-7.7); Neutrophils % (A) 81 %; Platelet Count 272 k/uL (150-450); RBC 2.86 m/uL (4.30-5.90); RDW 14.7 % (11.5-15.5)
[2021-02-04 22:52] LABS: ALT 34 U/L (4-49); AST 21 U/L (17-59); African American GFR (CKD) 16 (>60 ml/min/1.73 sqM); Albumin 2.9 g/dL (3.5-5.0); Albumin/Globulin Ratio 1.2; Alkaline Phosphatase 111 U/L (38-126); Anion Gap 9 mmol/L; Blood Urea Nitrogen 83 mg/dL (9-20); Calcium 8.1 mg/dL (8.4-10.2); Carbon Dioxide 22 mmol/L (22-30); Chloride 107 mmol/L (98-107); Globulin 2.4 g/dL; Glucose 145 mg/dL (74-99); Magnesium 2.4 mg/dL (1.6-2.3); Non-African American GFR(CKD) 14 (>60 ml/min/1.73 sqM); Phosphorus 5.2 mg/dL (2.5-4.5); Potassium 5.4 mmol/L (3.5-5.1); Sodium 138 mmol/L (137-145); Total Bilirubin 0.2 mg/dL (0.2-1.3); Total Protein 5.3 g/dL (6.3-8.2)
[2021-02-05 07:00] LABS: Glucose,Whole Blood 126 mg/dL (75-99)
[2021-02-05] MEDS: SYMBICORT 160-4.5 MCG INHALER INHALATION SCH ×2 (07:43→20:15)
[2021-02-05] MEDS: IPRATROPIUM-ALBUTEROL 3 ML NEB INHALATION SCH ×4 (07:43→20:15)
[2021-02-05 08:20] LABS: African American GFR (CKD) 15 (>60 ml/min/1.73 sqM); Anion Gap 9 mmol/L; Blood Urea Nitrogen 87 mg/dL (9-20); Calcium 8.1 mg/dL (8.4-10.2); Carbon Dioxide 23 mmol/L (22-30); Chloride 109 mmol/L (98-107); Glucose 123 mg/dL (74-99); Non-African American GFR(CKD) 13 (>60 ml/min/1.73 sqM); Potassium 5.8 mmol/L (3.5-5.1); Sodium 141 mmol/L (137-145)
[2021-02-05] MEDS: INSULIN ASPART (NovoLOG) 100 UNIT/ML VIAL SQ SCH ×4 (08:54→20:29)
[2021-02-05] MEDS: SODIUM BICARBONATE TAB 650 MG TAB PO SCH (09:04)
[2021-02-05] MEDS: ENOXAPARIN 30 MG/0.3 ML SYRINGE SQ SCH (09:04)
[2021-02-05] MEDS: CALCIUM ACETATE 667 MG TAB PO SCH ×3 (09:04→17:42)
[2021-02-05 12:10] LABS: Glucose,Whole Blood 231 mg/dL (75-99)
--- NOTE | 2021-02-05 12:41 | P.PN ---
Subjective Progress Note Date: 02/05/21 Principal diagnosis: Acute kidney injury This is an 85-year-old gentleman who follows with Dr. Queen as his primary care provider. He has a history of hyperlipidemia, diabetes mellitus, hypertension, chronic obstructive pulmonary disease, former smoker. He was referred to the emergency room back on 01/24/2021 with report of worsening kidney function on his recent lab results. The patient at that time had been feeling well. Interim been eating and drinking without difficulty. No shortness of breath, cough or congestion. He was found to have acute kidney injury suspected as cardio renal. No evidence of obstruction. The patient does have chronic kidney disease, stage IV. 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 We're consulted today abnormal chest x-ray revealing increasing right lateral consolidation, decreased right-sided lung volume. Ultrasound of the chest was ordered and revealed a complex collection with debris on the right and a 9.5 cm free-flowing fluid effusion on the left. Presently, he is sitting up in a chair at the bedside. Awake and alert in no acute distress. He is maintaining good O2 saturations in the 90s on 3 L/m per nasal cannula. Denies any worsening shortness of breath, cough or congestion. No hemoptysis. Blood cultures reveal no growth. White count 9.7. Hemoglobin 8.8. Sodium 142. Potassium 5.2. Creatinine 4.2. BUN 90. ProBNP 15,700. He is currently on Symbicort, DuoNeb inhalations, Singulair, antibiotics in the form of ceftriaxone and azithromycin, oral diuretics. On 02/03/2021 patient seen in follow-up on medical surgical floor. He looks fatigued, he sleeping in bed, but no acute distress, no signs of any respiratory difficulty. He is currently on 3 L of oxygen his pulse ox is 97%, he remains on oral Lasix at 40 mg twice daily, his net fluid balance is very difficult to estimate related to lack of accurate intake and output his weight was not completed today. No new labs today. His proBNP from yesterday was elevated at 15,700. His pro calcitonin on 02/02/2021 was 0.60. Renal profile was steadily worsening over the last few days. Nephrology is following. Cultures have been negative. Patient has had no fever or chills. His chest x-ray today shows some improvement in Status, right pleural effusion that was loculated on ultrasound, cardiomegaly. His ultrasound of the chest from 02/02/2021 showed left pleural effusion of 9.5 cm, and complex pleural fluid collection on the right On 02/04/2021 patient seen in follow-up on medical oncology floor, currently on 3 L of oxygen pulse ox 97%, his been afebrile, hemodynamically he is stable, he is short of breath with any exertion, and sleeping a lot. His chest x-ray has been reviewed showing complex pleural fluid collection on the right, and minimal left pleural effusion, although the ultrasound those completed on 02/02/2021 indicated left pleural effusion pocket of 9.5 cm we certainly don't appreciate that on the chest x-ray from today. We initially wanted to do left-sided thoracentesis today, however looking at the chest x-ray today there is probably not enough fluid for us to proceed with the procedure. Patient is scheduled for hemodialysis cath placement this afternoon and he will be started on he modialysis. We will obtain ultrasound of the chest following his first hemodialysis treatment. Today's labs have been reviewed, his white blood cell count was 9.3, hemoglobin is 8.8, potassium is 5.8, chloride is 112, CO2 17, his BUN is 110, and creatinine is 5.01. He remains on antibiotics in the form of azithromycin and Rocephin, he is on Symbicort and breathing treatments. On 02/05/2021 patient seen in follow-up on medical surgical floor, yesterday had a hemodialysis catheter inserted and he had his first hemodialysis yesterday with removal of 1.5 L of fluid, ultrasound of the chest was completed afterwards showing a decrease in the left pleural effusion pocket size down to 7.49 cm. Patient is having another hemodialysis treatment today, he is resting comfortably in bed, he is currently on 3 L of oxygen his pulse ox is 91-97%, hemodynamically has been stable, his been afebrile. Today's labs have been reviewed, his sodium is 141, potassium is 5.8, chloride is 109, BUN of 87, cr eatinine is 4.02. No fever or chills. Generally he appears very weak, no evidence of any respiratory difficulty. Objective - Vital Signs Vital signs: Vital Signs Temp 97.8 F 02/05/21 05:00 Pulse 76 02/05/21 11:19 Resp 16 02/05/21 08:00 BP 134/63 02/05/21 05:00 Pulse Ox 91 L 02/05/21 05:00 Intake & Output 02/04/21 02/05/21 02/05/21 18:59 06:59 18:59 Intake Total 120 Output Total 1974 300 Balance -1974 Intake: Oral 120 Output: Urine 475 300 Hemodialysis 1500 Other: Voiding Method Ileal Conduit (Right) Ileal Conduit (Right) Ileal Conduit (Right) - Exam GENERAL EXAM: Alert, very pleasant, 85-year-old white male, resting comfortably in bed, a 3 L of oxygen pulse ox 91% comfortable in no apparent distress. HEAD: Normocephalic/atraumatic. EYES: Normal reaction of pupils, equal size. Conjunctiva pink, sclera white. NOSE: Clear with pink turbinates. THROAT: No erythema or exudates. NECK: No masses, no JVD, no thyroid enlargement, no adenopathy. CHEST: No chest wall deformity. Symmetrical expansion. LUNGS: Equal air entry with diminished breath sounds at the bases CVS: Regular rate and rhythm, normal S1 and S2, no gallops, no murmurs, no rubs ABDOMEN: Soft, nontender. No hepatosplenomegaly, normal bowel sounds, no guarding or rigidity. EXTREMITIES: No clubbing, no edema, no cyanosis, 2+ pulses and upper and lower extremities. MUSCULOSKELETAL: Muscle strength and tone normal. SPINE: No scoliosis or deformity SKIN: No rashes CENTRAL NERVOUS SYSTEM: Alert and oriented -3. No focal deficits, tone is normal in all 4 extremities. PSYCHIATRIC: Alert and oriented -3. Appropriate affect. Intact judgment and insight. - Labs CBC & Chem 7: 02/04/21 22:31 02/05/21 07:06 Labs: Abnormal Lab Results - Last 24 Hours (Table) 02/04/21 02/04/21 02/04/21 Range/Units 17:18 20:10 22:31 RBC (4.30-5.90) m/uL Hgb (13.0-17.5) gm/dL Hct (39.0-53.0) % Lymphocytes # (1.0-4.8) k/uL Potassium 5.4 H (3.5-5.1) mmol/L Chloride (98-107) mmol/L BUN 83 H (9-20) mg/dL Creatinine 3.72 H (0.66-1.25) mg/dL Glucose 145 H (74-99) mg/dL POC Glucose (mg/dL) 102 H 145 H (75-99) mg/dL Calcium 8.1 L (8.4-10.2) mg/dL Phosphorus 5.2 H (2.5-4.5) mg/dL Magnesium 2.4 H (1.6-2.3) mg/dL Total Protein 5.3 L (6.3-8.2) g/dL Albumin 2.9 L (3.5-5.0) g/dL 02/04/21 02/05/21 02/05/21 Range/Units 22:31 06:57 07:06 RBC 2.86 L (4.30-5.90) m/uL Hgb 8.5 L (13.0-17.5) gm/dL Hct 26.2 L (39.0-53.0) % Lymphocytes # 0.6 L (1.0-4.8) k/uL Potassium 5.8 H (3.5-5.1) mmol/L Chloride 109 H (98-107) mmol/L BUN 87 H (9-20) mg/dL Creatinine 4.02 H (0.66-1.25) mg/dL Glucose 123 H (74-99) mg/dL POC Glucose (mg/dL) 126 H (75-99) mg/dL Calcium 8.1 L (8.4-10.2) mg/dL Phosphorus (2.5-4.5) mg/dL Magnesium (1.6-2.3) mg/dL Total Protein (6.3-8.2) g/dL Albumin (3.5-5.0) g/dL 02/05/21 Range/Units 12:07 RBC (4.30-5.90) m/uL Hgb (13.0-17.5) gm/dL Hct (39.0-53.0) % Lymphocytes # (1.0-4.8) k/uL Potassium (3.5-5.1) mmol/L Chloride (98-107) mmol/L BUN (9-20) mg/dL Creatinine (0.66-1.25) mg/dL Glucose (74-99) mg/dL POC Glucose (mg/dL) 231 H (75-99) mg/dL Calcium (8.4-10.2) mg/dL Phosphorus (2.5-4.5) mg/dL Magnesium (1.6-2.3) mg/dL Total Protein (6.3-8.2) g/dL Albumin (3.5-5.0) g/dL Microbiology - Last 24 Hours (Table) 01/30/21 08:14 Blood Culture - Final Blood No Growth after 144 hours 01/30/21 08:14 Blood Culture - Final Blood No Growth after 144 hours Assessment and Plan Plan: Assessment: #1. Bilateral pleural effusions with complex loculated right pleural effusion, and the free-flowing pleural effusion on the left. Left pleural effusion pocket is improving with hemodialysis #2. Acute kidney injury related to cardiorenal syndrome #3. Chronic kidney disease stage IV #4. Right-sided urostomy #5. Diabetes mellitus type 2 #6. Hypertension #7. History of COPD #8. Former smoker #9. Anemia of chronic kidney disease Plan: Ultrasound of the chest has been reviewed Left-sided pleural fluid collection is improving with hemodialysis It is expected to further improve with further hemodialysis treatments Breathing comfortably, on minimal supplemental oxygen No plans for thoracentesis at this time, we'll continue to follow I performed a history & physical examination of the patient and discussed their management with my nurse practitioner, Sherley Curiel. I reviewed the nurse practitioner's note and agree with the documented findings and plan of care. Lung sounds are positive for diminished breath sounds with bibasilar crackles. The findings and the impression was discussed with the patient. I attest to the documentation by the nurse practitioner. Time with Patient: Less than 30
[2021-02-05] MEDS: hydrALAZINE HCL 25 MG TAB PO SCH ×3 (14:55→22:42)
[2021-02-05] MEDS: amLODIPine 10 MG TAB PO SCH (14:56)
[2021-02-05] MEDS: atenoloL 25 MG TAB PO SCH (14:56)
--- NOTE | 2021-02-05 15:21 | PN ---
PROGRESS NOTE Patient is seen for followup for acute kidney injury with worsening renal failure, started on hemodialysis yesterday. Patient had his first treatment yesterday and he is currently receiving his second treatment. We had about 1.5 L of fluid removed yesterday. PHYSICAL EXAMINATION: On examination today, patient is lethargic. He is comfortable, not in any acute distress; arousable but goes back to sleep. Blood pressure was 115/52, heart rate 73 per minute. He is afebrile. EXAMINATION OF THE HEART: S1 and S2. EXAMINATION OF LUNGS: Decreased breath sounds at bases. ABDOMEN: Soft, non-tender. Examination of lower extremities shows edema 1+ bilaterally. Chronic skin changes noted. [employer] DIRECT[employer] exam shows patient is lethargic. LABS: Sodium 141, potassium 5.8, chloride 109, BUN 87, serum creatinine 4.02, hemoglobin 8.5 g/dL from yesterday. ASSESSMENT: 1. Acute kidney injury, acute tubular necrosis, with progressive renal failure, started on dialysis yesterday, mostly for hyperkalemia as well. 2. Congestive heart failure, volume overload, maintained on Lasix. We will increase UF as tolerated today, another 1 to 2 L. 3. Pneumonia, maintained on antibiotics. 4. History of right nephrectomy with ileal conduit. 5. Chronic kidney disease, stage 4. Baseline creatinine 2.5 to 3 secondary to diabetic kidney disease. PLAN: Hemodialysis today and then repeat again in a.m. Repeat labs in a.m. as well. Continue with the Lasix. I will repeat another dose of Lasix today. MMODL / IJN: [id number] /
[2021-02-05 17:08] LABS: Glucose,Whole Blood 153 mg/dL (75-99)
[2021-02-05 20:10] LABS: Glucose,Whole Blood 252 mg/dL (75-99)
[2021-02-05] MEDS: MONTELUKAST 10 MG TAB PO SCH (20:29)
[2021-02-05] MEDS: ATORVASTATIN 20 MG TAB PO SCH (20:29)
[2021-02-05] MEDS: FUROSEMIDE 10 MG/ML 10 ML VIAL IV SCH (20:33)
--- NOTE | 2021-02-05 22:13 | P.PN ---
Subjective Progress Note Date: 02/05/21 Principal diagnosis: Acute metabolic acidosis due to acute kidney injury community acquired pneumonia Uremic encephalopathy Fluid volume overload 85-year-old male with past medical history of COPD, diabetes mellitus, hypertension, hyperlipidemia, osteoarthritis, prostate disorder chronic kidney disease stage IV was sent to the emergency department by our services for abnormal labs. Patient has history of right sided urostomy with good urinary output and also is able to void on his own. Creatinine upon admission was 4.8 and bicarb was 13, he was given IV fluids and admitted for further medical management. Nephrology was consulted for recommendations and treatment plan r egarding acute kidney injury. 01/26/2021 He had significant amount of urinary output with IV fluids creatinine and BUNs improved throughout the day 01/27/2021 Patient continues to have urinary output with IV fluids and strict I&O's. Renal functioning continue to improve. 01/28/2021 Evaluated patient this a.m. resting comfortably in bed, patient having mild shortness of breath with exertion and generalized weakness throughout the night and this a.m. Lengthy discussion with patient regarding wishes for dialysis due to worsening kidney function and repeat admissions for acute kidney injury with metabolic acidosis. Consult to vascular surgery for dialysis access. Further discussion to be made with nephrology regarding plans for dialysis. Patient denies fever, chills chest pain, palpitations, abdominal pain, nausea, or diarrhea at this time. Patient continues to endorse generalized weakness and exertional shortness of breath. Awaiting diagnostic labs from this a.m. 01/29/2021 Evaluated patient this a.m. patient continues to endorse mild shortness of breath with exertion and generalized weakness.chest x-ray from 01/28/2021 showed possible pulmonary congestion versus pneumoniaelevated Procalcitonin and CRP noted. Patient started on Zithromax and Rocephin for possible community acquired pneumonia. Nephrology had discussion with patient regarding kidney function no need for vascular access at this time. Patient denies fever, chills, chest pain, palpitations, abdominal pain, nausea or diarrhea at this time. Kidney function improving hopeful discharge within 24 hours 01/30/2021 Elevated patient this a.m., resting comfortably in bed. Patient continues to endorse shortness of breath and generalized fatigue. This a.m. chest x-ray progression of pneumonia and pulmonary congestion without overt CHF. Patient continued to be on IV Rocephin and Zithromax for community-acquired pneumonia. Patient denies fever, chills, chest pain, palpitations, abdominal pain, nausea or diarrhea at this time. Patient possibly need for IV diuretics 1 time dose due to pulmonary congestion. January 31, 2021 to February 03, 2021 see hospitalist coverage notes February 04, 2021 evaluated patient this a.m., patient resting in bed with mild labored breathing, able to speak few word sentences, and noted to have moderate confusion. Patient continues to endorse shortness of breath and weakness. Contacted nephrology and vascular, due to worsening kidney function and fluid volume overload, vascular surgeon to place temporary dialysis catheter for dialysis. February 05, 2021 evaluated patient this a.m., patient continues to have mild breathing, patient continues to be lethargic, but able to answer questions two-person in place. Mild improvement from hemodialysis yesterday. Patient continues to endorse shortness of breath, and weakness. Will monitor diagnostic testing and waiting and recommendations from nephrology and pulmonary critical care. Objective - Vital Signs Vital signs: Vital Signs Temp 98.1 F 02/05/21 20:05 Pulse 69 02/05/21 20:33 Resp 20 02/05/21 20:05 BP 125/61 02/05/21 20:33 Pulse Ox 99 02/05/21 20:05 Intake & Output 02/05/21 02/05/21 02/06/21 06:59 18:59 06:59 Intake Total 120 100 Output Total 300 2300 Balance -180 -2200 Intake: Oral 120 100 Output: Urine 300 300 Hemodialysis 2000 Other: Voiding Method Ileal Conduit (Right) Ileal Conduit (Right) Ileal Conduit (Right) - Constitutional General appearance: Present: mild distress - EENT Eyes: Present: PERRLA ENT: Present: hard of hearing Ears: bilateral: normal - Respiratory Respiratory: bilateral: wheezing (Throughout lung cline) - Cardiovascular Heart rate: 64 Rhythm: regular Heart sounds: normal: S1, S2 - Peripheral edema foot Peripheral Edema: bilateral: Trace - Peripheral pulses radial pulse Peripheral Pulses: bilateral: Normal - Gastrointestinal General gastrointestinal: Present: decreased bowel sounds - Integumentary Integumentary: Present: decreased turgor, pale - Neurologic Neurologic: Present: CNII-XII intact - Musculoskeletal Musculoskeletal: Present: generalized weakness - Psychiatric Psychiatric Comment(s): Alert the person in place disorient to time and situation mild improvement with cognition from February 04, 2021 - Allied health notes Allied health notes reviewed: nursing - Labs CBC & Chem 7: 02/04/21 22:31 02/05/21 07:06 Labs: Abnormal Lab Results - Last 24 Hours (Table) 02/04/21 02/04/21 02/05/21 Range/Units 22:31 22:31 06:57 RBC 2.86 L (4.30-5.90) m/uL Hgb 8.5 L (13.0-17.5) gm/dL Hct 26.2 L (39.0-53.0) % Lymphocytes # 0.6 L (1.0-4.8) k/uL Potassium 5.4 H (3.5-5.1) mmol/L Chloride (98-107) mmol/L BUN 83 H (9-20) mg/dL Creatinine 3.72 H (0.66-1.25) mg/dL Glucose 145 H (74-99) mg/dL POC Glucose (mg/dL) 126 H (75-99) mg/dL Calcium 8.1 L (8.4-10.2) mg/dL Phosphorus 5.2 H (2.5-4.5) mg/dL Magnesium 2.4 H (1.6-2.3) mg/dL Total Protein 5.3 L (6.3-8.2) g/dL Albumin 2.9 L (3.5-5.0) g/dL 02/05/21 02/05/21 02/05/21 Range/Units 07:06 12:07 17:07 RBC (4.30-5.90) m/uL Hgb (13.0-17.5) gm/dL Hct (39.0-53.0) % Lymphocytes # (1.0-4.8) k/uL Potassium 5.8 H (3.5-5.1) mmol/L Chloride 109 H (98-107) mmol/L BUN 87 H (9-20) mg/dL Creatinine 4.02 H (0.66-1.25) mg/dL Glucose 123 H (74-99) mg/dL POC Glucose (mg/dL) 231 H 153 H (75-99) mg/dL Calcium 8.1 L (8.4-10.2) mg/dL Phosphorus (2.5-4.5) mg/dL Magnesium (1.6-2.3) mg/dL Total Protein (6.3-8.2) g/dL Albumin (3.5-5.0) g/dL 02/05/21 Range/Units 20:08 RBC (4.30-5.90) m/uL Hgb (13.0-17.5) gm/dL Hct (39.0-53.0) % Lymphocytes # (1.0-4.8) k/uL Potassium (3.5-5.1) mmol/L Chloride (98-107) mmol/L BUN (9-20) mg/dL Creatinine (0.66-1.25) mg/dL Glucose (74-99) mg/dL POC Glucose (mg/dL) 252 H (75-99) mg/dL Calcium (8.4-10.2) mg/dL Phosphorus (2.5-4.5) mg/dL Magnesium (1.6-2.3) mg/dL Total Protein (6.3-8.2) g/dL Albumin (3.5-5.0) g/dL Microbiology - Last 24 Hours (Table) 01/30/21 08:14 Blood Culture - Final Blood No Growth after 144 hours 01/30/21 08:14 Blood Culture - Final Blood No Growth after 144 hours - Imaging and Cardiology Chest ultrasounds- pleural effusions Assessment and Plan Assessment: Acute kidney injury Uremic encephalopathy community acquired pneumonia pulmonary congestion, Pleural effusions Chronic kidney disease stage IV Metabolic acidosis secondary to acute kidney injury 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 Anemia of chronic kidney disease Diabetes mellitus type 2 Hypertension COPD History of plasmacytoma of left femur Osteoarthritis Prostate disorder Moderate protein calorie malnutrition Full code Plan: AcuteOn chronic kidney failurecontinue IV fluids,monitor strict I's and O's, continue oral sodium bicarb,continue hemodialysiscontinue consultation with nephrology for recommendations and treatment plan Community acquired pneumonia, continue IV antibiotics Pulmonary congestion, Pleural effusions noted, continue consultation with pulmonary critical care for possible thoracentesis Chronic kidney disease stage IV, Continue hemodialysis as per nephrology uremic encephalopathy, dialysis therapy Metabolic acidosis secondary to acute kidney injuryContinue sodium bicarb Continue home medications Continue to monitor diagnostic testing and vital signs Continue medical management Further recommendations to come based on patient's clinical condition Time with Patient: Greater than 30
[2021-02-05 22:21] LABS: Glucose,Whole Blood 159 mg/dL (75-99)
[2021-02-05] MEDS: INSULIN DETEMIR (LEVEMIR) 100 UNIT/ML SYR SQ SCH (23:41)
[2021-02-06 02:02] LABS: Glucose,Whole Blood 115 mg/dL (75-99)
[2021-02-06 04:58] LABS: Basophils % (A) 0 %; Eosinophils # (A) 0.3 k/uL (0-0.7); Eosinophils % (A) 4 %; HGB 8.7 gm/dL (13.0-17.5); Hypochromasia Slight; Lymphocytes # (A) 0.8 k/uL (1.0-4.8); Lymphocytes % (A) 11 %; MCH 29.2 pg (25.0-35.0); MCHC 32.1 g/dL (31.0-37.0); MCV 91.1 fL (80.0-100.0); Mean Platelet Volume 6.9; Monocytes # (A) 0.7 k/uL (0-1.0); Monocytes % (A) 9 %; Neutrophils # (A) 5.6 k/uL (1.3-7.7); Neutrophils % (A) 75 %; Platelet Count 270 k/uL (150-450); RBC 2.96 m/uL (4.30-5.90); RDW 14.5 % (11.5-15.5); WBC 7.4 k/uL (3.8-10.6)
[2021-02-06] MEDS: SYMBICORT 160-4.5 MCG INHALER INHALATION SCH ×2 (07:19→19:23)
[2021-02-06] MEDS: IPRATROPIUM-ALBUTEROL 3 ML NEB INHALATION SCH ×4 (07:19→19:23)
[2021-02-06 07:20] LABS: Glucose,Whole Blood 119 mg/dL (75-99)
[2021-02-06] MEDS: atenoloL 25 MG TAB PO SCH (07:51)
[2021-02-06] MEDS: amLODIPine 10 MG TAB PO SCH (07:51)
[2021-02-06] MEDS: hydrALAZINE HCL 25 MG TAB PO SCH ×3 (07:51→20:58)
[2021-02-06] MEDS: CALCIUM ACETATE 667 MG TAB PO SCH ×3 (07:51→17:47)
[2021-02-06] MEDS: ENOXAPARIN 30 MG/0.3 ML SYRINGE SQ SCH (07:51)
[2021-02-06] MEDS: INSULIN ASPART (NovoLOG) 100 UNIT/ML VIAL SQ SCH ×4 (07:52→20:57)
[2021-02-06] MEDS: FUROSEMIDE 10 MG/ML 10 ML VIAL IV SCH ×2 (07:52→20:58)
--- NOTE | 2021-02-06 08:21 | XR ---
EXAMINATION TYPE: XR chest 1V DATE OF EXAM: 02/06/2021 COMPARISON: Chest x-ray 02/04/2021 HISTORY: Shortness of breath TECHNIQUE: Single frontal view of the chest is obtained. FINDINGS: Patchy airspace disease is present greater on the right. No evident pneumothorax. Difficul t to exclude pleural effusion. Heart is enlarged. IMPRESSION: Correlate for congestive heart failure, pneumonia with associated effusion
[2021-02-06 10:56] LABS: African American GFR (CKD) 15.9 (60.0-200.0); Albumin 3.3 g/dL (3.80-4.90); Albumin/Globulin Ratio 1.57 (1.60-3.17); Anion Gap 10.4 mmol/L (4.00-12.00); BUN/Creat Ratio 18.95 Ratio (12.00-20.00); Calcium 8.1 mg/dL (8.7-10.3); Carbon Dioxide 24.6 mmol/L (21.6-31.8); Globulin 2.1 g/dL (1.6-3.3); Magnesium 2.4 mg/dL (1.5-2.4); Non-African American GFR(CKD) 13.7 (60.0-200.0); Potassium 4.8 mmol/L (3.5-5.5); Total Bilirubin 0.2 mg/dL (0.3-1.2); Total Protein 5.4 g/dL (6.2-8.2)
[2021-02-06 11:23] LABS: Glucose,Whole Blood 162 mg/dL (75-99)
--- NOTE | 2021-02-06 12:13 | P.PN ---
Subjective Progress Note Date: 02/06/21 Principal diagnosis: Acute kidney injury This is an 85-year-old gentleman who follows with Dr. Queen as his primary care provider. He has a history of hyperlipidemia, diabetes mellitus, hypertension, chronic obstructive pulmonary disease, former smoker. He was referred to the emergency room back on 01/24/2021 with report of worsening kidney function on his recent lab results. The patient at that time had been feeling well. Interim been eating and drinking without difficulty. No shortness of breath, cough or congestion. He was found to have acute kidney injury suspected as cardio renal. No evidence of obstruction. The patient does have chronic kidney disease, stage IV. 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 We're consulted today abnormal chest x-ray revealing increasing right lateral consolidation, decreased right-sided lung volume. Ultrasound of the chest was ordered and revealed a complex collection with debris on the right and a 9.5 cm free-flowing fluid effusion on the left. Presently, he is sitting up in a chair at the bedside. Awake and alert in no acute distress. He is maintaining good O2 saturations in the 90s on 3 L/m per nasal cannula. Denies any worsening shortness of breath, cough or congestion. No hemoptysis. Blood cultures reveal no growth. White count 9.7. Hemoglobin 8.8. Sodium 142. Potassium 5.2. Creatinine 4.2. BUN 90. ProBNP 15,700. He is currently on Symbicort, DuoNeb inhalations, Singulair, antibiotics in the form of ceftriaxone and azithromycin, oral diuretics. On 02/03/2021 patient seen in follow-up on medical surgical floor. He looks fatigued, he sleeping in bed, but no acute distress, no signs of any respiratory difficulty. He is currently on 3 L of oxygen his pulse ox is 97%, he remains on oral Lasix at 40 mg twice daily, his net fluid balance is very difficult to estimate related to lack of accurate intake and output his weight was not completed today. No new labs today. His proBNP from yesterday was elevated at 15,700. His pro calcitonin on 02/02/2021 was 0.60. Renal profile was steadily worsening over the last few days. Nephrology is following. Cultures have been negative. Patient has had no fever or chills. His chest x-ray today shows some improvement in Status, right pleural effusion that was loculated on ultrasound, cardiomegaly. His ultrasound of the chest from 02/02/2021 showed left pleural effusion of 9.5 cm, and complex pleural fluid collection on the right On 02/04/2021 patient seen in follow-up on medical oncology floor, currently on 3 L of oxygen pulse ox 97%, his been afebrile, hemodynamically he is stable, he is short of breath with any exertion, and sleeping a lot. His chest x-ray has been reviewed showing complex pleural fluid collection on the right, and minimal left pleural effusion, although the ultrasound those completed on 02/02/2021 indicated left pleural effusion pocket of 9.5 cm we certainly don't appreciate that on the chest x-ray from today. We initially wanted to do left-sided thoracentesis today, however looking at the chest x-ray today there is probably not enough fluid for us to proceed with the procedure. Patient is scheduled for hemodialysis cath placement this afternoon and he will be started on he modialysis. We will obtain ultrasound of the chest following his first hemodialysis treatment. Today's labs have been reviewed, his white blood cell count was 9.3, hemoglobin is 8.8, potassium is 5.8, chloride is 112, CO2 17, his BUN is 110, and creatinine is 5.01. He remains on antibiotics in the form of azithromycin and Rocephin, he is on Symbicort and breathing treatments. On 02/05/2021 patient seen in follow-up on medical surgical floor, yesterday had a hemodialysis catheter inserted and he had his first hemodialysis yesterday with removal of 1.5 L of fluid, ultrasound of the chest was completed afterwards showing a decrease in the left pleural effusion pocket size down to 7.49 cm. Patient is having another hemodialysis treatment today, he is resting comfortably in bed, he is currently on 3 L of oxygen his pulse ox is 91-97%, hemodynamically has been stable, his been afebrile. Today's labs have been reviewed, his sodium is 141, potassium is 5.8, chloride is 109, BUN of 87, cr eatinine is 4.02. No fever or chills. Generally he appears very weak, no evidence of any respiratory difficulty. On 02/06/2021 patient seen in follow-up on medical surgical floor, he is awake and alert, very weak, he is on 3 L of oxygen, pulse ox is 95%, he appears to be breathing comfortably, he is having another hemodialysis treatment today with a goal of removal of 2 L of fluid, today's chest x-ray has been reviewed, it shows patchy airspace disease greater on the right. afebrile, hemodynamically he is stable. He has been on hemodialysis for last 3 days. renal function is improving, electrolytes are within normal limits. he is a -2.4 that fluid balance over the last 24 hours. Objective - Vital Signs Vital signs: Vital Signs Temp 98 F 02/06/21 11:11 Pulse 76 02/06/21 11:11 Resp 18 02/06/21 11:11 BP 114/59 02/06/21 11:11 Pulse Ox 95 02/06/21 11:11 Intake & Output 02/05/21 02/06/21 02/06/21 18:59 06:59 18:59 Intake Total 100 Output Total 2300 200 Balance -2200 -200 Weight 79 kg Intake: Oral 100 Output: Urine 300 200 Hemodialysis 2000 Other: Voiding Method Ileal Conduit (Right) Ileal Conduit (Right) Ileal Conduit (Right) - Exam GENERAL EXAM: Alert, very pleasant, 85-year-old white male, resting comfortably in bed, a 3 L of oxygen pulse ox 95% comfortable in no apparent distress. HEAD: Normocephalic/atraumatic. EYES: Normal reaction of pupils, equal size. Conjunctiva pink, sclera white. NOSE: Clear with pink turbinates. THROAT: No erythema or exudates. NECK: No masses, no JVD, no thyroid enlargement, no adenopathy. CHEST: No chest wall deformity. Symmetrical expansion. LUNGS: Equal air entry with diminished breath sounds at the bases CVS: Regular rate and rhythm, normal S1 and S2, no gallops, no murmurs, no rubs ABDOMEN: Soft, nontender. No hepatosplenomegaly, normal bowel sounds, no guarding or rigidity. EXTREMITIES: No clubbing, no edema, no cyanosis, 2+ pulses and upper and lower extremities. MUSCULOSKELETAL: Muscle strength and tone normal. SPINE: No scoliosis or deformity SKIN: No rashes CENTRAL NERVOUS SYSTEM: Alert and oriented -3. No focal deficits, tone is n ormal in all 4 extremities. PSYCHIATRIC: Alert and oriented -3. Appropriate affect. Intact judgment and insight. - Labs CBC & Chem 7: 02/06/21 04:28 02/06/21 04:28 Labs: Abnormal Lab Results - Last 24 Hours (Table) 02/05/21 02/05/21 02/05/21 Range/Units 12:07 17:07 20:08 RBC (4.30-5.90) m/uL Hgb (13.0-17.5) gm/dL Hct (39.0-53.0) % Lymphocytes # (1.0-4.8) k/uL BUN (9.0-27.0) mg/dL Creatinine (0.6-1.5) mg/dL Est GFR (CKD-EPI)AfAm (60.0-200.0) Est GFR (CKD-EPI)NonAf (60.0-200.0) Glucose (70-110) mg/dL POC Glucose (mg/dL) 231 H 153 H 252 H (75-99) mg/dL Calcium (8.7-10.3) mg/dL Total Bilirubin (0.3-1.2) mg/dL Total Protein (6.2-8.2) g/dL Albumin (3.80-4.90) g/dL Albumin/Globulin Ratio (1.60-3.17) g/dL 02/05/21 02/06/21 02/06/21 Range/Units 22:19 02:01 04:28 RBC 2.96 L (4.30-5.90) m/uL Hgb 8.7 L (13.0-17.5) gm/dL Hct 27.0 L (39.0-53.0) % Lymphocytes # 0.8 L (1.0-4.8) k/uL BUN (9.0-27.0) mg/dL Creatinine (0.6-1.5) mg/dL Est GFR (CKD-EPI)AfAm (60.0-200.0) Est GFR (CKD-EPI)NonAf (60.0-200.0) Glucose (70-110) mg/dL POC Glucose (mg/dL) 159 H 115 H (75-99) mg/dL Calcium (8.7-10.3) mg/dL Total Bilirubin (0.3-1.2) mg/dL Total Protein (6.2-8.2) g/dL Albumin (3.80-4.90) g/dL Albumin/Globulin Ratio (1.60-3.17) g/dL 02/06/21 02/06/21 02/06/21 Range/Units 04:28 07:18 11:20 RBC (4.30-5.90) m/uL Hgb (13.0-17.5) gm/dL Hct (39.0-53.0) % Lymphocytes # (1.0-4.8) k/uL BUN 72.0 H (9.0-27.0) mg/dL Creatinine 3.8 H (0.6-1.5) mg/dL Est GFR (CKD-EPI)AfAm 15.9 L (60.0-200.0) Est GFR (CKD-EPI)NonAf 13.7 L (60.0-200.0) Glucose 130 H (70-110) mg/dL POC Glucose (mg/dL) 119 H 162 H (75-99) mg/dL Calcium 8.1 L (8.7-10.3) mg/dL Total Bilirubin 0.2 L (0.3-1.2) mg/dL Total Protein 5.4 L (6.2-8.2) g/dL Albumin 3.30 L (3.80-4.90) g/dL Albumin/Globulin Ratio 1.57 L (1.60-3.17) g/dL Microbiology - Last 24 Hours (Table) 01/30/21 08:14 Blood Culture - Final Blood No Growth after 144 hours 01/30/21 08:14 Blood Culture - Final Blood No Growth after 144 hours Assessment and Plan Plan: Assessment: #1. Bilateral pleural effusions with complex loculated right pleural effusion, and the free-flowing pleural effusion on the left. Left pleural effusion pocket is improving with hemodialysis #2. Acute kidney injury related to cardiorenal syndrome #3. Chronic kidney disease stage IV #4. Right-sided urostomy #5. Diabetes mellitus type 2 #6. Hypertension #7. History of COPD #8. Former smoker #9. Anemia of chronic kidney disease Plan: no plans for thoracentesis Continue hemodialysis per nephrology No worsening dyspnea or hypoxia We'll reevaluate if develops worsening dyspnea or hypoxia. I performed a history & physical examination of the patient and discussed their management with my nurse practitioner, Sherley Curiel. I reviewed the nurse practitioner's note and agree with the documented findings and plan of care. Lung sounds are positive for diminished breath sounds with bibasilar crackles. The findings and the impression was discussed with the patient. I attest to the documentation by the nurse practitioner. Time with Patient: Less than 30
--- NOTE | 2021-02-06 15:53 | CDI ---
Documentation Clarification Form Date: 02/06/2021 03:29:13 PM From: Laura Delacruz CCS, CCDS Admit Date: 01/24/2021 09:21:00 PM Patient Name: Mame Banks Visit Number: [id number] Discharge Date: ATTENTION: The Clinical Documentation Specialists (CDI) and [facility] Coding Staff appreciate your assistance in clarifying documentation. Please respond to the clarification below the line at the bottom and electronically sign. The CDI & [facility] Coding staff will review the response and follow-up if needed. Please note: Queries are made part of the Legal Health Record. If you have any questions, please contact the author of this message via ITS. Dr. Kev Queen: Per the 01/31 Attending Progress Note: Chest x-ray showing increasing right lateral consolidation with cardiomegaly the possibility of pneumonia and CHF in the differential with decreased right-sided lung volume. Per the 02/04 Nephrology Progress Note: This a.m. chest x-ray progression of pneumonia and pulmonary congestion without overt CHF. Per the 02/05 Attending Progress Note: This a.m. chest x-ray progression of pneumonia and pulmonary congestion without overt CHF. Per the Pulmonary Progress Notes starting on 02/01 through 02/05: SWETHA felt to be possibly cardiorenal in nature. Additional information regarding CHF and/or Cardiorenal Syndrome is requested. History/Risk Factors per the 01/25 H/P: COPD, Diabetes Mellitus, Hypertension, Hyperlipidemia, Osteoarthritis, Prostate Disorder status post Radical Prostatectomy, CKD stage IV, AR, Former smoker. Clinical Indicators: Presented to the ED on 01/24 with Abnormal Labs, worsening kidney function. Has Urostomy with normal output. ED Clinical Impression: SWETHA 01/24 VS: T 98.0, P 70, R 16 - 18, BP 167/61, PO 100 RA, BMI: 25.7 02/01 Nephrology Progress Note: Lower extremities: chronic changes, 1+ edema. 02/04 Nephrology Progress Note: Lower extremities: trace edema bilaterally. 01/24 LAB: Hgb 11.1, K 5.2, Cl 114, CO2 13, BUN 100, Cr 4.80, Glucose 130, Calcium 7.8, AST 15, Total Protein 5.9, Albumin 3.3 01/28 BNP: 7360 02/02 BNP 15,700 01/24 CXR: not done 01/28 CXR: Correlate for possible CHF in patient with COPD, Right Pleural Effusion, Pneumonia not excluded. 01/31 CXR: Increasing right lateral consolidation. Cardiomegaly. Pneumonia and CHF are in the differential. 02/06 CXR: Correlate for congestive heart failure, pneumonia with associated effusion Echocardiogram Results: No ECHO this admission or historically to reference. Treatment 01/24: IV fluid NCl 500 mls @ 999 mls/hr q31M, no O2 01/31: O2 3Lnc, INH Duoneb QID, po Lasix 20 mg daily, IV Mag Sulfate. 02/04 Hemodialysis catheter placed & HD started. 02/06: Remains on O2 3Lnc, IV Lasix started 02/05 60 mg q12Hr. In your professional opinion, can you please clarify the acuity and type of CHF if known? [ ] Acute Systolic Heart Failure [ ] Chronic Systolic Heart Failure [ X] Acute on Chronic Systolic Heart Failure [ ] Acute Diastolic Heart Failure [ ] Chronic Diastolic Heart Failure [ ] Acute on Chronic Diastolic Heart Failure [ ] Acute Systolic & Diastolic Heart Failure [ ] Chronic Systolic & Diastolic Heart Failure [ ] Acute on Chronic Heart Failure Systolic & Diastolic Heart Failure [ ] CHF ruled out [ ] Cardiorenal Syndrome with Hypertension, CHF with specificity and CKD Stage IV [ ] Cardiorenal Syndrome ruled out [ ] Other, please specify [ ] Unable to determine (Template Last Revised: October 2020) MTDD
--- NOTE | 2021-02-06 17:08 | P.PN ---
Subjective Progress Note Date: 02/06/21 This is an 85-year-old male who was recently admitted with acute community- acquired pneumonia and is being closely monitored. Patient also has bilateral pleural effusions and pulmonary was consulted and planning for possible left side thoracentesis tomorrow. Repeat chest x-ray this morning shows maybe some improvement in volume status and to correlate for interstitial edema in the right pleural effusion appears loculated on ultrasound. Patient is maintained on diuretics and will continue and nephrology also following as patient's kidney functions continue to worsen. Most recent creatinine is 4.2 with a BUN of 90. Will repeat a.m. labs and continue to monitor closely. 02/06/2021 Patient is seen in follow-up this morning and we are currently covering for Dr. Queen who has been following and is his primary care provider. Patient is daily dialysis treatments and nephrology following closely. Dr. Ibrahim consulted again for permanent dialysis catheter placement as he will continue in the outpatient setting. Patient's pleural effusions also improving with dialysis and pulmonary on standby in the event of worsening dyspnea. No plans for thoracentesis at this time. Patient continues to be extremely weak and fatigues easily although per nursing staff is compliant with working with physical therapy and was able to eat BREAKFAST today. Patient is now agreeable to rehab and will be going to rehab most likely early next week and case management and social [facility] following [facility] [place] continued hemodialysis in the outpatient setting. Review of systems: Constitutional:reports of fatigue, no reports of fever, or chills Cardiovascular: No reports of chest pain or palpitations Respiratory: Reports shortness of breath although feels improved GI: No reports of nausea, vomiting, or diarrhea : No reports of dysuria or retention Neurovascular: Reports generalized weakness All medications have been reviewed Objective - Vital Signs Vital signs: Vital Signs Temp 98 F 02/06/21 11:11 Pulse 76 02/06/21 11:11 Resp 18 02/06/21 11:11 BP 114/59 02/06/21 11:11 Pulse Ox 95 02/06/21 11:11 Intake & Output 02/05/21 02/06/21 02/06/21 18:59 06:59 18:59 Intake Total 100 Output Total 2300 200 Balance -2200 -200 Weight 79 kg Intake: Oral 100 Output: Urine 300 200 Hemodialysis 2000 Other: Voiding Method Ileal Conduit (Right) Ileal Conduit (Right) Ileal Conduit (Right) - Exam Gen: This is a 85-year-old male sleeping although easily arousable. Alert and oriented 3. Ill-appearing. HEENT: Head is atraumatic, normocephalic. Pupils equal, round. Sclerae is anicteric. NECK: Supple. No JVD. No lymphadenopathy. No thyromegaly. LUNGS: Diminished breath sounds bilaterally more so on the left than the right with some faint expiratory wheezing noted of the lower bases bilaterally. No intercostal retractions. HEART: S1, S2 are muffled ABDOMEN: Soft. Bowel sounds are present. No masses. No tenderness. EXTREMITIES: No pedal edema. No calf tenderness. NEUROLOGICAL: Patient is asleep although easily arousable, alert and oriented x3. Cranial nerves 2 through 12 are grossly intact. Diffuse weakness - Labs CBC & Chem 7: 02/06/21 04:28 02/06/21 04:28 Labs: Abnormal Lab Results - Last 24 Hours (Table) 02/05/21 02/05/21 02/05/21 Range/Units 12:07 17:07 20:08 RBC (4.30-5.90) m/uL Hgb (13.0-17.5) gm/dL Hct (39.0-53.0) % Lymphocytes # (1.0-4.8) k/uL BUN (9.0-27.0) mg/dL Creatinine (0.6-1.5) mg/dL Est GFR (CKD-EPI)AfAm (60.0-200.0) Est GFR (CKD-EPI)NonAf (60.0-200.0) Glucose (70-110) mg/dL POC Glucose (mg/dL) 231 H 153 H 252 H (75-99) mg/dL Calcium (8.7-10.3) mg/dL Total Bilirubin (0.3-1.2) mg/dL Total Protein (6.2-8.2) g/dL Albumin (3.80-4.90) g/dL Albumin/Globulin Ratio (1.60-3.17) g/dL 02/05/21 02/06/21 02/06/21 Range/Units 22:19 02:01 04:28 RBC 2.96 L (4.30-5.90) m/uL Hgb 8.7 L (13.0-17.5) gm/dL Hct 27.0 L (39.0-53.0) % Lymphocytes # 0.8 L (1.0-4.8) k/uL BUN (9.0-27.0) mg/dL Creatinine (0.6-1.5) mg/dL Est GFR (CKD-EPI)AfAm (60.0-200.0) Est GFR (CKD-EPI)NonAf (60.0-200.0) Glucose (70-110) mg/dL POC Glucose (mg/dL) 159 H 115 H (75-99) mg/dL Calcium (8.7-10.3) mg/dL Total Bilirubin (0.3-1.2) mg/dL Total Protein (6.2-8.2) g/dL Albumin (3.80-4.90) g/dL Albumin/Globulin Ratio (1.60-3.17) g/dL 02/06/21 02/06/21 Range/Units 04:28 07:18 RBC (4.30-5.90) m/uL Hgb (13.0-17.5) gm/dL Hct (39.0-53.0) % Lymphocytes # (1.0-4.8) k/uL BUN 72.0 H (9.0-27.0) mg/dL Creatinine 3.8 H (0.6-1.5) mg/dL Est GFR (CKD-EPI)AfAm 15.9 L (60.0-200.0) Est GFR (CKD-EPI)NonAf 13.7 L (60.0-200.0) Glucose 130 H (70-110) mg/dL POC Glucose (mg/dL) 119 H (75-99) mg/dL Calcium 8.1 L (8.7-10.3) mg/dL Total Bilirubin 0.2 L (0.3-1.2) mg/dL Total Protein 5.4 L (6.2-8.2) g/dL Albumin 3.30 L (3.80-4.90) g/dL Albumin/Globulin Ratio 1.57 L (1.60-3.17) g/dL Microbiology - Last 24 Hours (Table) 01/30/21 08:14 Blood Culture - Final Blood No Growth after 144 hours 01/30/21 08:14 Blood Culture - Final Blood No Growth after 144 hours Assessment and Plan 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 Kidney functions are improving and patient will be needing permanent catheter placement for continued dialysis in the outpatient setting. Dr. Ibrahim was re-consulted for this. Patient has a temporary cath in the right groin at this time. Nephrology following closely. Pulmonary also following and and no plans for thoracentesis at this time as effusions appear to be improving with hemodialysis. PT/OT evaluated the patient as he continues to be weak recommend a subacute rehab and family along with patient are now agreeable and will be [place] [facility] [place] and discharged. Case management and social work following and working on chair time and accepting facilities. Due to multiple complex medical issues, prognosis is guarded. Will repeat a.m. labs and continue to monitor closely.
[2021-02-06 17:32] LABS: Glucose,Whole Blood 164 mg/dL (75-99)
[2021-02-06 20:36] LABS: Glucose,Whole Blood 204 mg/dL (75-99)
[2021-02-06] MEDS: MONTELUKAST 10 MG TAB PO SCH (20:57)
[2021-02-06] MEDS: ATORVASTATIN 20 MG TAB PO SCH (20:57)
[2021-02-06] MEDS: INSULIN DETEMIR (LEVEMIR) 100 UNIT/ML SYR SQ SCH (20:58)
--- NOTE | 2021-02-07 03:47 | PN ---
PROGRESS NOTE Patient is seen for followup for acute kidney injury. He was seen this morning. His daughter is present at bedside. The patient was seen on dialysis. He is tolerating his treatment fairly well. Mentation has improved significantly. He is much more awake and alert and answering questions. He also ate much better today. PHYSICAL EXAMINATION: On examination today, blood pressure was 124/53, heart rate 70 per minute. He is afebrile. Examination of the heart S1, S2. Examination of lungs decreased breath sounds at bases. Abdomen is soft, nontender. Examination of lower extremities shows trace edema. RETAIL SALES CLERK exam shows patient is much more awake, following commands. No gross motor deficits noted. LAB: Show sodium of 144, potassium 4.8, chloride 109, BUN 72, creatinine 3.8, calcium 8.1, glucose 130. Hemoglobin 8.7 g/dL. ASSESSMENT: 1. Acute kidney injury, acute tubular necrosis with progressive renal failure, nonoliguric. Urine output for 24 hours about 775 mL. The patient is maintained on IV Lasix. We will plan for another treatment of hemodialysis tomorrow. 2. Congestive heart failure, volume overload, currently improved. Continue with Lasix. We will plan for dialysis and ultrafiltration again tomorrow. 3. Chronic kidney disease stage 4 secondary to diabetic kidney disease, baseline creatinine 2.5-3. 4. History of right nephrectomy with ileal conduit urostomy. 5. Pneumonia maintained on antibiotics. PLAN: Repeat hemodialysis in a.m. with goal UF of about 1-2 L. Continue to encourage increased oral intake. The patient will need IJ PermCath placed before discharge. MMODL / IJN: [id number] /
[2021-02-07 05:01] LABS: Basophils % (A) 0 %; Eosinophils # (A) 0.3 k/uL (0-0.7); Eosinophils % (A) 3 %; HCT 27.8 % (39.0-53.0); HGB 8.6 gm/dL (13.0-17.5); Hypochromasia Slight; Lymphocytes % (A) 12 %; MCH 27.6 pg (25.0-35.0); MCHC 30.8 g/dL (31.0-37.0); MCV 89.6 fL (80.0-100.0); Mean Platelet Volume 8.1; Monocytes # (A) 0.6 k/uL (0-1.0); Monocytes % (A) 7 %; Neutrophils # (A) 5.9 k/uL (1.3-7.7); Neutrophils % (A) 76 %; Platelet Count 252 k/uL (150-450); RDW 14.6 % (11.5-15.5); WBC 7.8 k/uL (3.8-10.6)
[2021-02-07 05:21] LABS: African American GFR (CKD) 22 (>60 ml/min/1.73 sqM); Anion Gap 8 mmol/L; Blood Urea Nitrogen 54 mg/dL (9-20); Calcium 7.7 mg/dL (8.4-10.2); Carbon Dioxide 29 mmol/L (22-30); Chloride 103 mmol/L (98-107); Non-African American GFR(CKD) 19 (>60 ml/min/1.73 sqM); Potassium 4.8 mmol/L (3.5-5.1); Sodium 140 mmol/L (137-145)
[2021-02-07 05:27] LABS: Glucose 40 mg/dL (74-99)
[2021-02-07 05:43] LABS: Glucose,Whole Blood 53 mg/dL (75-99)
[2021-02-07 06:02] LABS: Glucose,Whole Blood 61 mg/dL (75-99)
[2021-02-07 06:23] LABS: Glucose,Whole Blood 96 mg/dL (75-99)
[2021-02-07 07:08] LABS: Glucose,Whole Blood 112 mg/dL (75-99)
[2021-02-07] MEDS: INSULIN ASPART (NovoLOG) 100 UNIT/ML VIAL SQ SCH ×4 (07:09→21:43)
[2021-02-07] MEDS: IPRATROPIUM-ALBUTEROL 3 ML NEB INHALATION SCH ×4 (07:14→20:32)
[2021-02-07] MEDS: SYMBICORT 160-4.5 MCG INHALER INHALATION SCH ×2 (07:17→20:32)
[2021-02-07] MEDS: atenoloL 25 MG TAB PO SCH (07:47)
[2021-02-07] MEDS: ENOXAPARIN 30 MG/0.3 ML SYRINGE SQ SCH (07:47)
[2021-02-07] MEDS: FUROSEMIDE 10 MG/ML 10 ML VIAL IV SCH ×2 (07:47→21:43)
[2021-02-07] MEDS: hydrALAZINE HCL 25 MG TAB PO SCH ×3 (07:47→21:42)
[2021-02-07] MEDS: amLODIPine 10 MG TAB PO SCH (07:48)
[2021-02-07] MEDS: CALCIUM ACETATE 667 MG TAB PO SCH ×3 (07:48→16:54)
[2021-02-07 11:43] LABS: Glucose,Whole Blood 144 mg/dL (75-99)
[2021-02-07 16:35] LABS: Glucose,Whole Blood 96 mg/dL (75-99)
--- NOTE | 2021-02-07 19:12 | PN ---
PROGRESS NOTE Patient is seen for followup for acute kidney injury on top of chronic kidney disease. He was started on dialysis secondary to worsening renal failure, mental status changes and worsening volume status and hyperkalemia. The patient is having his 4th treatment today. Dialysis was started on 02/04/2021. He is currently significantly improved with improvement in mentation. He continues to have urine output although decreased from before, currently at about 500-600 mL for 24 hours. PHYSICAL EXAMINATION: Blood pressure is 119/56, heart rate 68 per minute. He is afebrile. Examination of the heart S1, S2. Examination of the lungs, bilateral breath sounds are heard. Abdomen is soft, nontender. Examination of lower extremities shows no evidence of edema. INSOLE BEVELER exam grossly intact. LABS: Labs from today show sodium 140, potassium 4.8, chloride 103, BUN 54, creatinine 2.93. ASSESSMENT: 1. Acute kidney injury mostly cardiorenal, possibly acute tubular necrosis as well. Started on dialysis for persistent volume overload, worsening renal function and hyperkalemia and mental status changes. Mentation has improved. Volume status is also much better and the patient will have an IJ PermCath placed over the weekend or on Wednesday. We will hold off on dialysis over the weekend and plan for a treatment on Wednesday. 2. Chronic kidney disease stage 4 secondary to diabetic kidney disease, baseline creatinine 2.5-3 mg/dL. 3. Congestive heart failure volume overload, currently improved. 4. History of right nephrectomy. 5. Pneumonia, maintained on antibiotics. PLAN: Continue with outpatient dialysis. Next treatment will be on Wednesday02/10/2021. In the meantime, I will continue with the Lasix. Continue to encourage increased oral intake. MMODL / IJN: [id number] /
[2021-02-07] MEDS: MONTELUKAST 10 MG TAB PO SCH (21:42)
[2021-02-07] MEDS: ATORVASTATIN 20 MG TAB PO SCH (21:43)
[2021-02-07] MEDS: INSULIN DETEMIR (LEVEMIR) 100 UNIT/ML SYR SQ SCH (21:43)
[2021-02-07 21:44] LABS: Glucose,Whole Blood 158 mg/dL (75-99)
--- NOTE | 2021-02-07 23:09 | P.PN ---
Subjective Progress Note Date: 02/07/21 Principal diagnosis: Acute metabolic acidosis due to acute kidney injury community acquired pneumonia Uremic encephalopathy Fluid volume overload 85-year-old male with past medical history of COPD, diabetes mellitus, hypertension, hyperlipidemia, osteoarthritis, prostate disorder chronic kidney disease stage IV was sent to the emergency department by our services for abnormal labs. Patient has history of right sided urostomy with good urinary output and also is able to void on his own. Creatinine upon admission was 4.8 and bicarb was 13, he was given IV fluids and admitted for further medical management. Nephrology was consulted for recommendations and treatment plan r egarding acute kidney injury. 01/26/2021 He had significant amount of urinary output with IV fluids creatinine and BUNs improved throughout the day 01/27/2021 Patient continues to have urinary output with IV fluids and strict I&O's. Renal functioning continue to improve. 01/28/2021 Evaluated patient this a.m. resting comfortably in bed, patient having mild shortness of breath with exertion and generalized weakness throughout the night and this a.m. Lengthy discussion with patient regarding wishes for dialysis due to worsening kidney function and repeat admissions for acute kidney injury with metabolic acidosis. Consult to vascular surgery for dialysis access. Further discussion to be made with nephrology regarding plans for dialysis. Patient denies fever, chills chest pain, palpitations, abdominal pain, nausea, or diarrhea at this time. Patient continues to endorse generalized weakness and exertional shortness of breath. Awaiting diagnostic labs from this a.m. 01/29/2021 Evaluated patient this a.m. patient continues to endorse mild shortness of breath with exertion and generalized weakness.chest x-ray from 01/28/2021 showed possible pulmonary congestion versus pneumoniaelevated Procalcitonin and CRP noted. Patient started on Zithromax and Rocephin for possible community acquired pneumonia. Nephrology had discussion with patient regarding kidney function no need for vascular access at this time. Patient denies fever, chills, chest pain, palpitations, abdominal pain, nausea or diarrhea at this time. Kidney function improving hopeful discharge within 24 hours 01/30/2021 Elevated patient this a.m., resting comfortably in bed. Patient continues to endorse shortness of breath and generalized fatigue. This a.m. chest x-ray progression of pneumonia and pulmonary congestion without overt CHF. Patient continued to be on IV Rocephin and Zithromax for community-acquired pneumonia. Patient denies fever, chills, chest pain, palpitations, abdominal pain, nausea or diarrhea at this time. Patient possibly need for IV diuretics 1 time dose due to pulmonary congestion. January 31, 2021 to February 03, 2021 see hospitalist coverage notes February 04, 2021 evaluated patient this a.m., patient resting in bed with mild labored breathing, able to speak few word sentences, and noted to have moderate confusion. Patient continues to endorse shortness of breath and weakness. Contacted nephrology and vascular, due to worsening kidney function and fluid volume overload, vascular surgeon to place temporary dialysis catheter for dialysis. February 05, 2021 evaluated patient this a.m., patient continues to have mild breathing, patient continues to be lethargic, but able to answer questions two-person in place. Mild improvement from hemodialysis yesterday. Patient continues to endorse shortness of breath, and weakness. Will monitor diagnostic testing and waiting and recommendations from nephrology and pulmonary critical care. February 06, 2021 see hospitalist coverage notes February 142020 evaluated patient this a.m. patient continues Have increased respiration rate requiring 3 L of oxygen. Patient remains lethargic and able to answer questions appropriate to person disorientation to place time and situation. Is noted to be very week and confused.Mild improvement with hemodialysis therapy and IV diuretics. Objective - Vital Signs Vital signs: Vital Signs Temp 97.4 F L 02/07/21 15:48 Pulse 69 02/07/21 20:44 Resp 18 02/07/21 15:48 BP 114/57 02/07/21 15:48 Pulse Ox 97 02/07/21 20:32 Intake & Output 02/07/21 02/07/21 02/08/21 06:59 18:59 06:59 Intake Total 120 Output Total 200 1999 Balance - -1999 Weight 74.5 kg Intake: Oral 120 Output: Urine 200 Hemodialysis 1999 Other: Voiding Method Ileal Conduit (Right) Ileal Conduit (Right) # Bowel Movements 1 - Constitutional General appearance: Present: mild distress - EENT Eyes: Present: PERRLA Ears: bilateral: normal - Neck Carotids: bilateral: upstroke normal Thyroid: bilateral: normal size - Respiratory Respiratory: bilateral: diminished (Anterior and posterior lung cline) - Cardiovascular Heart rate: 68 Rhythm: regular Heart sounds: normal: S1, S2 - Peripheral pulses radial pulse Peripheral Pulses: bilateral: Normal - Gastrointestinal General gastrointestinal: Present: normal bowel sounds - Integumentary Integumentary: Present: pale - Musculoskeletal Musculoskeletal: Present: generalized weakness - Allied health notes Allied health notes reviewed: nursing - Labs CBC & Chem 7: 02/07/21 04:50 02/07/21 04:50 Labs: Abnormal Lab Results - Last 24 Hours (Table) 02/07/21 02/07/21 02/07/21 Range/Units 04:50 04:50 05:41 RBC 3.10 L (4.30-5.90) m/uL Hgb 8.6 L (13.0-17.5) gm/dL Hct 27.8 L (39.0-53.0) % MCHC 30.8 L (31.0-37.0) g/dL BUN 54 H (9-20) mg/dL Creatinine 2.93 H (0.66-1.25) mg/dL Glucose 40 L* (74-99) mg/dL POC Glucose (mg/dL) 53 L (75-99) mg/dL Calcium 7.7 L (8.4-10.2) mg/dL 02/07/21 02/07/21 02/07/21 Range/Units 06:01 07:05 11:41 RBC (4.30-5.90) m/uL Hgb (13.0-17.5) gm/dL Hct (39.0-53.0) % MCHC (31.0-37.0) g/dL BUN (9-20) mg/dL Creatinine (0.66-1.25) mg/dL Glucose (74-99) mg/dL POC Glucose (mg/dL) 61 L 112 H 144 H (75-99) mg/dL Calcium (8.4-10.2) mg/dL 02/07/21 Range/Units 21:30 RBC (4.30-5.90) m/uL Hgb (13.0-17.5) gm/dL Hct (39.0-53.0) % MCHC (31.0-37.0) g/dL BUN (9-20) mg/dL Creatinine (0.66-1.25) mg/dL Glucose (74-99) mg/dL POC Glucose (mg/dL) 158 H (75-99) mg/dL Calcium (8.4-10.2) mg/dL Assessment and Plan Assessment: Acute kidney injury Uremic encephalopathy community acquired pneumonia pulmonary congestion, Pleural effusions Chronic kidney disease stage IV Metabolic acidosis secondary to acute kidney injury 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 Anemia of chronic kidney disease Diabetes mellitus type 2 Hypertension COPD History of plasmacytoma of left femur Osteoarthritis Prostate disorder Moderate protein calorie malnutrition Full code Plan: Acute On chronic kidney failurecontinue IV fluids,monitor strict I's and O's, continue oral sodium bicarb,continue hemodialysiscontinue consultation with nephrology for recommendations and treatment plan Community acquired pneumonia, continue IV antibiotics Pulmonary congestion, Pleural effusions noted, continue consultation with pulmonary critical care for possible thoracentesis Chronic kidney disease stage IV, Continue hemodialysis as per nephrology uremic encephalopathy, dialysis therapy Metabolic acidosis secondary to acute kidney injuryContinue sodium bicarb Hypoglycemic events in the a.m. decreasing basal insulin to Levemir 10 units Continue home medications Continue to monitor diagnostic testing and vital signs Continue medical management Further recommendations to come based on patient's clinical condition Time with Patient: Greater than 30
[2021-02-08] MEDS: MELATONIN 3 MG TABLET PO PRN ×2 (00:10→21:09)
[2021-02-08 02:44] LABS: Glucose,Whole Blood 122 mg/dL (75-99)
[2021-02-08] MEDS: SYMBICORT 160-4.5 MCG INHALER INHALATION SCH ×2 (07:43→20:21)
[2021-02-08] MEDS: IPRATROPIUM-ALBUTEROL 3 ML NEB INHALATION SCH ×4 (07:43→20:18)
[2021-02-08 07:44] LABS: Glucose,Whole Blood 133 mg/dL (75-99)
[2021-02-08 07:49] LABS: Basophils % (A) 1 %; Eosinophils # (A) 0.3 k/uL (0-0.7); Eosinophils % (A) 5 %; HCT 26.4 % (39.0-53.0); HGB 8.5 gm/dL (13.0-17.5); Hypochromasia Slight; Lymphocytes # (A) 0.9 k/uL (1.0-4.8); Lymphocytes % (A) 13 %; MCH 29.6 pg (25.0-35.0); MCHC 32.4 g/dL (31.0-37.0); MCV 91.2 fL (80.0-100.0); Monocytes # (A) 0.5 k/uL (0-1.0); Monocytes % (A) 7 %; Neutrophils # (A) 4.9 k/uL (1.3-7.7); Neutrophils % (A) 73 %; Platelet Count 227 k/uL (150-450); RBC 2.89 m/uL (4.30-5.90); RDW 14.2 % (11.5-15.5); WBC 6.7 k/uL (3.8-10.6)
[2021-02-08] MEDS: INSULIN ASPART (NovoLOG) 100 UNIT/ML VIAL SQ SCH ×4 (09:12→21:09)
[2021-02-08] MEDS: FUROSEMIDE 10 MG/ML 10 ML VIAL IV SCH ×2 (09:12→21:09)
[2021-02-08] MEDS: atenoloL 25 MG TAB PO SCH (09:12)
[2021-02-08] MEDS: ENOXAPARIN 30 MG/0.3 ML SYRINGE SQ SCH (09:12)
[2021-02-08] MEDS: amLODIPine 10 MG TAB PO SCH (09:12)
[2021-02-08] MEDS: hydrALAZINE HCL 25 MG TAB PO SCH ×3 (09:13→21:10)
[2021-02-08] MEDS: CALCIUM ACETATE 667 MG TAB PO SCH ×3 (09:14→17:43)
[2021-02-08 12:17] LABS: Albumin 3.1 g/dL (3.80-4.90); Albumin/Globulin Ratio 1.48 (1.60-3.17); Anion Gap 5.1 mmol/L (4.00-12.00); BUN/Creat Ratio 14.07 Ratio (12.00-20.00); Calcium 7.8 mg/dL (8.7-10.3); Carbon Dioxide 29.9 mmol/L (21.6-31.8); Globulin 2.1 g/dL (1.6-3.3); Non-African American GFR(CKD) 20.7 (60.0-200.0); Potassium 4.4 mmol/L (3.5-5.5); Total Bilirubin 0.2 mg/dL (0.2-1.2); Total Protein 5.2 g/dL (6.2-8.2)
[2021-02-08 12:22] LABS: Glucose,Whole Blood 189 mg/dL (75-99)
--- NOTE | 2021-02-08 14:28 | P.PN ---
Subjective Progress Note Date: 02/08/21 Principal diagnosis: This 85-year-old male with acute kidney injury, hemodialysis dependent now has been dialyzed 4 times so for the last dialysis being yesterday. He has also chr onic kidney disease stage IV baseline creatinine of about 2.5-3 secondary diabetic nephropathy. Currently has a catheter in the right groin. Patient denies any chest pain fever chills cough nausea vomiting but poor appetite. No headache no dizziness. Is known with asthma COPD diabetes history of prostate enlargement, history of prostate cancer and resection remotely in 2003 and also cystectomy in February 2015 plasmacytoma in the left femur has a urostomy. Objective - Vital Signs Vital signs: Vital Signs Temp 97.5 F L 02/08/21 12:17 Pulse 69 02/08/21 12:17 Resp 21 02/08/21 12:17 BP 106/60 02/08/21 12:17 Pulse Ox 97 02/08/21 12:17 Intake & Output 02/07/21 02/08/21 02/08/21 18:59 06:59 18:59 Intake Total 220 Output Total 2000 200 Balance -2000 20 Weight 79.5 kg Intake: Oral 220 Output: Drainage 200 Right Abdomen 200 Hemodialysis 2000 Other: Voiding Method Ileal Conduit (Right) Ileal Conduit (Right) Ileal Conduit (Right) # Bowel Movements 1 On examination is awake alert oriented but has poor memory and cannot remember how many dialysis he has had. HEENT exam no JVP neck is supple no facial asymmetry Lungs are clear to auscultation fair air entry bilaterally Heart sounds unremarkable for any murmur rub gallop Abdomen soft nontender urostomy bag in the right lower quadrant Extreme exam was no edema Neurologically awake alert oriented no asterixis - Labs CBC & Chem 7: 02/08/21 07:29 02/08/21 07:29 Labs: Abnormal Lab Results - Last 24 Hours (Table) 02/07/21 02/08/21 02/08/21 Range/Units 21:30 02:41 07:29 RBC 2.89 L (4.30-5.90) m/uL Hgb 8.5 L (13.0-17.5) gm/dL Hct 26.4 L (39.0-53.0) % Lymphocytes # 0.9 L (1.0-4.8) k/uL BUN (9.0-27.0) mg/dL Creatinine (0.6-1.5) mg/dL Est GFR (CKD-EPI)AfAm (60.0-200.0) Est GFR (CKD-EPI)NonAf (60.0-200.0) POC Glucose (mg/dL) 158 H 122 H (75-99) mg/dL Calcium (8.7-10.3) mg/dL AST (14-35) U/L Total Protein (6.2-8.2) g/dL Albumin (3.80-4.90) g/dL Albumin/Globulin Ratio (1.60-3.17) g/dL 02/08/21 02/08/21 02/08/21 Range/Units 07:29 07:41 12:19 RBC (4.30-5.90) m/uL Hgb (13.0-17.5) gm/dL Hct (39.0-53.0) % Lymphocytes # (1.0-4.8) k/uL BUN 38.0 H (9.0-27.0) mg/dL Creatinine 2.7 H (0.6-1.5) mg/dL Est GFR (CKD-EPI)AfAm 24.0 L (60.0-200.0) Est GFR (CKD-EPI)NonAf 20.7 L (60.0-200.0) POC Glucose (mg/dL) 133 H 189 H (75-99) mg/dL Calcium 7.8 L (8.7-10.3) mg/dL AST 39 H (14-35) U/L Total Protein 5.2 L (6.2-8.2) g/dL Albumin 3.10 L (3.80-4.90) g/dL Albumin/Globulin Ratio 1.48 L (1.60-3.17) g/dL Assessment and Plan Assessment: Impression 1. Acute kidney injury, currently on dialysis with the femoral catheter on the right last dialysis yesterday that being the fourth dialysis. 2. Chronic kidney disease stage IV baseline creatinine of about 3, etiology diabetic nephropathy. 3. Anemia hemoglobin is 8.5, iron saturation is 27% on 01/23/2021. Not on darbepoetin yet 4. Phosphorus was 5.2 at target, calcium 7.8 slightly low, albumin 3.1 so therefore corrected is within normal range Recommendation 1. Maintain current medication and darbepoetin 40 g every week and next dialysis will be on Wednesday
[2021-02-08] MEDS ORDERED: DARBEPOETIN ALFA 40 MCG/0.4 ML SYRINGE SQ SCH (14:30)
--- NOTE | 2021-02-08 16:32 | P.PN ---
Subjective This is an 85-year-old male who was recently admitted with acute community- acquired pneumonia and is being closely monitored. Patient also has bilateral pleural effusions and pulmonary was consulted and planning for possible left side thoracentesis tomorrow. Repeat chest x-ray this morning shows maybe some improvement in volume status and to correlate for interstitial edema in the right pleural effusion appears loculated on ultrasound. Patient is maintained on diuretics and will continue and nephrology also following as patient's kidney functions continue to worsen. Most recent creatinine is 4.2 with a BUN of 90. Will repeat a.m. labs and continue to monitor closely. 02/06/2021 Patient is seen in follow-up this morning and we are currently covering for Dr. Queen who has been following and is his primary care provider. Patient is daily dialysis treatments and nephrology following closely. Dr. Ibrahim consulted again for permanent dialysis catheter placement as he will continue in the outpatient setting. Patient's pleural effusions also improving with dialysis and pulmonary on standby in the event of worsening dyspnea. No plans for thoracentesis at this time. Patient continues to be extremely weak and fatigues easily although per nursing staff is compliant with working with physical therapy and was able to eat BREAKFAST today. Patient is now agreeable to rehab and will be going to rehab most likely early next week and case management and social work are following and working [place] [facility] [place] continued hemodialysis in the outpatient setting. 02/08/2021 Patient the denied any complaints to me although he did tell the nursing staff that he doesn't want any more dialysis he wants to be comfort care. Plan was to discharge the patient on Wednesday after arranging for outpatient dialysis .Constitutional: Denied any fatigue denied any fever. Cardio vascular: denied any chest pain, palpitations Gastrointestinal denied any nausea vomiting Pulmonary: Denied any shortness of breath cough Neurologic denied any new focal deficits All inpatient medications were reviewed and appropriate changes in these medications as dictated in the interval history and assessment and plan. Objective - Vital Signs Vital signs: Vital Signs Temp 97.5 F L 02/08/21 12:17 Pulse 69 02/08/21 12:17 Resp 21 02/08/21 12:17 BP 106/60 02/08/21 12:17 Pulse Ox 97 02/08/21 12:17 Intake & Output 02/07/21 02/08/21 02/08/21 18:59 06:59 18:59 Intake Total 220 Output Total 1999 200 Balance -1999 20 Weight 79.5 kg Intake: Oral 220 Output: Drainage 200 Right Abdomen 200 Hemodialysis 1999 Other: Voiding Method Ileal Conduit (Right) Ileal Conduit (Right) Ileal Conduit (R ight) # Bowel Movements 1 - Exam PHYSICAL EXAMINATION: GENERAL: The patient is alert and oriented x3, not in any acute distress. Well developed, well nourished. patient appears to be sick HEENT: Pupils are round and equally reacting to light. EOMI. No scleral icterus. No conjunctival pallor. Normocephalic, atraumatic. No pharyngeal erythema. No thyromegaly. CARDIOVASCULAR: S1 and S2 present. No murmurs, rubs, or gallops. PULMONARY: Chest is clear to auscultation, no wheezing or crackles. ABDOMEN: Soft, nontender, nondistended, normoactive bowel sounds. No palpable organomegaly. MUSCULOSKELETAL: No joint swelling or deformity. EXTREMITIES: No cyanosis, clubbing, or pedal edema. NEUROLOGICAL: Gross neurological examination did not reveal any focal deficits. SKIN: No rashes. - Labs CBC & Chem 7: 02/08/21 07:29 02/08/21 07:29 Labs: Abnormal Lab Results - Last 24 Hours (Table) 02/07/21 02/08/21 02/08/21 Range/Units 21:30 02:41 07:29 RBC 2.89 L (4.30-5.90) m/uL Hgb 8.5 L (13.0-17.5) gm/dL Hct 26.4 L (39.0-53.0) % Lymphocytes # 0.9 L (1.0-4.8) k/uL BUN (9.0-27.0) mg/dL Creatinine (0.6-1.5) mg/dL Est GFR (CKD-EPI)AfAm (60.0-200.0) Est GFR (CKD-EPI)NonAf (60.0-200.0) POC Glucose (mg/dL) 158 H 122 H (75-99) mg/dL Calcium (8.7-10.3) mg/dL AST (14-35) U/L Total Protein (6.2-8.2) g/dL Albumin (3.80-4.90) g/dL Albumin/Globulin Ratio (1.60-3.17) g/dL 02/08/21 02/08/21 02/08/21 Range/Units 07:29 07:41 12:19 RBC (4.30-5.90) m/uL Hgb (13.0-17.5) gm/dL Hct (39.0-53.0) % Lymphocytes # (1.0-4.8) k/uL BUN 38.0 H (9.0-27.0) mg/dL Creatinine 2.7 H (0.6-1.5) mg/dL Est GFR (CKD-EPI)AfAm 24.0 L (60.0-200.0) Est GFR (CKD-EPI)NonAf 20.7 L (60.0-200.0) POC Glucose (mg/dL) 133 H 189 H (75-99) mg/dL Calcium 7.8 L (8.7-10.3) mg/dL AST 39 H (14-35) U/L Total Protein 5.2 L (6.2-8.2) g/dL Albumin 3.10 L (3.80-4.90) g/dL Albumin/Globulin Ratio 1.48 L (1.60-3.17) g/dL Assessment and Plan Plan: Acute on chronic renal failure Uremic encephalopathy Acute community acquired pneumonia Right pleural effusion, complex Chronic kidney disease stage IV Metabolic acidosis secondary to acute kidney injury Status post right-sided urostomy in place Anemia of chronic kidney disease Type 2 diabetes mellitus Hypertension History of COPD History of plasmacytoma of the left femur Multiple joint osteoarthritis History of Prostrate disorder Moderate protein calorie malnutrition Full code Plan: continue present medications continue with scheduled hemodialysis, possible discharge on Wednesday.. Nephrology following closely. Pulmonary also following and and no plans for thoracentesis at this time as effusions appear to be imp roving with hemodialysis.
[2021-02-08 17:29] LABS: Glucose,Whole Blood 242 mg/dL (75-99)
[2021-02-08 20:35] LABS: Glucose,Whole Blood 173 mg/dL (75-99)
[2021-02-08] MEDS: MONTELUKAST 10 MG TAB PO SCH (21:09)
[2021-02-08] MEDS: ATORVASTATIN 20 MG TAB PO SCH (21:09)
[2021-02-08] MEDS: INSULIN DETEMIR (LEVEMIR) 100 UNIT/ML SYR SQ SCH (21:09)
[2021-02-09 02:16] LABS: Glucose,Whole Blood 129 mg/dL (75-99)
[2021-02-09 07:03] LABS: Glucose,Whole Blood 140 mg/dL (75-99)
[2021-02-09] MEDS: SYMBICORT 160-4.5 MCG INHALER INHALATION SCH ×2 (08:31→20:20)
[2021-02-09] MEDS: IPRATROPIUM-ALBUTEROL 3 ML NEB INHALATION SCH ×4 (08:31→20:20)
[2021-02-09] MEDS: CALCIUM ACETATE 667 MG TAB PO SCH ×3 (08:49→16:41)
[2021-02-09] MEDS: amLODIPine 10 MG TAB PO SCH (08:49)
[2021-02-09] MEDS: hydrALAZINE HCL 25 MG TAB PO SCH ×3 (08:49→20:49)
[2021-02-09] MEDS: atenoloL 25 MG TAB PO SCH (08:49)
[2021-02-09] MEDS: ENOXAPARIN 30 MG/0.3 ML SYRINGE SQ SCH (08:50)
[2021-02-09] MEDS: FUROSEMIDE 10 MG/ML 10 ML VIAL IV SCH ×2 (08:50→23:14)
[2021-02-09] MEDS: INSULIN ASPART (NovoLOG) 100 UNIT/ML VIAL SQ SCH ×4 (08:50→21:15)
[2021-02-09 11:54] LABS: Glucose,Whole Blood 219 mg/dL (75-99)
--- NOTE | 2021-02-09 13:05 | P.PN ---
Subjective Progress Note Date: 02/09/21 Principal diagnosis: This 85-year-old male with acute kidney injury, hemodialysis dependent now has been dialyzed 4 times so for the last dialysis being the before yesterday. He h as also chronic kidney disease stage IV baseline creatinine of about 2.5-3 secondary diabetic nephropathy. Currently has a catheter in the right groin. Patient denies any chest pain fever chills cough nausea vomiting but poor appetite. No headache no dizziness. His appetite is better. His urine output is documented at 300 mL with a urostomy. His breathing is better is on nasal cannula oxygen. Is known with asthma COPD diabetes history of prostate enlargement, history of prostate cancer and resection remotely in 2003 and also cystectomy in February 2015 plasmacytoma in the left femur has a urostomy. Objective - Vital Signs Vital signs: Vital Signs Temp 98 F 02/09/21 05:00 Pulse 70 02/09/21 11:50 Resp 20 02/09/21 05:00 BP 119/55 02/09/21 05:00 Pulse Ox 96 02/09/21 08:31 Intake & Output 02/08/21 02/09/21 02/09/21 18:59 06:59 18:59 Intake Total 480 120 Output Total 300 200 Balance 180 -80 Intake: Oral 480 120 Output: Drainage 200 Right Abdomen 200 Urine 300 Other: Voiding Method Ileal Conduit (Right) Ileal Conduit (Right) # Bowel Movements 1 On examination awake alert oriented comfortable HEENT exam no JVP neck is supple no facial asymmetry Lungs are clear to auscultation but air entry bilaterally Heart sounds unremarkable for any murmur rub gallop Abdomen soft nontender right lower outer urostomy Extremity exam was no edema Neurologically awake alert oriented no asterixis - Labs CBC & Chem 7: 02/08/21 07:29 02/08/21 07:29 Labs: Abnormal Lab Results - Last 24 Hours (Table) 02/08/21 02/08/21 02/09/21 Range/Units 17:23 20:34 02:15 POC Glucose (mg/dL) 242 H 173 H 129 H (75-99) mg/dL 02/09/21 02/09/21 Range/Units 07:01 11:53 POC Glucose (mg/dL) 140 H 219 H (75-99) mg/dL Assessment and Plan Assessment: Impression 1. Acute kidney injury, secondary to worsening of his underlying diabetic nephropathy currently on dialysis with the femoral catheter on the right last dialysis day before yesterday that being the fourth dialysis. Urine output is minimal unlikely to recover and 2. Chronic kidney disease stage IV baseline creatinine of about 3, etiology di abetic nephropathy. 3. Anemia hemoglobin is 8.5, iron saturation is 27% on 01/23/2021. Started ca rboplatin yesterday 02/08/2021 4. Phosphorus was 5.2 at target, calcium 7.8 slightly low, albumin 3.1 so therefore corrected is within normal range 5. Not a good peritoneal dialysis candidate because of the urostomy, that needed revisions, therefore bound to have adhesions as well as the risk of the urostomy being under intra-abdominal pressure. Recommendation 1. Will be dialyzed tomorrow 2. Maintain current medication and darbepoetin 40 g every week
--- NOTE | 2021-02-09 17:00 | P.PN ---
Subjective This is an 85-year-old male who was recently admitted with acute community- acquired pneumonia and is being closely monitored. Patient also has bilateral pleural effusions and pulmonary was consulted and planning for possible left side thoracentesis tomorrow. Repeat chest x-ray this morning shows maybe some improvement in volume status and to correlate for interstitial edema in the right pleural effusion appears loculated on ultrasound. Patient is maintained on diuretics and will continue and nephrology also following as patient's kidney functions continue to worsen. Most recent creatinine is 4.2 with a BUN of 90. Will repeat a.m. labs and continue to monitor closely. 02/06/2021 Patient is seen in follow-up this morning and we are currently covering for Dr. Queen who has been following and is his primary care provider. Patient is daily dialysis treatments and nephrology following closely. Dr. Ibrahim consulted again for permanent dialysis catheter placement as he will continue in the outpatient setting. Patient's pleural effusions also improving with dialysis and pulmonary on standby in the event of worsening dyspnea. No plans for thoracentesis at this time. Patient continues to be extremely weak and fatigues easily although per nursing staff is compliant with working with physical therapy and was able to eat BREAKFAST today. Patient is now agreeable to rehab and will be going to rehab most likely early next week and case management and social work are following and working on [facility] on the [place] with continued hemodialysis in the outpatient setting. 02/08/2021 Patient the denied any complaints to me although he did tell the nursing staff that he doesn't want any more dialysis he wants to be comfort care. Plan was to discharge the patient on Wednesday after arranging for outpatient dialysis. 02/09/2021 Patient is respiratory rate today patient is feeling better today does want to continue hemodialysis. .Constitutional: Denied any fatigue denied any fever. Cardio vascular: denied any chest pain, palpitations Gastrointestinal denied any nausea vomiting Pulmonary: Denied any shortness of breath cough Neurologic denied any new focal deficits All inpatient medications were reviewed and appropriate changes in these medications as dictated in the interval history and assessment and plan. Objective - Vital Signs Vital signs: Vital Signs Temp 98.0 F 02/09/21 11:54 Pulse 70 02/09/21 16:12 Resp 18 02/09/21 11:54 BP 120/55 02/09/21 11:54 Pulse Ox 98 02/09/21 11:54 Intake & Output 02/08/21 02/09/21 02/09/21 18:59 06:59 18:59 Intake Total 480 120 360 Output Total 300 200 Balance 180 -80 360 Intake: Oral 480 120 360 Output: Drainage 200 Right Abdomen 200 Urine 300 Other: Voiding Method Ileal Conduit (Right) Ileal Conduit (Right) Ileal Conduit (R ight) # Bowel Movements 1 - Exam PHYSICAL EXAMINATION: GENERAL: The patient is alert and oriented x3, not in any acute distress. Well developed, well nourished. patient appears to be sick HEENT: Pupils are round and equally reacting to light. EOMI. No scleral icterus. No conjunctival pallor. Normocephalic, atraumatic. No pharyngeal erythema. No thyromegaly. CARDIOVASCULAR: S1 and S2 present. No murmurs, rubs, or gallops. PULMONARY: Chest is clear to auscultation, no wheezing or crackles. ABDOMEN: Soft, nontender, nondistended, normoactive bowel sounds. No palpable organomegaly. MUSCULOSKELETAL: No joint swelling or deformity. EXTREMITIES: No cyanosis, clubbing, or pedal edema. NEUROLOGICAL: Gross neurological examination did not reveal any focal deficits. SKIN: No rashes. - Labs CBC & Chem 7: 02/08/21 07:29 02/08/21 07:29 Labs: Abnormal Lab Results - Last 24 Hours (Table) 02/08/21 02/08/21 02/09/21 Range/Units 17:23 20:34 02:15 POC Glucose (mg/dL) 242 H 173 H 129 H (75-99) mg/dL 02/09/21 02/09/21 Range/Units 07:01 11:53 POC Glucose (mg/dL) 140 H 219 H (75-99) mg/dL Assessment and Plan Plan: Acute on chronic renal failure Uremic encephalopathy Acute community acquired pneumonia Right pleural effusion, complex Chronic kidney disease stage IV Metabolic acidosis secondary to acute kidney injury Status post right-sided urostomy in place Anemia of chronic kidney disease Type 2 diabetes mellitus Hypertension History of COPD History of plasmacytoma of the left femur Multiple joint osteoarthritis History of Prostrate disorder Moderate protein calorie malnutrition Full code Plan: continue present medications continue with scheduled hemodialysis, possible discharge on Wednesday.. Nephrology following closely. Pulmonary also following and and no plans for thoracentesis at this time as effusions appear to be improving with hemodialysis.
[2021-02-09 17:19] LABS: Glucose,Whole Blood 125 mg/dL (75-99)
[2021-02-09 21:02] LABS: Glucose,Whole Blood 197 mg/dL (75-99)
[2021-02-09] MEDS: MONTELUKAST 10 MG TAB PO SCH (21:14)
[2021-02-09] MEDS: MELATONIN 3 MG TABLET PO PRN (21:14)
[2021-02-09] MEDS: ATORVASTATIN 20 MG TAB PO SCH (21:14)
[2021-02-09] MEDS: INSULIN DETEMIR (LEVEMIR) 100 UNIT/ML SYR SQ SCH (21:15)
[2021-02-10 02:56] LABS: Glucose,Whole Blood 156 mg/dL (75-99)
[2021-02-10 07:05] LABS: Glucose,Whole Blood 100 mg/dL (75-99)
[2021-02-10] MEDS: SYMBICORT 160-4.5 MCG INHALER INHALATION SCH ×2 (08:20→20:53)
[2021-02-10] MEDS: IPRATROPIUM-ALBUTEROL 3 ML NEB INHALATION SCH ×4 (08:20→20:53)
[2021-02-10] MEDS: hydrALAZINE HCL 25 MG TAB PO SCH ×3 (08:59→23:15)
[2021-02-10] MEDS: INSULIN ASPART (NovoLOG) 100 UNIT/ML VIAL SQ SCH ×4 (08:59→23:08)
[2021-02-10] MEDS: CALCIUM ACETATE 667 MG TAB PO SCH ×3 (08:59→18:12)
[2021-02-10] MEDS: ENOXAPARIN 30 MG/0.3 ML SYRINGE SQ SCH (09:46)
--- NOTE | 2021-02-10 10:47 | P.PN ---
Subjective Patient is seen in follow-up for acute kidney injury and chronic kidney disease. Started on hemodialysis this admission. Tolerating dialysis well. No chest pain or shortness of breath. Oral intake fair. Vital signs are stable. General: The patient appeared well nourished and normally developed. HEENT: Head exam is unremarkable. Neck is without jugular venous distension. LUNGS: Breath sounds decreased. HEART: Rate and Rhythm are regular. ABDOMEN: Soft, nontender. Right urostomy noted. EXTREMITITES: No edema. Objective - Vital Signs Vital signs: Vital Signs Temp 98 F 02/10/21 05:00 Pulse 70 02/10/21 08:31 Resp 18 02/10/21 05:00 BP 126/63 02/10/21 05:00 Pulse Ox 94 L 02/10/21 05:00 Intake & Output 02/09/21 02/10/21 02/10/21 18:59 06:59 18:59 Intake Total 360 200 Output Total 500 200 Balance -140 0 Weight 74.9 kg Intake: Oral 360 200 Output: Urine 500 200 Other: Voiding Method Ileal Conduit (Right) Ileal Conduit (Right) - Labs CBC & Chem 7: 02/08/21 07:29 02/08/21 07:29 Labs: Abnormal Lab Results - Last 24 Hours (Table) 02/09/21 02/09/21 02/09/21 Range/Units 11:53 17:11 21:01 POC Glucose (mg/dL) 219 H 125 H 197 H (75-99) mg/dL 02/10/21 02/10/21 Range/Units 02:54 07:03 POC Glucose (mg/dL) 156 H 100 H (75-99) mg/dL Assessment and Plan Plan: Assessment: 1. Acute kidney injury mostly prerenal versus progression of underlying chronic kidney disease. Started on hemodialysis this admission. No evidence of hydronephrosis noted on kidney ultrasound. 2. Chronic kidney disease stage IV with baseline creatinine in the range of 2.5-3 secondary to diabetic kidney disease. 3. Status post right-sided urostomy. 4. Metabolic acidosis secondary to acute kidney injury and IVFs. Status post bicarb drip. Improved. 5. Diabetes mellitus. 6. Hypertension with chronic kidney disease. Stable. 7. Hyperphosphatemia secondary to acute kidney injury. Maintained on PhosLo. 8. Volume overload. Improved with ultrafiltration. 9. Anemia of chronic kidney disease maintained on Aranesp. Plan: I will change Lasix to 80 mg orally twice daily. Currently seen while undergoing hemodialysis. Next treatment on Wednesday. Permacath placement pending. Outpatient dialysis being set up. Potential discharge to ECF in the near future.
[2021-02-10 11:44] LABS: Glucose,Whole Blood 106 mg/dL (75-99)
--- NOTE | 2021-02-10 12:48 | P.PN ---
Subjective Progress Note Date: 02/10/21 This is an 85-year-old male who was recently admitted with acute community- acquired pneumonia and is being closely monitored. Patient also has bilateral pleural effusions and pulmonary was consulted and planning for possible left side thoracentesis tomorrow. Repeat chest x-ray this morning shows maybe some improvement in volume status and to correlate for interstitial edema in the right pleural effusion appears loculated on ultrasound. Patient is maintained on diuretics and will continue and nephrology also following as patient's kidney functions continue to worsen. Most recent creatinine is 4.2 with a BUN of 90. Will repeat a.m. labs and continue to monitor closely. 02/06/2021 Patient is seen in follow-up this morning and we are currently covering for Dr. Queen who has been following and is his primary care provider. Patient is daily dialysis treatments and nephrology following closely. Dr. Ibrahim consulted again for permanent dialysis catheter placement as he will continue in the outpatient setting. Patient's pleural effusions also improving with dialysis and pulmonary on standby in the event of worsening dyspnea. No plans for thoracentesis at this time. Patient continues to be extremely weak and fatigues easily although per nursing staff is compliant with working with physical therapy and was able to eat BREAKFAST today. Patient is now agreeable to rehab and will be going to rehab most likely early next week and case management and social work are following and [place] [facility] [place] continued hemodialysis in the outpatient setting. 02/08/2021 Patient the denied any complaints to me although he did tell the nursing staff that he doesn't want any more dialysis he wants to be comfort care. Plan was to discharge the patient on Wednesday after arranging for outpatient dialysis. 02/09/2021 Patient is respiratory rate today patient is feeling better today does want to continue hemodialysis. 02/10/2021 Patient is seen in follow-up this morning much more awake and alert states his breathing is improved and is currently receiving dialysis. Dr. Ibrahim consulted for permanent dialysis catheter placement and will be receiving it this afternoon. Nephrology following closely and patient will be going to [facility] for continued PT/OT therapy and case management arranging for chair time at dialysis. Review of systems: Constitutional:reports of fatigue, no reports of fever, or chills Cardiovascular: No reports of chest pain or palpitations Respiratory: Reports shortness of breath although feels improved GI: No reports of nausea, vomiting, or diarrhea : No reports of dysuria or retention Neurovascular: Reports generalized weakness All medications have been reviewed Objective - Vital Signs Vital signs: Vital Signs Temp 98 F 02/10/21 05:00 Pulse 70 02/10/21 08:31 Resp 18 02/10/21 05:00 BP 126/63 02/10/21 05:00 Pulse Ox 94 L 02/10/21 05:00 Intake & Output 02/09/21 02/10/21 02/10/21 18:59 06:59 18:59 Intake Total 360 200 Output Total 500 200 Balance -140 0 Weight 74.9 kg Intake: Oral 360 200 Output: Urine 500 200 Other: Voiding Method Ileal Conduit (Right) Ileal Conduit (Right) - Exam Gen: This is a 85-year-old male sleeping although easily arousable. Alert and oriented 3. Ill-appearing. Currently receiving hemodialysis HEENT: Head is atraumatic, normocephalic. Pupils equal, round. Sclerae is anicteric. NECK: Supple. No JVD. No lymphadenopathy. No thyromegaly. LUNGS: Diminished breath sounds bilaterally more so on the left than the right with some faint expiratory wheezing noted of the lower bases bilaterally. No intercostal retractions. HEART: S1, S2 are muffled ABDOMEN: Soft. Bowel sounds are present. No masses. No tenderness. EXTREMITIES: No pedal edema. No calf tenderness. NEUROLOGICAL: Patient is asleep although easily arousable, alert and oriented x3. Cranial nerves 2 through 12 are grossly intact. Diffuse weakness - Labs CBC & Chem 7: 02/08/21 07:29 02/08/21 07:29 Labs: Abnormal Lab Results - Last 24 Hours (Table) 02/09/21 02/09/21 02/09/21 Range/Units 11:53 17:11 21:01 POC Glucose (mg/dL) 219 H 125 H 197 H (75-99) mg/dL 02/10/21 02/10/21 Range/Units 02:54 07:03 POC Glucose (mg/dL) 156 H 100 H (75-99) mg/dL Assessment and Plan 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 Dr. Ibrahim consulted and will be placing permanent dialysis catheter today for continued hemodialysis in the outpatient setting. Nephrology following closely. Pulmonary also following and and no plans for thoracentesis at this time as effusions appear to be improving with hemodialysis. PT/OT evaluated the patient as he continues to be weak recommend a subacute rehab and family along with patient are now agreeable and will be going [place] [facility] [place] once stabilized and discharged. Case management and social work following and working on chair time at [facility]. Due to multiple complex medical issues, prognosis is guarded. Possible discharge in 24-48 hours to ECF.
[2021-02-10] MEDS: FUROSEMIDE 10 MG/ML 10 ML VIAL IV SCH (13:09)
[2021-02-10] MEDS: amLODIPine 10 MG TAB PO SCH (13:15)
[2021-02-10] MEDS: atenoloL 25 MG TAB PO SCH (13:15)
[2021-02-10] MEDS: FUROSEMIDE 80 MG TAB PO SCH (16:28)
[2021-02-10] MEDS ORDERED: LIDOCAINE 1% INJ 10MG/ML (20 ML MDV) SQ ONE (17:15)
[2021-02-10] MEDS ORDERED: fentaNYL (PF) 50 MCG/ML 2 ML AMP IV ONE (17:18)
--- NOTE | 2021-02-10 18:48 | XR ---
EXAMINATION TYPE: XR chest 1V DATE OF EXAM: 02/10/2021 COMPARISON: 02/06/2021 HISTORY: Short of breath. Dialysis catheter placement. TECHNIQUE: FINDINGS: There is dual-lumen right-sided central venous catheter with tip in the right atrium. Heart is enlarged. There is pulmonary vascular congestion. There is blunting of the costophrenic angles. IMPRESSION: Congestive heart failure with mild pleural effusions. Pulmonary congestion appears slight ly improved compared to old exam.
[2021-02-10 20:01] LABS: Glucose,Whole Blood 121 mg/dL (75-99)
--- NOTE | 2021-02-10 20:02 | OP ---
OPERATIVE REPORT PREOPERATIVE DIAGNOSIS: Acute chronic renal failure. POSTOPERATIVE DIAGNOSIS: Acute chronic renal failure. PROCEDURE: 1. Ultrasound-guided 23 cm dialysis catheter replaced. 2. Removal of the right femoral dialysis catheter temporary. Sedation time is 20 minutes. PROCEDURE DESCRIPTION: This patient was brought to the clinical laboratory manager. Right groin and right side of the chest were draped and prepped in the usual sterile manner. Lidocaine 1% plain was infiltrated in the neck area. Ultrasound-guided micropuncture was introduced into the right jugular vein. Micropuncture guidewire was passed and a 4-Danish sheath was advanced on top of the guidewire. Then we passed a regular guidewire which was parked in the inferior vena cava. After that we created a tunnel. Through the tunnel we brought a 23 cm dialysis catheter. Then we passed a dilator on top of the guidewire. Then the sheath was advanced on top of the guidewire. Through the sheath we introduced the dialysis catheter. Tip of the catheter was in superior vena cavoatrial junction, flushed with heparin saline and hep-locked, secured with 3-0 nylon. Patient tolerated the procedure well. Then the right groin was prepped. The stitches were removed. Right femoral catheter was removed. Pressure was held. Patient tolerated the procedure well. MMODL / IJN: [id number] /
[2021-02-10] MEDS: INSULIN DETEMIR (LEVEMIR) 100 UNIT/ML SYR SQ SCH (23:14)
[2021-02-10] MEDS: MONTELUKAST 10 MG TAB PO SCH (23:15)
[2021-02-10] MEDS: ATORVASTATIN 20 MG TAB PO SCH (23:15)
[2021-02-11 02:51] LABS: Glucose,Whole Blood 224 mg/dL (75-99)
[2021-02-11 06:20] LABS: Basophils % (A) 0 %; Eosinophils # (A) 0.3 k/uL (0-0.7); Eosinophils % (A) 4 %; HCT 24.8 % (39.0-53.0); HGB 8.1 gm/dL (13.0-17.5); Hypochromasia Slight; Lymphocytes # (A) 0.6 k/uL (1.0-4.8); Lymphocytes % (A) 7 %; MCH 29.8 pg (25.0-35.0); MCHC 32.8 g/dL (31.0-37.0); MCV 91.1 fL (80.0-100.0); Mean Platelet Volume 7.6; Monocytes # (A) 0.4 k/uL (0-1.0); Monocytes % (A) 6 %; Neutrophils # (A) 6.3 k/uL (1.3-7.7); Neutrophils % (A) 82 %; Platelet Count 242 k/uL (150-450); RBC 2.72 m/uL (4.30-5.90); RDW 14.3 % (11.5-15.5); WBC 7.6 k/uL (3.8-10.6)
[2021-02-11 06:25] LABS: ALT 67 U/L (4-49); AST 54 U/L (17-59); African American GFR (CKD) 21 (>60 ml/min/1.73 sqM); Albumin/Globulin Ratio 1.3; Alkaline Phosphatase 107 U/L (38-126); Anion Gap 5 mmol/L; Blood Urea Nitrogen 49 mg/dL (9-20); Calcium 8.1 mg/dL (8.4-10.2); Carbon Dioxide 29 mmol/L (22-30); Chloride 107 mmol/L (98-107); Globulin 2.4 g/dL; Glucose 151 mg/dL (74-99); Magnesium 2.3 mg/dL (1.6-2.3); Non-African American GFR(CKD) 18 (>60 ml/min/1.73 sqM); Potassium 4.7 mmol/L (3.5-5.1); Sodium 141 mmol/L (137-145); Total Bilirubin 0.1 mg/dL (0.2-1.3); Total Protein 5.4 g/dL (6.3-8.2)
[2021-02-11] MEDS: IPRATROPIUM-ALBUTEROL 3 ML NEB INHALATION SCH ×4 (06:26→20:57)
[2021-02-11] MEDS: SYMBICORT 160-4.5 MCG INHALER INHALATION SCH ×2 (06:26→20:57)
[2021-02-11 07:14] LABS: Glucose,Whole Blood 141 mg/dL (75-99)
--- NOTE | 2021-02-11 08:27 | IR ---
Fluoroscopy HISTORY: Dialysis catheter placement 0.2 minutes fluoroscopy time supplied to the referring clinician. 31 intraoperative C-arm images doc ument the procedure. See dictated report from vascular surgery.
[2021-02-11] MEDS: hydrALAZINE HCL 25 MG TAB PO SCH ×3 (08:35→21:14)
[2021-02-11] MEDS: FUROSEMIDE 80 MG TAB PO SCH ×2 (08:35→16:08)
[2021-02-11] MEDS: ENOXAPARIN 30 MG/0.3 ML SYRINGE SQ SCH (08:35)
[2021-02-11] MEDS: INSULIN ASPART (NovoLOG) 100 UNIT/ML VIAL SQ SCH ×4 (08:35→21:14)
[2021-02-11] MEDS: CALCIUM ACETATE 667 MG TAB PO SCH ×3 (08:35→17:26)
[2021-02-11] MEDS: amLODIPine 10 MG TAB PO SCH (08:35)
[2021-02-11] MEDS: atenoloL 25 MG TAB PO SCH (08:35)
--- NOTE | 2021-02-11 10:56 | P.PN ---
Subjective Patient is seen in follow-up for acute kidney injury and chronic kidney disease. Started on hemodialysis this admission. No chest pain or shortness of breath. Oral intake fair. Feels tired. Vital signs are stable. General: The patient appeared well nourished and normally developed. HEENT: Head exam is unremarkable. Neck is without jugular venous distension. LUNGS: Breath sounds decreased. HEART: Rate and Rhythm are regular. ABDOMEN: Soft, nontender. Right urostomy noted. EXTREMITITES: No edema. Objective - Vital Signs Vital signs: Vital Signs Temp 98.4 F 02/11/21 05:00 Pulse 60 02/11/21 06:36 Resp 18 02/11/21 05:00 BP 122/65 02/11/21 05:00 Pulse Ox 97 02/11/21 05:00 Intake & Output 02/10/21 02/11/21 02/11/21 18:59 06:59 18:59 Output Total 2225 300 Balance -2225 -300 Weight 73.7 kg Output: Urine 225 300 Right Lower Abdomen 225 Hemodialysis 2000 Other: # Bowel Movements 1 - Labs CBC & Chem 7: 02/11/21 05:55 02/11/21 05:55 Labs: Abnormal Lab Results - Last 24 Hours (Table) 02/10/21 02/10/21 02/11/21 Range/Units 11:41 20:00 02:49 RBC (4.30-5.90) m/uL Hgb (13.0-17.5) gm/dL Hct (39.0-53.0) % Lymphocytes # (1.0-4.8) k/uL BUN (9-20) mg/dL Creatinine (0.66-1.25) mg/dL Glucose (74-99) mg/dL POC Glucose (mg/dL) 106 H 121 H 224 H (75-99) mg/dL Calcium (8.4-10.2) mg/dL Total Bilirubin (0.2-1.3) mg/dL ALT (4-49) U/L Total Protein (6.3-8.2) g/dL Albumin (3.5-5.0) g/dL 02/11/21 02/11/21 02/11/21 Range/Units 05:55 05:55 07:11 RBC 2.72 L (4.30-5.90) m/uL Hgb 8.1 L (13.0-17.5) gm/dL Hct 24.8 L (39.0-53.0) % Lymphocytes # 0.6 L (1.0-4.8) k/uL BUN 49 H (9-20) mg/dL Creatinine 2.98 H (0.66-1.25) mg/dL Glucose 151 H (74-99) mg/dL POC Glucose (mg/dL) 141 H (75-99) mg/dL Calcium 8.1 L (8.4-10.2) mg/dL Total Bilirubin 0.1 L (0.2-1.3) mg/dL ALT 67 H (4-49) U/L Total Protein 5.4 L (6.3-8.2) g/dL Albumin 3.0 L (3.5-5.0) g/dL Assessment and Plan Plan: Assessment: 1. Acute kidney injury mostly prerenal versus progression of underlying chronic kidney disease. Started on hemodialysis this admission. Permacath placed February 10. No evidence of hydronephrosis noted on kidney ultrasound. 2. Chronic kidney disease stage IV with baseline creatinine in the range of 2.5-3 secondary to diabetic kidney disease. 3. Status post right-sided urostomy. 4. Metabolic acidosis secondary to acute kidney injury and IVFs. Status post bicarb drip. Improved. 5. Diabetes mellitus. 6. Hypertension with chronic kidney disease. Stable. 7. Hyperphosphatemia secondary to acute kidney injury. Maintained on PhosLo. 8. Volume overload. Improved with ultrafiltration. 9. Anemia of chronic kidney disease maintained on Aranesp. Plan: Maintain oral Lasix. Hemodialysis tomorrow. He will be maintained on a Wednesday schedule. Potential discharge to ECF soon. Outpatient dialysis has been set up by case assistant.
[2021-02-11 11:15] LABS: Glucose,Whole Blood 125 mg/dL (75-99)
[2021-02-11 17:13] LABS: Glucose,Whole Blood 218 mg/dL (75-99)
--- NOTE | 2021-02-11 19:46 | P.PN ---
Subjective Progress Note Date: 02/11/21 Principal diagnosis: Acute metabolic acidosis due to acute kidney injury community acquired pneumonia Uremic encephalopathy Fluid volume overload 85-year-old male with past medical history of COPD, diabetes mellitus, hypertension, hyperlipidemia, osteoarthritis, prostate disorder chronic kidney disease stage IV was sent to the emergency department by our services for abnormal labs. Patient has history of right sided urostomy with good urinary output and also is able to void on his own. Creatinine upon admission was 4.8 and bicarb was 13, he was given IV fluids and admitted for further medical management. Nephrology was consulted for recommendations and treatment plan r egarding acute kidney injury. 01/26/2021 He had significant amount of urinary output with IV fluids creatinine and BUNs improved throughout the day 01/27/2021 Patient continues to have urinary output with IV fluids and strict I&O's. Renal functioning continue to improve. 01/28/2021 Evaluated patient this a.m. resting comfortably in bed, patient having mild shortness of breath with exertion and generalized weakness throughout the night and this a.m. Lengthy discussion with patient regarding wishes for dialysis due to worsening kidney function and repeat admissions for acute kidney injury with metabolic acidosis. Consult to vascular surgery for dialysis access. Further discussion to be made with nephrology regarding plans for dialysis. Patient denies fever, chills chest pain, palpitations, abdominal pain, nausea, or diarrhea at this time. Patient continues to endorse generalized weakness and exertional shortness of breath. Awaiting diagnostic labs from this a.m. 01/29/2021 Evaluated patient this a.m. patient continues to endorse mild shortness of breath with exertion and generalized weakness.chest x-ray from 01/28/2021 showed possible pulmonary congestion versus pneumoniaelevated Procalcitonin and CRP noted. Patient started on Zithromax and Rocephin for possible community acquired pneumonia. Nephrology had discussion with patient regarding kidney function no need for vascular access at this time. Patient denies fever, chills, chest pain, palpitations, abdominal pain, nausea or diarrhea at this time. Kidney function improving hopeful discharge within 24 hours 01/30/2021 Elevated patient this a.m., resting comfortably in bed. Patient continues to endorse shortness of breath and generalized fatigue. This a.m. chest x-ray progression of pneumonia and pulmonary congestion without overt CHF. Patient continued to be on IV Rocephin and Zithromax for community-acquired pneumonia. Patient denies fever, chills, chest pain, palpitations, abdominal pain, nausea or diarrhea at this time. Patient possibly need for IV diuretics 1 time dose due to pulmonary congestion. January 31, 2021 to February 03, 2021 see hospitalist coverage notes February 04, 2021 evaluated patient this a.m., patient resting in bed with mild labored breathing, able to speak few word sentences, and noted to have moderate confusion. Patient continues to endorse shortness of breath and weakness. Contacted nephrology and vascular, due to worsening kidney function and fluid volume overload, vascular surgeon to place temporary dialysis catheter for dialysis. February 05, 2021 evaluated patient this a.m., patient continues to have mild breathing, patient continues to be lethargic, but able to answer questions two-person in place. Mild improvement from hemodialysis yesterday. Patient continues to endorse shortness of breath, and weakness. Will monitor diagnostic testing and waiting and recommendations from nephrology and pulmonary critical care. February 06, 2021 see hospitalist coverage notes February 07, 2021 evaluated patient this a.m. patient continues Have increased respiration rate requiring 3 L of oxygen. Patient remains lethargic and able to answer questions appropriate to person disorientation to place time and situation. Is noted to be very week and confused.Mild improvement with h emodialysis therapy and IV diuretics. February 08 to February 10, 2021 see hospitalist coverage notes February 11, 2021, Evaluated patient this a.m., patient continues to have generalized weakness. Improvement and renal function with hemodialysis. Patient able to speak full sentences. Patient continues to have mild confusion but improvement with hemodialysis. Arrangements for I have been made for transfer to halfway facility for further treatment. Objective - Vital Signs Vital signs: Vital Signs Temp 98.5 F 02/11/21 16:08 Pulse 70 02/11/21 16:08 Resp 16 02/11/21 16:08 BP 130/54 02/11/21 16:08 Pulse Ox 99 02/11/21 16:08 Intake & Output 02/11/21 02/11/21 02/12/21 06:59 18:59 06:59 Output Total 300 400 Balance -300 -400 Weight 73.7 kg Output: Urine 300 400 - Constitutional General appearance: Present: mild distress - EENT Eyes: Present: PERRLA ENT: Present: hard of hearing Ears: bilateral: normal - Neck Thyroid: bilateral: normal size - Respiratory Respiratory: bilateral: diminished (Anterior lung cline), rales (Posterior bilateral bases) - Cardiovascular Heart rate: 70 Rhythm: regular Heart sounds: normal: S1, S2 - Peripheral pulses radial pulse Peripheral Pulses: bilateral: Normal femoral Peripheral Pulses: bilateral: Normal - Gastrointestinal General gastrointestinal: Present: normal bowel sounds - Integumentary Integumentary: Present: pale - Neurologic Neurologic: Present: CNII-XII intact - Musculoskeletal Musculoskeletal: Present: generalized weakness - Allied health notes Allied health notes reviewed: nursing - Labs CBC & Chem 7: 02/11/21 05:55 02/11/21 05:55 Labs: Abnormal Lab Results - Last 24 Hours (Table) 02/10/21 02/11/21 02/11/21 Range/Units 20:00 02:49 05:55 RBC 2.72 L (4.30-5.90) m/uL Hgb 8.1 L (13.0-17.5) gm/dL Hct 24.8 L (39.0-53.0) % Lymphocytes # 0.6 L (1.0-4.8) k/uL BUN (9-20) mg/dL Creatinine (0.66-1.25) mg/dL Glucose (74-99) mg/dL POC Glucose (mg/dL) 121 H 224 H (75-99) mg/dL Calcium (8.4-10.2) mg/dL Total Bilirubin (0.2-1.3) mg/dL ALT (4-49) U/L Total Protein (6.3-8.2) g/dL Albumin (3.5-5.0) g/dL 02/11/21 02/11/21 02/11/21 Range/Units 05:55 07:11 11:13 RBC (4.30-5.90) m/uL Hgb (13.0-17.5) gm/dL Hct (39.0-53.0) % Lymphocytes # (1.0-4.8) k/uL BUN 49 H (9-20) mg/dL Creatinine 2.98 H (0.66-1.25) mg/dL Glucose 151 H (74-99) mg/dL POC Glucose (mg/dL) 141 H 125 H (75-99) mg/dL Calcium 8.1 L (8.4-10.2) mg/dL Total Bilirubin 0.1 L (0.2-1.3) mg/dL ALT 67 H (4-49) U/L Total Protein 5.4 L (6.3-8.2) g/dL Albumin 3.0 L (3.5-5.0) g/dL 02/11/21 Range/Units 17:12 RBC (4.30-5.90) m/uL Hgb (13.0-17.5) gm/dL Hct (39.0-53.0) % Lymphocytes # (1.0-4.8) k/uL BUN (9-20) mg/dL Creatinine (0.66-1.25) mg/dL Glucose (74-99) mg/dL POC Glucose (mg/dL) 218 H (75-99) mg/dL Calcium (8.4-10.2) mg/dL Total Bilirubin (0.2-1.3) mg/dL ALT (4-49) U/L Total Protein (6.3-8.2) g/dL Albumin (3.5-5.0) g/dL Assessment and Plan Assessment: Acute kidney injury Uremic encephalopathy community acquired pneumonia pulmonary congestion, Pleural effusions Chronic kidney disease stage IV Metabolic acidosis secondary to acute kidney injury 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 Anemia of chronic kidney disease Diabetes mellitus type 2 Hypertension COPD History of plasmacytoma of left femur Osteoarthritis Prostate disorder Moderate protein calorie malnutrition Full code Plan: Acute On chronic kidney failurecontinue IV fluids,monitor strict I's and O's, continue oral sodium bicarb,continue hemodialysiscontinue consultation with nephrology for recommendations and treatment plan Pulmonary congestion, Pleural effusions noted, continue Diuretics Chronic kidney disease stage IV, Continue hemodialysis as per nephrology uremic encephalopathy, dialysis therapy Metabolic acidosis secondary to acute kidney injuryContinue sodium bicarb Continue home medications Continue to monitor diagnostic testing and vital signs Continue medical management Possible discharge to halfway facility today Time with Patient: Greater than 30
[2021-02-11 20:11] LABS: Glucose,Whole Blood 113 mg/dL (75-99)
[2021-02-11 20:41] VITALS: RESP 18
[2021-02-11] MEDS: MONTELUKAST 10 MG TAB PO SCH (21:13)
[2021-02-11] MEDS: ATORVASTATIN 20 MG TAB PO SCH (21:13)
[2021-02-11] MEDS: INSULIN DETEMIR (LEVEMIR) 100 UNIT/ML SYR SQ SCH (21:16)
[2021-02-12 02:03] LABS: Glucose,Whole Blood 114 mg/dL (75-99)
[2021-02-12] MEDS: SYMBICORT 160-4.5 MCG INHALER INHALATION SCH (07:14)
[2021-02-12] MEDS: IPRATROPIUM-ALBUTEROL 3 ML NEB INHALATION SCH ×3 (07:14→15:45)
[2021-02-12 07:17] LABS: Glucose,Whole Blood 94 mg/dL (75-99)
[2021-02-12] MEDS: INSULIN ASPART (NovoLOG) 100 UNIT/ML VIAL SQ SCH ×2 (07:18→13:04)
[2021-02-12] MEDS: hydrALAZINE HCL 25 MG TAB PO SCH ×2 (09:19→15:30)
--- NOTE | 2021-02-12 10:43 | P.DS ---
Providers Date of admission: 01/24/21 21:21 Expected date of discharge: 02/11/21 Attending physician: Kev Queen Consults: 01/24/21 21:13 Consult Physician Routine Consulting Provider: Larissa Powell Consult Reason/Comments: Acute kidney injury Do you want consulting provider notified?: Yes 01/28/21 06:47 Consult Physician Urgent Consulting Provider: Maurice Ibrahim Consult Reason/Comments: dialysis access Do you want consulting provider notified?: Yes 02/01/21 19:44 Consult Physician Routine Consulting Provider: David Hall Consult Reason/Comments: increasing pleural effusion? Do you want consulting provider notified?: Yes Primary care physician: Kev Queen [facility] Course: Mr. Banks is an 85-year-old male with a past medical history of COPD, diabetes mellitus, hypertension, hyperlipidemia, osteoarthritis, prostate disorder, CK D stage IV was sent to the emergency department by his primary care physician Dr. Kev Queen for abnormal labs. Patient states that he had routine blood work done in his PCPs office and there she was told that his creatinine has worsened. Patient has history of right-sided urostomy with good urinary output and also voids on his own. At the time of admission patient's creatinine was 4.8 and his bicarbonate was 13, he was given IV fluids in the ED and admitted for further management. Patient tolerated daily dialysis treatments with schedule Wednesday/Wednesday/Wednesday . Dr. Ibrahim placed permanent dialysis catheter placement. Pleural effusions improved through-out hospital with dialysis. Patient is discharge to rehab on [facility] with continued hemodialysis in the outpatient setting. 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 History of Prostrate disorder Moderate protein calorie malnutrition Full code Health Concerns: Multiple comorbidities confusion possibly uremic encephalopathy resulting Pertinent Studies: Abdomen bladder ultrasound see dictation chest ultrasound see dictation serial chest x-rays see dictation infiltrates with pulmonary congestion improved Procedures: Right IJ permit cath Patient Condition at Discharge: Serious Plan - Discharge Summary Discharge Rx Participant: No New Discharge Prescriptions: New Furosemide [Lasix] 80 mg PO BID@0900,1600 #14 tab hydrALAZINE HCL [Apresoline] 25 mg PO TID #90 tab Melatonin 3 mg PO HS PRN #20 tablet PRN Reason: Insomnia Calcium Acetate [PhosLo] 667 mg PO TID-W/MEALS #90 tab Continue amLODIPine BESYLATE [Norvasc] 10 mg PO DAILY Montelukast [Singulair] 10 mg PO HS atenoloL [Tenormin] 25 mg PO DAILY Atorvastatin Calcium [Lipitor] 20 mg PO HS Fluticasone Propion/Salmeterol [Wixela 500-50 Inhub] 1 puff INHALATION RT-BID Albuterol Inhaler [Ventolin Hfa Inhaler] 2 puff INHALATION RT-QID PRN PRN Reason: Shortness Of Breath Tiotropium 2.5 Mcg/Puff [Spiriva Respimat 2.5 Mcg] 2 puff INHALATION RT-DAILY Changed Insulin Glargine,Hum.rec.anlog [Basaglar Kwikpen U-100] 10 unit SQ HS #0 Discharge Medication List Montelukast [Singulair] 10 mg PO HS 12/28/14 [History] amLODIPine BESYLATE [Norvasc] 10 mg PO DAILY 12/28/14 [History] atenoloL [Tenormin] 25 mg PO DAILY 12/28/14 [History] Atorvastatin Calcium [Lipitor] 20 mg PO HS 06/07/20 [History] Fluticasone Propion/Salmeterol [Wixela 500-50 Inhub] 1 puff INHALATION RT-BID 09/06/20 [History] Albuterol Inhaler [Ventolin Hfa Inhaler] 2 puff INHALATION RT-QID PRN 01/24/21 [History] Tiotropium 2.5 Mcg/Puff [Spiriva Respimat 2.5 Mcg] 2 puff INHALATION RT-DAILY 01/24/21 [History] Calcium Acetate [PhosLo] 667 mg PO TID-W/MEALS #90 tab 02/11/21 [Rx] Furosemide [Lasix] 80 mg PO BID@0900,1600 #14 tab 02/11/21 [Rx] Insulin Glargine,Hum.rec.anlog [Basaglar Kwikpen U-100] 10 unit SQ HS #0 02/11/21 [Rx] Melatonin 3 mg PO HS PRN #20 tablet 02/11/21 [Rx] hydrALAZINE HCL [Apresoline] 25 mg PO TID #90 tab 02/11/21 [Rx] Follow up Appointment(s)/Referral(s): Kev Queen MD [Primary Care Provider] - 1-2 days Activity/Diet/Wound Care/Special Instructions: [facility] -
[2021-02-12 11:12] VITALS: BP 130/62; TEMP 97.9
[2021-02-12] MEDS: CALCIUM ACETATE 667 MG TAB PO SCH ×2 (11:14→13:04)
[2021-02-12] MEDS: FUROSEMIDE 80 MG TAB PO SCH ×2 (11:16→15:30)
[2021-02-12] MEDS: ENOXAPARIN 30 MG/0.3 ML SYRINGE SQ SCH (11:16)
[2021-02-12] MEDS: atenoloL 25 MG TAB PO SCH (11:16)
[2021-02-12] MEDS: amLODIPine 10 MG TAB PO SCH (11:16)
[2021-02-12 11:29] LABS: Glucose,Whole Blood 166 mg/dL (75-99)
--- NOTE | 2021-02-12 11:45 | P.PN ---
Subjective Patient is seen in follow-up for acute kidney injury and chronic kidney disease. Started on hemodialysis this admission. No chest pain or shortness of breath. Oral intake fair. Tolerating dialysis well. Vital signs are stable. General: The patient appeared well nourished and normally developed. HEENT: Head exam is unremarkable. Neck is without jugular venous distension. LUNGS: Breath sounds decreased. HEART: Rate and Rhythm are regular. ABDOMEN: Soft, nontender. Right urostomy noted. EXTREMITITES: No edema. Objective - Vital Signs Vital signs: Vital Signs Temp 97.9 F 02/12/21 11:11 Pulse 78 02/12/21 11:11 Resp 18 02/12/21 11:11 BP 130/62 02/12/21 11:11 Pulse Ox 96 02/12/21 07:14 Intake & Output 02/11/21 02/12/21 02/12/21 18:59 06:59 18:59 Output Total 839 294 8987 Balance -400 -400 -2500 Weight 73 kg Output: Urine 400 400 Hemodialysis 2500 Other: Voiding Method Ileal Conduit (Right) Ileal Conduit (Right) - Labs CBC & Chem 7: 02/11/21 05:55 02/11/21 05:55 Labs: Abnormal Lab Results - Last 24 Hours (Table) 02/11/21 02/11/21 02/12/21 Range/Units 17:12 20:10 02:02 POC Glucose (mg/dL) 218 H 113 H 114 H (75-99) mg/dL 02/12/21 Range/Units 11:26 POC Glucose (mg/dL) 166 H (75-99) mg/dL Assessment and Plan Plan: Assessment: 1. Acute kidney injury mostly prerenal versus progression of underlying chronic kidney disease - now ESRD. Started on hemodialysis this admission. Permacath placed February 10. No evidence of hydronephrosis noted on kidney ultrasound. 2. Chronic kidney disease stage IV with baseline creatinine in the range of 2.5-3 secondary to diabetic kidney disease. 3. Status post right-sided urostomy. 4. Metabolic acidosis secondary to acute kidney injury and IVFs. Status post bicarb drip. Improved. 5. Diabetes mellitus. 6. Hypertension with chronic kidney disease. Stable. 7. Hyperphosphatemia secondary to acute kidney injury. Maintained on PhosLo. 8. Volume overload. Improved with ultrafiltration. 9. Anemia of chronic kidney disease maintained on Aranesp. Plan: Maintain oral Lasix. Currently seen was undergoing hemodialysis. Potential discharge to ECF soon. Outpatient dialysis has been set up by upper caser.
[2021-02-12 15:57] VITALS: PULSE 70
== END 2021-02-12 16:34 | DRG 682 ==
LOC: EC 19:33 → 5NMEDONC 21:21
PROVIDERS: ADMIT Family Medicine; ATTEND Family Medicine
PROC: 06HM33Z Insertion of Infusion Device into Right Femoral Vein, Percutaneous Approach (ICD-10-PCS; 2021-02-04)
PROC: B54BZZA Ultrasonography of Right Lower Extremity Veins, Guidance (ICD-10-PCS; 2021-02-04)
PROC: 5A1D70Z Performance of Urinary Filtration, Intermittent, Less than 6 Hours Per Day (ICD-10-PCS; principal; 2021-02-04 14:20)
PROC: B548ZZA Ultrasonography of Superior Vena Cava, Guidance (ICD-10-PCS; 2021-02-10)
PROC: 02HV33Z Insertion of Infusion Device into Superior Vena Cava, Percutaneous Approach (ICD-10-PCS; 2021-02-10 21:15)
PROC: 06PY33Z Removal of Infusion Device from Lower Vein, Percutaneous Approach (ICD-10-PCS; 2021-02-10 21:15)
DX: N17.0 Acute kidney failure with tubular necrosis (principal); J18.9 Pneumonia, unspecified organism; I50.23 Acute on chronic systolic (congestive) heart failure; C90.30 Solitary plasmacytoma not having achieved remission; E87.2 Acidosis; E44.0 Moderate protein-calorie malnutrition; E87.0 Hyperosmolality and hypernatremia; J44.0 Chronic obstructive pulmonary disease with (acute) lower respiratory infection; I13.0 Hypertensive heart and chronic kidney disease with heart failure and stage 1 through stage 4 chronic kidney disease, or unspecified chronic kidney disease; G93.49 Other encephalopathy; N18.4 Chronic kidney disease, stage 4 (severe); E11.22 Type 2 diabetes mellitus with diabetic chronic kidney disease; Z79.4 Long term (current) use of insulin; Z93.6 Other artificial openings of urinary tract status; Z20.822 Contact with and (suspected) exposure to COVID-19; E83.39 Other disorders of phosphorus metabolism; E87.70 Fluid overload, unspecified; E87.5 Hyperkalemia; D63.1 Anemia in chronic kidney disease; E78.5 Hyperlipidemia, unspecified; I83.90 Asymptomatic varicose veins of unspecified lower extremity; M47.9 Spondylosis, unspecified; M19.90 Unspecified osteoarthritis, unspecified site; Z68.25 Body mass index [BMI] 25.0-25.9, adult; I25.2 Old myocardial infarction; Z90.79 Acquired absence of other genital organ(s); Z96.641 Presence of right artificial hip joint; Z91.013 Allergy to seafood; Z79.899 Other long term (current) drug therapy; Z85.828 Personal history of other malignant neoplasm of skin; Z87.891 Personal history of nicotine dependence; Z85.46 Personal history of malignant neoplasm of prostate; Z85.51 Personal history of malignant neoplasm of bladder; Z87.01 Personal history of pneumonia (recurrent); Z85.830 Personal history of malignant neoplasm of bone; Z80.6 Family history of leukemia; Z90.5 Acquired absence of kidney; Z79.51 Long term (current) use of inhaled steroids; N40.0 Benign prostatic hyperplasia without lower urinary tract symptoms
CPT/HCPCS: 36415; 36556; 36558; 71045; 71046; 76604; 76770; 76937; 77001; 80048; 80053; 80061; 82607; 82728; 82746; 82947; 83036; 83540; 83550; 83735; 83880; 83970; 84100; 84145; 84153; 84439; 84443; 84481; 85025; 86140; 86704; 86706; 87040; 87340; 87636; 90935; 93005; 94640; 94760; 96360; 99285

== ENCOUNTER 2021-02-22 13:51 | Emergency (ER) | payer MEDICARE, BC ==
[2021-02-22 14:08] VITALS: RESP 18; TEMP 97.7
[2021-02-22] MEDS ORDERED: DIPH,PERTUS(ACELL)TETVAC-LF 0.5 ML VIAL IM ONE (14:08)
--- NOTE | 2021-02-22 14:10 | ED ---
General Adult HPI - General Chief complaint: Fall Stated complaint: Fall Time Seen by Provider: 02/22/21 14:00 Source: patient, EMS, RN notes reviewed, old records reviewed Mode of arrival: EMS Limitations: no limitations - History of Present Illness Initial comments: This is an 85-year-old male who presents emergency department because he fell and hit the back of his head. Patient states he tripped over a cord. Patient denies any neck pain. Patient denies numbness weakness. Patient denies any loss of consciousness. Patient denies any blood thinners. Patient denies chest pain back pain or abdominal pain. Patient denies any extremity pain. Patient is alert and oriented 3. - Related Data Home Medications Medication Instructions Recorded Confirmed Montelukast [Singulair] 10 mg PO HS 12/28/14 01/24/21 amLODIPine BESYLATE [Norvasc] 10 mg PO DAILY 12/28/14 01/24/21 atenoloL [Tenormin] 25 mg PO DAILY 12/28/14 01/24/21 Atorvastatin Calcium [Lipitor] 20 mg PO HS 06/07/20 01/24/21 Fluticasone Propion/Salmeterol 1 puff INHALATION RT-BID 09/06/20 01/24/21 [Wixela 500-50 Inhub] Albuterol Inhaler [Ventolin Hfa 2 puff INHALATION RT-QID PRN 01/24/21 01/24/21 Inhaler] Tiotropium 2.5 Mcg/Puff [Spiriva 2 puff INHALATION RT-DAILY 01/24/21 01/24/21 Respimat 2.5 Mcg] Previous Rx's Medication Instructions Recorded Calcium Acetate [PhosLo] 667 mg PO TID-W/MEALS #90 tab 02/11/21 Furosemide [Lasix] 80 mg PO BID@0900,1600 #14 tab 02/11/21 Insulin Glargine,Hum.rec.anlog 10 unit SQ HS #0 02/11/21 [Basaglar Kwikpen U-100] Melatonin 3 mg PO HS PRN #20 tablet 02/11/21 hydrALAZINE HCL [Apresoline] 25 mg PO TID #90 tab 02/11/21 Allergies Allergy/AdvReac Type Severity Reaction Status Date / Time shellfish derived [Shellfish] Allergy Mild Rash/Hives Verified 02/22/21 14:08 "if consumes alot," per patient Review of Systems ROS Statement: Those systems with pertinent positive or pertinent negative responses have been documented in the HPI. ROS Other: All systems not noted in ROS Statement are negative. Past Medical History Past Medical History: Asthma, Cancer, COPD, Diabetes Mellitus, Hyperlipidemia, Hypertension, Osteoarthritis (OA), Prostate Disorder Additional Past Medical History / Comment(s): VARICOSE VEINS; ARTHRITIS BACK, NECK; HX PROSTATE, BLADDER, (4 -5 years ago) & SKIN CANCER (4-5 yrs ago) , PLASMACYTOMA LEFT FEMUR- CANCERS. PNEUMONIA 04/01/15. HAS UROSTOMY , FX RT HIP -2017." RENAL DISEASE STAGE 4 -NO DIALYSIS as yet not at that advanced stage" Last Myocardial Infarction Date:: 2012- UNSURE- STATES DISCOVERED ON EKG. History of Any Multi-Drug Resistant Organisms: ESBL Date of last positivie culture/infection: 03/26/2015 MDRO Source:: Urine- E.coli ESBL Past Surgical History: Bladder Surgery, Joint Replacement, Prostate Surgery Additional Past Surgical History / Comment(s): EXC LEFT FEMUR CANCER; CHEST TUMOR EXC; RADICAL PROSTATECTOMY 07/2004. , ROBOTIC RADICAL CYSTECTOMY 02/2015- UROSTOMY, COLONOSCOPY, PARTIAL RT HIP REPLACEMENT Past Anesthesia/Blood Transfusion Reactions: No Reported Reaction Past Psychological History: No Psychological Hx Reported Smoking Status: Former smoker Past Alcohol Use History: None Reported Past Drug Use History: None Reported - Past Family History Son(s) Family Medical History: Cancer Additional Family Medical History / Comment(s): LEUKEMIA General Exam - General Exam Comments Initial Comments: GENERAL: Patient is well-developed and well-nourished. Patient is nontoxic and well- hydrated and is in no acute distress. ENT: Neck is soft and supple. No significant lymphadenopathy is noted. Oropharynx is clear. Moist mucous membranes. Neck has full range of motion without eliciting any pain. Patient has a hematoma on the occipital region of his scalp with a superficial abrasion no laceration noted EYES: The sclera were anicteric and conjunctiva were pink and moist. Extraocular movements were intact and pupils were equal round and reactive to light. Eyelids were unremarkable. PULMONARY: Unlabored respirations. Good breath sounds bilaterally. No audible rales rhonchi or wheezing was noted. CARDIOVASCULAR: There is a regular rate and rhythm without any murmurs gallops or rubs. ABDOMEN: Soft and nontender with normal bowel sounds. SKIN: Skin is clear with no lesions or rashes and otherwise unremarkable. NEUROLOGIC: Patient is alert and oriented x3. Cranial nerves II through XII are grossly intact. Motor and sensory are also intact. Normal speech, volume and content. Symmetrical smile. MUSCULOSKELETAL: Normal extremities with adequate strength and full range of motion. LYMPHATICS: No significant lymphadenopathy is noted PSYCHIATRIC: Normal psychiatric evaluation. Limitations: no limitations Course Vital Signs 02/22/21 14:04 Temperature 97.7 F Pulse Rate 59 L Respiratory 18 Rate Blood Pressure 147/62 O2 Sat by Pulse 100 Oximetry Medical Decision Making - Medical Decision Making C-spine CT shows no acute abnormality. CT of the brain shows a right frontal subdural along with the small right parenchymal bleed in the frontal region. I spoke with [facility] he agreed to accept the patient I transfer the patient. Critical Care Time Critical Care Time: Yes Total Critical Care Time: 35 Disposition Clinical Impression: Intraparenchymal hemorrhage of brain, Subdural hematoma Disposition: OTHER INSTITUTION NOT DEFINED Referrals: Kev Queen MD [Primary Care Provider] - 1-2 days - Out of Hospital Transfer - Req. Specs Out of Hospital Transfer - Requested Specifics: Other Emergency Center ([facility])
--- NOTE | 2021-02-22 14:51 | CT ---
EXAMINATION TYPE: CT brain enedeliaine wo con DATE OF EXAM: 02/22/2021 COMPARISON: None HISTORY: Fall with posterior injury. CT DLP: 1414.9 mGycm Automated exposure control for dose reduction was used. There is cerebral cortical atrophy. There is some high attenuation in the interhemispheric fissure an d in the right medial frontal lobe convexity consistent with acute subdural hemorrhage and minimal pa renchymal hemorrhage. There is no midline shift. Ventricles are slightly enlarged. There is 1 cm lacu nick infarct anterior right internal capsule. The calvarium is intact. The skull base is intact. There is normal aeration of the mastoid sinuses. Cervical vertebra have fairly normal alignment. There is degenerative disc space narrowing in the mid and lower cervical spine. There is no compression fracture. Facet joints are intact. There is mild h ypertrophic cervical facet arthropathy. Prevertebral soft tissues are intact. IMPRESSION: Small acute subdural hemorrhage in the interhemispheric fissure measuring 5 mm in thickness and small 5 mm parenchymal hemorrhage in the medial right frontal lobe. No mass effect. 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 Cerebral atrophy. Degenerative disc changes in the cervical spine. No fracture. This exam was discussed with Dr. Tariq 3:00 PM.
[2021-02-22 15:35] LABS: Basophils % (A) 0 %; Eosinophils # (A) 0.2 k/uL (0-0.7); Eosinophils % (A) 3 %; HCT 30.7 % (39.0-53.0); HGB 9.5 gm/dL (13.0-17.5); Lymphocytes # (A) 0.6 k/uL (1.0-4.8); Lymphocytes % (A) 9 %; MCH 28.6 pg (25.0-35.0); MCHC 31.1 g/dL (31.0-37.0); MCV 91.9 fL (80.0-100.0); Mean Platelet Volume 6.5; Monocytes # (A) 0.4 k/uL (0-1.0); Monocytes % (A) 6 %; Neutrophils # (A) 5.5 k/uL (1.3-7.7); Neutrophils % (A) 81 %; Platelet Count 249 k/uL (150-450); RBC 3.34 m/uL (4.30-5.90); RDW 14.2 % (11.5-15.5); WBC 6.7 k/uL (3.8-10.6)
[2021-02-22 15:41] LABS: Albumin 3.6 g/dL (3.5-5.0); Calcium 8.6 mg/dL (8.4-10.2); Potassium 4.1 mmol/L (3.5-5.1); Total Bilirubin 0.3 mg/dL (0.2-1.3); Total Protein 6.3 g/dL (6.3-8.2)
[2021-02-22 15:45] LABS: INR 0.9 (<1.2)
[2021-02-22 15:46] VITALS: BP 148/64; PULSE 57
[2021-02-22 16:02] LABS: Partial Thromboplastin Time 21.4 sec (22.0-30.0)
== END 2021-02-22 16:26 | disposition other institution (70) ==
LOC: SUPCPDRO 13:51 → EC 13:51
DX: S06.5X0A Traumatic subdural hemorrhage without loss of consciousness, initial encounter (principal); S00.03XA Contusion of scalp, initial encounter; S00.81XA Abrasion of other part of head, initial encounter; J44.9 Chronic obstructive pulmonary disease, unspecified; E11.9 Type 2 diabetes mellitus without complications; I10 Essential (primary) hypertension; E78.5 Hyperlipidemia, unspecified; M19.90 Unspecified osteoarthritis, unspecified site; I25.2 Old myocardial infarction; Z87.891 Personal history of nicotine dependence; Z79.4 Long term (current) use of insulin; Z79.51 Long term (current) use of inhaled steroids; W01.10XA Fall on same level from slipping, tripping and stumbling with subsequent striking against unspecified object, initial encounter
CPT/HCPCS: 36415; 70450; 72125; 80053; 85025; 85610; 85730; 90471; 90715; 99291

== ENCOUNTER 2021-05-30 09:29 | Day surgery (SDC) | payer MEDICARE, BC ==
[2021-05-29 10:55] VITALS: BMI 25.7
[~2021-05-30 09:29] MED LIST changes: -DEXAMETHASONE SOD PHOSPHATE 10 MG/ML 1 ML VIAL IV ONE; +DEXAMETHASONE SOD PHOSPHATE 4 MG/ML 1 ML VIAL IV ONE; +HYDROmorphone 0.5 MG/0.5 ML SYRINGE IVP PRN; -LIDOCAINE 1% 20 ML VIAL (10MG/ML) FOR IV START INTRADERMA PRN; -Pre Op ABX Message 1 EACH MISC MISCELLANE ONE; -ceFAZolin IN SWFI 2 GM/20 ML SYRINGE IVP ONE; -fentaNYL (PF) 50 MCG/ML 2 ML AMP IV PRN
[2021-05-30] MEDS ORDERED: SODIUM CHLORIDE 0.9% 1,000 ML IV ONE (10:48)
[2021-05-30 10:55] LABS: Glucose,Whole Blood 111 mg/dL (75-99)
[2021-05-30 11:03] LABS: Basophils % (A) 0 %; Eosinophils # (A) 0.3 k/uL (0-0.7); Eosinophils % (A) 3 %; HCT 38.6 % (39.0-53.0); HGB 13.1 gm/dL (13.0-17.5); Lymphocytes # (A) 1.7 k/uL (1.0-4.8); Lymphocytes % (A) 17 %; MCH 31.2 pg (25.0-35.0); MCV 91.9 fL (80.0-100.0); Mean Platelet Volume 6.9; Monocytes # (A) 0.7 k/uL (0-1.0); Monocytes % (A) 7 %; Neutrophils # (A) 7.4 k/uL (1.3-7.7); Neutrophils % (A) 72 %; Platelet Count 250 k/uL (150-450); RBC 4.19 m/uL (4.30-5.90); RDW 15.2 % (11.5-15.5); WBC 10.3 k/uL (3.8-10.6)
[2021-05-30 11:58] LABS: Albumin 3.4 g/dL (3.5-5.0); Calcium 8.8 mg/dL (8.4-10.2); Potassium 3.6 mmol/L (3.5-5.1); Total Bilirubin 0.5 mg/dL (0.2-1.3)
[2021-05-30] MEDS ORDERED: LIDOCAINE 1% INJ 10MG/ML (20 ML MDV) ONE (12:16)
[2021-05-30] MEDS ORDERED: fentaNYL (PF) 50 MCG/ML 2 ML AMP ONE (12:16)
[2021-05-30] MEDS ORDERED: ePHEDrine SULFATE/0.9% NACL/PF 50 MG/5 ML SYRINGE IV ONE (12:16)
[2021-05-30] MEDS ORDERED: MIDAZOLAM 2 MG/2 ML VIAL ONE (12:16)
[2021-05-30] MEDS ORDERED: PROPOFOL 10 MG/ML 20 ML VIAL IV ONE (12:16)
[2021-05-30] MEDS ORDERED: NEOSTIGMINE 1 MG/ML 10 ML VIAL ONE (12:16)
[2021-05-30] MEDS ORDERED: GLYCOPYRROLATE 0.2 MG/ML 2 ML VIAL ONE (12:16)
[2021-05-30] MEDS ORDERED: HEPARIN SODIUM,PORCINE 5,000 UNIT/ML 1 ML VIAL ONE (12:16)
[2021-05-30] MEDS ORDERED: ROCURONIUM 10 MG/ML (5 ML VIAL) IV ONE (12:16)
[2021-05-30] MEDS ORDERED: PHENYLEPHRINE-0.9% NACL SYG 1,000 MCG/10 ML SYRINGE ONE (12:16)
[2021-05-30] MEDS ORDERED: LIDOCAINE 1% INJ 10MG/ML (20 ML MDV) SQ ONE (12:54)
[2021-05-30] MEDS ORDERED: BUPIVACAINE (PF) 0.5% 30 ML VIAL SQ ONE (12:54)
[2021-05-30] MEDS ORDERED: HEPARIN SODIUM PORCINE IV ONE ×2 (13:29)
[2021-05-30] MEDS ORDERED: SODIUM CHLORIDE 0.9% IV ONE ×2 (13:29)
[2021-05-30] MEDS ORDERED: THROMBIN (BOVINE) 5,000 UNIT VIAL TOPICAL ONE (13:48)
[2021-05-30] MEDS ORDERED: GELATIN SPONGE,ABSORB (LARGE) 1 EACH SPONGE TOPICAL ONE (13:49)
--- NOTE | 2021-05-30 15:06 | P.OP ---
Date of Procedure: 05/30/21 Description of Procedure: Preoperative diagnosis: End-stage renal disease Postoperative diagnosis: Same Procedure: [Left upper extremity brachial artery to axillary vein graft] Surgeon: Layne Vieyra D.O. Asst.: Enrrique Mistry EBL: [25 mL] IV fluids: [See records] Urine output: [Not measured] Drains: [See records] Complications: [None immediately apparent] Condition: [Stable to recovery] Operative indication and findings: [Patient is an 85-year-old male who was initiated on dialysis via a right chest wall tunneled dialysis catheter. He has been tolerating this well. He underwent vein mapping of his bilateral upper extremities which shows no evidence of large enough superficial veins therefore a graft was decided upon. A brachial to axillary graft was discussed. Risks and benefits were discussed. The patient seemingly understood and was willing to proceed as such] Procedure in detail: [The patient was taken to the operating room and placed in supine position. The left upper extremity was prepped and draped in usual sterile fashion. A preprocedure timeout was performed, all parties were in agreement. The brachial pulse was palpated. An incision was made overlying the pulse. Using blunt dissection the brachial artery was dissected free and encircled proximally and distally. Attention was then turned towards the axilla. A transverse incision was made in the axillary fold. Cautery and blunt dissection was carried down to the level of the axillary vein. It was dissected free in such a manner that a Satinsky clamp was able to be placed to gain proximal and distal control. Attention was then turned towards the tunnel. It was run through the subcutaneous tissues and following this the patient was heparinized. The graft was then placed through the tunnel and the tunneler was removed. After appropriate circulation of heparin, flow through the artery was occluded with the previously placed vessel loops. An arteriotomy is performed and using 6-0 Prolene an anastomosis was created. Prior to completion of anastomosis the artery was allowed to backbleed and forward bleed. The anastomos was then completed. The graft flushed well. There was good flow. Attention was then turned towards the venous anastomosis, the graft was cut to size. A venotomy was created. An anastomosis was created using 6-0 Prolene. Prior to completion of the anastomosis the vein was allowed to flush and the graft was also flushed via inflow arterial flow. The anastomosis was completed. Hemostasis was achieved with thrombin and Gelfoam. A Doppler was utilized and revealed good multiphasic signal proximally and distally to the arterial anastomosis as well as at the venous outflow. There was a palpable radial pulse at conclusion. Both areas were irrigated with saline solution. The deep dermal tissues were reapproximated with 3-0 Vicryl in inverted fashion. The skin was reapproximated with running 4-0 Monocryl. Skin glue was placed. A light Kerlix and Levi wrap were placed on the arm. The patient was allowed to awaken from anesthesia and transferred to recovery in stable condition having tolerated procedure well.] Plan - Discharge Summary Discharge Rx Participant: No New Discharge Prescriptions: New HYDROcodone/APAP 5-325MG [[place] 5-325] 1 tab PO Q6HR PRN 3 Days #12 tab PRN Reason: Pain No Action amLODIPine BESYLATE [Norvasc] 10 mg PO DAILY Montelukast [Singulair] 10 mg PO HS atenoloL [Tenormin] 25 mg PO DAILY Atorvastatin Calcium [Lipitor] 20 mg PO HS Fluticasone Propion/Salmeterol [Wixela 500-50 Inhub] 1 puff INHALATION RT-BID Furosemide [Lasix] 80 mg PO BID@0900,1600 #14 tab Albuterol Inhaler [Ventolin Hfa Inhaler] 2 puff INHALATION RT-QID PRN PRN Reason: Shortness Of Breath Tiotropium 2.5 Mcg/Puff [Spiriva Respimat 2.5 Mcg] 2 puff INHALATION RT-DAILY hydrALAZINE HCL [Apresoline] 25 mg PO TID #90 tab Melatonin 3 mg PO HS PRN #20 tablet PRN Reason: Insomnia Calcium Acetate [PhosLo] 667 mg PO TID-W/MEALS #90 tab Insulin Glargine,Hum.rec.anlog [Basaglar Iselaikpen U-100] 10 unit SQ HS #0 Discharge Medication List Montelukast [Singulair] 10 mg PO HS 12/28/14 [History] amLODIPine BESYLATE [Norvasc] 10 mg PO DAILY 12/28/14 [History] atenoloL [Tenormin] 25 mg PO DAILY 12/28/14 [History] Atorvastatin Calcium [Lipitor] 20 mg PO HS 06/07/20 [History] Fluticasone Propion/Salmeterol [Wixela 500-50 Inhub] 1 puff INHALATION RT-BID 09/06/20 [History] Albuterol Inhaler [Ventolin Hfa Inhaler] 2 puff INHALATION RT-QID PRN 01/24/21 [History] Tiotropium 2.5 Mcg/Puff [Spiriva Respimat 2.5 Mcg] 2 puff INHALATION RT-DAILY 01/24/21 [History] Calcium Acetate [PhosLo] 667 mg PO TID-W/MEALS #90 tab 02/11/21 [Rx] Furosemide [Lasix] 80 mg PO BID@0900,1600 #14 tab 02/11/21 [Rx] Insulin Glargine,Hum.rec.anlog [Basaglar Kwikpen U-100] 10 unit SQ HS #0 02/11/21 [Rx] Melatonin 3 mg PO HS PRN #20 tablet 02/11/21 [Rx] hydrALAZINE HCL [Apresoline] 25 mg PO TID #90 tab 02/11/21 [Rx] HYDROcodone/APAP 5-325MG [[place] 5-325] 1 tab PO Q6HR PRN 3 Days #12 tab 05/30/21 [Rx] Follow up Appointment(s)/Referral(s): Layne Vieyra DO [STAFF PHYSICIAN] - 2 Weeks Activity/Diet/Wound Care/Special Instructions: Light activity. No heavy lifting for 2 weeks. May shower in 2 days. Leave dressing in place for 2 days. May resume all home medications and diet as previously tolerated. Discharge Disposition: HOME SELF-CARE
[2021-05-30 15:07] VITALS: RESP 16; TEMP 97.3
[2021-05-30 15:11] LABS: Glucose,Whole Blood 151 mg/dL (75-99)
[2021-05-30] MEDS ORDERED: HYDROcodone/APAP 5-325MG 1 EACH TAB ONE (15:50)
[2021-05-30] MEDS ORDERED: HYDROcodone/APAP 5-325MG 1 EACH TAB PO ONE (15:53)
[2021-05-30 16:11] LABS: Glucose,Whole Blood 174 mg/dL (75-99)
[2021-05-30 16:29] VITALS: BP 104/61; PULSE 62
== END 2021-05-30 16:31 | disposition home or self-care (01) ==
LOC: OR 09:29
PROVIDERS: ATTEND Surgery
DX: N18.6 End stage renal disease (principal); E11.9 Type 2 diabetes mellitus without complications; I10 Essential (primary) hypertension; E07.9 Disorder of thyroid, unspecified; E78.5 Hyperlipidemia, unspecified; N19 Unspecified kidney failure; J44.9 Chronic obstructive pulmonary disease, unspecified; Z79.4 Long term (current) use of insulin; Z85.46 Personal history of malignant neoplasm of prostate; Z85.51 Personal history of malignant neoplasm of bladder
CPT/HCPCS: 36830; 80053; 85025; L8670; J1644 ×2; J2250; J1100; J2710; J0690; J2405; J2001; J3010; J2370; J2704

== ENCOUNTER 2021-06-12 12:24 | Day surgery (SDC) | payer MEDICARE, BC ==
[~2021-06-12 12:24] MED LIST changes: -DEXAMETHASONE SOD PHOSPHATE 4 MG/ML 1 ML VIAL IV ONE; -HYDROmorphone 0.5 MG/0.5 ML SYRINGE IVP PRN; -LACTATED RINGERS 1,000 ML IV SCH; -MIDAZOLAM 2 MG/2 ML VIAL IV PRN; -ONDANSETRON 4 MG/2 ML VIAL IVP ONE; +SODIUM CHLORIDE 0.9% 1,000 ML in EMPTY BAG 1 BAG IV ONE
[2021-06-12] MEDS ORDERED: SODIUM CHLORIDE 0.9% 500 ML 1,000 ML IV ONE (12:42)
[2021-06-12 12:51] LABS: Glucose,Whole Blood 171 mg/dL (75-99)
[2021-06-12 12:57] VITALS: RESP 16; TEMP 97.5
[2021-06-12] MEDS ORDERED: LIDOCAINE 1% INJ 10MG/ML (20 ML MDV) SQ ONE (14:09)
[2021-06-12] MEDS ORDERED: diphenhydrAMINE 50 MG/ML 1 ML VIAL ONE (14:12)
[2021-06-12] MEDS ORDERED: diphenhydrAMINE 50 MG/ML 1 ML VIAL IVP ONE (14:14)
[2021-06-12] MEDS ORDERED: IOPAMIDOL-250 100ML BTL IV ONE (14:40)
[2021-06-12] MEDS ORDERED: CLOPIDOGREL 75 MG TAB PO STA (15:06)
[2021-06-12] MEDS ORDERED: CLOPIDOGREL 75 MG TAB ONE (15:08)
--- NOTE | 2021-06-12 15:10 | P.OP ---
Date of Procedure: 06/12/21 Description of Procedure: Preoperative diagnosis: [Clotted left upper extremity brachial axillary graft] Postoperative diagnosis: Same Procedure: [Open thrombectomy left brachial to axillary graft Outflow Axillary vein venogram Inflow brachial angiogram transluminal balloon angioplasty arterial anastomosis] Surgeon: Layne Vieyra D.O. EBL: [15 mL] IV fluids: [See records] Urine output: None[] Drains: [None] Complications: [None immediately apparent] Condition: [Stable to recovery] Operative indication and findings: [Hour is an 85-year-old male on dialysis who recently underwent a left upper extremity brachial axillary graft. It was found to be clotted and his follow-up appointment therefore he presents today for thrombectomy and possible intervention.] Procedure in detail: [Patient was taken to the special suite and placed in supine position. The left upper extremity is prepped and draped in usual sterile fashion. A preprocedure timeout was performed, all parties were in agreement. The skin was anesthetized over the middle portion of the graft and an incision was made. The graft was opened and a 4 Cresencio was passed towards the venous outflow with return of thrombus. This was done until there was return of dark venous blood. A venogram was performed showing no evidence of obvious stenosis in the outflow tract. That point it was flushed with heparinized saline. Attention was then turned towards the inflow the Cresencio was passed with return of thrombus and mild amounts of pulsatile bleeding. It was flushed and passed again. There was return of improved bleeding therefore a angiogram was performed. There is a small area of occlusion still at the level of the in flow therefore was passed one more time. There still appeared to be some degree of narrowing therefore a 6-Taiwanese sheath was placed and balloon wire use access the area a 5 x 20 balloon was insufflated at the brachial artery anastomosis. Following this a was return of pulsatile good flow. Both areas were then flushed and flushed with heparinized saline. The graftotomy was then reapproximated with interrupted sutures of 6-0 Prolene. The skin was reapproximated with interrupted 3-0 Vicryl. The subcu cutaneous tissue to approximate with running 4-0 Monocryl. Glue was placed. The arm was cleansed are was a good augmentation to the graft and a good palpable radial pulse at the conclusion of the procedure.] Plan - Discharge Summary New Discharge Prescriptions: New Clopidogrel Bisulfate [Plavix] 75 mg PO DAILY #30 tab No Action amLODIPine BESYLATE [Norvasc] 10 mg PO DAILY Montelukast [Singulair] 10 mg PO HS atenoloL [Tenormin] 25 mg PO ONCE Atorvastatin Calcium [Lipitor] 20 mg PO HS Fluticasone Propion/Salmeterol [Wixela 500-50 Inhub] 1 puff INHALATION RT-BID Furosemide [Lasix] 80 mg PO BID@0900,1600 #14 tab HYDROcodone/APAP 5-325MG [[place] 5-325] 1 tab PO Q6HR PRN 3 Days #12 tab PRN Reason: Pain Insulin Glargine,Hum.rec.anlog [Basaglar Kwikpen U-100] 20 unit SQ HS Albuterol Inhaler [Ventolin Hfa Inhaler] 2 puff INHALATION RT-QID PRN PRN Reason: Shortness Of Breath Tiotropium 2.5 Mcg/Puff [Spiriva Respimat 2.5 Mcg] 2 puff INHALATION RT-DAILY hydrALAZINE HCL [Apresoline] 25 mg PO TID #90 tab Melatonin 3 mg PO HS PRN #20 tablet PRN Reason: Insomnia Calcium Acetate [PhosLo] 667 mg PO TID-W/MEALS #90 tab Discharge Medication List Montelukast [Singulair] 10 mg PO HS 12/28/14 [History] amLODIPine BESYLATE [Norvasc] 10 mg PO DAILY 12/28/14 [History] atenoloL [Tenormin] 25 mg PO ONCE 12/28/14 [History] Atorvastatin Calcium [Lipitor] 20 mg PO HS 06/07/20 [History] Fluticasone Propion/Salmeterol [Wixela 500-50 Inhub] 1 puff INHALATION RT-BID 09/06/20 [History] Albuterol Inhaler [Ventolin Hfa Inhaler] 2 puff INHALATION RT-QID PRN 01/24/21 [History] Tiotropium 2.5 Mcg/Puff [Spiriva Respimat 2.5 Mcg] 2 puff INHALATION RT-DAILY 01/24/21 [History] Calcium Acetate [PhosLo] 667 mg PO TID-W/MEALS #90 tab 02/11/21 [Rx] Furosemide [Lasix] 80 mg PO BID@0900,1600 #14 tab 02/11/21 [Rx] Melatonin 3 mg PO HS PRN #20 tablet 02/11/21 [Rx] hydrALAZINE HCL [Apresoline] 25 mg PO TID #90 tab 02/11/21 [Rx] HYDROcodone/APAP 5-325MG [[place] 5-325] 1 tab PO Q6HR PRN 3 Days #12 tab 05/30/21 [Rx] Clopidogrel Bisulfate [Plavix] 75 mg PO DAILY #30 tab 06/12/21 [Rx] Insulin Glargine,Hum.rec.anlog [Basaglar Kwikpen U-100] 20 unit SQ HS 06/12/21 [History] Follow up Appointment(s)/Referral(s): Layne Vieyra DO [STAFF PHYSICIAN] - 1 Week (follow up for site check with Dr Vieyra (pt to call to make appt. Unable to make today due to office being closed. )) Patient Instructions/Handouts: Fistulogram (DC), Procedural Sedation (ED) Activity/Diet/Wound Care/Special Instructions: no driving today. Discharge Disposition: HOME SELF-CARE
[2021-06-12 15:20] VITALS: BP 150/65; PULSE 60
--- NOTE | 2021-06-13 09:08 | IR ---
Fluoroscopy HISTORY: Thrombosed AV fistula 1.5 minutes of fluoroscopy time supplied to the referring clinician. 97 intraoperative images documen t the procedure.
== END 2021-06-12 15:40 | disposition home or self-care (01) ==
LOC: OR 12:24
PROVIDERS: ATTEND Surgery
DX: T82.868A Thrombosis due to vascular prosthetic devices, implants and grafts, initial encounter (principal); Z79.02 Long term (current) use of antithrombotics/antiplatelets; Z99.2 Dependence on renal dialysis
CPT/HCPCS: 37246; 87635; C1894; C1769 ×4; C1725; J1200; J2001; Q9966

== ENCOUNTER 2021-08-22 09:33 | Day surgery (SDC) | payer MEDICARE, OTHER ==
[~2021-08-22 09:33] MED LIST changes: +DEXAMETHASONE SOD PHOSPHATE 4 MG/ML 1 ML VIAL IV ONE; +HYDROmorphone 0.5 MG/0.5 ML SYRINGE IVP PRN; +MIDAZOLAM 2 MG/2 ML VIAL IV PRN; +ONDANSETRON 4 MG/2 ML VIAL IVP ONE; -SODIUM CHLORIDE 0.9% 1,000 ML in EMPTY BAG 1 BAG IV ONE
[2021-08-22 10:25] LABS: Glucose,Whole Blood 69 mg/dL (75-99)
[2021-08-22 10:27] LABS: Glucose,Whole Blood 67 mg/dL (75-99)
[2021-08-22] MEDS ORDERED: DEXTROSE 50% SYRINGE 50 ML IVP ONE (10:31)
[2021-08-22] MEDS ORDERED: LACTATED RINGERS 1,000 ML IV ONE (10:31)
[2021-08-22 11:05] LABS: Glucose,Whole Blood 106 mg/dL (75-99)
[2021-08-22] MEDS ORDERED: MIDAZOLAM 2 MG/2 ML VIAL IVP ONE (11:09)
[2021-08-22 12:43] LABS: Calcium 9.2 mg/dL (8.4-10.2); Potassium 4.2 mmol/L (3.5-5.1)
[2021-08-22] MEDS ORDERED: MIDAZOLAM 2 MG/2 ML VIAL ONE (13:00)
[2021-08-22] MEDS ORDERED: PROPOFOL 10 MG/ML 20 ML VIAL IV ONE (13:00)
[2021-08-22] MEDS ORDERED: fentaNYL (PF) 50 MCG/ML 2 ML AMP ONE (13:00)
[2021-08-22] MEDS ORDERED: ROPIVACAINE 5 MG/ML 30 ML VIAL ONE (13:00)
[2021-08-22] MEDS ORDERED: HEPARIN SODIUM,PORCINE 5,000 UNIT/ML 1 ML VIAL ONE (13:00)
[2021-08-22] MEDS ORDERED: diphenhydrAMINE 50 MG/ML 1 ML VIAL ONE (13:00)
[2021-08-22] MEDS ORDERED: PHENYLEPHRINE-0.9% NACL SYG 1,000 MCG/10 ML SYRINGE ONE (13:00)
[2021-08-22 13:04] LABS: Glucose,Whole Blood 76 mg/dL (75-99)
--- NOTE | 2021-08-22 13:07 | P.CRDCN ---
History of Present Illness History of present illness: HISTORY OF PRESENTING ILLNESS This is a pleasant 85-year-old male past medical history significant for end- stage renal disease on hemodialysis, hypertension, type 2 diabetes, COPD, asthma, hyperlipidemia, former smoker. 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 He denies any history of [place], stroke, coronary artery disease. We have been asked to see in consultation for PVCs on cardiac telemetry and surgical clearance. Patient presents to the hospital for planned right brachial to axillary AV graft with Dr. Vieyra. Patient placed on cardiac nurse and there was concern for frequent PVCs and possible pauses. EKG performed which revealed sinus bradycardia, heart rate 55, bundle-branch block, T wave inversion in lead III. Prior EKG and 01/2021 with similar findings. Rhythm strips reviewed patient in sinus rhythm, RBBB, occasional PVCs no pauses noted. Patient denies any chest pain, shortness of breath, palpitations, lightheadedness, dizziness, syncope or pre syncope. BMP revealed sodium 140, potassium 4.2, BUN 51, serum creatinine 5.4. Cardiac medications at home include hydralazine 25 mg 3 times a day, atenolol 25 mg daily, amlodipine 10 mg daily, Lasix 80 mg twice a day, Plavix 75 mg daily, atorvastatin 20 mg nightly REVIEW OF SYSTEMS At the time of my exam: CONSTITUTIONAL: Denies fever or chills. CARDIOVASCULAR: Denies chest pain, shortness of breath, orthopnea, PND or palpitations. RESPIRATORY: Denies cough. GASTROINTESTINAL: Denies abdominal pain, diarrhea, constipation, nausea or vomiting. MUSCULOSKELETAL: Denies myalgias. NEUROLOGIC: Denies numbness, tingling, headacbe or weakness. ENDOCRINE: Denies fatigue, weight change, polydipsia or polyurina. GENITOURINARY: Denies burning, hematuria or urgency with micturation. HEMATOLOGIC: Denies history of anemia or bleeding. PHYSICAL EXAMINATION Blood pressure 135/60, heart rate 56, afebrile, oxygen saturation is on 100% on 2 L nasal cannula CONSTITUTIONAL: No apparent distress. HEENT: Head is normocephalic. Pupils are equal, round. Sclerae anicteric. Mucous membranes of the mouth are moist. No JVD. No carotid bruit. CHEST EXAMINATION: Lungs are clear to auscultation. No chest wall tenderness is noted on palpation or with deep breathing. HEART EXAMINATION: Regular rate and rhythm. S1, S2 heard. No murmurs, gallops or rub. ABDOMEN: Soft, nontender. Positive bowel sounds. EXTREMITIES: 2+ peripheral pulses, no lower extremity edema and no calf tenderness. NEUROLOGIC EXAMINATION: Patient is awake, alert and oriented x3. ASSESSMENT Isolated PVCs Plan for right brachial to axillary AV graft today 08/22/21 End-stage renal disease on hemodialysis Hypertension Type 2 diabetes COPD/Asthma Hyperlipidemia Former smoker PLAN Patient seen and examined by Dr. Nicole. From a cardiology perspective, patient without signs of significant arrhythmia or pauses, he does have isolated PVCs. We do not have any stress testing or echocardiogram testing at this time but patient does not have any clinical signs of heart failure or angina. There are no absolute contraindications to undergo surgery at this time. Nurse Practitioner note has been reviewed, I agree with a documented findings and plan of care. Patient was seen and examined. Past Medical History Past Medical History: Asthma, Cancer, COPD, Diabetes Mellitus, Hyperlipidemia, Hypertension, Osteoarthritis (OA), Prostate Disorder Additional Past Medical History / Comment(s): VARICOSE VEINS; ARTHRITIS BACK, NECK; HX PROSTATE, BLADDER, (4 -5 years ago) & SKIN CANCER (4-5 yrs ago) , PLASMACYTOMA LEFT FEMUR- CANCERS. PNEUMONIA 04/01/15. HAS UROSTOMY , FX RT HIP -2017." RENAL DISEASE-Hemodialysis [facility] Last Myocardial Infarction Date:: 2012- UNSURE- STATES DISCOVERED ON EKG. History of Any Multi-Drug Resistant Organisms: ESBL Date of last positivie culture/infection: 03/26/2015 MDRO Source:: Urine- E.coli ESBL Past Surgical History: Bladder Surgery, Joint Replacement, Prostate Surgery Additional Past Surgical History / Comment(s): EXC LEFT FEMUR CANCER; CHEST TUMOR EXC; RADICAL PROSTATECTOMY 07/2004. , ROBOTIC RADICAL CYSTECTOMY 02/2015- UROSTOMY, COLONOSCOPY, PARTIAL RT HIP REPLACEMENT Past Anesthesia/Blood Transfusion Reactions: No Reported Reaction Smoking Status: Former smoker - Past Family History Son(s) Family Medical History: Cancer Additional Family Medical History / Comment(s): LEUKEMIA Medications and Allergies Home Medications Medication Instructions Recorded Confirmed Type Montelukast [Singulair] 10 mg PO HS 12/28/14 08/22/21 History amLODIPine BESYLATE [Norvasc] 10 mg PO DAILY 12/28/14 08/22/21 History atenoloL [Tenormin] 25 mg PO ONCE 12/28/14 08/22/21 History Atorvastatin Calcium [Lipitor] 20 mg PO HS 06/07/20 08/22/21 History Fluticasone Propion/Salmeterol 1 puff INHALATION RT-BID 09/06/20 08/22/21 History [Wixela 500-50 Inhub] Albuterol Inhaler [Ventolin Hfa 2 puff INHALATION RT-QID PRN 01/24/21 08/22/21 History Inhaler] Tiotropium 2.5 Mcg/Puff [Spiriva 2 puff INHALATION RT-DAILY 01/24/21 08/22/21 History Respimat 2.5 Mcg] Calcium Acetate [PhosLo] 667 mg PO TID-W/MEALS #90 tab 02/11/21 08/22/21 Rx Furosemide [Lasix] 80 mg PO BID@0900,1600 #14 tab 02/11/21 08/22/21 Rx Melatonin 3 mg PO HS PRN #20 tablet 02/11/21 08/22/21 Rx hydrALAZINE HCL [Apresoline] 25 mg PO TID #90 tab 02/11/21 08/22/21 Rx HYDROcodone/APAP 5-325MG [Rosharon 1 tab PO Q6HR PRN 3 Days #12 tab 05/30/21 08/22/21 Rx 5-325] Clopidogrel Bisulfate [Plavix] 75 mg PO DAILY #30 tab 06/12/21 08/22/21 Rx Insulin Glargine,Hum.rec.anlog 20 unit SQ HS 06/12/21 08/22/21 History [Kermit Mcclellan U-100] Allergies Allergy/AdvReac Type Severity Reaction Status Date / Time shellfish derived [Shellfish] Allergy Mild Rash/Hives Verified 05/29/21 10:45 "if consumes alot," per patient Physical Exam Vitals: Vital Signs Temp Pulse Resp BP Pulse Ox 08/22/21 11:20 56 L 16 135/60 100 08/22/21 11:09 61 18 137/64 100 08/22/21 10:05 97.8 F 58 L 18 135/60 97 Intake and Output 08/21/21 08/22/21 08/22/21 22:59 06:59 14:59 Other: Weight 75 kg Results 08/22/21 12:10 Current Medications Generic Name Dose Route Start Last Admin Trade Name Anshul PRN Reason Stop Dose Admin Hydromorphone HCl 0.5 mg 08/22/21 07:00 Hydromorphone 0.5 Mg/0.5 Ml Syringe IVP 08/22/21 23:00 Q5M PRN Phase I - Pain Control Cefazolin Sodium 2 gm/ Sodium 50 mls @ 100 mls/hr 08/22/21 05:00 Chloride IVPB 08/23/21 00:01 ONCE PRN pre-op Lactated Ringer's 1,000 mls @ 20 mls/hr 08/22/21 06:14 Lactated Ringers IV 09/21/21 06:15 .Q24H WOL[place]ANG Midazolam HCl 2 mg 08/22/21 06:14 Midazolam 2 Mg/2 Ml Vial IV 08/22/21 23:00 ONCE PRN Pre-Op Anxiety Intake and Output 08/21/21 08/22/21 08/22/21 22:59 06:59 14:59 Other: Weight 75 kg Patient Weight 08/23/21 06:59 Weight 75 kg
[2021-08-22] MEDS ORDERED: LIDOCAINE 1% INJ 10MG/ML (20 ML MDV) SQ ONE (13:39)
--- NOTE | 2021-08-22 14:03 | P.ANPRN ---
Procedure Note - Anesthesia - Nerve Block Performed Right Supraclavicular Time Out Performed: Yes (:) Date of Procedure: 08/22/21 Procedure Start Time: Procedure Stop Time: Location of Patient: PreOp Indication: Acute Post-Operative Pain, Requested by Surgeon (Dr Vieyra) Sedation Type: Sedate with meaningful contact maintained Preparation: Sterile Prep Position: Supine Catheter: None Needle Types: Pajunk Needle Gauge: Other (see comment) (22g) Ultrasound used to visualize needle placement: Yes Ultrasound used to observe medication spread: Yes Injectate: 0.5% Ropivacaine (see comment for volume) (20cc) Blood Aspirated: No Pain Paresthesia on Injection Noted: No Resistance on Injection: Normal Image Stored and Saved: Yes Events: Uneventful and Well Tolerated
[2021-08-22] MEDS ORDERED: THROMBIN (BOVINE) 5,000 UNIT VIAL TOPICAL ONE (14:48)
[2021-08-22] MEDS ORDERED: GELATIN SPONGE,ABSORB (LARGE) 1 EACH SPONGE TOPICAL ONE (14:49)
--- NOTE | 2021-08-22 15:48 | P.OP ---
Date of Procedure: 08/22/21 Description of Procedure: Preoperative diagnosis: End-stage renal disease Postoperative diagnosis: Same Procedure: [Right upper extremity brachial artery to axillary vein PTFE graft] Surgeon: Layne Vieyra D.O. EBL: [50 mL] IV fluids: [See records] Urine output: [None] Drains: [None] Complications: [None immediately apparent] Condition: [Stable to recovery] Operative indication and findings: [The patient is an 85-year-old male who undergoes dialysis via a right chest wall catheter. Initial attempts were made to create a left upper extremity brachial axillary graft which ultimately thrombosed likely due to small vessel. He presents today for placement of similar in the right upper extremity. Risks and benefits were discussed. He seemingly understood and is willing to proceed as such] Procedure in detail: [Patient was taken to the operative suite and placed in supine position. The right upper extremity was prepped and draped in usual sterile fashion. A preprocedure timeout was performed, all parties were in agreement. The brachial pulse was identified just proximal to the antecubital fossa. An incision was made and carried down through subcutaneous tissues. The brachial vein was overlying the artery. The artery was then carefully dissected in circumferential fashion proximally and distally. Attention was then turned towards axillary vein. Ultrasound was utilized to identify the axillary vein and a transverse incision was made. In the axillary fold. It was carried down through the subcu tissue to the level of the vein. It was cleared enough to be occluded with a Satinsky clamp. A 4 x 7 PTFE graft was then placed via a tunnel. The patient was heparinized. Flow was occluded through the brachial artery. An arteriotomy is made and enlarged with Key scissors. The graft was cut to size and an anastomosis was created with running sutures of 6-0 Prolene. Prior to completion anastomosis the artery was allowed to backbleed and forward bleed. The anastomosis was completed. The grafted and occluded distally. The graft was then flushed. The vein was occluded with a Satinsky clamp. A venotomy was performed. It was a larger the Key-Russo scissors. The graft was cut to size. An anastomosis created using 6-0 Prolene. Prior to completion of the anastomosis the vein was allowed to backbleed. The anastomosis was completed. Hemostasis at both sites was achieved with interrupted sutures of 6-0 Prolene as well as thrombin and Gelfoam. The areas were both copiously irrigated. There was a good thrill with good augmentation through the graft and Doppler showed multiphasic signal proximal and distally to both anastomoses. Attention is returned closure. The subcutaneous cutaneous tissues were reapproximated with interrupted sutures of 3-0 Vicryl. The skin was reapproximated with running 4-0 Monocryl. Skin glue was applied with a light pressure dressing. The patient was allowed to awaken from anesthesia and transferred to recovery in stable condition having tolerated the procedure well. Plan - Discharge Summary New Discharge Prescriptions: No Action amLODIPine BESYLATE [Norvasc] 10 mg PO DAILY Montelukast [Singulair] 10 mg PO HS atenoloL [Tenormin] 25 mg PO ONCE Atorvastatin Calcium [Lipitor] 20 mg PO HS Fluticasone Propion/Salmeterol [Wixela 500-50 Inhub] 1 puff INHALATION RT-BID Furosemide [Lasix] 80 mg PO BID@0900,1600 #14 tab HYDROcodone/APAP 5-325MG [Beaver 5-325] 1 tab PO Q6HR PRN 3 Days #12 tab PRN Reason: Pain Insulin Glargine,Hum.rec.anlog [Basaglar Kwikpen U-100] 20 unit SQ HS Albuterol Inhaler [Ventolin Hfa Inhaler] 2 puff INHALATION RT-QID PRN PRN Reason: Shortness Of Breath Tiotropium 2.5 Mcg/Puff [Spiriva Respimat 2.5 Mcg] 2 puff INHALATION RT-DAILY hydrALAZINE HCL [Apresoline] 25 mg PO TID #90 tab Melatonin 3 mg PO HS PRN #20 tablet PRN Reason: Insomnia Calcium Acetate [PhosLo] 667 mg PO TID-W/MEALS #90 tab Clopidogrel Bisulfate [Plavix] 75 mg PO DAILY #30 tab Discharge Medication List Montelukast [Singulair] 10 mg PO HS 12/28/14 [History] amLODIPine BESYLATE [Norvasc] 10 mg PO DAILY 12/28/14 [History] atenoloL [Tenormin] 25 mg PO ONCE 12/28/14 [History] Atorvastatin Calcium [Lipitor] 20 mg PO HS 06/07/20 [History] Fluticasone Propion/Salmeterol [Wixela 500-50 Inhub] 1 puff INHALATION RT-BID 09/06/20 [History] Albuterol Inhaler [Ventolin Hfa Inhaler] 2 puff INHALATION RT-QID PRN 01/24/21 [History] Tiotropium 2.5 Mcg/Puff [Spiriva Respimat 2.5 Mcg] 2 puff INHALATION RT-DAILY 01/24/21 [History] Calcium Acetate [PhosLo] 667 mg PO TID-W/MEALS #90 tab 02/11/21 [Rx] Furosemide [Lasix] 80 mg PO BID@0900,1600 #14 tab 02/11/21 [Rx] Melatonin 3 mg PO HS PRN #20 tablet 02/11/21 [Rx] hydrALAZINE HCL [Apresoline] 25 mg PO TID #90 tab 02/11/21 [Rx] HYDROcodone/APAP 5-325MG [Beaver 5-325] 1 tab PO Q6HR PRN 3 Days #12 tab 05/30/21 [Rx] Clopidogrel Bisulfate [Plavix] 75 mg PO DAILY #30 tab 06/12/21 [Rx] Insulin Glargine,Hum.rec.anlog [Yuridiaaglbrianda Mcclellan U-100] 20 unit SQ HS 06/12/21 [History]
[2021-08-22 16:13] LABS: Glucose,Whole Blood 97 mg/dL (75-99)
[2021-08-22] MEDS ORDERED: SODIUM CHLORIDE 0.9% 1,000 ML IV SCH (18:00)
[2021-08-22] MEDS: LACTATED RINGERS 1,000 ML IV SCH (19:43)
[2021-08-22 19:46] VITALS: RESP 18
[2021-08-23] MEDS: LACTATED RINGERS 1,000 ML IV SCH (05:46)
--- NOTE | 2021-08-23 14:25 | P.PN ---
Subjective Progress Note Date: 08/23/21 This is a pleasant 85-year-old male past medical history significant for end- stage renal disease on hemodialysis, hypertension, type 2 diabetes, COPD, asthma, hyperlipidemia, former smoker. 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 He denies any history of [place], stroke, coronary artery disease. We have been asked to see in consultation for PVCs on cardiac telemetry and surgical clearance. Patient presents to the hospital for planned right brachial to axillary AV graft with Dr. Vieyra. Patient placed on monitoring engineer and there was concern for frequent PVCs and possible pauses. EKG performed which revealed sinus bradycardia, heart rate 55, bundle-branch block, T wave inversion in lead III. Prior EKG and 01/2021 with similar findings. Rhythm strips reviewed patient in sinus rhythm, RBBB, occasional PVCs no pauses noted. Patient denies any chest pain, shortness of breath, palpitations, lightheadedness, dizziness, syncope or pre syncope. BMP revealed sodium 140, potassium 4.2, BUN 51, serum creatinine 5.4. Cardiac medications at home include hydralazine 25 mg 3 times a day, atenolol 25 mg daily, amlodipine 10 mg daily, Lasix 80 mg twice a day, Plavix 75 mg daily, atorvastatin 20 mg nightly 08/23/2021 The patient Was seen and examined this morning resting comfortably in bed. He underwent right AV graft by Dr. Vieyra yesterday. He is asymptomatic from a cardiac standpoint. 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 Pressure runs low but is stable. Objective - Vital Signs Vital signs: Vital Signs Temp 98.1 F 08/23/21 07:00 Pulse 65 08/23/21 08:00 Resp 18 08/23/21 08:00 BP 93/41 08/23/21 07:00 Pulse Ox 95 08/23/21 07:00 Intake & Output 08/22/21 08/23/21 08/23/21 18:59 06:59 18:59 Intake Total 600 Output Total 50 200 Balance 550 -200 Weight 75 kg Intake: IV 600 Output: Drainage 200 Right Abdomen 200 Estimated Blood Loss 50 - Exam PHYSICAL EXAMINATION: HEENT: Head is atraumatic, normocephalic. Pupils equal, round. Neck is supple. There is no elevated jugular venous pressure. HEART EXAMINATION: Heart sounds regular, S1 and S2 normal. No murmur or gallop heard. CHEST EXAMINATION: Lungs are clear to auscultation and precussion. No chest wall tenderness is noted on palpation or with deep breathing. ABDOMEN: Soft, nontender. Bowel sounds are heard. No organomegaly noted. EXTREMITIES: 2+ peripheral pulses with no evidence of peripheral edema and no calf tenderness noted. Dressing and wrapped noted to right upper extremity. NEUROLOGIC patient is awake, alert and oriented x3. . - Labs CBC & Chem 7: 08/22/21 12:10 Assessment and Plan Assessment: Isolated PVCs Plan for right brachial to axillary AV graft today 08/22/21 End-stage renal disease on hemodialysis Hypertension Type 2 diabetes COPD/Asthma Hyperlipidemia Former smoker Plan: From cardiology's perspective there are no signs of significant arrhythmia are positive. Upon examination patient does not have any evidence of significant ectopy on auscultation. At the spot will follow the patient on an as-needed basis. Please do not hesitate to contact us with questions. The above dictated assessment and findings were discussed with signing physician. The impression and plan of care have been directed as dictated. Monie Luevano, Nurse Practitioner, acting as scribe for signing physician.
--- NOTE | 2021-08-23 14:54 | CONS ---
CONSULTATION REASON FOR CONSULT: End-stage renal disease. HISTORY OF PRESENT ILLNESS: Patient is an 85-year-old male with end-stage renal disease, maintained on hemodialysis on a Wednesday, , Wednesday schedule. The patient was admitted to the hospital for placement of an AV graft which was placed yesterday in his right upper arm. The patient also has right-sided IJ catheter. Currently, he is scheduled for hemodialysis today. He denies any significant complaints. He is feeling well and normal movement in his right arm. PAST MEDICAL HISTORY: End-stage renal disease, CKD mineral bone disorder, asthma, COPD, type 2 diabetes, hyperlipidemia, history of varicose veins, osteoarthritis, skin cancer, BPH, history of plasmacytoma, history of ESBL UTI. PAST SURGICAL HISTORY: Radical prostatectomy, bladder surgery, partial hip arthroplasty, radical cystectomy, urostomy, colonoscopy. SOCIAL HISTORY: Patient is a former smoker. No history of drug abuse or alcohol abuse. MEDICATIONS: Medications prior to admission included: Hydralazine, Tenormin, amlodipine, and melatonin, Lasix, Plavix, PhosLo, Lipitor. EXAMINATION: Today patient is comfortable, awake, not in any acute distress. Blood pressure 93/41, heart rate 65 per minute. He is afebrile. Examination of the heart S1, S2. Examination of the lungs, bilateral breath sounds are heard. Abdomen is soft, nontender. Examination lower extremities shows no evidence of edema. APPLICATION PROGRAMMER ANALYST exam grossly intact. LAB: Show sodium 140, potassium 4.2, chloride 103, BUN 51, serum creatinine 5.49. ASSESSMENT: 1. End-stage renal disease maintained on hemodialysis on a Wednesday, , Wednesday schedule. We will arrange for hemodialysis today. 2. Status post right arm AV graft. 3. CKD mineral bone disorder. PLAN: Hemodialysis today. No significant ultrafiltration. Blood pressure is on the lower side. Resume phosphate binders. Hold antihypertensive medications. Patient may need midodrine during treatment. He can be discharged if stable after dialysis today. Thank you for this consultation. REBECCA / ANATOLYN: [id number] /
[2021-08-23 15:06] VITALS: BP 106/51; PULSE 69; TEMP 97.6
== END 2021-08-23 18:35 | disposition home or self-care (01) ==
LOC: OR 09:33 → 6NMEDSUR 18:19 → OR 08-23 18:35
PROVIDERS: ATTEND Surgery
DX: E11.22 Type 2 diabetes mellitus with diabetic chronic kidney disease (principal); I12.0 Hypertensive chronic kidney disease with stage 5 chronic kidney disease or end stage renal disease; N18.6 End stage renal disease; Z99.2 Dependence on renal dialysis; E78.5 Hyperlipidemia, unspecified; R00.1 Bradycardia, unspecified; I45.10 Unspecified right bundle-branch block; J44.9 Chronic obstructive pulmonary disease, unspecified; M19.90 Unspecified osteoarthritis, unspecified site; N40.0 Benign prostatic hyperplasia without lower urinary tract symptoms; Z86.19 Personal history of other infectious and parasitic diseases; M89.8X9 Other specified disorders of bone, unspecified site; Z87.891 Personal history of nicotine dependence; I25.2 Old myocardial infarction; Z87.820 Personal history of traumatic brain injury; I49.3 Ventricular premature depolarization; I25.10 Atherosclerotic heart disease of native coronary artery without angina pectoris; Z98.890 Other specified postprocedural states; Z85.79 Personal history of other malignant neoplasms of lymphoid, hematopoietic and related tissues; Z90.79 Acquired absence of other genital organ(s); Z97.2 Presence of dental prosthetic device (complete) (partial); Z85.828 Personal history of other malignant neoplasm of skin; Z87.81 Personal history of (healed) traumatic fracture; Z85.89 Personal history of malignant neoplasm of other organs and systems; Z80.6 Family history of leukemia; Z79.4 Long term (current) use of insulin; Z79.02 Long term (current) use of antithrombotics/antiplatelets; Z79.899 Other long term (current) drug therapy; Z91.013 Allergy to seafood
CPT/HCPCS: 36830; 64415; 76942; 80048; L8670; J2250; J1200; J1644; J1100; J0690; J2405; J2001; J3010; J2795; J2370; J2704; 64999

== ENCOUNTER 2021-08-27 16:31 | Inpatient (IN) | payer MEDICARE, BC ==
[2021-08-27] MEDS ORDERED: ACETAMINOPHEN TAB 500 MG TAB PO STA (16:43)
--- NOTE | 2021-08-27 16:47 | ED ---
General Adult HPI - General Chief complaint: Shortness of Breath Stated complaint: JAHAIRA Time Seen by Provider: 08/27/21 16:34 Source: patient, EMS, RN notes reviewed Mode of arrival: EMS Limitations: physical limitation - History of Present Illness Initial comments: This an 85-year-old male presents emergency department via EMS chief complaint generalized weakness, shortness of breath. Patient states he's not exactly sure why doesn't feel well patient is noted have a fever 101.7. Patient does have ERSD, had recent fistula of the right arm by Dr. Vieyra. Patient states he has a slight cough, increasing shortness of breath denies any leg swelling or usual. Patient has noted urostomy. Patient has urostomy from prior bladder cancer. Patient does have a history of hypertension hyperlipidemia diabetes. Patient denies any sick contacts. Denies localized pain states are still is very sore from the procedure. Patient denies nausea vomiting. Patient's last dialysis was on Wednesday in the hospital. Patient states he attempted go on Wednesday but was too weak. - Related Data Home Medications Medication Instructions Recorded Confirmed Montelukast [Singulair] 10 mg PO DAILY 12/28/14 08/27/21 amLODIPine BESYLATE [Norvasc] 10 mg PO DAILY 12/28/14 08/27/21 atenoloL [Tenormin] 25 mg PO DAILY 12/28/14 08/27/21 Atorvastatin Calcium [Lipitor] 20 mg PO HS 06/07/20 08/27/21 Albuterol Inhaler [Ventolin Hfa 2 puff INHALATION RT-QID PRN 01/24/21 08/27/21 Inhaler] Insulin Glargine,Hum.rec.anlog 20 unit SQ HS 06/12/21 08/27/21 [Basaglar Kwikpen U-100] Albuterol Nebulized [Ventolin 2.5 mg INHALATION RT-Q6H PRN 08/27/21 08/27/21 Nebulized] Calcium Acetate [PhosLo] 1,334 mg PO TID-W/MEALS 08/27/21 08/27/21 Fluticasone/Vilanterol [Breo 1 puff INHALATION RT-DAILY 08/27/21 08/27/21 Ellipta 200-25 Mcg Inhaler] Furosemide [Lasix] 80 mg PO BID 08/27/21 08/27/21 HYDROcodone/APAP 5-325MG [[place] 1 tab PO Q6H PRN 08/27/21 08/27/21 5-325] Nephro-Yovany 0.8mg 1 tab PO DAILY 08/27/21 08/27/21 Previous Rx's Medication Instructions Recorded Clopidogrel Bisulfate [Plavix] 75 mg PO DAILY #30 tab 06/12/21 Allergies Allergy/AdvReac Type Severity Reaction Status Date / Time shellfish derived [Shellfish] Allergy Mild Rash/Hives Verified 08/27/21 18:17 "if consumes alot," per patient Review of Systems ROS Statement: Those systems with pertinent positive or pertinent negative responses have been documented in the HPI. ROS Other: All systems not noted in ROS Statement are negative. Past Medical History Past Medical History: Asthma, Cancer, COPD, Diabetes Mellitus, Hyperlipidemia, Hypertension, Osteoarthritis (OA), Prostate Disorder Additional Past Medical History / Comment(s): VARICOSE VEINS; ARTHRITIS BACK, NECK; HX PROSTATE, BLADDER, (4 -5 years ago) & SKIN CANCER (4-5 yrs ago) , PLASMACYTOMA LEFT FEMUR- CANCERS. PNEUMONIA 04/01/15. HAS UROSTOMY , FX RT HIP -2017." RENAL DISEASE-Hemodialysis [facility] Last Myocardial Infarction Date:: 2012- UNSURE- STATES DISCOVERED ON EKG. History of Any Multi-Drug Resistant Organisms: ESBL Date of last positivie culture/infection: 03/26/2015 MDRO Source:: Urine- E.coli ESBL Past Surgical History: Bladder Surgery, Joint Replacement, Prostate Surgery Additional Past Surgical History / Comment(s): EXC LEFT FEMUR CANCER; CHEST TUMOR EXC; RADICAL PROSTATECTOMY 07/2004. , ROBOTIC RADICAL CYSTECTOMY 02/2015- UROSTOMY, COLONOSCOPY, PARTIAL RT HIP REPLACEMENT Past Anesthesia/Blood Transfusion Reactions: No Reported Reaction Past Psychological History: No Psychological Hx Reported Smoking Status: Former smoker Past Alcohol Use History: None Reported Past Drug Use History: None Reported - Past Family History Son(s) Family Medical History: Cancer Additional Family Medical History / Comment(s): LEUKEMIA General Exam General appearance: alert, in no apparent distress Head exam: Present: atraumatic, normocephalic, normal inspection Eye exam: Present: normal appearance, PERRL, EOMI. Absent: scleral icterus, conjunctival injection, periorbital swelling ENT exam: Present: normal exam, normal oropharynx, mucous membranes moist Neck exam: Present: normal inspection, full ROM. Absent: tenderness, mening ismus, lymphadenopathy Respiratory exam: Present: wheezes, decreased breath sounds. Absent: normal lung sounds bilaterally, respiratory distress, rales, rhonchi, stridor Cardiovascular Exam: Present: regular rate, normal rhythm, normal heart sounds. Absent: systolic murmur, diastolic murmur, rubs, gallop, clicks GI/Abdominal exam: Present: soft, normal bowel sounds. Absent: distended, tenderness, guarding, rebound, rigid, other (Old surgical scars noted, urostomy noted) Extremities exam: Present: other (Right arm there is swelling noted, recent procedure, old dried blood, ecchymosis) Neurological exam: Present: alert, oriented X3 Skin exam: Present: warm, dry, intact, normal color. Absent: rash Course Vital Signs 08/27/21 16:36 Temperature 101.7 F H Pulse Rate 82 Respiratory 16 Rate Blood Pressure 151/69 O2 Sat by Pulse 95 Oximetry Medical Decision Making - Medical Decision Making 85-year-old male present emergency department for last weakness and fever. Patient's found to be hyperkalemic, elevated Creatinine, BUN are elevated, processes mildly elevated. Patient has not had dialysis since Wednesday. Case is discussed with Dr. Berger on-call for nephrology recommended hyperkalemic cocktail, patient will go for dialysis tonight. Patient case discussed with admitting will have infectious disease consult, vascular consult. Patient did have blood cultures was started on broad-spectrum antibiotics. - Lab Data Result diagrams: 08/27/21 16:58 08/27/21 16:58 Lab Results 08/27/21 08/27/21 08/27/21 Range/Units 16:58 16:58 16:58 WBC 8.2 (3.8-10.6) k/uL RBC 3.44 L (4.30-5.90) m/uL Hgb 10.5 L (13.0-17.5) gm/dL Hct 32.2 L (39.0-53.0) % MCV 93.6 (80.0-100.0) fL MCH 30.5 (25.0-35.0) pg MCHC 32.6 (31.0-37.0) g/dL RDW 15.4 (11.5-15.5) % Plt Count 226 (150-450) k/uL MPV 7.6 Neutrophils % 89 % Lymphocytes % 4 % Monocytes % 5 % Eosinophils % 0 % Basophils % 0 % Neutrophils # 7.3 (1.3-7.7) k/uL Lymphocytes # 0.3 L (1.0-4.8) k/uL Monocytes # 0.4 (0-1.0) k/uL Eosinophils # 0.0 (0-0.7) k/uL Basophils # 0.0 (0-0.2) k/uL PT 9.6 (9.0-12.0) sec INR 0.9 (<1.2) APTT 18.8 L (22.0-30.0) sec Sodium 135 L (137-145) mmol/L Potassium 6.8 H* (3.5-5.1) mmol/L Chloride 102 (98-107) mmol/L Carbon Dioxide 15 L (22-30) mmol/L Anion Gap 18 mmol/L BUN 113 H* (9-20) mg/dL Creatinine 9.76 H* (0.66-1.25) mg/dL Est GFR (CKD-EPI)AfAm 5 (>60 ml/min/1.73 sqM) Est GFR (CKD-EPI)NonAf 4 (>60 ml/min/1.73 sqM) Glucose 150 H (74-99) mg/dL Plasma Lactic Acid Von (0.7-2.0) mmol/L Calcium 9.0 (8.4-10.2) mg/dL Phosphorus 6.5 H (2.5-4.5) mg/dL Magnesium 2.5 H (1.6-2.3) mg/dL Total Bilirubin 0.4 (0.2-1.3) mg/dL AST 16 L (17-59) U/L ALT <6 (4-49) U/L Alkaline Phosphatase 86 (38-126) U/L NT-Pro-B Natriuret Pep pg/mL Total Protein 6.7 (6.3-8.2) g/dL Albumin 3.6 (3.5-5.0) g/dL Coronavirus (PCR) (Not Detectd) 08/27/21 08/27/21 08/27/21 Range/Units 16:58 16:58 16:58 WBC (3.8-10.6) k/uL RBC (4.30-5.90) m/uL Hgb (13.0-17.5) gm/dL Hct (39.0-53.0) % MCV (80.0-100.0) fL MCH (25.0-35.0) pg MCHC (31.0-37.0) g/dL RDW (11.5-15.5) % Plt Count (150-450) k/uL MPV Neutrophils % % Lymphocytes % % Monocytes % % Eosinophils % % Basophils % % Neutrophils # (1.3-7.7) k/uL Lymphocytes # (1.0-4.8) k/uL Monocytes # (0-1.0) k/uL Eosinophils # (0-0.7) k/uL Basophils # (0-0.2) k/uL PT (9.0-12.0) sec INR (<1.2) APTT (22.0-30.0) sec Sodium (137-145) mmol/L Potassium (3.5-5.1) mmol/L Chloride (98-107) mmol/L Carbon Dioxide (22-30) mmol/L Anion Gap mmol/L BUN (9-20) mg/dL Creatinine (0.66-1.25) mg/dL Est GFR (CKD-EPI)AfAm (>60 ml/min/1.73 sqM) Est GFR (CKD-EPI)NonAf (>60 ml/min/1.73 sqM) Glucose (74-99) mg/dL Plasma Lactic Acid Von 1.1 (0.7-2.0) mmol/L Calcium (8.4-10.2) mg/dL Phosphorus (2.5-4.5) mg/dL Magnesium (1.6-2.3) mg/dL Total Bilirubin (0.2-1.3) mg/dL AST (17-59) U/L ALT (4-49) U/L Alkaline Phosphatase (38-126) U/L NT-Pro-B Natriuret Pep 53689 pg/mL Total Protein (6.3-8.2) g/dL Albumin (3.5-5.0) g/dL Coronavirus (PCR) Not Detected (Not Detectd) Critical Care Time Critical Care Time: Yes Total Critical Care Time: 35 Disposition Clinical Impression: Acute on chronic renal failure, Hyperkalemia, Fever, Weakness, Status post creation of arteriovenous fistula Disposition: ADMITTED IP TO THIS [facility] Condition: Serious Referrals: Kev Queen MD [Primary Care Provider] - 1-2 days
[2021-08-27 17:19] LABS: Basophils % (A) 0 %; Eosinophils % (A) 0 %; HCT 32.2 % (39.0-53.0); HGB 10.5 gm/dL (13.0-17.5); Lymphocytes # (A) 0.3 k/uL (1.0-4.8); Lymphocytes % (A) 4 %; MCH 30.5 pg (25.0-35.0); MCHC 32.6 g/dL (31.0-37.0); MCV 93.6 fL (80.0-100.0); Mean Platelet Volume 7.6; Monocytes # (A) 0.4 k/uL (0-1.0); Monocytes % (A) 5 %; Neutrophils # (A) 7.3 k/uL (1.3-7.7); Neutrophils % (A) 89 %; Platelet Count 226 k/uL (150-450); RBC 3.44 m/uL (4.30-5.90); RDW 15.4 % (11.5-15.5); WBC 8.2 k/uL (3.8-10.6)
[2021-08-27 17:37] LABS: ALT <6 U/L (4-49); AST 16 U/L (17-59); African American GFR (CKD) 5 (>60 ml/min/1.73 sqM); Albumin 3.6 g/dL (3.5-5.0); Alkaline Phosphatase 86 U/L (38-126); Anion Gap 18 mmol/L; Carbon Dioxide 15 mmol/L (22-30); Chloride 102 mmol/L (98-107); Glucose 150 mg/dL (74-99); Magnesium 2.5 mg/dL (1.6-2.3); Non-African American GFR(CKD) 4 (>60 ml/min/1.73 sqM); Phosphorus 6.5 mg/dL (2.5-4.5); Sodium 135 mmol/L (137-145); Total Bilirubin 0.4 mg/dL (0.2-1.3); Total Protein 6.7 g/dL (6.3-8.2)
[2021-08-27 17:47] LABS: Blood Urea Nitrogen 113 mg/dL (9-20); Potassium 6.8 mmol/L (3.5-5.1)
--- NOTE | 2021-08-27 17:58 | XR ---
EXAMINATION TYPE: XR chest 2V DATE OF EXAM: 08/27/2021 COMPARISON: 02/10/2021 HISTORY: Weakness TECHNIQUE: 2 views FINDINGS: There is right central venous catheter with tip in the top of the right atrium. There is bl unting right costophrenic angle. There is no gross heart failure. Heart appears slightly enlarged. Th ere chest leads. There are no hilar masses. IMPRESSION: Pleural diaphragmatic reaction right lung base. Pleural fluid improved compared to last e xam. There is improvement in the pulmonary congestion compared to old exam. No obvious heart failure.
[2021-08-27 18:14] LABS: INR 0.9 (<1.2); Prothrombin Time 9.6 sec (9.0-12.0)
[2021-08-27 18:15] LABS: Partial Thromboplastin Time 18.8 sec (22.0-30.0)
[2021-08-27] MEDS ORDERED: PIPERACILLIN-TAZOBACTAM 3.375 GM in SODIUM CHLORIDE 0.9% 100 ML IVPB STA (18:16)
[2021-08-27] MEDS ORDERED: VANCOMYCIN IV PER PHARMACY 1 EACH MISC MISCELLANE PRN (18:17)
[2021-08-27] MEDS ORDERED: VANCOMYCIN 1,500 MG in SODIUM CHLORIDE 0.9% 250 ML IVPB STA (18:21)
[2021-08-27] MEDS ORDERED: DEXTROSE 50% SYRINGE 50 ML IVP STA (18:25)
[2021-08-27] MEDS ORDERED: INSULIN REGULAR 100 UNIT/ML VIAL (IV) IV ONE (18:26)
[2021-08-27] MEDS ORDERED: ACETAMINOPHEN TAB 325 MG TAB PO PRN (18:30)
[2021-08-27] MEDS ORDERED: NALOXONE 0.4 MG/ML 1 ML VIAL IV PRN (18:30)
[2021-08-27] MEDS ORDERED: ONDANSETRON 4 MG/2 ML VIAL IVP PRN (18:30)
[2021-08-27] MEDS ORDERED: CALCIUM GLUCONATE 1 GM in SODIUM CHLORIDE 0.9% 100 ML IVPB ONE (18:45)
[2021-08-27 18:55] LABS: Appearance,Urine Cloudy (Clear); Bacteria,Urine Many /hpf; Bilirubin,Urine Negative (Negative); Blood,Urine Trace (Negative); Color,Urine Yellow; Glucose,Urine (UA) Negative (Negative); Ketones,Urine Negative (Negative); Leukocyte Esterase,Urine Large (Negative); Mucus,Urine Rare /hpf; Nitrite,Urine Negative (Negative); PH, Urine 6.5 (5.0-8.0); Protein,Urine 2+ (Negative); RBC,Urine 9 /hpf (0-5); Specific Gravity,Urine 1.012 (1.001-1.035); WBC,Urine 119 /hpf (0-5)
[2021-08-28] MEDS ORDERED: HYDROcodone/APAP 5-325MG 1 EACH TAB PO STA (04:00)
[2021-08-28 06:44] LABS: HCT 27.7 % (39.0-53.0); Hypochromasia Slight; MCH 30.2 pg (25.0-35.0); MCHC 32.2 g/dL (31.0-37.0); MCV 93.8 fL (80.0-100.0); Mean Platelet Volume 7.8; Platelet Count 195 k/uL (150-450); RBC 2.96 m/uL (4.30-5.90); RDW 14.9 % (11.5-15.5); WBC 11.1 k/uL (3.8-10.6)
[2021-08-28 06:52] LABS: Chloride 104 mmol/L (98-107)
[2021-08-28 06:53] LABS: ALT <6 U/L (4-49); AST 14 U/L (17-59); African American GFR (CKD) 5 (>60 ml/min/1.73 sqM); Albumin 2.9 g/dL (3.5-5.0); Albumin/Globulin Ratio 1.1; Alkaline Phosphatase 69 U/L (38-126); Anion Gap 17 mmol/L; Calcium 8.6 mg/dL (8.4-10.2); Carbon Dioxide 12 mmol/L (22-30); Globulin 2.7 g/dL; Glucose 97 mg/dL (74-99); Non-African American GFR(CKD) 4 (>60 ml/min/1.73 sqM); Sodium 133 mmol/L (137-145); Total Bilirubin 0.3 mg/dL (0.2-1.3); Total Protein 5.6 g/dL (6.3-8.2)
[2021-08-28 06:56] LABS: HGB 8.9 gm/dL (13.0-17.5)
[2021-08-28 07:27] LABS: Blood Urea Nitrogen 117 mg/dL (9-20); Potassium 6.5 mmol/L (3.5-5.1)
[2021-08-28] MEDS ORDERED: SODIUM BICARB 8.4% 50 ML SYR (1 MEQ/ML) IV STA ×2 (08:20→08:31)
[2021-08-28] MEDS ORDERED: CALCIUM GLUCONATE 1 GM in SODIUM CHLORIDE 0.9% 100 ML IVPB ONE (08:22)
[2021-08-28] MEDS ORDERED: ALBUTEROL NEBULIZED 2.5 MG/3 ML INHALATION PRN (10:59)
--- NOTE | 2021-08-28 11:00 | P.NPCON ---
History of Present Illness - Reason for Consult end stage renal disease - History of Present Illness Reason for consultation: End-stage renal disease History of present illness: Patient is a 85-year-old male seen in renal consultation for end-stage renal disease. He is maintained on hemodialysis on Wednesday schedule. Patient missed Wednesday and 2 sisters treatment and came to the hosp ital yesterday with generalized weakness and shortness of breath. Patient is not a reliable historian. He was febrile but temperature of 1 and 1.7F on admission. Patient has a urostomy. Potassium level was elevated at 6.5 which was medically treated. I had ordered urgent hemodialysis at the time of admission but he did not receive dialysis last night. He is being dialyzed this morning. He tested negative for coronavirus. Blood pressures fairly stable. Cultures are pending. Patient only mumbles and is not able to provide much history. Vital signs are stable. General: On nasal cannula. HEENT: Head exam is unremarkable. LUNGS: Breath sounds decreased. HEART: Rate and Rhythm are regular. ABDOMEN: Soft, no distention. Urostomy noted. EXTREMITITES: No edema. Past Medical History Past Medical History: Asthma, Cancer, COPD, Diabetes Mellitus, Hyperlipidemia, Hypertension, Osteoarthritis (OA), Prostate Disorder Additional Past Medical History / Comment(s): VARICOSE VEINS; ARTHRITIS BACK, NECK; HX PROSTATE, BLADDER, (4 -5 years ago) & SKIN CANCER (4-5 yrs ago) , PLASMACYTOMA LEFT FEMUR- CANCERS. PNEUMONIA 04/01/15. HAS UROSTOMY , FX RT HIP -2017." RENAL DISEASE-Hemodialysis [place] Last Myocardial Infarction Date:: 2012- UNSURE- STATES DISCOVERED ON EKG. History of Any Multi-Drug Resistant Organisms: ESBL Date of last positivie culture/infection: 03/26/2015 MDRO Source:: Urine- E.coli ESBL Past Surgical History: Bladder Surgery, Joint Replacement, Prostate Surgery Additional Past Surgical History / Comment(s): EXC LEFT FEMUR CANCER; CHEST TUMOR EXC; RADICAL PROSTATECTOMY 07/2004. , ROBOTIC RADICAL CYSTECTOMY 02/2015- UROSTOMY, COLONOSCOPY, PARTIAL RT HIP REPLACEMENT Past Anesthesia/Blood Transfusion Reactions: No Reported Reaction Past Psychological History: No Psychological Hx Reported Smoking Status: Former smoker Past Alcohol Use History: None Reported Additional Past Alcohol Use History / Comment(s): STARTED AGE 14 QUIT 1957 SMOKED 1PPD Past Drug Use History: None Reported - Past Family History Son(s) Family Medical History: Cancer Additional Family Medical History / Comment(s): LEUKEMIA Medications and Allergies Home Medications Medication Instructions Recorded Confirmed Type Montelukast [Singulair] 10 mg PO DAILY 12/28/14 08/27/21 History amLODIPine BESYLATE [Norvasc] 10 mg PO DAILY 12/28/14 08/27/21 History atenoloL [Tenormin] 25 mg PO DAILY 12/28/14 08/27/21 History Atorvastatin Calcium [Lipitor] 20 mg PO HS 06/07/20 08/27/21 History Albuterol Inhaler [Ventolin Hfa 2 puff INHALATION RT-QID PRN 01/24/21 08/27/21 History Inhaler] Clopidogrel Bisulfate [Plavix] 75 mg PO DAILY #30 tab 06/12/21 08/27/21 Rx Insulin Glargine,Hum.rec.anlog 20 unit SQ HS 06/12/21 08/27/21 History [Kermit Mcclellan U-100] Albuterol Nebulized [Ventolin 2.5 mg INHALATION RT-Q6H PRN 08/27/21 08/27/21 History Nebulized] Calcium Acetate [PhosLo] 1,334 mg PO TID-W/MEALS 08/27/21 08/27/21 History Fluticasone/Vilanterol [Breo 1 puff INHALATION RT-DAILY 08/27/21 08/27/21 History Ellipta 200-25 Mcg Inhaler] Furosemide [Lasix] 80 mg PO BID 08/27/21 08/27/21 History HYDROcodone/APAP 5-325MG [[place] 1 tab PO Q6H PRN 08/27/21 08/27/21 History 5-325] Nephro-Yovany 0.8mg 1 tab PO DAILY 08/27/21 08/27/21 History Allergies Allergy/AdvReac Type Severity Reaction Status Date / Time shellfish derived [Shellfish] Allergy Mild Rash/Hives Verified 08/27/21 18:17 "if consumes alot," per patient Physical Exam Vitals: Vital Signs Temp Pulse Pulse Resp BP BP BP 08/28/21 06:11 70 106/51 08/27/21 23:17 97.9 F 72 16 125/63 08/27/21 21:39 97.8 F 73 16 112/68 08/27/21 19:55 72 16 08/27/21 16:36 101.7 F H 82 16 151/69 Pulse Ox 08/28/21 06:11 08/27/21 23:17 95 08/27/21 21:39 95 08/27/21 19:55 08/27/21 16:36 95 Intake and Output 08/27/21 08/28/21 08/28/21 22:59 06:59 14:59 Intake Total 125 Balance 125 Intake: Intake, IV Titration 125 Amount Vancomycin 1,500 mg In 125 Sodium Chloride 0.9% 250 ml @ 125 mls/hr IVPB ONCE ONE Rx#:[id number] Other: Voiding Method Diaper Ileal Conduit (Right) Weight 79.379 kg Results - Lab Results Most recent lab results Calcium 8.6 mg/dL (8.4-10.2) 08/28/21 06:17 Phosphorus 6.5 mg/dL (2.5-4.5) H 08/27/21 16:58 Magnesium 2.5 mg/dL (1.6-2.3) H 08/27/21 16:58 08/28/21 06:17 08/28/21 06:17 Assessment and Plan Plan: Assessment: 1. End-stage renal disease maintained on hemodialysis on Wednesday schedule. Missed 2 treatments of hemodialysis prior to admission. 2. Hyperkalemia secondary to missed hemodialysis treatment and acidosis. 3. Metabolic acidosis secondary to chronic kidney disease. 4. Anemia of chronic kidney disease. Rule out iron deficiency. 5. History of bladder cancer. Has a urostomy. 6. Chronic kidney disease mineral bone disease. 7. Diabetes mellitus. Plan: Currently receiving hemodialysis. Another treatment tomorrow. Check potassium level 2 hours after dialysis completed. Follow-up cultures. Vancomycin dose to be adjusted for renal function. Check iron studies. Thank you for the consultation. I will continue to follow the patient with you during his hospital stay.
--- NOTE | 2021-08-28 11:49 | P.GSCN ---
History of Present Illness Consult date: 08/28/21 Reason for Consult: Status post fistula procedure Requesting physician: Real Hayes History of present illness: This is a pleasant 85-year-old white male who presented to the emergency department by EMS with a complaint of generalized weakness, shortness of breath and overall not feeling well. On admission he was noted to have a max temp of 101.7. Multiple comorbidities including asthma, COPD, diabetes mellitus, hyperlipidemia, hypertension and end-stage renal disease on hemodialysis. He was recently seen by vascular surgery and had a right upper extremity brachial artery to axillary vein graft done on 08/22/[address] Vieyra. Vascular surgery was consulted evaluating fistula site. The patient is currently undergoing dialysis. He has a right chest wall tunneled catheter in place. He is a Wednesday on dialysis patient however states he did not get his dialysis on Wednesday because he was too weak. Last dialysis was done on Wednesday. He also states he has some right upper extremity pain at the fistula site as well as bleeding. He states his been bleeding for the last 2 days and has been uncomfortable for the last 3 days. Currently denies any chest pain, chills, bodyaches, but is very weak and tired. Review of Systems 14 point review systems was completed all pertinent positives and negatives as stated in the HPI Past Medical History Past Medical History: Asthma, Cancer, COPD, Diabetes Mellitus, Hyperlipidemia, Hypertension, Osteoarthritis (OA), Prostate Disorder Additional Past Medical History / Comment(s): VARICOSE VEINS; ARTHRITIS BACK, NECK; HX PROSTATE, BLADDER, (4 -5 years ago) & SKIN CANCER (4-5 yrs ago) , PLASMACYTOMA LEFT FEMUR- CANCERS. PNEUMONIA 04/01/15. HAS UROSTOMY , FX RT HIP -2017." RENAL DISEASE-Hemodialysis [facility] Last Myocardial Infarction Date:: 2012- UNSURE- STATES DISCOVERED ON EKG. History of Any Multi-Drug Resistant Organisms: ESBL Year Discovered:: 03/26/2015 MDRO Source:: Urine- E.coli ESBL Past Surgical History: Bladder Surgery, Joint Replacement, Prostate Surgery Additional Past Surgical History / Comment(s): EXC LEFT FEMUR CANCER; CHEST TUMOR EXC; RADICAL PROSTATECTOMY 07/2004. , ROBOTIC RADICAL CYSTECTOMY 02/2015- UROSTOMY, COLONOSCOPY, PARTIAL RT HIP REPLACEMENT Past Anesthesia/Blood Transfusion Reactions: No Reported Reaction Past Psychological History: No Psychological Hx Reported Smoking Status: Former smoker Past Alcohol Use History: None Reported Additional Past Alcohol Use History / Comment(s): STARTED AGE 14 QUIT 8 SMOKED 1PPD Past Drug Use History: None Reported - Past Family History Son(s) Family Medical History: Cancer Additional Family Medical History / Comment(s): LEUKEMIA Medications and Allergies Home Medications Medication Instructions Recorded Confirmed Type Montelukast [Singulair] 10 mg PO DAILY 12/28/14 08/27/21 History amLODIPine BESYLATE [Norvasc] 10 mg PO DAILY 12/28/14 08/27/21 History atenoloL [Tenormin] 25 mg PO DAILY 12/28/14 08/27/21 History Atorvastatin Calcium [Lipitor] 20 mg PO HS 06/07/20 08/27/21 History Albuterol Inhaler [Ventolin Hfa 2 puff INHALATION RT-QID PRN 01/24/21 08/27/21 History Inhaler] Clopidogrel Bisulfate [Plavix] 75 mg PO DAILY #30 tab 06/12/21 08/27/21 Rx Insulin Glargine,Hum.rec.anlog 20 unit SQ HS 06/12/21 08/27/21 History [Basaglar Kwikpen U-100] Albuterol Nebulized [Ventolin 2.5 mg INHALATION RT-Q6H PRN 08/27/21 08/27/21 History Nebulized] Calcium Acetate [PhosLo] 1,334 mg PO TID-W/MEALS 08/27/21 08/27/21 History Fluticasone/Vilanterol [Breo 1 puff INHALATION RT-DAILY 08/27/21 08/27/21 History Ellipta 200-25 Mcg Inhaler] Furosemide [Lasix] 80 mg PO BID 08/27/21 08/27/21 History HYDROcodone/APAP 5-325MG [[place] 1 tab PO Q6H PRN 08/27/21 08/27/21 History 5-325] Nephro-Yovany 0.8mg 1 tab PO DAILY 08/27/21 08/27/21 History Allergies Allergy/AdvReac Type Severity Reaction Status Date / Time shellfish derived [Shellfish] Allergy Mild Rash/Hives Verified 08/27/21 18:17 "if consumes alot," per patient Surgical - Exam Vital Signs Temp Pulse Resp BP Pulse Ox 101.7 F H 82 16 151/69 95 08/27/21 16:36 08/27/21 16:36 08/27/21 16:36 08/27/21 16:36 08/27/21 16:36 General appearance: The patient is alert, oriented, appears in no acute distress. HET: Head is normocephalic and atraumatic. Pupils are equal and reactive. Oropharynx is clear without lesions. Neck: Supple without lymphadenopathy. Trachea midline. Heart: S1 S2. Regular rate and rhythm. Lungs: Diminished breath sounds. Abdomen: Soft, nontender, nondistended. Extremities: Right upper extremity with 3-D large Band-Aids on the forearm and hand. Abraison on forearm with green drainage. Right upper extremity where the fistula creation was has a dressing that is bloody. Dressing removed, there is a palpable thrill. Does not appear to be actively bleeding at this time. Pal pable radial pulse. Full range of motion. Neurological: No focal deficits. Alert and oriented.. Results - Labs 08/28/21 14:48 08/28/21 14:48 Abnormal Lab Results - Last 24 Hours (Table) 08/27/21 08/27/21 08/27/21 Range/Units 16:58 16:58 16:58 WBC (3.8-10.6) k/uL RBC 3.44 L (4.30-5.90) m/uL Hgb 10.5 L (13.0-17.5) gm/dL Hct 32.2 L (39.0-53.0) % Lymphocytes # 0.3 L (1.0-4.8) k/uL APTT 18.8 L (22.0-30.0) sec Sodium (137-145) mmol/L Potassium (3.5-5.1) mmol/L Carbon Dioxide (22-30) mmol/L BUN (9-20) mg/dL Creatinine (0.66-1.25) mg/dL Glucose (74-99) mg/dL Phosphorus (2.5-4.5) mg/dL Magnesium (1.6-2.3) mg/dL AST (17-59) U/L Total Protein (6.3-8.2) g/dL Albumin (3.5-5.0) g/dL Urine Protein 2+ H (Negative) Urine Blood Trace H (Negative) Ur Leukocyte Esterase Large H (Negative) Urine RBC 9 H (0-5) /hpf Urine WBC 119 H (0-5) /hpf Urine WBC Clumps Many H (None) /hpf Urine Bacteria Many H (None) /hpf Urine Mucus Rare H (None) /hpf 08/27/21 08/28/21 08/28/21 Range/Units 16:58 06:17 06:17 WBC 11.1 H (3.8-10.6) k/uL RBC 2.96 L (4.30-5.90) m/uL Hgb 8.9 L D (13.0-17.5) gm/dL Hct 27.7 L (39.0-53.0) % Lymphocytes # (1.0-4.8) k/uL APTT (22.0-30.0) sec Sodium 135 L 133 L (137-145) mmol/L Potassium 6.8 H* 6.5 H* (3.5-5.1) mmol/L Carbon Dioxide 15 L 12 L (22-30) mmol/L BUN 113 H* 117 H* (9-20) mg/dL Creatinine 9.76 H* 10.08 H* (0.66-1.25) mg/dL Glucose 150 H (74-99) mg/dL Phosphorus 6.5 H (2.5-4.5) mg/dL Magnesium 2.5 H (1.6-2.3) mg/dL AST 16 L 14 L (17-59) U/L Total Protein 5.6 L (6.3-8.2) g/dL Albumin 2.9 L (3.5-5.0) g/dL Urine Protein (Negative) Urine Blood (Negative) Ur Leukocyte Esterase (Negative) Urine RBC (0-5) /hpf Urine WBC (0-5) /hpf Urine WBC Clumps (None) /hpf Urine Bacteria (None) /hpf Urine Mucus (None) /hpf Microbiology - Last 24 Hours (Table) 08/27/21 16:58 Urine Culture - Preliminary Urine,Voided Diabetes panel 08/27/21 08/28/21 Range/Units 16:58 06:17 Sodium 135 L 133 L (137-145) mmol/L Potassium 6.8 H* 6.5 H* (3.5-5.1) mmol/L Chloride 102 104 (98-107) mmol/L Carbon Dioxide 15 L 12 L (22-30) mmol/L BUN 113 H* 117 H* (9-20) mg/dL Creatinine 9.76 H* 10.08 H* (0.66-1.25) mg/dL Glucose 150 H 97 (74-99) mg/dL Calcium 9.0 8.6 (8.4-10.2) mg/dL AST 16 L 14 L (17-59) U/L ALT <6 <6 (4-49) U/L Alkaline Phosphatase 86 69 (38-126) U/L Total Protein 6.7 5.6 L (6.3-8.2) g/dL Albumin 3.6 2.9 L (3.5-5.0) g/dL Calcium panel 08/27/21 08/28/21 Range/Units 16:58 06:17 Calcium 9.0 8.6 (8.4-10.2) mg/dL Phosphorus 6.5 H (2.5-4.5) mg/dL Albumin 3.6 2.9 L (3.5-5.0) g/dL Pituitary panel 08/27/21 08/28/21 Range/Units 16:58 06:17 Sodium 135 L 133 L (137-145) mmol/L Potassium 6.8 H* 6.5 H* (3.5-5.1) mmol/L Chloride 102 104 (98-107) mmol/L Carbon Dioxide 15 L 12 L (22-30) mmol/L BUN 113 H* 117 H* (9-20) mg/dL Creatinine 9.76 H* 10.08 H* (0.66-1.25) mg/dL Glucose 150 H 97 (74-99) mg/dL Calcium 9.0 8.6 (8.4-10.2) mg/dL Adrenal panel 08/27/21 08/28/21 Range/Units 16:58 06:17 Sodium 135 L 133 L (137-145) mmol/L Potassium 6.8 H* 6.5 H* (3.5-5.1) mmol/L Chloride 102 104 (98-107) mmol/L Carbon Dioxide 15 L 12 L (22-30) mmol/L BUN 113 H* 117 H* (9-20) mg/dL Creatinine 9.76 H* 10.08 H* (0.66-1.25) mg/dL Glucose 150 H 97 (74-99) mg/dL Calcium 9.0 8.6 (8.4-10.2) mg/dL Total Bilirubin 0.4 0.3 (0.2-1.3) mg/dL AST 16 L 14 L (17-59) U/L ALT <6 <6 (4-49) U/L Alkaline Phosphatase 86 69 (38-126) U/L Total Protein 6.7 5.6 L (6.3-8.2) g/dL Albumin 3.6 2.9 L (3.5-5.0) g/dL - Imaging Chest x-ray: report reviewed (Chest x-ray pleural diaphragmatic reaction right lung base. Pleural fluid improved compared to old exam there is improvement in the pulmonary congestion compared to old exam. No obvious heart failure) Assessment and Plan Assessment: 1. Recent right upper extremity brachial artery to axillary vein PTFE graft 08/22/2021 2. Fever 3. Abrasions to right forearm with drainage 4. Weakness 5. Shortness of breath 6. Acute on chronic renal disease 7. End-stage renal disease on hemodialysis 8. Diabetes mellitus Plan: 1. Keep dressing/pressure applied to the right upper extremity 2. Dialysis per recommendations from nephrology 3. Antibiotics as ordered 4. Wound culture on right forearm abrasions 5. US of right upper extremity to rule out hematoma/seroma 6. Await blood cultures and urine culture 7. Further recommendations forthcoming per vascular surgeon Thank you for this kind referral and the opportunity to participate in the care of your patient. The impression and plan of care has been dictated as directed. Dr. Vieyra I performed a history and examination of this patient, discussed the same with the dictator. I agree with the dictator's note ,documented as a scribe. Any additional findings or plans will be noted.
[2021-08-28 12:52] LABS: Glucose,Whole Blood 93 mg/dL (75-99)
[2021-08-28] MEDS: CALCIUM ACETATE 667 MG TAB PO SCH ×2 (13:45→17:44)
[2021-08-28 15:10] LABS: Basophils % (A) 0 %; Eosinophils # (A) 0.1 k/uL (0-0.7); Eosinophils % (A) 1 %; HCT 28.4 % (39.0-53.0); HGB 9.4 gm/dL (13.0-17.5); Lymphocytes # (A) 0.4 k/uL (1.0-4.8); Lymphocytes % (A) 4 %; MCH 30.5 pg (25.0-35.0); MCHC 33.1 g/dL (31.0-37.0); MCV 92.2 fL (80.0-100.0); Mean Platelet Volume 7.6; Monocytes # (A) 0.6 k/uL (0-1.0); Monocytes % (A) 6 %; Neutrophils # (A) 8.7 k/uL (1.3-7.7); Neutrophils % (A) 87 %; Platelet Count 202 k/uL (150-450); RBC 3.08 m/uL (4.30-5.90); RDW 15.5 % (11.5-15.5); WBC 9.9 k/uL (3.8-10.6)
[2021-08-28 15:18] LABS: African American GFR (CKD) 11 (>60 ml/min/1.73 sqM); Anion Gap 18 mmol/L; Blood Urea Nitrogen 52 mg/dL (9-20); Calcium 8.8 mg/dL (8.4-10.2); Carbon Dioxide 20 mmol/L (22-30); Chloride 99 mmol/L (98-107); Glucose 128 mg/dL (74-99); Non-African American GFR(CKD) 10 (>60 ml/min/1.73 sqM); Potassium 4.7 mmol/L (3.5-5.1); Sodium 137 mmol/L (137-145)
[2021-08-28 17:27] LABS: Glucose,Whole Blood 114 mg/dL (75-99)
[2021-08-28] MEDS ORDERED: VANCOMYCIN 1,500 MG in SODIUM CHLORIDE 0.9% 250 ML IVPB ONE (18:00)
--- NOTE | 2021-08-28 19:03 | US ---
EXAMINATION TYPE: US extremity nonvasc mass RT DATE OF EXAM: 08/28/2021 COMPARISON: NONE CLINICAL HISTORY: RUE fistula, bleeding, swelling. Patients medial upper arm scanned at lump which is also an open wound. Patient unable to abduct arm. At what may be the fistula surrounding tissue is hypoechoic which could possibly represent hematoma o r seroma. . IMPRESSION: Findings of hemorrhage in the area of palpable abnormality near the fistula. Correlate w ith recent intervention. Consider further workup with CTA of the extremity further evaluation.
[2021-08-28 20:04] LABS: Glucose,Whole Blood 211 mg/dL (75-99)
--- NOTE | 2021-08-28 21:31 | P.HPIM ---
History of Present Illness H&P Date: 08/28/21 Chief Complaint: Altered mental status. Patient is a 85-year-old male with a known history of ESRD on hemodialysis TTS via right upper extremity AV fistula, asthma/COPD, hypertension, hyperlipidemia, diabetes type 2, osteoarthritis, history of plasmacytoma left femur and history of ESBL E. coli and prior history of smoking was brought to the hospital by family due to generalized weakness and shortness of breath and altered mental status. Patient is not able to provide much history at this time. Apparently patient missed last 2 sessions of hemodialysis. Patient was febrile on admission with T-max 101.7. Heart rate 82 respirations 16 and pulse ox 95% on room air. Chest x-ray showed pleural diaphragmatic reaction right lung base. Pleural fluid improved compared to last exam. There is improvement in the pulmonary congestion compatible exam. No obvious heart failure. EKG showed normal sinus rhythm. No significant T wave abnormality. No peaked T waves. Laboratory data showed WBC 8.2 hemoglobin 10.5 platelets 226 and lymphocytes 0.3 Sodium 135 potassium 6.8 chloride 102 bicarb is 15 BUN 113 creatinine 9.76 and glucose 150 phosphorus 6.5 AST 16 ALT less than 6 alk [place]os 86 [place] [id number] Urinalysis showed large leukocyte esterase with elevated RBCs and WBCs. Coronavirus PCR not detected. Review of Systems Complete review of systems could not be obtained from the patient. Past Medical History Past Medical History: Asthma, Cancer, COPD, Diabetes Mellitus, Hyperlipidemia, Hypertension, Osteoarthritis (OA), Prostate Disorder Additional Past Medical History / Comment(s): VARICOSE VEINS; ARTHRITIS BACK, NECK; HX PROSTATE, BLADDER, (4 -5 years ago) & SKIN CANCER (4-5 yrs ago) , PLASMACYTOMA LEFT FEMUR- CANCERS. PNEUMONIA 04/01/15. HAS UROSTOMY , FX RT HIP -2017." RENAL DISEASE-Hemodialysis [facility] Last Myocardial Infarction Date:: 2012- UNSURE- STATES DISCOVERED ON EKG. History of Any Multi-Drug Resistant Organisms: ESBL Date of last positivie culture/infection: 03/26/2015 MDRO Source:: Urine- E.coli ESBL Past Surgical History: Bladder Surgery, Joint Replacement, Prostate Surgery Additional Past Surgical History / Comment(s): EXC LEFT FEMUR CANCER; CHEST TUMOR EXC; RADICAL PROSTATECTOMY 07/2004. , ROBOTIC RADICAL CYSTECTOMY 02/2015- UROSTOMY, COLONOSCOPY, PARTIAL RT HIP REPLACEMENT Past Anesthesia/Blood Transfusion Reactions: No Reported Reaction Past Psychological History: No Psychological Hx Reported Smoking Status: Former smoker Past Alcohol Use History: None Reported Additional Past Alcohol Use History / Comment(s): STARTED AGE 14 QUIT 1957 SMOKED 1PPD Past Drug Use History: None Reported - Past Family History Son(s) Family Medical History: Cancer Additional Family Medical History / Comment(s): LEUKEMIA Medications and Allergies Home Medications Medication Instructions Recorded Confirmed Type Montelukast [Singulair] 10 mg PO DAILY 12/28/14 08/27/21 History amLODIPine BESYLATE [Norvasc] 10 mg PO DAILY 12/28/14 08/27/21 History atenoloL [Tenormin] 25 mg PO DAILY 12/28/14 08/27/21 History Atorvastatin Calcium [Lipitor] 20 mg PO HS 06/07/20 08/27/21 History Albuterol Inhaler [Ventolin Hfa 2 puff INHALATION RT-QID PRN 01/24/21 08/27/21 History Inhaler] Clopidogrel Bisulfate [Plavix] 75 mg PO DAILY #30 tab 06/12/21 08/27/21 Rx Insulin Glargine,Hum.rec.anlog 20 unit SQ HS 06/12/21 08/27/21 History [Basaglar Kwikpen U-100] Albuterol Nebulized [Ventolin 2.5 mg INHALATION RT-Q6H PRN 08/27/21 08/27/21 History Nebulized] Calcium Acetate [PhosLo] 1,334 mg PO TID-W/MEALS 08/27/21 08/27/21 History Fluticasone/Vilanterol [Breo 1 puff INHALATION RT-DAILY 08/27/21 08/27/21 History Ellipta 200-25 Mcg Inhaler] Furosemide [Lasix] 80 mg PO BID 08/27/21 08/27/21 History HYDROcodone/APAP 5-325MG [[place] 1 tab PO Q6H PRN 08/27/21 08/27/21 History 5-325] Nephro-Yovany 0.8mg 1 tab PO DAILY 08/27/21 08/27/21 History Allergies Allergy/AdvReac Type Severity Reaction Status Date / Time shellfish derived [Shellfish] Allergy Mild Rash/Hives Verified 08/27/21 18:17 "if consumes alot," per patient Physical Exam Vitals: Vital Signs Temp Pulse Pulse Resp BP BP BP 08/28/21 06:11 70 106/51 08/27/21 23:17 97.9 F 72 16 125/63 08/27/21 21:39 97.8 F 73 16 112/68 08/27/21 19:55 72 16 08/27/21 16:36 101.7 F H 82 16 151/69 Pulse Ox 08/28/21 06:11 08/27/21 23:17 95 08/27/21 21:39 95 08/27/21 19:55 08/27/21 16:36 95 Intake and Output 08/27/21 08/28/21 08/28/21 22:59 06:59 14:59 Intake Total 125 Balance 125 Intake: Intake, IV Titration 125 Amount Vancomycin 1,500 mg In 125 Sodium Chloride 0.9% 250 ml @ 125 mls/hr IVPB ONCE ONE Rx#:[id number] Other: Voiding Method Diaper Ileal Conduit (Right) Weight 79.379 kg PHYSICAL EXAMINATION: Patient is lying in the bed comfortably,Patient is able to open his eyes with verbal commands. Awake alert does not communicate... HEENT: Normocephalic. Neck is supple. Pupils reactive. Nostrils clear. Oral cavity is moist. Neck reveals no JVD, carotid bruits, or thyromegaly. CHEST EXAMINATION: Trachea is central. Symmetrical expansion.Bibasilar diminished sounds. Lung cline clear to auscultation and percussion. CARDIAC: Normal S1, S2 with no gallops. No murmurs ABDOMEN: Soft. Bowel sounds normal. No organomegaly. No abdominal bruits. Extremities: reveal no edema. No clubbing or cyanosis, Left upper extremity fistula with mild serosanguineous oozing. No active bleeding. Neurologically Patient is awake alert and able to respond to verbal stimuli. Lethargic and confused. No gross focal neurological deficit. Skin: No rash or skin lesions. Psychiatric: Could not be assessed completely. Musculoskeletal: No joint swelling or deformity. Normal range of motion. Results CBC & Chem 7: 08/28/21 14:48 08/28/21 14:48 Labs: Abnormal Lab Results - Last 24 Hours (Table) 08/27/21 08/27/21 08/27/21 Range/Units 16:58 16:58 16:58 WBC (3.8-10.6) k/uL RBC 3.44 L (4.30-5.90) m/uL Hgb 10.5 L (13.0-17.5) gm/dL Hct 32.2 L (39.0-53.0) % Lymphocytes # 0.3 L (1.0-4.8) k/uL APTT 18.8 L (22.0-30.0) sec Sodium (137-145) mmol/L Potassium (3.5-5.1) mmol/L Carbon Dioxide (22-30) mmol/L BUN (9-20) mg/dL Creatinine (0.66-1.25) mg/dL Glucose (74-99) mg/dL Phosphorus (2.5-4.5) mg/dL Magnesium (1.6-2.3) mg/dL AST (17-59) U/L Total Protein (6.3-8.2) g/dL Albumin (3.5-5.0) g/dL Urine Protein 2+ H (Negative) Urine Blood Trace H (Negative) Ur Leukocyte Esterase Large H (Negative) Urine RBC 9 H (0-5) /hpf Urine WBC 119 H (0-5) /hpf Urine WBC Clumps Many H (None) /hpf Urine Bacteria Many H (None) /hpf Urine Mucus Rare H (None) /hpf 08/27/21 08/28/21 08/28/21 Range/Units 16:58 06:17 06:17 WBC 11.1 H (3.8-10.6) k/uL RBC 2.96 L (4.30-5.90) m/uL Hgb 8.9 L D (13.0-17.5) gm/dL Hct 27.7 L (39.0-53.0) % Lymphocytes # (1.0-4.8) k/uL APTT (22.0-30.0) sec Sodium 135 L 133 L (137-145) mmol/L Potassium 6.8 H* 6.5 H* (3.5-5.1) mmol/L Carbon Dioxide 15 L 12 L (22-30) mmol/L BUN 113 H* 117 H* (9-20) mg/dL Creatinine 9.76 H* 10.08 H* (0.66-1.25) mg/dL Glucose 150 H (74-99) mg/dL Phosphorus 6.5 H (2.5-4.5) mg/dL Magnesium 2.5 H (1.6-2.3) mg/dL AST 16 L 14 L (17-59) U/L Total Protein 5.6 L (6.3-8.2) g/dL Albumin 2.9 L (3.5-5.0) g/dL Urine Protein (Negative) Urine Blood (Negative) Ur Leukocyte Esterase (Negative) Urine RBC (0-5) /hpf Urine WBC (0-5) /hpf Urine WBC Clumps (None) /hpf Urine Bacteria (None) /hpf Urine Mucus (None) /hpf Microbiology - Last 24 Hours (Table) 08/27/21 16:58 Urine Culture - Preliminary Urine,Voided Thrombosis Risk Factor Assmnt - DVT/VTE Prophylaxis DVT/VTE Prophylaxis: Pharmacologic Prophylaxis ordered - Choose All That Apply Any of the Below Risk Factors Present?: Yes Each Factor Represents 1 point: Obesity (BMI >25) Other Risk Factors: Yes Each Risk Factor Represents 3 Points: Age 75 years or older Other congenital or acquired thrombophilia - If yes, enter type in comment: No Thrombosis Risk Factor Assessment Total Risk Factor Score: 4 Thrombosis Risk Factor Assessment Level: Moderate Risk Assessment and Plan Assessment: Altered mental status possible metabolic encephalopathy. Fever with T-max 101.7 on admission currently afebrile. Possible atelectasis. Follow-up culture reports. Continue on vancomycin ESRD on hemodialysis TTS right upper extremity AV fistula Missed hemodialysis last 2 sessions. 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 Currently has urostomy bag. DVT prophylaxis with heparin subcu Plan: Patient was given antibiotics in the form of vancomycin and Zosyn in the ER. Follow-up blood cultures and urine cultures. Continue with vancomycin at this time. ID was consulted. Patient has been afebrile currently and no leukocytosis. Patient was seen by nephrology and emergent hemodialysis is being planned at this time. Patient was given insulin IV 10 units and D50 in the ER for hype rkalemia. Started back on Levemir 20 units at bedtime and insulin sliding scale. Encourage oral intake. Continue with home medications and follow-up closely. Nephrology, ID is on board. Time with Patient: Greater than 30
[2021-08-28] MEDS: INSULIN DETEMIR (LEVEMIR) 100 UNIT/ML SYR SQ SCH (21:40)
[2021-08-28] MEDS: ATORVASTATIN 20 MG TAB PO SCH (21:41)
[2021-08-29 05:28] LABS: Glucose,Whole Blood 85 mg/dL (75-99)
[2021-08-29 05:32] LABS: Basophils % (A) 0 %; Eosinophils % (A) 0 %; HCT 27.4 % (39.0-53.0); HGB 8.9 gm/dL (13.0-17.5); Hypochromasia Slight; Lymphocytes # (A) 0.4 k/uL (1.0-4.8); Lymphocytes % (A) 6 %; MCH 30.5 pg (25.0-35.0); MCHC 32.4 g/dL (31.0-37.0); MCV 94.1 fL (80.0-100.0); Mean Platelet Volume 7.5; Monocytes # (A) 0.4 k/uL (0-1.0); Monocytes % (A) 5 %; Neutrophils # (A) 5.9 k/uL (1.3-7.7); Neutrophils % (A) 86 %; Platelet Count 215 k/uL (150-450); RBC 2.92 m/uL (4.30-5.90); RDW 15.4 % (11.5-15.5); WBC 6.8 k/uL (3.8-10.6)
[2021-08-29 06:13] LABS: African American GFR (CKD) 10 (>60 ml/min/1.73 sqM); Anion Gap 11 mmol/L; Blood Urea Nitrogen 59 mg/dL (9-20); Calcium 8.1 mg/dL (8.4-10.2); Carbon Dioxide 23 mmol/L (22-30); Chloride 99 mmol/L (98-107); Glucose 65 mg/dL (74-99); Non-African American GFR(CKD) 8 (>60 ml/min/1.73 sqM); Potassium 4.6 mmol/L (3.5-5.1); Sodium 133 mmol/L (137-145)
[2021-08-29 06:16] LABS: Vancomycin,Random 22.5 ug/mL
[2021-08-29 07:39] LABS: Glucose,Whole Blood 97 mg/dL (75-99)
[2021-08-29] MEDS: SYMBICORT 160-4.5 MCG INHALER INHALATION SCH ×2 (08:23→20:13)
[2021-08-29] MEDS: FOLIC ACID-VIT B COMPLEX-VIT C 1 CAP PO SCH (08:39)
[2021-08-29] MEDS: MONTELUKAST 10 MG TAB PO SCH (08:39)
[2021-08-29] MEDS: HEPARIN SODIUM,PORCINE/PF 5,000 UNIT/0.5 ML SYRINGE SQ SCH ×2 (08:39→21:21)
[2021-08-29] MEDS: CALCIUM ACETATE 667 MG TAB PO SCH ×3 (08:39→17:19)
[2021-08-29 08:51] LABS: C Reactive Protein 34.4 mg/dL (<1.0)
[2021-08-29] MEDS ORDERED: CLOPIDOGREL 75 MG TAB PO SCH (09:00)
--- NOTE | 2021-08-29 10:25 | P.PN ---
Subjective Patient is seen in follow for end-stage renal disease. He is maintained on hemodialysis on Wednesday schedule. Patient admits to treatment of hemodialysis prior to admission. Hyperkalemia improved postdialysis. More awake and alert today. No chest pain or shortness of breath. On 2 L is cannula. Blood pressure stable. Vital signs are stable. General: On nasal cannula. HEENT: Head exam is unremarkable. LUNGS: Breath sounds decreased. HEART: Rate and Rhythm are regular. ABDOMEN: Soft, no distention. Urostomy noted. EXTREMITITES: No edema. Objective - Vital Signs Vital signs: Vital Signs Temp 97.5 F L 08/29/21 05:00 Pulse 73 08/29/21 05:00 Resp 18 08/29/21 05:00 BP 121/73 08/29/21 05:00 Pulse Ox 99 08/29/21 05:00 Intake & Output 08/28/21 08/29/21 08/29/21 18:59 06:59 18:59 Intake Total 160 Output Total 1620 Balance -1460 Weight 80 kg Intake: Intake, IV Titration 100 Amount Calcium Gluconate 1 gm In 100 Sodium Chloride 0.9% 100 ml @ 100 mls/hr IVPB ONCE ONE Rx#:[id number] Oral 60 Output: Urine 120 Hemodialysis 1500 Other: Voiding Method Diaper Diaper Ileal Conduit (Right) Ileal Conduit (Right) # Voids 2 - Labs CBC & Chem 7: 08/29/21 05:02 08/29/21 05:02 Labs: Abnormal Lab Results - Last 24 Hours (Table) 08/28/21 08/28/21 08/28/21 Range/Units 14:48 14:48 17:26 RBC 3.08 L (4.30-5.90) m/uL Hgb 9.4 L (13.0-17.5) gm/dL Hct 28.4 L (39.0-53.0) % Neutrophils # 8.7 H (1.3-7.7) k/uL Lymphocytes # 0.4 L (1.0-4.8) k/uL Sodium (137-145) mmol/L Carbon Dioxide 20 L (22-30) mmol/L BUN 52 H (9-20) mg/dL Creatinine 5.03 H (0.66-1.25) mg/dL Glucose 128 H (74-99) mg/dL POC Glucose (mg/dL) 114 H (75-99) mg/dL Calcium (8.4-10.2) mg/dL C-Reactive Protein (<1.0) mg/dL 08/28/21 08/29/21 08/29/21 Range/Units 20:04 05:02 05:02 RBC 2.92 L (4.30-5.90) m/uL Hgb 8.9 L (13.0-17.5) gm/dL Hct 27.4 L (39.0-53.0) % Neutrophils # (1.3-7.7) k/uL Lymphocytes # 0.4 L (1.0-4.8) k/uL Sodium 133 L (137-145) mmol/L Carbon Dioxide (22-30) mmol/L BUN 59 H (9-20) mg/dL Creatinine 5.70 H (0.66-1.25) mg/dL Glucose 65 L (74-99) mg/dL POC Glucose (mg/dL) 211 H (75-99) mg/dL Calcium 8.1 L (8.4-10.2) mg/dL C-Reactive Protein 34.4 H (<1.0) mg/dL Microbiology - Last 24 Hours (Table) 08/28/21 17:29 Gram Stain - Preliminary Arm - Right Wound Culture - Preliminary 08/28/21 06:26 Blood Culture - Final Blood 08/28/21 06:18 Blood Culture - Final Blood 08/28/21 17:29 Anaerobic Culture - Preliminary Arm - Right Assessment and Plan Plan: Assessment: 1. End-stage renal disease maintained on hemodialysis on Wednesday schedule. Missed 2 treatments of hemodialysis prior to admission. 2. Hyperkalemia secondary to missed hemodialysis treatment and acidosis. Improved postdialysis. 3. Metabolic acidosis secondary to chronic kidney disease. Improved postdialysis. 4. Anemia of chronic kidney disease. Rule out iron deficiency. 5. History of bladder cancer. Has a urostomy. 6. Chronic kidney disease mineral bone disease. 7. Diabetes mellitus. Plan: Short hemodialysis treatment today. Another treatment tomorrow per his outpatient schedule. Follow-up cultures. Vancomycin dose to be adjusted for renal function. Check iron studies.
--- NOTE | 2021-08-29 11:25 | P.CONS ---
History of Present Illness - Reason for Consult Consult date: 08/28/21 FUO Requesting physician: Ken Camacho - Chief Complaint weakness x few days - History of Present Illness History of Present Illness : Patient is 85-year male with a past medical history significant for end-stage renal disease on hemodialysis through the right chest wall permacatheter patient presented to hospital yesterday afternoon for evaluation of generalized weakness and shortness of breath in this patient who recently did have a fistula of the right arm by Dr. Vieyra patient was complaining of mild cough shortness of breath denies any chest pain no nausea no vomiting no abdominal pain or any diarrhea patient on presentation to the hospital did have a fever of 101.7 F patient did have a mildly ReVital of 11.1 BUN and creatinine has been elevated urine is positive gonzalez PCR was negative patient did have a chest x-ray pleural fluid improved compared to old exam improvement in the pulmonary vascular congestion patient has been evaluated by vascular surgery and was noticed to have abrasion to the forearm with green drainage and some bleeding from the fistula site patient be started on vancomycin infectious was consulted for further management patient also have an ultrasound done which is suggestive of hemorrhage in the area of palpable a bnormality in the fistula patient still not very good historian so most information has been obtained from the chart and talking to nursing staff Review of system: CONSTITUTIONAL: Positive for weakness fever. EYES: No complaint. ENT: No complaint. RESPIRATORY: As per history of present illness. CARDIOVASCULAR: No complaint. GENITOURINARY: No complaint. GASTROINTESTINAL: No complaint. MUSCULOSKELETAL: No complaint. INTEGUMENTARY : As per history of present illness. PSYCHOLOGIC: No complaint. ENDOCRINE: No complaint. NEUROLOGIC: No complaint. Past medical history : Reviewed, documented below Past surgical history : Reviewed, documented below Social history: Reviewed, documented below Medications: Reviewed, as documented below EXAMINATION: Vital sigans= Reviewed and documented below GENERAL DESCRIPTION: Elderly male lying in bed, no distress. No tachypnea or accessory muscle of respiration use. HEENT: Shows Pallor , no scleral icterus. Oral mucous membrane is dry. NECK: Trachea central, no thyromegaly. LUNGS: Unlabored breathing. Decreased breath sound at the base. No wheeze or crackle. HEART: S1, S2, regular rate and rhythm. ABDOMEN: Soft, no tenderness , guarding or rigidity EXTREMITIES: No edema feet SKIN: No rash, no masses palpable. NEUROLOGICAL: The patient is awake, alert, oriented x3, mood and affect normal. LABS AND RADIOLOGY: Reviewed results see below Assessment : Patient presented hospital generalized weakness in this patient did have a fever source could be related to the recent arm fistula creation and there was small hematoma noticed around it and some drainage versus a permacatheter infection patient clinic not behaving as a pneumonia urine is positive however that has been obtained from urostomy and not very helpful specimen Plan: 1-vancomycin pharmacy to dose target trough of 15 while watching kidney function and vancomycin trough closely 2-blood cultures from the permacatheter hemodialysis 3-dry protective dressing to the arm abrasion site We will follow on clinical condition and cultures to further adjust medication if needed Thank you for this consultation we will follow the patient along with you Past Medical History Past Medical History: Asthma, Cancer, COPD, Diabetes Mellitus, Hyperlipidemia, Hypertension, Osteoarthritis (OA), Prostate Disorder Additional Past Medical History / Comment(s): VARICOSE VEINS; ARTHRITIS BACK, NECK; HX PROSTATE, BLADDER, (4 -5 years ago) & SKIN CANCER (4-5 yrs ago) , PLASMACYTOMA LEFT FEMUR- CANCERS. PNEUMONIA 04/01/15. HAS UROSTOMY , FX RT HIP -2017." RENAL DISEASE-Hemodialysis TUTHSA Last Myocardial Infarction Date:: 2012- UNSURE- STATES DISCOVERED ON EKG. History of Any Multi-Drug Resistant Organisms: ESBL Year Discovered:: 03/26/2015 MDRO Source:: Urine- E.coli ESBL Past Surgical History: Bladder Surgery, Joint Replacement, Prostate Surgery Additional Past Surgical History / Comment(s): EXC LEFT FEMUR CANCER; CHEST TUMOR EXC; RADICAL PROSTATECTOMY 07/2004. , ROBOTIC RADICAL CYSTECTOMY 02/2015- UROSTOMY, COLONOSCOPY, PARTIAL RT HIP REPLACEMENT Past Anesthesia/Blood Transfusion Reactions: No Reported Reaction Past Psychological History: No Psychological Hx Reported Smoking Status: Former smoker Past Alcohol Use History: None Reported Additional Past Alcohol Use History / Comment(s): STARTED AGE 14 QUIT 8 SMOKED 1PPD Past Drug Use History: None Reported - Past Family History Son(s) Family Medical History: Cancer Additional Family Medical History / Comment(s): LEUKEMIA Medications and Allergies Home Medications Medication Instructions Recorded Confirmed Type Montelukast [Singulair] 10 mg PO DAILY 12/28/14 08/27/21 History amLODIPine BESYLATE [Norvasc] 10 mg PO DAILY 12/28/14 08/27/21 History atenoloL [Tenormin] 25 mg PO DAILY 12/28/14 08/27/21 History Atorvastatin Calcium [Lipitor] 20 mg PO HS 06/07/20 08/27/21 History Albuterol Inhaler [Ventolin Hfa 2 puff INHALATION RT-QID PRN 01/24/21 08/27/21 History Inhaler] Clopidogrel Bisulfate [Plavix] 75 mg PO DAILY #30 tab 06/12/21 08/27/21 Rx Insulin Glargine,Hum.rec.anlog 20 unit SQ HS 06/12/21 08/27/21 History [Basaglar Kwikpen U-100] Albuterol Nebulized [Ventolin 2.5 mg INHALATION RT-Q6H PRN 08/27/21 08/27/21 History Nebulized] Calcium Acetate [PhosLo] 1,334 mg PO TID-W/MEALS 08/27/21 08/27/21 History Fluticasone/Vilanterol [Breo 1 puff INHALATION RT-DAILY 08/27/21 08/27/21 History Ellipta 200-25 Mcg Inhaler] Furosemide [Lasix] 80 mg PO BID 08/27/21 08/27/21 History HYDROcodone/APAP 5-325MG [Sutton 1 tab PO Q6H PRN 08/27/21 08/27/21 History 5-325] Nephro-Yovany 0.8mg 1 tab PO DAILY 08/27/21 08/27/21 History Allergies Allergy/AdvReac Type Severity Reaction Status Date / Time shellfish derived [Shellfish] Allergy Mild Rash/Hives Verified 08/27/21 18:17 "if consumes alot," per patient Physical Exam Vitals: Vital Signs Temp Pulse Pulse Resp BP BP BP 08/28/21 06:11 70 106/51 08/27/21 23:17 97.9 F 72 16 125/63 08/27/21 21:39 97.8 F 73 16 112/68 08/27/21 19:55 72 16 08/27/21 16:36 101.7 F H 82 16 151/69 Pulse Ox 08/28/21 06:11 08/27/21 23:17 95 08/27/21 21:39 95 08/27/21 19:55 08/27/21 16:36 95 Intake and Output 08/27/21 08/28/21 08/28/21 22:59 06:59 14:59 Intake Total 125 Balance 125 Intake: Intake, IV Titration 125 Amount Vancomycin 1,500 mg In 125 Sodium Chloride 0.9% 250 ml @ 125 mls/hr IVPB ONCE ONE Rx#:[id number] Other: Voiding Method Diaper Ileal Conduit (Right) Weight 79.379 kg Results CBC & Chem 7: 08/29/21 05:02 08/29/21 05:02 Labs: Abnormal Lab Results - Last 24 Hours (Table) 08/27/21 08/27/21 08/27/21 Range/Units 16:58 16:58 16:58 WBC (3.8-10.6) k/uL RBC 3.44 L (4.30-5.90) m/uL Hgb 10.5 L (13.0-17.5) gm/dL Hct 32.2 L (39.0-53.0) % Lymphocytes # 0.3 L (1.0-4.8) k/uL APTT 18.8 L (22.0-30.0) sec Sodium (137-145) mmol/L Potassium (3.5-5.1) mmol/L Carbon Dioxide (22-30) mmol/L BUN (9-20) mg/dL Creatinine (0.66-1.25) mg/dL Glucose (74-99) mg/dL Phosphorus (2.5-4.5) mg/dL Magnesium (1.6-2.3) mg/dL AST (17-59) U/L Total Protein (6.3-8.2) g/dL Albumin (3.5-5.0) g/dL Urine Protein 2+ H (Negative) Urine Blood Trace H (Negative) Ur Leukocyte Esterase Large H (Negative) Urine RBC 9 H (0-5) /hpf Urine WBC 119 H (0-5) /hpf Urine WBC Clumps Many H (None) /hpf Urine Bacteria Many H (None) /hpf Urine Mucus Rare H (None) /hpf 08/27/21 08/28/21 08/28/21 Range/Units 16:58 06:17 06:17 WBC 11.1 H (3.8-10.6) k/uL RBC 2.96 L (4.30-5.90) m/uL Hgb 8.9 L D (13.0-17.5) gm/dL Hct 27.7 L (39.0-53.0) % Lymphocytes # (1.0-4.8) k/uL APTT (22.0-30.0) sec Sodium 135 L 133 L (137-145) mmol/L Potassium 6.8 H* 6.5 H* (3.5-5.1) mmol/L Carbon Dioxide 15 L 12 L (22-30) mmol/L BUN 113 H* 117 H* (9-20) mg/dL Creatinine 9.76 H* 10.08 H* (0.66-1.25) mg/dL Glucose 150 H (74-99) mg/dL Phosphorus 6.5 H (2.5-4.5) mg/dL Magnesium 2.5 H (1.6-2.3) mg/dL AST 16 L 14 L (17-59) U/L Total Protein 5.6 L (6.3-8.2) g/dL Albumin 2.9 L (3.5-5.0) g/dL Urine Protein (Negative) Urine Blood (Negative) Ur Leukocyte Esterase (Negative) Urine RBC (0-5) /hpf Urine WBC (0-5) /hpf Urine WBC Clumps (None) /hpf Urine Bacteria (None) /hpf Urine Mucus (None) /hpf Microbiology - Last 24 Hours (Table) 08/27/21 16:58 Urine Culture - Preliminary Urine,Voided
--- NOTE | 2021-08-29 12:16 | P.PN ---
<Edmundo,Renee - Last Filed: 08/29/21 14:01> Subjective Progress Note Date: 08/29/21 Patient seen and examined sitting up in bedside chair. Yesterday he underwent hemodialysis. He states he still has some right upper extremity discomfort. He is able to use his hand and move his arm. Wound cultures are currently pending. Blood culture showing gram-negative bacilli. Urine culture pending. No acute changes through the night. Hg 8.9, looking at past blood work, looks like patient has history of chronic anemia. Objective - Vital Signs Vital signs: Vital Signs Temp 97.5 F L 08/29/21 05:00 Pulse 73 08/29/21 05:00 Resp 18 08/29/21 05:00 BP 121/73 08/29/21 05:00 Pulse Ox 99 08/29/21 05:00 Intake & Output 08/28/21 08/29/21 08/29/21 18:59 06:59 18:59 Intake Total 160 Output Total 1620 Balance -1460 Weight 80 kg Intake: Intake, IV Titration 100 Amount Calcium Gluconate 1 gm In 100 Sodium Chloride 0.9% 100 ml @ 100 mls/hr IVPB ONCE ONE Rx#:[id number] Oral 60 Output: Urine 120 Hemodialysis 1500 Other: Voiding Method Diaper Diaper Ileal Conduit (Right) Ileal Conduit (Right) # Voids 2 - Exam General appearance: The patient is alert, oriented, appears in no acute distress . HET: Head is normocephalic and atraumatic. Pupils are equal and reactive. Oropharynx is clear without lesions. Neck: Supple without lymphadenopathy. Trachea midline. Heart: S1 S2. Regular rate and rhythm. Lungs: Diminished breath sounds. Abdomen: Soft, nontender, nondistended. Extremities: Right forearm with dressing clean dry and intact. Right upper extremity where the fistula creation with dressing, no active bleeding from site. There is a palpable thrill. There is some surrounding swelling. Palpable radial pulse. Full range of motion. Neurological: No focal deficits. Alert and oriented.. - Labs CBC & Chem 7: 08/29/21 05:02 08/29/21 05:02 Labs: Abnormal Lab Results - Last 24 Hours (Table) 08/28/21 08/28/21 08/28/21 Range/Units 14:48 14:48 17:26 RBC 3.08 L (4.30-5.90) m/uL Hgb 9.4 L (13.0-17.5) gm/dL Hct 28.4 L (39.0-53.0) % Neutrophils # 8.7 H (1.3-7.7) k/uL Lymphocytes # 0.4 L (1.0-4.8) k/uL Sodium (137-145) mmol/L Carbon Dioxide 20 L (22-30) mmol/L BUN 52 H (9-20) mg/dL Creatinine 5.03 H (0.66-1.25) mg/dL Glucose 128 H (74-99) mg/dL POC Glucose (mg/dL) 114 H (75-99) mg/dL Calcium (8.4-10.2) mg/dL C-Reactive Protein (<1.0) mg/dL 08/28/21 08/29/21 08/29/21 Range/Units 20:04 05:02 05:02 RBC 2.92 L (4.30-5.90) m/uL Hgb 8.9 L (13.0-17.5) gm/dL Hct 27.4 L (39.0-53.0) % Neutrophils # (1.3-7.7) k/uL Lymphocytes # 0.4 L (1.0-4.8) k/uL Sodium 133 L (137-145) mmol/L Carbon Dioxide (22-30) mmol/L BUN 59 H (9-20) mg/dL Creatinine 5.70 H (0.66-1.25) mg/dL Glucose 65 L (74-99) mg/dL POC Glucose (mg/dL) 211 H (75-99) mg/dL Calcium 8.1 L (8.4-10.2) mg/dL C-Reactive Protein 34.4 H (<1.0) mg/dL Microbiology - Last 24 Hours (Table) 08/28/21 17:29 Gram Stain - Preliminary Arm - Right Wound Culture - Preliminary 08/28/21 06:26 Blood Culture - Final Blood 08/28/21 06:18 Blood Culture - Final Blood 08/28/21 17:29 Anaerobic Culture - Preliminary Arm - Right Assessment and Plan Assessment: 1. Recent right upper extremity brachial artery to axillary vein PTFE graft 08/22/2021 2. Fever 3. Bacteremia wiht gram negative bacilli 4. Abrasions to right forearm with drainage 5. Weakness 6. Shortness of breath 7. Acute on chronic renal disease 8. End-stage renal disease on hemodialysis 9. Diabetes mellitus Plan: 1. Keep dressing/pressure applied to the right upper extremity 2. Dialysis per recommendations from nephrology 3. Antibiotics per recommendations from infectious disease 4. Wound culture on right forearm abrasions pending, urine culture pending 5. CTA right upper extremity ordered 6. Await recommendations from ID 7. Will need midline placement 8. Will tentatively schedule patient for right arm AV graft Thank you for this kind referral and the opportunity to participate in the care of your patient. The impression and plan of care has been dictated as directed. Dr. Vieyra I performed a history and examination of this patient, discussed the same with the dictator. I agree with the dictator's note ,documented as a scribe. Any additional findings or plans will be noted. <Layne Vieyra - Last Filed: 08/30/21 08:10> Objective - Vital Signs Vital signs: Vital Signs Temp 97.9 F 08/30/21 05:00 Pulse 69 08/30/21 05:00 Resp 22 08/30/21 05:00 BP 114/58 08/30/21 05:40 Pulse Ox 99 08/30/21 05:00 Intake & Output 08/29/21 08/30/21 08/30/21 18:59 06:59 18:59 Intake Total 100 0 Output Total 1000 Balance -900 0 Weight 79 kg Intake: Intake, IV Titration 100 Amount Cefepime 2 gm In Sodium 100 Chloride 0.9% 100 ml @ 200 mls/hr IVPB ONCE STA Rx#:[id number] Oral 0 Output: Hemodialysis 1000 Other: Voiding Method Diaper Diaper Ileal Conduit (Right) Ileal Conduit (Right) - Labs CBC & Chem 7: 08/29/21 05:02 08/29/21 05:02 Labs: Abnormal Lab Results - Last 24 Hours (Table) 08/29/21 08/29/21 08/29/21 Range/Units 05:02 05:02 05:02 POC Glucose (mg/dL) (75-99) mg/dL Iron 23 L (65-175) ug/dL TIBC 124 L (228-460) ug/dL Transferrin 88.6 L (204.0-354.0) mg/dL Ferritin 2739.0 H (22.0-322.0) ng/mL C-Reactive Protein 34.4 H (<1.0) mg/dL Procalcitonin 10.70 H (0.02-0.09) ng/mL 08/29/21 08/29/21 08/29/21 Range/Units 13:27 17:35 20:48 POC Glucose (mg/dL) 115 H 140 H 244 H (75-99) mg/dL Iron (65-175) ug/dL TIBC (228-460) ug/dL Transferrin (204.0-354.0) mg/dL Ferritin (22.0-322.0) ng/mL C-Reactive Protein (<1.0) mg/dL Procalcitonin (0.02-0.09) ng/mL Microbiology - Last 24 Hours (Table) 08/28/21 17:29 Gram Stain - Preliminary Arm - Right Wound Culture - Preliminary Gram Neg Bacilli 08/27/21 16:58 Urine Culture - Final Urine,Voided 08/28/21 06:18 Blood Culture Gram Stain - Preliminary Blood Blood Culture - Preliminary Pseudomonas aeruginosa 08/28/21 06:26 Blood Culture - Final Blood 08/28/21 06:18 Blood Culture - Final Blood 08/28/21 06:26 Blood Culture Gram Stain - Preliminary Blood Assessment and Plan Plan: cta reveiewed. will need OR for repair of PSA. No obv evidence of infection at any site.
[2021-08-29 13:28] LABS: Glucose,Whole Blood 115 mg/dL (75-99)
--- NOTE | 2021-08-29 14:51 | CT ---
CT right upper extremity. HISTORY: Rule out hematoma or pseudoaneurysm. COMPARISON: None. TECHNIQUE: Multiple axial images are obtained the right upper extremity. IV contrast was provided.: C oronal and sagittal reconstructions were generated and reviewed. In the distal medial right arm there is a 2.7 cm rounded well circumscribed contrast collection which communicates with the distal right brachial artery and is consistent with a pseudoaneurysm at the an astomosis with the [place] dialysis shunt graft. There is a right-sided jugular central venous catheter the tip of which terminates in the SVC/R junct ion. There are small bilateral pleural effusions. Kidneys are atrophic. There are multiple small gallstones.. IMPRESSION: Pseudoaneurysm at the anastomosis of the distal right brachial artery and the dialysis shunt graft. I t is 2.7 cm in greatest dimension. .
[2021-08-29] MEDS ORDERED: CEFEPIME 2 GM in SODIUM CHLORIDE 0.9% 100 ML IVPB STA (14:55)
--- NOTE | 2021-08-29 15:35 | PN ---
PROGRESS NOTE DATE OF SERVICE: 08/29/2021 REASON FOR FOLLOWUP: Fever. INTERVAL COURSE: The patient is afebrile. The patient is currently breathing comfortably. Denies having any chest pain, shortness of breath cough, no abdominal pain, or diarrhea. PHYSICAL EXAMINATION: Blood pressure 121/73 with a pulse of 78, temperature 97.5. He is 99% on 2 L nasal cannula. General description is an elderly male up in the chair in no distress. Respiratory system: Unlabored breathing, clear to auscultation anteriorly. Heart S1, S2. Regular rate and rhythm. Abdomen soft, no tenderness. LABS: Blood culture now showing a Gram-negative bacilli. DIAGNOSTIC IMPRESSION AND PLAN: Patient with Gram-negative bacteremia considered high risk for Perm-A-Cath insertion. The fistula site has some hematoma bruise. No significant cellulitis though. We will add cefepime. Blood cultures will be repeated from the dialysis catheter at the time of dialysis. Continue supportive care. MMODL / IJN: [id number] /
[2021-08-29 17:37] LABS: Glucose,Whole Blood 140 mg/dL (75-99)
[2021-08-29] MEDS ORDERED: VANCOMYCIN 1,500 MG in SODIUM CHLORIDE 0.9% 250 ML IVPB ONE (21:00)
[2021-08-29 21:01] LABS: Glucose,Whole Blood 244 mg/dL (75-99)
--- NOTE | 2021-08-29 21:01 | P.PN ---
Subjective Patient is a 85-year-old male with a known history of ESRD on hemodialysis TTS via right upper extremity AV fistula, asthma/COPD, hypertension, hyperlipidemia, diabetes type 2, osteoarthritis, history of plasmacytoma left femur and history of ESBL E. coli and prior history of smoking was brought to the hospital by family due to generalized weakness and shortness of breath and altered mental status. Patient is not able to provide much history at this time. Apparently patient missed last 2 sessions of hemodialysis. Patient was febrile on adm ission with T-max 101.7. Heart rate 82 respirations 16 and pulse ox 95% on room air. Chest x-ray showed pleural diaphragmatic reaction right lung base. Pleural fluid improved compared to last exam. There is improvement in the pulmonary congestion compatible exam. No obvious heart failure. EKG showed normal sinus rhythm. No significant T wave abnormality. No peaked T waves. Laboratory data showed WBC 8.2 hemoglobin 10.5 platelets 226 and lymphocytes 0.3 Sodium 135 potassium 6.8 chloride 102 bicarb is 15 BUN 113 creatinine 9.76 and glucose 150 phosphorus 6.5 AST 16 ALT less than 6 alk phos 86 [place] [address] Urinalysis showed large leukocyte esterase with elevated RBCs and WBCs. Coronavirus PCR not detected. 08/29/2021 This is a pleasant 85 years old male who presents with right upper extremity cellulitis around the right elbow which is significantly swollen, warm, red and tender compared to the left side with fever of 101.4 upon admission. WBC is 9.9 Hemoglobin 9.4. Procalcitonin elevated 10.7 Upper extremity CTA showing distal right branchial artery pseudoaneurysm at 2.7 cm Vascular surgery and infectious disease team on the case. Today his blood culture came back positive for pseudomonas, cefepime was added. Patient was started on IV vancomycin upon admission Patient Levemir was lowered 20 units down to 10 units while patient made nothing by mouth tonight Objective - Vital Signs Vital signs: Vital Signs Temp 97.5 F L 08/29/21 05:00 Pulse 73 08/29/21 05:00 Resp 18 08/29/21 05:00 BP 121/73 08/29/21 05:00 Pulse Ox 99 08/29/21 05:00 Intake & Output 08/28/21 08/29/21 08/29/21 18:59 06:59 18:59 Intake Total 160 Output Total 1620 Balance -1460 Weight 80 kg Intake: Intake, IV Titration 100 Amount Calcium Gluconate 1 gm In 100 Sodium Chloride 0.9% 100 ml @ 100 mls/hr IVPB ONCE ONE Rx#:[id number] Oral 60 Output: Urine 120 Hemodialysis 1500 Other: Voiding Method Diaper Diaper Ileal Conduit (Right) Ileal Conduit (Right) # Voids 2 - Exam GENERAL: The patient is alert and oriented x3, not in any acute distress. Well developed, well nourished. HEENT: Pupils are round and equally reacting to light. EOMI. No scleral icterus. No conjunctival pallor. Normocephalic, atraumatic. No pharyngeal erythema. No thyromegaly. CARDIOVASCULAR: S1 and S2 present. No murmurs, rubs, or gallops. PULMONARY: Chest is clear to auscultation, no wheezing or crackles. ABDOMEN: Soft, nontender, nondistended, normoactive bowel sounds. No palpable organomegaly. MUSCULOSKELETAL: No joint swelling or deformity. -EXTREMITIES: No cyanosis, clubbing, or pedal edema. Right distal arm and around the elbow joint with her redness, warmth, swelling and tenderness with limitation of NEUROLOGICAL: Gross neurological examination did not reveal any focal deficits. SKIN: No rashes. no petechiae. - Labs CBC & Chem 7: 08/29/21 05:02 08/29/21 05:02 Labs: Abnormal Lab Results - Last 24 Hours (Table) 08/28/21 08/28/21 08/28/21 Range/Units 14:48 14:48 17:26 RBC 3.08 L (4.30-5.90) m/uL Hgb 9.4 L (13.0-17.5) gm/dL Hct 28.4 L (39.0-53.0) % Neutrophils # 8.7 H (1.3-7.7) k/uL Lymphocytes # 0.4 L (1.0-4.8) k/uL Sodium (137-145) mmol/L Carbon Dioxide 20 L (22-30) mmol/L BUN 52 H (9-20) mg/dL Creatinine 5.03 H (0.66-1.25) mg/dL Glucose 128 H (74-99) mg/dL POC Glucose (mg/dL) 114 H (75-99) mg/dL Calcium (8.4-10.2) mg/dL C-Reactive Protein (<1.0) mg/dL Procalcitonin (0.02-0.09) ng/mL 08/28/21 08/29/21 08/29/21 Range/Units 20:04 05:02 05:02 RBC (4.30-5.90) m/uL Hgb (13.0-17.5) gm/dL Hct (39.0-53.0) % Neutrophils # (1.3-7.7) k/uL Lymphocytes # (1.0-4.8) k/uL Sodium 133 L (137-145) mmol/L Carbon Dioxide (22-30) mmol/L BUN 59 H (9-20) mg/dL Creatinine 5.70 H (0.66-1.25) mg/dL Glucose 65 L (74-99) mg/dL POC Glucose (mg/dL) 211 H (75-99) mg/dL Calcium 8.1 L (8.4-10.2) mg/dL C-Reactive Protein 34.4 H (<1.0) mg/dL Procalcitonin 10.70 H (0.02-0.09) ng/mL 08/29/21 Range/Units 05:02 RBC 2.92 L (4.30-5.90) m/uL Hgb 8.9 L (13.0-17.5) gm/dL Hct 27.4 L (39.0-53.0) % Neutrophils # (1.3-7.7) k/uL Lymphocytes # 0.4 L (1.0-4.8) k/uL Sodium (137-145) mmol/L Carbon Dioxide (22-30) mmol/L BUN (9-20) mg/dL Creatinine (0.66-1.25) mg/dL Glucose (74-99) mg/dL POC Glucose (mg/dL) (75-99) mg/dL Calcium (8.4-10.2) mg/dL C-Reactive Protein (<1.0) mg/dL Procalcitonin (0.02-0.09) ng/mL Microbiology - Last 24 Hours (Table) 08/28/21 17:29 Gram Stain - Preliminary Arm - Right Wound Culture - Preliminary 08/28/21 06:26 Blood Culture - Final Blood 08/28/21 06:18 Blood Culture - Final Blood 08/28/21 17:29 Anaerobic Culture - Preliminary Arm - Right Assessment and Plan Assessment: Altered mental status possible metabolic encephalopathy. Fever with T-max 101.7 on admission currently afebrile. Possible atelectasis. Follow-up culture reports. Continue on vancomycin ESRD on hemodialysis TTS right upper extremity AV fistula Missed hemodialysis last 2 sessions. 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 Currently has urostomy bag. Plan: This is a pleasant 85 years old male who presents with right forearm fistula cellulitis with pseudoaneurysm Continue with IV vancomycin and cefepime. Follow-up final culture results including wound culture and blood culture. Monitor blood pressure and glucose several consults on the case including infectious disease, vascular surgery and cat operator Labs and medication were reviewed.. Continue same treatment. Continue with symptomatic treatment. Resume home medication. Monitor lytes and vitals. DVT and GI prophylaxis. Further recommendationsas per clinical course of the patient DVT prophylaxis: Subcutaneous heparin GI Prophylaxis: Pepcid PT/OT: Pending Prognosis is guarded
[2021-08-29] MEDS: ATORVASTATIN 20 MG TAB PO SCH (21:21)
[2021-08-29] MEDS: FAMOTIDINE 20 MG/2 ML VIAL IV SCH (21:21)
[2021-08-29] MEDS: INSULIN DETEMIR (LEVEMIR) 100 UNIT/ML SYR SQ SCH ×2 (21:23→21:26)
[2021-08-30 05:29] LABS: % Iron Saturation 18.14 (15.00-50.00)
--- NOTE | 2021-08-30 07:32 | XR ---
Right elbow HISTORY: Pain, infection 2 views the right elbow There is no fracture or dislocation. Bone mineralization is reduced. There is an elbow joint effusion . Soft tissue swelling is present. No evident periostitis to suggest osteomyelitis. IMPRESSION: Correlate for cellulitis, joint effusion.
[2021-08-30] MEDS: SYMBICORT 160-4.5 MCG INHALER INHALATION SCH ×2 (08:04→23:22)
[2021-08-30] MEDS ORDERED: .fentaNYL (PF) 50 MCG/ML 2 ML AMP ONE (08:07)
[2021-08-30] MEDS ORDERED: LIDOCAINE 1% INJ 10MG/ML (20 ML MDV) ONE (08:07)
[2021-08-30] MEDS ORDERED: PROPOFOL 10 MG/ML 20 ML VIAL IV ONE (08:07)
[2021-08-30] MEDS ORDERED: LACTATED RINGERS 1,000 ML IV ONE (08:07)
[2021-08-30] MEDS ORDERED: SUCCINYLCHOLINE CHLORIDE 100 MG/5 ML SYR IV ONE (08:07)
[2021-08-30] MEDS: HEPARIN SODIUM,PORCINE/PF 5,000 UNIT/0.5 ML SYRINGE SQ SCH ×2 (08:28→21:29)
[2021-08-30] MEDS: CALCIUM ACETATE 667 MG TAB PO SCH ×3 (08:28→17:48)
[2021-08-30] MEDS ORDERED: SODIUM CHLORIDE 0.9% 50 ML with ceFAZolin 2,000 MG IV ONE ×2 (08:30)
[2021-08-30] MEDS ORDERED: SODIUM CHLORIDE 0.9% IRRIGATION ONE (09:00)
[2021-08-30] MEDS ORDERED: CEFAZOLIN IRRIGATION ONE (09:00)
[2021-08-30] MEDS ORDERED: SODIUM CHLORIDE 0.9% 500 ML 500 ML with HEPARIN SODIUM,PORCINE 5,000 UNIT IV ONE ×2 (09:05)
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
--- NOTE | 2021-08-30 12:22 | P.PN ---
Subjective Progress Note Date: 08/30/21 Principal diagnosis: This 85-year-old male with ESRD on dialysis Wednesday. He had missed dialysis, came to the hospital with shortness of breath and he was dialyz ed on and Wednesday yesterday and This morning he came back from surgery for a pseudoaneurysm on his right upper arm, with a wound on the access. He is 2 blood cultures are positive for Pseudo monas on 08/28/2021. Additionally he has a permacath on the right side. Currently somewhat under the sedation of the procedure. He is known with asthma COPD diabetes history of prostate and bladder cancer, has a urostomy. Objective - Vital Signs Vital signs: Vital Signs Temp 96.8 F L 08/30/21 10:58 Pulse 54 L 08/30/21 11:15 Resp 12 08/30/21 11:15 BP 112/74 08/30/21 11:15 Pulse Ox 95 08/30/21 11:15 Intake & Output 08/29/21 08/30/21 08/30/21 18:59 06:59 18:59 Intake Total 100 0 852 Output Total 1000 75 Balance -900 0 777 Weight 79 kg Intake: IV 852 Intake, IV Titration 100 Amount Cefepime 2 gm In Sodium 100 Chloride 0.9% 100 ml @ 200 mls/hr IVPB ONCE STA Rx#:[id number] Oral 0 Output: Hemodialysis 1000 Estimated Blood Loss 75 Other: Voiding Method Diaper Diaper Ileal Conduit (Right) Ileal Conduit (Right) On examination he is awake and alert but not oriented at the moment HEENT exam no JVP neck is supple no facial asymmetry Lungs clear to auscultation fair air entry bilaterally Heart sounds unremarkable for any murmur rub gallop Abdomen soft nontender Extremity exam was no edema Neurologically as mentioned above. - Labs CBC & Chem 7: 08/29/21 05:02 08/29/21 05:02 Labs: Abnormal Lab Results - Last 24 Hours (Table) 08/29/21 08/29/21 08/29/21 Range/Units 05:02 13:27 17:35 POC Glucose (mg/dL) 115 H 140 H (75-99) mg/dL Iron 23 L (65-175) ug/dL TIBC 124 L (228-460) ug/dL Transferrin 88.6 L (204.0-354.0) mg/dL Ferritin 2739.0 H (22.0-322.0) ng/mL 08/29/21 Range/Units 20:48 POC Glucose (mg/dL) 244 H (75-99) mg/dL Iron (65-175) ug/dL TIBC (228-460) ug/dL Transferrin (204.0-354.0) mg/dL Ferritin (22.0-322.0) ng/mL Microbiology - Last 24 Hours (Table) 08/28/21 06:26 Blood Culture Gram Stain - Preliminary Blood Blood Culture - Preliminary Gram Neg Bacilli 08/28/21 17:29 Gram Stain - Preliminary Arm - Right Wound Culture - Preliminary Gram Neg Bacilli 08/27/21 16:58 Urine Culture - Final Urine,Voided 08/28/21 06:18 Blood Culture Gram Stain - Preliminary Blood Blood Culture - Preliminary Pseudomonas aeruginosa 08/28/21 06:26 Blood Culture - Final Blood 08/28/21 06:18 Blood Culture - Final Blood Assessment and Plan Assessment: Impression 1. ESRD on dialysis Wednesday missed 2 dialysis and therefore was admitted with shortness of breath and had 2 dialysis treatment on 08/28/2021 and 08/29/2021 yesterday. 2. Pseudomonas bacteremia, likely sources access which had a pseudoaneurysm supposedly as well as an old. This morning had Repair of right brachial artery with bovine pericardial patch angioplasty] 3. Permacath on the right side exit site is clean 4. Urostomy status post bladder and prostate cancer. 5. Diabetes mellitus. 6. History of COPD asthma Recommendation 1. Hold off dialysis today. 2. Blood cultures are done yesterday to see if his bacteremia is resolved. Maintain antibiotics. 3. Next dialysis will be Wednesday day after tomorrow
[2021-08-30] MEDS: CEFEPIME 1 GM in SODIUM CHLORIDE 0.9% 50 ML IVPB SCH (12:34)
[2021-08-30] MEDS: FAMOTIDINE 20 MG/2 ML VIAL IV SCH ×2 (12:36→21:29)
[2021-08-30] MEDS: MONTELUKAST 10 MG TAB PO SCH (12:57)
[2021-08-30] MEDS: FOLIC ACID-VIT B COMPLEX-VIT C 1 CAP PO SCH (12:57)
[2021-08-30 16:16] LABS: Basophils % (A) 0 %; Eosinophils % (A) 0 %; HCT 24.2 % (39.0-53.0); HGB 7.7 gm/dL (13.0-17.5); Hypochromasia Slight; Lymphocytes # (A) 0.5 k/uL (1.0-4.8); Lymphocytes % (A) 6 %; MCH 29.9 pg (25.0-35.0); MCHC 31.7 g/dL (31.0-37.0); MCV 94.3 fL (80.0-100.0); Mean Platelet Volume 7.5; Monocytes # (A) 0.4 k/uL (0-1.0); Monocytes % (A) 4 %; Neutrophils # (A) 7.4 k/uL (1.3-7.7); Neutrophils % (A) 88 %; Platelet Count 228 k/uL (150-450); RBC 2.57 m/uL (4.30-5.90); RDW 15.2 % (11.5-15.5); WBC 8.4 k/uL (3.8-10.6)
[2021-08-30 16:25] LABS: African American GFR (CKD) 11 (>60 ml/min/1.73 sqM); Anion Gap 13 mmol/L; Blood Urea Nitrogen 44 mg/dL (9-20); Carbon Dioxide 16 mmol/L (22-30); Chloride 100 mmol/L (98-107); Glucose 101 mg/dL (74-99); Non-African American GFR(CKD) 10 (>60 ml/min/1.73 sqM); Sodium 129 mmol/L (137-145)
[2021-08-30 21:17] LABS: Glucose,Whole Blood 146 mg/dL (75-99)
[2021-08-30] MEDS: ATORVASTATIN 20 MG TAB PO SCH (21:29)
[2021-08-30] MEDS: INSULIN DETEMIR (LEVEMIR) 100 UNIT/ML SYR SQ SCH (21:30)
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
--- NOTE | 2021-08-31 02:00 | PN ---
PROGRESS NOTE DATE OF SERVICE: 08/30/2021 REASON FOR FOLLOWUP: Pseudomonas bacteremia. Concern for possible Perm-A-Cath infection. INTERVAL HISTORY: Patient is afebrile. The patient is breathing comfortably. The patient is status post exploration of the right upper extremity. Noticed to have erosion of the right brachial artery to the graft anastomosis, status post repair. The patient denies having any chest pain, shortness of breath or cough. No nausea or vomiting, no abdominal pain or diarrhea. PHYSICAL EXAMINATION: Blood pressure 149/74 with a pulse of 82, temperature 98.5. He is 96% on room air. General description is an elderly male lying in bed in no distress. Respiratory system: Unlabored breathing, clear to auscultation anteriorly. Heart S1, S2. Regular rate and rhythm. Abdomen soft, no tenderness. Right arm wound is currently dressed. No obvious drainage on the dressing. LABS: Hemoglobin 7.7, white count 8.4, creatinine 5.02. Vanc random is 15.8. Local culture as well as blood culture with Pseudomonas aeruginosa. DIAGNOSTIC IMPRESSION AND PLAN: Patient with a fever with Pseudomonas bacteremia, concern for possible Perm-A-Cath infection, possible right arm AV fistula site infection. Patient is covered with cefepime. Blood culture repeat has been negative so far and monitor clinical course closely. MMODL / IJN: [id number] /
[2021-08-31 06:49] LABS: Glucose,Whole Blood 82 mg/dL (75-99)
[2021-08-31] MEDS: SYMBICORT 160-4.5 MCG INHALER INHALATION SCH ×2 (07:55→19:46)
--- NOTE | 2021-08-31 09:45 | P.PN ---
Subjective Progress Note Date: 08/31/21 Patient seen and examined. Overall his arm pain is significantly improved. He appears to be more awake and alert today. Long discussion had regarding the operative findings. Discussed the overall plan regarding attempts to clear his bacteremia without removal of catheter. We will await repeat blood cultures regarding this. Did initiate goals of care discussion as the patient does not seemingly one significantly more surgical interventions. Did discuss whether he would be amenable to removal of the catheter and replacement of a tunneled catheter once his bacteremia has cleared. He is going to think about this. Objective - Vital Signs Vital signs: Vital Signs Temp 98 F 08/31/21 05:00 Pulse 68 08/31/21 09:35 Resp 20 08/31/21 05:00 BP 107/46 08/31/21 09:35 Pulse Ox 99 08/31/21 05:00 Intake & Output 08/30/21 08/31/21 08/31/21 18:59 06:59 18:59 Intake Total 902 200 Output Total 75 320 Balance 827 -120 Weight 80 kg Intake: IV 852 Intake, IV Titration 50 Amount Cefepime 1 gm In Sodium 50 Chloride 0.9% 50 ml @ 12. 5 mls/hr IVPB DAILY [facility] Rx#:[id number] Oral 200 Output: Drainage 320 Right Abdomen 300 Right Arm 20 Estimated Blood Loss 75 Other: Voiding Method Diaper Diaper Ileal Conduit (Right) Ileal Conduit (Right) - Labs CBC & Chem 7: 08/30/21 16:07 08/30/21 16:07 Labs: Abnormal Lab Results - Last 24 Hours (Table) 08/30/21 08/30/21 08/30/21 Range/Units 16:07 16:07 21:07 RBC 2.57 L (4.30-5.90) m/uL Hgb 7.7 L (13.0-17.5) gm/dL Hct 24.2 L (39.0-53.0) % Lymphocytes # 0.5 L (1.0-4.8) k/uL Sodium 129 L (137-145) mmol/L Carbon Dioxide 16 L (22-30) mmol/L BUN 44 H (9-20) mg/dL Creatinine 5.02 H (0.66-1.25) mg/dL Glucose 101 H (74-99) mg/dL POC Glucose (mg/dL) 146 H (75-99) mg/dL Calcium 8.0 L (8.4-10.2) mg/dL Microbiology - Last 24 Hours (Table) 08/28/21 17:29 Gram Stain - Final Arm - Right Wound Culture - Final Pseudomonas aeruginosa 08/28/21 17:29 Anaerobic Culture - Preliminary Arm - Right 08/29/21 14:49 Blood Culture - Preliminary Blood No Growth after 24 hours 08/28/21 06:26 Blood Culture Gram Stain - Preliminary Blood Blood Culture - Preliminary Gram Neg Bacilli
[2021-08-31] MEDS: HEPARIN SODIUM,PORCINE/PF 5,000 UNIT/0.5 ML SYRINGE SQ SCH ×2 (10:04→21:41)
[2021-08-31] MEDS: CEFEPIME 1 GM in SODIUM CHLORIDE 0.9% 50 ML IVPB SCH (10:04)
[2021-08-31] MEDS: FAMOTIDINE 20 MG TAB PO SCH (10:05)
[2021-08-31] MEDS: MONTELUKAST 10 MG TAB PO SCH (10:05)
[2021-08-31] MEDS: CALCIUM ACETATE 667 MG TAB PO SCH ×3 (10:05→17:28)
[2021-08-31] MEDS: FOLIC ACID-VIT B COMPLEX-VIT C 1 CAP PO SCH (10:05)
[2021-08-31 12:39] LABS: Glucose,Whole Blood 136 mg/dL (75-99)
--- NOTE | 2021-08-31 13:00 | P.PN ---
Subjective Progress Note Date: 08/31/21 Principal diagnosis: This 85-year-old male with ESRD on dialysis Wednesday. He had missed dialysis, came to the hospital with shortness of breath and he was dialyz ed on and Wednesday day before yesterday. This morning he came back from surgery for a pseudoaneurysm on his right upper arm, with a wound on the access. He is 2 blood cultures are positive for Pseudomonas on 08/28/2021. Additionally he has a permacath on the right side. Currently awake alert oriented but generalized weakness. Has good appetite no nausea vomiting diarrhea abdominal pain no fever chills. He is known with asthma COPD diabetes history of prostate and bladder cancer, has a urostomy. Objective - Vital Signs Vital signs: Vital Signs Temp 98.8 F 08/31/21 12:36 Pulse 65 08/31/21 12:36 Resp 17 08/31/21 12:36 BP 100/60 08/31/21 12:36 Pulse Ox 99 08/31/21 12:36 Intake & Output 08/30/21 08/31/21 08/31/21 18:59 06:59 18:59 Intake Total 902 200 Output Total 75 320 Balance 827 -120 Weight 80 kg Intake: IV 852 Intake, IV Titration 50 Amount Cefepime 1 gm In Sodium 50 Chloride 0.9% 50 ml @ 12. 5 mls/hr IVPB DAILY [facility] Rx#:[id number] Oral 200 Output: Drainage 320 Right Abdomen 300 Right Arm 20 Estimated Blood Loss 75 Other: Voiding Method Diaper Diaper Diaper Ileal Conduit (Right) Ileal Conduit (Right) Ileal Conduit (Right) Examination is awake alert oriented comfortable HEENT exam no JVP neck is supple no facial asymmetry Lungs clear to auscultation good air entry bilaterally Heart sounds unremarkable for any murmur rub gallop Abdomen soft nontender Extremity exam reveals no edema Neurologically awake alert oriented He has a bandage on his right upper arm that he had a pseudoaneurysm repaired. He has a permacath on the right side - Labs CBC & Chem 7: 08/30/21 16:07 08/30/21 16:07 Labs: Abnormal Lab Results - Last 24 Hours (Table) 08/30/21 08/30/21 08/30/21 Range/Units 16:07 16:07 21:07 RBC 2.57 L (4.30-5.90) m/uL Hgb 7.7 L (13.0-17.5) gm/dL Hct 24.2 L (39.0-53.0) % Lymphocytes # 0.5 L (1.0-4.8) k/uL Sodium 129 L (137-145) mmol/L Carbon Dioxide 16 L (22-30) mmol/L BUN 44 H (9-20) mg/dL Creatinine 5.02 H (0.66-1.25) mg/dL Glucose 101 H (74-99) mg/dL POC Glucose (mg/dL) 146 H (75-99) mg/dL Calcium 8.0 L (8.4-10.2) mg/dL 08/31/21 Range/Units 12:38 RBC (4.30-5.90) m/uL Hgb (13.0-17.5) gm/dL Hct (39.0-53.0) % Lymphocytes # (1.0-4.8) k/uL Sodium (137-145) mmol/L Carbon Dioxide (22-30) mmol/L BUN (9-20) mg/dL Creatinine (0.66-1.25) mg/dL Glucose (74-99) mg/dL POC Glucose (mg/dL) 136 H (75-99) mg/dL Calcium (8.4-10.2) mg/dL Microbiology - Last 24 Hours (Table) 08/28/21 17:29 Gram Stain - Final Arm - Right Wound Culture - Final Pseudomonas aeruginosa 08/28/21 17:29 Anaerobic Culture - Preliminary Arm - Right 08/29/21 14:49 Blood Culture - Preliminary Blood No Growth after 24 hours 08/28/21 06:26 Blood Culture Gram Stain - Preliminary Blood Blood Culture - Preliminary Gram Neg Bacilli Assessment and Plan Assessment: Impression 1. ESRD on dialysis Wednesday missed 2 dialysis and therefore was admitted with shortness of breath and had 2 dialysis treatment on 08/28/2021 and 08/29/2021 2. Pseudomonas bacteremia, likely sources access which had a pseudoaneurysm and underwent repair of right brachial artery with bovine patch and angioplasty on 08/30/2021. Afebrile currently, and the last blood culture on 08/29/2021 is negative 3. Permacath on the right side exit site is clean 4. Urostomy status post bladder and prostate cancer. 5. Diabetes mellitus. 6. History of COPD asthma Recommendation 1. Dialysis tomorrow 2. Blood cultures on dialysis tomorrow 3.. Maintain antibiotics.
[2021-08-31 17:38] LABS: Glucose,Whole Blood 166 mg/dL (75-99)
[2021-08-31 19:54] LABS: Glucose,Whole Blood 169 mg/dL (75-99)
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
[2021-08-31] MEDS: ATORVASTATIN 20 MG TAB PO SCH (21:41)
[2021-08-31] MEDS: INSULIN DETEMIR (LEVEMIR) 100 UNIT/ML SYR SQ SCH (21:42)
--- NOTE | 2021-08-31 23:37 | PN ---
PROGRESS NOTE DATE OF SERVICE: 08/31/2021 REASON FOR FOLLOWUP: Pseudomonas bacteremia. INTERVAL HISTORY: The patient is afebrile. The patient is currently breathing comfortably. The patient denies having any chest pain or shortness of breath or cough. No abdominal pain or diarrhea. PHYSICAL EXAMINATION: Blood pressure is 157/66, pulse of 69, temperature 97.7. He is 100% on 2 L nasal cannula. General description is an elderly male lying in bed in no distress. Respiratory system: Unlabored breathing. Clear to auscultation anteriorly. Heart S1, S2. Regular rate and rhythm. Abdomen soft, no tenderness. Right wound is currently dressed. No obvious drainage on the dressing. LABS: Blood culture repeat has been negative so far. Right arm wound as well as blood culture have same pathogen. DIAGNOSTIC IMPRESSION AND PLAN: Patient with Pseudomonas bacteremia, concern for possible right arm wound infection in this patient with recent fistula formation and did have a PermCath. Apparently the culture from the PermCath is negative so far. Will keep the patient on cefepime while inpatient, transition to oral antibiotic on discharge and close outpatient followup. MMODL / IJN: [id number] /
[2021-09-01 07:22] LABS: Glucose,Whole Blood 119 mg/dL (75-99)
[2021-09-01] MEDS: CALCIUM ACETATE 667 MG TAB PO SCH ×3 (08:24→17:29)
[2021-09-01] MEDS: HEPARIN SODIUM,PORCINE/PF 5,000 UNIT/0.5 ML SYRINGE SQ SCH ×2 (08:24→22:34)
[2021-09-01] MEDS: FAMOTIDINE 20 MG TAB PO SCH (08:24)
[2021-09-01] MEDS: CEFEPIME 1 GM in SODIUM CHLORIDE 0.9% 50 ML IVPB SCH (08:24)
[2021-09-01] MEDS: FOLIC ACID-VIT B COMPLEX-VIT C 1 CAP PO SCH (08:24)
[2021-09-01] MEDS: MONTELUKAST 10 MG TAB PO SCH (08:24)
[2021-09-01] MEDS: SYMBICORT 160-4.5 MCG INHALER INHALATION SCH ×2 (08:47→19:50)
[2021-09-01 11:17] LABS: Glucose,Whole Blood 186 mg/dL (75-99)
--- NOTE | 2021-09-01 14:50 | P.PN ---
Subjective Progress Note Date: 09/01/21 Patient is seen and examined sitting up in bed. No acute changes through the night. He is status post brachial artery exploration and repair of right brachial artery repair of right brachial artery. The patient states some of right upper extremity pain improved. He's been afebrile. Initial blood cult ures came back with Pseudomonas aeruginosa well as his right upper extremity wound culture. He remains on cefepime Objective - Vital Signs Vital signs: Vital Signs Temp 97.5 F L 09/01/21 11:08 Pulse 67 09/01/21 11:08 Resp 18 09/01/21 11:08 BP 152/57 09/01/21 11:08 Pulse Ox 100 09/01/21 11:08 Intake & Output 08/31/21 09/01/21 09/01/21 18:59 06:59 18:59 Output Total 130 130 105 Balance -130 -130 -105 Weight 80 kg Output: Drainage 130 130 105 Right Abdomen 120 120 100 Right Arm 10 10 5 Other: Voiding Method Diaper Diaper Diaper Ileal Conduit (Right) Ileal Conduit (Right) Ileal Conduit (Right) # Voids 2 # Bowel Movements 1 - Exam General appearance: The patient is alert, oriented, appears in no acute distress. Extremities: Right forearm with dressing clean dry and intact. Right upper extremity incision well approximated with sutures and cuco. Palpable radial pulse. Good right upper extremity movement. Neurological: No focal deficits. Alert and oriented.. - Labs CBC & Chem 7: 08/30/21 16:07 08/30/21 16:07 Labs: Abnormal Lab Results - Last 24 Hours (Table) 08/31/21 08/31/21 09/01/21 Range/Units 17:35 19:52 07:10 POC Glucose (mg/dL) 166 H 169 H 119 H (75-99) mg/dL 09/01/21 Range/Units 11:11 POC Glucose (mg/dL) 186 H (75-99) mg/dL Microbiology - Last 24 Hours (Table) 08/29/21 14:49 Blood Culture - Preliminary Blood No Growth after 48 hours 08/28/21 06:26 Blood Culture Gram Stain - Final Blood Blood Culture - Final Pseudomonas aeruginosa 08/28/21 06:18 Blood Culture Gram Stain - Final Blood Blood Culture - Final Pseudomonas aeruginosa Assessment and Plan Assessment: 1. 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 Fever, resolved 3. Bacteremia wiht gram negative bacilli 4. Abrasions to right forearm with drainage 5. Weakness 6. Shortness of breath 7. Acute on chronic renal disease 8. End-stage renal disease on hemodialysis 9. Diabetes mellitus Plan: 1. Continue antibiotics per recommendations from infectious disease 2. Kerlix to right upper extremity incision, keep NEIL drain in place 3. Continue dialysis as per recommendations from nephrology 4. Further recommendations forthcoming per clinical course and patient's wishes The impression and plan of care has been dictated as directed. Dr. Brown I performed a history and examination of this patient, discussed the same with the dictator. I agree with the dictator's note ,documented as a scribe. Any additional findings or plans will be noted.
--- NOTE | 2021-09-01 16:29 | PN ---
PROGRESS NOTE Patient is seen for followup for end-stage renal disease. He has a Pseudomonas bacteremia and Pseudomonas wound infection on his right arm with recent fistula formation. Currently with IJ PermCath. He still has a drain in the right upper arm. Repeat blood cultures from August 29 have been negative. Patient is maintained on IV antibiotics in the form of cefepime. He is being followed by ID. Patient has been eating. No significant complaints. EXAMINATION: Today, blood pressure 133/64, heart rate 71 per minute. He is afebrile. Examination of the heart S1, S2. Examination of the lungs, bilateral breath sounds are heard. Abdomen is soft, nontender. Examination of lower extremities, no significant edema. [employer]YING [employer]ING [employer]PER[employer]OR exam grossly intact. ASSESSMENT: 1. End-stage renal disease on hemodialysis on a Wednesday, , Wednesday schedule. 2. Right upper arm wound infection at the site of recent AV fistula, maintained on cefepime status post I and D. 3. Pseudomonas bacteremia from above. Repeat blood cultures negative. Hopefully we can continue to salvage the catheter. 4. CKD mineral bone disorder. 5. History of bladder and prostate cancer status post urostomy. 6. Chronic obstructive pulmonary disease, currently stable. PLAN: Continue with antibiotics. Repeat blood cultures today with dialysis. Antibiotics as per ID. MMODL / IJN: [id number] /
[2021-09-01 17:04] LABS: Glucose,Whole Blood 185 mg/dL (75-99)
[2021-09-01 20:56] LABS: Glucose,Whole Blood 252 mg/dL (75-99)
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
--- NOTE | 2021-09-01 22:20 | PN ---
PROGRESS NOTE DATE OF SERVICE: 09/01/2021 REASON FOR FOLLOWUP: Pseudomonas bacteremia concerning for possible PermCath versus fistula site infection. INTERVAL HISTORY: The patient is afebrile. The patient is breathing comfortably. The patient denies having any chest pain, shortness of breath or cough. No abdominal pain or any worsening pain to the right arm area. PHYSICAL EXAMINATION: Blood pressure 147/68 with a pulse of 112, temperature 98.7. He is 97% on room air. General description is an elderly male lying in bed in no distress. Respiratory system: Unlabored breathing, clear to auscultation anteriorly. Heart S1, S2. Regular rate and rhythm. Abdomen soft, no tenderness. Right forearm did have a small wound, but no significant redness or drainage. LABS: No new labs have been obtained today. Blood culture repeat has been negative so far. DIAGNOSTIC IMPRESSION AND PLAN: Patient with Pseudomonas bacteremia concerning for possible PermCath versus fistula site infection. Clinically doubt related to the wound on the right forearm. Patient to continue cefepime and, as the hardware could not be removed, may need to be on a suppressive therapy for a long time. This will be discussed with Nephrology. Continue with supportive care. MMODL / IJN: [id number] /
[2021-09-01] MEDS: ATORVASTATIN 20 MG TAB PO SCH (22:34)
[2021-09-02] MEDS: INSULIN DETEMIR (LEVEMIR) 100 UNIT/ML SYR SQ SCH (00:01)
[2021-09-02 05:02] LABS: Basophils % (A) 0 %; Eosinophils # (A) 0.1 k/uL (0-0.7); Eosinophils % (A) 2 %; HCT 23.2 % (39.0-53.0); HGB 7.5 gm/dL (13.0-17.5); Hypochromasia Slight; Lymphocytes # (A) 0.6 k/uL (1.0-4.8); Lymphocytes % (A) 11 %; MCH 29.7 pg (25.0-35.0); MCHC 32.2 g/dL (31.0-37.0); MCV 92.3 fL (80.0-100.0); Monocytes # (A) 0.3 k/uL (0-1.0); Monocytes % (A) 5 %; Neutrophils % (A) 80 %; Platelet Count 314 k/uL (150-450); RBC 2.52 m/uL (4.30-5.90); RDW 15.2 % (11.5-15.5); WBC 6.2 k/uL (3.8-10.6)
[2021-09-02 05:19] LABS: Hepatitis B Surface AB- Quant 3.5 mIU/mL; Hepatitis B Surface Antibody Nonreactive (Nonreactive); Hepatitis B Surface Antigen Nonreactive (Nonreactive)
[2021-09-02] MEDS: CEFEPIME 1 GM in SODIUM CHLORIDE 0.9% 50 ML IVPB SCH (07:16)
[2021-09-02] MEDS: HEPARIN SODIUM,PORCINE/PF 5,000 UNIT/0.5 ML SYRINGE SQ SCH (07:16)
[2021-09-02] MEDS: CALCIUM ACETATE 667 MG TAB PO SCH ×2 (07:16→13:00)
[2021-09-02] MEDS: FAMOTIDINE 20 MG TAB PO SCH (07:17)
[2021-09-02] MEDS: MONTELUKAST 10 MG TAB PO SCH (07:17)
[2021-09-02] MEDS: FOLIC ACID-VIT B COMPLEX-VIT C 1 CAP PO SCH (07:17)
[2021-09-02] MEDS: SYMBICORT 160-4.5 MCG INHALER INHALATION SCH (07:51)
[2021-09-02 07:54] LABS: Glucose,Whole Blood 76 mg/dL (75-99)
[2021-09-02 10:42] LABS: African American GFR (CKD) 14.5 (60.0-200.0); Anion Gap 13.9 mmol/L (10.00-18.00); BUN/Creat Ratio 7.71 Ratio (12.00-20.00); Blood Urea Nitrogen 31.6 mg/dL (9.0-27.0); Calcium 8.1 mg/dL (8.7-10.3); Carbon Dioxide 21.1 mmol/L (20.0-27.5); Non-African American GFR(CKD) 12.5 (60.0-200.0); Potassium 4.2 mmol/L (3.5-5.5)
--- NOTE | 2021-09-02 12:39 | P.PN ---
Subjective Progress Note Date: 09/02/21 Patient is seen and examined sitting up in bed. No acute changes through the night. He is status post brachial artery exploration and repair of right brachial artery repair of right brachial artery. The patient states some of right upper extremity pain improved. He's been afebrile. Initial blood cult ures came back with Pseudomonas aeruginosa well as his right upper extremity wound culture. He remains on cefepime Objective - Vital Signs Vital signs: Vital Signs Temp 98 F 09/02/21 11:59 Pulse 68 09/02/21 11:59 Resp 18 09/02/21 11:59 BP 121/64 09/02/21 11:59 Pulse Ox 98 09/02/21 05:00 Intake & Output 09/01/21 09/02/21 09/02/21 18:59 06:59 18:59 Output Total 2255 105 1000 Balance -2255 -105 -1000 Weight 75.5 kg Output: Drainage 105 5 Right Abdomen 100 Right Arm 5 5 Urine 150 100 Hemodialysis 2000 1000 Other: Voiding Method Diaper Diaper Ileal Conduit (Right) Ileal Conduit (Right) - Exam General appearance: The patient is alert, oriented, appears in no acute distress. Extremities: Right forearm with dressing clean dry and intact. Right upper extremity incision well approximated with sutures and cuco. Palpable radial pulse. Good right upper extremity movement. Peak drain in place with minimal serosanguineous output. Neurological: No focal deficits. Alert and oriented. - Labs CBC & Chem 7: 09/02/21 04:32 09/02/21 04:32 Labs: Abnormal Lab Results - Last 24 Hours (Table) 09/01/21 09/01/21 09/02/21 Range/Units 16:59 20:54 04:32 RBC 2.52 L (4.30-5.90) m/uL Hgb 7.5 L (13.0-17.5) gm/dL Hct 23.2 L (39.0-53.0) % Lymphocytes # 0.6 L (1.0-4.8) k/uL BUN (9.0-27.0) mg/dL Creatinine (0.6-1.5) mg/dL Est GFR (CKD-EPI)AfAm (60.0-200.0) Est GFR (CKD-EPI)NonAf (60.0-200.0) BUN/Creatinine Ratio (12.00-20.00) Ratio POC Glucose (mg/dL) 185 H 252 H (75-99) mg/dL Calcium (8.7-10.3) mg/dL 09/02/21 Range/Units 04:32 RBC (4.30-5.90) m/uL Hgb (13.0-17.5) gm/dL Hct (39.0-53.0) % Lymphocytes # (1.0-4.8) k/uL BUN 31.6 H (9.0-27.0) mg/dL Creatinine 4.1 H (0.6-1.5) mg/dL Est GFR (CKD-EPI)AfAm 14.5 L (60.0-200.0) Est GFR (CKD-EPI)NonAf 12.5 L (60.0-200.0) BUN/Creatinine Ratio 7.71 L (12.00-20.00) Ratio POC Glucose (mg/dL) (75-99) mg/dL Calcium 8.1 L (8.7-10.3) mg/dL Microbiology - Last 24 Hours (Table) 08/28/21 17:29 Anaerobic Culture - Final Arm - Right 08/29/21 14:49 Blood Culture - Preliminary Blood No Growth after 72 hours Assessment and Plan Assessment: 1. 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 Fever, resolved 3. Bacteremia wiht gram negative bacilli 4. Abrasions to right forearm with drainage 5. Weakness 6. Shortness of breath 7. Acute on chronic renal disease 8. End-stage renal disease on hemodialysis 9. Diabetes mellitus Plan: 1. Continue antibiotics per recommendations from infectious disease 2. NEIL drain discontinued. Kerlix dressing applied 3. Continue dialysis as per recommendations from nephrology 4. Patient is cleared for discharge from vascular surgery. He is to follow-up with Dr. Vieyra next week. The impression and plan of care has been dictated as directed. Dr. Jorge I performed a history and examination of this patient, discussed the same with the dictator. I agree with the dictator's note ,documented as a scribe. Any additional findings or plans will be noted.
[2021-09-02 12:59] LABS: Glucose,Whole Blood 201 mg/dL (75-99)
--- NOTE | 2021-09-02 13:21 | PN ---
PROGRESS NOTE DATE OF SERVICE: 09/02/2021 REASON FOR FOLLOWUP: Pseudomonas bacteremia, concerning for possible PermCath versus fistula site infection. INTERVAL HISTORY: The patient is afebrile. The patient is currently breathing comfortably. The patient denies having any chest pain, shortness of breath or cough. No abdominal pain or diarrhea. PHYSICAL EXAMINATION: Blood pressure 121/64 with a pulse of 68, temperature 98. He is 98% on room air. General description is an elderly male lying in bed in no distress. Respiratory system: Unlabored breathing. Clear to auscultation anteriorly. Heart S1, S2. Regular rate and rhythm. Abdomen soft, no tenderness. Right forearm wound is currently dressed. No drainage on the dressing. LABS: Hemoglobin 7.5, white count 6.2, creatinine is 4.1. Blood culture repeat has been negative. DIAGNOSTIC IMPRESSION AND PLAN: Patient with Pseudomonas aeruginosa bacteremia, concern for possible PermCath versus recent fistula site infection, as the patient did have . Repeat culture has been negative. Would recommend at least 2 weeks of IV cefepime or Fortaz, which can be done through dialysis, afterwards a prolonged course of suppressive antibiotic therapy with oral Cipro. Continue supportive care. MMODL / IJN: [id number] /
--- NOTE | 2021-09-02 13:51 | P.DS ---
Providers Date of admission: 08/27/21 18:31 Attending physician: Shira Gilbert Consults: 08/27/21 18:30 Consult Physician Urgent Consulting Provider: Layne Vieyra Consult Reason/Comments: Status post fistula procedure Do you want consulting provider notified?: Yes 08/27/21 18:31 Consult Physician Urgent Consulting Provider: German Mims Consult Reason/Comments: Fever of unknown origin Do you want consulting provider notified?: Yes 08/28/21 08:06 Consult Physician Urgent Consulting Provider: Gregg Berger Consult Reason/Comments: hemodialysis Do you want consulting provider notified?: Already Contacted Primary care physician: Kev Queen Hospital Course: Diagnoses: Infected right arm hemodialysis graft with surrounding cellulitis and brachial artery pseudoaneurysm status post debridement and reconstructive surgery of his anastomosis site on 08/30 Altered mental status secondary to metabolic encephalopathy. Pseudomonas bacteremia secondary to right arm infection. Wound culture growing pseudomonas as well ESRD on hemodialysis TTS right upper extremity AV fistula Missed hemodialysis last 2 sessions. 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 Currently has urostomy bag. Hospital course: Patient is a 85-year-old male with a known history of ESRD on hemodialysis TTS via right upper extremity AV fistula, asthma/COPD, hypertension, hyperlipidemia, diabetes type 2, osteoarthritis, history of plasmacytoma left femur and history of ESBL E. coli and prior history of smoking was brought to the hospital by family due to generalized weakness and shortness of breath and altered mental status. Patient is not able to provide much history at this time. Apparently patient missed last 2 sessions of hemodialysis. Patient was febrile on admission with T-max 101.7. His right arm fistula was significantly swollen, t elmer right and inflamed. Upper extremity CTA showing distal right branchial artery pseudoaneurysm at 2.7 cm Vascular surgery and infectious disease team evaluated the patient. Patient underwent right forearm surgical procedure for his significant cellulitis and right brachial artery pseudoaneurysm. And he was started on cefepime for Pseudomonas in blood culture and blood culture. His swelling and inflammation in the right arm is significantly improved, surgical wound is healing and closed. Patient remains confused and forgetful at baseline but is not in distress. Patient is back to his mental baseline. He denies any other complaints. Patient was cleared for discharge by texture artist, vascular surgery team and infectious disease team patient will be discharge on antibiotics per ID team recommendation. Per Dr. Mims recommendation patient will need 2 weeks of IV cefepime or Fortaz, which can be done through dialysis, after works a prolonged course of suppressive antibiotic therapy with oral Cipro. And continue supportive care Problems and management plan were discussed with the patient and he verbalized understanding and acceptance Patient was found stable and can be discharged to ECF in guarded prognosis however he needs follow-up as an outpatient. Patient was instructed to follow up with PCP within one week and patient agrees Patient will need to see Dr. Vieyra vascular surgeon in 1 week. Also patient recommended to follow-up with Dr. Mims in 1-2 weeks. Physical exam -Gen: patient is aalert awake, follows commands and answers questions appropriately, confused to the surrounding, no distress CVS: S1-S2, RRR, no murmur Lungs: B/L CTA, no wheezing Abdomen: soft, no distention, no tenderness, positive bowel sounds -Extremity: no leg edema or induration. Right arm cellulitis significantly improving. This is swelling or tenderness and redness. Is clean and closed and healing Time spent more than 35 minutes Patient Condition at Discharge: Serious Plan - Discharge Summary Discharge Rx Participant: Yes New Discharge Prescriptions: New Acetaminophen Tab [Tylenol] 325 mg PO Q6HR PRN tab PRN Reason: Mild Pain Or Fever > 100.5 Insulin Detemir (Levemir) [Levemir] 5 unit SQ HS #10 ml Famotidine [Pepcid] 20 mg PO DAILY tab Insulin Detemir (Levemir) [Levemir] 10 unit SQ DAILY #10 ml Continue Calcium Acetate [PhosLo] 1,334 mg PO TID-W/MEALS Furosemide [Lasix] 80 mg PO BID Albuterol Nebulized [Ventolin Nebulized] 2.5 mg INHALATION RT-Q6H PRN PRN Reason: Shortness Of Breath Fluticasone/Vilanterol [Breo Ellipta 200-25 Mcg Inhaler] 1 puff INHALATION RT-DAILY Nephro-Yovany 0.8mg 1 tab PO DAILY Discontinued Insulin Glargine,Hum.rec.anlog [Basaglar Kwikpen U-100] 20 unit SQ HS HYDROcodone/APAP 5-325MG [Tasley 5-325] 1 tab PO Q6H PRN PRN Reason: Pain No Action amLODIPine BESYLATE [Norvasc] 10 mg PO DAILY Montelukast [Singulair] 10 mg PO DAILY atenoloL [Tenormin] 25 mg PO DAILY Atorvastatin Calcium [Lipitor] 20 mg PO HS Albuterol Inhaler [Ventolin Hfa Inhaler] 2 puff INHALATION RT-QID PRN PRN Reason: Shortness Of Breath Clopidogrel Bisulfate [Plavix] 75 mg PO DAILY #30 tab Discharge Medication List Montelukast [Singulair] 10 mg PO DAILY 12/28/14 [History] amLODIPine BESYLATE [Norvasc] 10 mg PO DAILY 12/28/14 [History] atenoloL [Tenormin] 25 mg PO DAILY 12/28/14 [History] Atorvastatin Calcium [Lipitor] 20 mg PO HS 06/07/20 [History] Albuterol Inhaler [Ventolin Hfa Inhaler] 2 puff INHALATION RT-QID PRN 01/24/21 [History] Clopidogrel Bisulfate [Plavix] 75 mg PO DAILY #30 tab 06/12/21 [Rx] Albuterol Nebulized [Ventolin Nebulized] 2.5 mg INHALATION RT-Q6H PRN 08/27/21 [History] Calcium Acetate [PhosLo] 1,334 mg PO TID-W/MEALS 08/27/21 [History] Fluticasone/Vilanterol [Breo Ellipta 200-25 Mcg Inhaler] 1 puff INHALATION RT- DAILY 08/27/21 [History] Furosemide [Lasix] 80 mg PO BID 08/27/21 [History] Nephro-Yovany 0.8mg 1 tab PO DAILY 08/27/21 [History] Acetaminophen Tab [Tylenol] 325 mg PO Q6HR PRN tab 09/02/21 [Rx] Famotidine [Pepcid] 20 mg PO DAILY tab 09/02/21 [Rx] Insulin Detemir (Levemir) [Levemir] 5 unit SQ HS #10 ml 09/02/21 [Rx] Insulin Detemir (Levemir) [Levemir] 10 unit SQ DAILY #10 ml 09/02/21 [Rx] Follow up Appointment(s)/Referral(s): [facility] [Other] - As Needed (FRESENIUS RAE KAUFFMAN - [id number] CHAIR TIME: 0600 ) Kev Queen MD [Primary Care Provider] - 1-2 days Layne Vieyra DO [STAFF PHYSICIAN] - 1 Week Gregg Berger DO [STAFF PHYSICIAN] - 1 Week Activity/Diet/Wound Care/Special Instructions: renal diet, low carbohydrates 1800 kcal per day Activity is restricted till you see your doctor We recommend to check your glucose 4 times a day, before each meal and at bedtime, keep the results in a log book and bring it to your doctor on your appointment date If her glucose is less than 70 or more than 400 then call 911 and come to emergency room Discharge Disposition: HOME SELF-CARE
[2021-09-02 14:14] VITALS: BP 123/47; PULSE 93; RESP 19; TEMP 98.6
[2021-09-02 14:34] VITALS: BMI 24.5
--- NOTE | 2021-09-02 19:28 | PN ---
PROGRESS NOTE Patient is seen for followup for end-stage renal disease. He is currently seen on dialysis tolerating his treatment well. PHYSICAL EXAMINATION: On examination today, blood pressure this morning 121/64, heart rate 68 per minute. Patient is afebrile. Examination of the heart S1, S2. Examination of the lungs, bilateral breath sounds are heard. Abdomen is soft, nontender. Examination of lower extremities shows no significant edema. Right arm wound has the wound drain. LAB: Show hemoglobin 7.5, sodium 135, potassium 4.2. ASSESSMENT: 1. End-stage renal disease, on hemodialysis on a Wednesday, , Wednesday schedule. 2. Pseudomonas bacteremia and right arm wound infection at the site of AV fistula, maintained on antibiotics. 3. CKD mineral bone disorder. 4. Status post brachial artery exploration, repair of right brachial artery with bovine pericardial patch angioplasty for right upper extremity AV graft pseudoaneurysm formation and infection. PLAN: Continue antibiotics. Draw one set of blood cultures with dialysis today. Follow up with Vascular post discharge. Next dialysis on . 09/04/2021. MMODL / IJN: [id number] /
== END 2021-09-02 17:12 | DRG 252 ==
LOC: EC 16:31 → 5NMEDONC 18:31
PROVIDERS: ADMIT Hospitalist; ATTEND Hospitalist
PROC: 5A1D70Z Performance of Urinary Filtration, Intermittent, Less than 6 Hours Per Day (ICD-10-PCS; 2021-08-29 16:10)
PROC: 03PY0KZ Removal of Nonautologous Tissue Substitute from Upper Artery, Open Approach (ICD-10-PCS; principal; 2021-08-30 08:00)
PROC: 03WY0KZ Revision of Nonautologous Tissue Substitute in Upper Artery, Open Approach (ICD-10-PCS; principal; 2021-08-30 08:00)
DX: T82.7XXA Infection and inflammatory reaction due to other cardiac and vascular devices, implants and grafts, initial encounter (principal); G93.41 Metabolic encephalopathy; N18.6 End stage renal disease; T82.511A Breakdown (mechanical) of surgically created arteriovenous shunt, initial encounter; E87.2 Acidosis; I12.0 Hypertensive chronic kidney disease with stage 5 chronic kidney disease or end stage renal disease; N17.9 Acute kidney failure, unspecified; R78.81 Bacteremia; C90.30 Solitary plasmacytoma not having achieved remission; Z16.24 Resistance to multiple antibiotics; L03.113 Cellulitis of right upper limb; B96.5 Pseudomonas (aeruginosa) (mallei) (pseudomallei) as the cause of diseases classified elsewhere; B96.89 Other specified bacterial agents as the cause of diseases classified elsewhere; D63.1 Anemia in chronic kidney disease; E11.22 Type 2 diabetes mellitus with diabetic chronic kidney disease; E78.5 Hyperlipidemia, unspecified; E87.5 Hyperkalemia; I25.2 Old myocardial infarction; I72.1 Aneurysm of artery of upper extremity; J44.9 Chronic obstructive pulmonary disease, unspecified; S50.811A Abrasion of right forearm, initial encounter; Y71.2 Prosthetic and other implants, materials and accessory cardiovascular devices associated with adverse incidents; Y92.009 Unspecified place in unspecified non-institutional (private) residence as the place of occurrence of the external cause; Z79.02 Long term (current) use of antithrombotics/antiplatelets; Z79.4 Long term (current) use of insulin; Z79.899 Other long term (current) drug therapy; Z85.828 Personal history of other malignant neoplasm of skin; Z85.830 Personal history of malignant neoplasm of bone; Z86.19 Personal history of other infectious and parasitic diseases; Z87.891 Personal history of nicotine dependence; Z93.6 Other artificial openings of urinary tract status; Z96.641 Presence of right artificial hip joint; Z99.2 Dependence on renal dialysis; Z85.51 Personal history of malignant neoplasm of bladder; Z85.46 Personal history of malignant neoplasm of prostate; Z80.6 Family history of leukemia; W19.XXXA Unspecified fall, initial encounter; M89.9 Disorder of bone, unspecified; M89.8X9 Other specified disorders of bone, unspecified site; I83.90 Asymptomatic varicose veins of unspecified lower extremity; M47.9 Spondylosis, unspecified; R79.89 Other specified abnormal findings of blood chemistry; R09.89 Other specified symptoms and signs involving the circulatory and respiratory systems; M79.89 Other specified soft tissue disorders; Z91.15 Patient's noncompliance with renal dialysis
CPT/HCPCS: 36410; 36415; 71046; 76937; 80048; 80053; 80202; 81001; 82728; 83540; 83550; 83605; 83735; 83880; 84100; 84145; 85025; 85027; 85610; 85730; 86140; 86706; 86850; 86900; 86901; 87040; 87070; 87075; 87077; 87086; 87186; 87205; 87340; 87635; 90935; 93005; 94640; 99291

== ENCOUNTER 2021-10-29 12:31 | Emergency (ER) | payer MEDICARE, BC ==
[2021-10-29 12:40] VITALS: RESP 18; TEMP 98.2
--- NOTE | 2021-10-29 13:10 | ED ---
General Adult HPI - General Chief complaint: Recheck/Abnormal Lab/Rx Stated complaint: weakness Time Seen by Provider: 10/29/21 12:52 Source: patient, RN notes reviewed, old records reviewed Mode of arrival: EMS - History of Present Illness Initial comments: 85-year-old male presents for evaluation of increased confusion and increased generalized weakness. Patient has history of end-stage renal disease he is on hemodialysis. The history is obtained from the patient's son who is at bedside. Patient himself has no complaints. He is alert and oriented 2. The family had contacted the primary care physician who requested the patient presented to the emergency department for evaluation. Patient has missed several treatments of hemodialysis. He received a treatment yesterday. He does continue to make urine and has a urostomy. He receives hemodialysis through a right upper chest permacath. The patient has not had fever. No vomiting. No reported headaches. - Related Data Home Medications Medication Instructions Recorded Confirmed Montelukast [Singulair] 10 mg PO DAILY 12/28/14 10/29/21 amLODIPine BESYLATE [Norvasc] 10 mg PO DAILY 12/28/14 10/29/21 atenoloL [Tenormin] 25 mg PO DAILY 12/28/14 10/29/21 Atorvastatin Calcium [Lipitor] 20 mg PO HS 06/07/20 10/29/21 Albuterol Inhaler [Ventolin Hfa 2 puff INHALATION RT-QID PRN 01/24/21 10/29/21 Inhaler] Albuterol Nebulized [Ventolin 2.5 mg INHALATION RT-Q6H PRN 08/27/21 10/29/21 Nebulized] Calcium Acetate [PhosLo] 677 mg PO TID-W/MEALS 08/27/21 10/29/21 Fluticasone/Vilanterol [Breo 1 puff INHALATION RT-DAILY 08/27/21 10/29/21 Ellipta 200-25 Mcg Inhaler] Furosemide [Lasix] 80 mg PO BID 08/27/21 10/29/21 Nephro-Yovany 0.8mg 1 tab PO DAILY@1700 08/27/21 10/29/21 Ciprofloxacin HCl [Cipro] 500 mg PO DAILY 10/29/21 10/29/21 INSULIN ASPART (NovoLOG) [NovoLOG See Protocol SQ ACHS 10/29/21 10/29/21 (formulary)] Previous Rx's Medication Instructions Recorded Clopidogrel Bisulfate [Plavix] 75 mg PO DAILY #30 tab 06/12/21 Acetaminophen Tab [Tylenol] 325 mg PO Q6HR PRN tab 09/02/21 Famotidine [Pepcid] 20 mg PO DAILY tab 09/02/21 Insulin Detemir (Levemir) [Levemir] 5 unit SQ HS #10 ml 09/02/21 Insulin Detemir (Levemir) [Levemir] 10 unit SQ DAILY #10 ml 09/02/21 Allergies Allergy/AdvReac Type Severity Reaction Status Date / Time shellfish derived [Shellfish] Allergy Mild Rash/Hives Verified 10/29/21 14:06 "if consumes a lot," per patient Review of Systems ROS Statement: Those systems with pertinent positive or pertinent negative responses have been documented in the HPI. ROS Other: All systems not noted in ROS Statement are negative. Past Medical History Past Medical History: Asthma, Cancer, COPD, Diabetes Mellitus, Hyperlipidemia, Hypertension, Osteoarthritis (OA), Prostate Disorder Additional Past Medical History / Comment(s): VARICOSE VEINS; ARTHRITIS BACK, NECK; HX PROSTATE, BLADDER, (4 -5 years ago) & SKIN CANCER (4-5 yrs ago) , PLASMACYTOMA LEFT FEMUR- CANCERS. PNEUMONIA 04/01/15. HAS UROSTOMY , FX RT HIP -2017." RENAL DISEASE-Hemodialysis [facility] Last Myocardial Infarction Date:: 2012- UNSURE- STATES DISCOVERED ON EKG. History of Any Multi-Drug Resistant Organisms: ESBL Date of last positivie culture/infection: 03/26/2015 MDRO Source:: Urine- E.coli ESBL Past Surgical History: Bladder Surgery, Joint Replacement, Prostate Surgery Additional Past Surgical History / Comment(s): EXC LEFT FEMUR CANCER; CHEST TUMOR EXC; RADICAL PROSTATECTOMY 07/2004. , ROBOTIC RADICAL CYSTECTOMY 02/2015- UROSTOMY, COLONOSCOPY, PARTIAL RT HIP REPLACEMENT Past Anesthesia/Blood Transfusion Reactions: No Reported Reaction Past Psychological History: No Psychological Hx Reported Smoking Status: Former smoker Past Alcohol Use History: None Reported Past Drug Use History: None Reported - Past Family History Son(s) Family Medical History: Cancer Additional Family Medical History / Comment(s): LEUKEMIA General Exam General appearance: alert, in no apparent distress Head exam: Present: atraumatic, normocephalic Eye exam: Present: normal appearance, PERRL ENT exam: Present: normal exam Neck exam: Present: normal inspection. Absent: tenderness, meningismus Respiratory exam: Present: normal lung sounds bilaterally. Absent: respiratory distress, wheezes Cardiovascular Exam: Present: regular rate, normal rhythm GI/Abdominal exam: Present: soft, distended, other (Urostomy). Absent: tenderness, guarding Extremities exam: Present: normal inspection, normal capillary refill. Absent: pedal edema, calf tenderness Neurological exam: Present: alert, CN II-XII intact. Absent: oriented X3, motor sensory deficit Skin exam: Present: warm, dry, intact. Absent: cyanosis, diaphoretic Course Vital Signs 10/29/21 12:36 Temperature 98.2 F Pulse Rate 57 L Respiratory 18 Rate Blood Pressure 112/48 O2 Sat by Pulse 96 Oximetry EKG Findings - EKG Comments: EKG Findings:: EKG: Sinus bradycardia with PVC wide-complex left posterior fascicular block rate of 59, PA interval 192, QRS duration 161, QTC 504 Medical Decision Making - Medical Decision Making 85-year-old male presents for evaluation of weakness, difficulty in relating, some confusion. Patient has had these issues ongoing. There is no sudden change. I did talk with the daughter getting further history. She states he's had some difficulty in breathing secondary to bilateral foot and ankle pain which is been present for several weeks. I discussed case with Dr. Queen who is familiar with the patient. At this time. [place] that the patient stable for discharge with outpatient follow-up. I did write a prescription for wheelchair for this patient. Return parameters are discussed. His laboratory testing is essentially unremarkable. Head CT and chest x-ray negative for any acute find ings. - Lab Data Result diagrams: 10/29/21 14:30 10/29/21 14:30 Lab Results 10/29/21 10/29/21 10/29/21 Range/Units 14:30 14:30 14:30 WBC 7.8 (3.8-10.6) k/uL RBC 4.63 (4.30-5.90) m/uL Hgb 13.5 (13.0-17.5) gm/dL Hct 42.3 (39.0-53.0) % MCV 91.5 D (80.0-100.0) fL MCH 29.3 (25.0-35.0) pg MCHC 32.0 (31.0-37.0) g/dL RDW 14.2 (11.5-15.5) % Plt Count 338 (150-450) k/uL MPV 7.0 Neutrophils % 77 % Lymphocytes % 10 % Monocytes % 7 % Eosinophils % 5 % Basophils % 1 % Neutrophils # 6.0 (1.3-7.7) k/uL Lymphocytes # 0.8 L (1.0-4.8) k/uL Monocytes # 0.5 (0-1.0) k/uL Eosinophils # 0.4 (0-0.7) k/uL Basophils # 0.1 (0-0.2) k/uL PT 10.3 (9.0-12.0) sec INR 0.9 (<1.2) APTT 25.9 (22.0-30.0) sec Sodium (137-145) mmol/L Potassium (3.5-5.1) mmol/L Chloride (98-107) mmol/L Carbon Dioxide (22-30) mmol/L Anion Gap mmol/L BUN (9-20) mg/dL Creatinine (0.66-1.25) mg/dL Est GFR (CKD-EPI)AfAm (>60 ml/min/1.73 sqM) Est GFR (CKD-EPI)NonAf (>60 ml/min/1.73 sqM) Glucose (74-99) mg/dL Plasma Lactic Acid Von (0.7-2.0) mmol/L Calcium (8.4-10.2) mg/dL Magnesium (1.6-2.3) mg/dL Total Bilirubin (0.2-1.3) mg/dL AST (17-59) U/L ALT (4-49) U/L Alkaline Phosphatase (38-126) U/L Total Protein (6.3-8.2) g/dL Albumin (3.5-5.0) g/dL Urine Color Yellow Urine Appearance Cloudy (Clear) Urine pH 8.5 H (5.0-8.0) Ur Specific Transfer 1.010 (1.001-1.035) Urine Protein 3+ H (Negative) Urine Glucose (UA) Negative (Negative) Urine Ketones Negative (Negative) Urine Blood Small H (Negative) Urine Nitrite Negative (Negative) Urine Bilirubin Negative (Negative) Urine Urobilinogen <2.0 (<2.0) mg/dL Ur Leukocyte Esterase Negative (Negative) Urine RBC 92 H (0-5) /hpf Ur Squamous Epith Cells <1 (0-4) /hpf Uric Acid Crystals Many H (None) /hpf Urine Bacteria Occasional H (None) /hpf Urine Mucus Rare H (None) /hpf Urine Yeast (Budding) Few H (None) /hpf 10/29/21 10/29/21 Range/Units 14:30 14:30 WBC (3.8-10.6) k/uL RBC (4.30-5.90) m/uL Hgb (13.0-17.5) gm/dL Hct (39.0-53.0) % MCV (80.0-100.0) fL MCH (25.0-35.0) pg MCHC (31.0-37.0) g/dL RDW (11.5-15.5) % Plt Count (150-450) k/uL MPV Neutrophils % % Lymphocytes % % Monocytes % % Eosinophils % % Basophils % % Neutrophils # (1.3-7.7) k/uL Lymphocytes # (1.0-4.8) k/uL Monocytes # (0-1.0) k/uL Eosinophils # (0-0.7) k/uL Basophils # (0-0.2) k/uL PT (9.0-12.0) sec INR (<1.2) APTT (22.0-30.0) sec Sodium 140 (137-145) mmol/L Potassium 4.7 (3.5-5.1) mmol/L Chloride 99 (98-107) mmol/L Carbon Dioxide 32 H (22-30) mmol/L Anion Gap 9 mmol/L BUN 56 H (9-20) mg/dL Creatinine 5.79 H (0.66-1.25) mg/dL Est GFR (CKD-EPI)AfAm 10 (>60 ml/min/1.73 sqM) Est GFR (CKD-EPI)NonAf 8 (>60 ml/min/1.73 sqM) Glucose 141 H (74-99) mg/dL Plasma Lactic Acid Von 1.1 (0.7-2.0) mmol/L Calcium 9.6 (8.4-10.2) mg/dL Magnesium 2.3 (1.6-2.3) mg/dL Total Bilirubin 0.6 (0.2-1.3) mg/dL AST 18 (17-59) U/L ALT 9 (4-49) U/L Alkaline Phosphatase 99 (38-126) U/L Total Protein 6.6 (6.3-8.2) g/dL Albumin 3.5 (3.5-5.0) g/dL Urine Color Urine Appearance (Clear) Urine pH (5.0-8.0) Ur Specific Transfer (1.001-1.035) Urine Protein (Negative) Urine Glucose (UA) (Negative) Urine Ketones (Negative) Urine Blood (Negative) Urine Nitrite (Negative) Urine Bilirubin (Negative) Urine Urobilinogen (<2.0) mg/dL Ur Leukocyte Esterase (Negative) Urine RBC (0-5) /hpf Ur Squamous Epith Cells (0-4) /hpf Uric Acid Crystals (None) /hpf Urine Bacteria (None) /hpf Urine Mucus (None) /hpf Urine Yeast (Budding) (None) /hpf Disposition Clinical Impression: ESRD (end stage renal disease), Weakness Disposition: HOME SELF-CARE Condition: Fair Instructions (If sedation given, give patient instructions): Weakness (ED) Is patient prescribed a controlled substance at d/c from ED?: No Referrals: Kev Queen MD [Primary Care Provider] - 1-2 days Time of Disposition: 16:00
--- NOTE | 2021-10-29 14:13 | XR ---
EXAMINATION TYPE: XR chest 2V DATE OF EXAM: 10/29/2021 COMPARISON: Chest x-ray 08/27/2021, CT 08/29/2021 HISTORY: Weakness, abnormal chest x-ray TECHNIQUE: Frontal and lateral views of the chest are obtained. FINDINGS: Right jugular central venous catheter is present with the distal tip overlying the cavoatr ial junction. Coronary artery calcifications are present. The heart is enlarged. Prominent lung volum es with flattening the hemidiaphragms may be indicative of underlying COPD. The aorta is dense. No pn eumothorax or pleural effusion. Aorta is dense. There are overlying artifacts. There is eventration o f the right hemidiaphragm. Interstitium appears mildly increased. There is arthropathy within the acr omioclavicular joints. IMPRESSION: Suspect some underlying interstitial lung disease, correlate to exclude early interstiti al edema in a patient with pre-existing emphysema
--- NOTE | 2021-10-29 14:14 | CT ---
EXAMINATION TYPE: CT brain wo con DATE OF EXAM: 10/29/2021 COMPARISON: 02/22/2021 HISTORY: 85-year-old male confusion, AMS TECHNIQUE: Examination was done in axial plane without intravenous contrast. Coronal and sagittal r econstructions performed. CT DLP: 1092.4 mGycm Automated exposure control for dose reduction was used. FINDINGS: There is no evidence of acute intracranial hemorrhage, acute ischemic changes, mass, mass-effect, or extra-axial fluid collection. There is no effacement of cerebral sulci or basal subarachnoid cister ns mild to moderate ventriculomegaly, Mane ratio measured at 0.36, unchanged from prior. There is no midline shift. Santos-white matter distinction is preserved. Mild to moderate patchy white matter hypodensities in the cerebral hemispheres. Old lacunar infarct r ight basal ganglia. Mild cervical cortical volume loss. Atherosclerotic calcifications within the carotid siphons. Scattered moderate mucosal thickening ethmoid air cells. Trace fluid within the inferior mastoid air cells on both sides. Rightward nasal septal deviation. Orbits and globes are intact. Prominent cerume n right external auditory canal. IMPRESSION: 1. Given mild to moderate ventriculomegaly (Mane ratio 0.36), correlate to exclude NPH. The degree o f hydrocephalus is stable. 2. Old lacunar infarct right basal ganglia. Otherwise, no acute intracranial abnormality seen. 3. Moderate chronic ethmoid sinus disease. Trace fluid inferior mastoid air cells on both sides. Jean elate for any mastoid pain to exclude mastoiditis.
[2021-10-29 15:08] LABS: Basophils # (A) 0.1 k/uL (0-0.2); Basophils % (A) 1 %; Eosinophils # (A) 0.4 k/uL (0-0.7); Eosinophils % (A) 5 %; HCT 42.3 % (39.0-53.0); HGB 13.5 gm/dL (13.0-17.5); Lymphocytes # (A) 0.8 k/uL (1.0-4.8); Lymphocytes % (A) 10 %; MCH 29.3 pg (25.0-35.0); Monocytes # (A) 0.5 k/uL (0-1.0); Monocytes % (A) 7 %; Neutrophils % (A) 77 %; Platelet Count 338 k/uL (150-450); RBC 4.63 m/uL (4.30-5.90); RDW 14.2 % (11.5-15.5); WBC 7.8 k/uL (3.8-10.6)
[2021-10-29 15:12] LABS: MCV 91.5 fL (80.0-100.0)
[2021-10-29 15:21] LABS: INR 0.9 (<1.2); Partial Thromboplastin Time 25.9 sec (22.0-30.0); Prothrombin Time 10.3 sec (9.0-12.0)
[2021-10-29 15:22] LABS: Albumin 3.5 g/dL (3.5-5.0); Calcium 9.6 mg/dL (8.4-10.2); Magnesium 2.3 mg/dL (1.6-2.3); Potassium 4.7 mmol/L (3.5-5.1); Total Bilirubin 0.6 mg/dL (0.2-1.3); Total Protein 6.6 g/dL (6.3-8.2)
[2021-10-29 15:39] LABS: Appearance,Urine Cloudy (Clear); Bacteria,Urine Occasional /hpf; Bilirubin,Urine Negative (Negative); Blood,Urine Small (Negative); Budding Yeast,Urine Few /hpf; Color,Urine Yellow; Glucose,Urine (UA) Negative (Negative); Ketones,Urine Negative (Negative); Leukocyte Esterase,Urine Negative (Negative); Mucus,Urine Rare /hpf; Nitrite,Urine Negative (Negative); PH, Urine 8.5 (5.0-8.0); Protein,Urine 3+ (Negative); RBC,Urine 92 /hpf (0-5); Squamous Epithelial Cell,Urine <1 /hpf (0-4); Uric Acid Crystals,Urine Many /hpf; Urobilinogen,Urine <2.0 mg/dL (<2.0)
[2021-10-29 17:18] VITALS: BP 130/43; PULSE 61
== END 2021-10-29 17:18 | disposition home or self-care (01) ==
LOC: EC 12:31
DX: R53.1 Weakness (principal); I12.0 Hypertensive chronic kidney disease with stage 5 chronic kidney disease or end stage renal disease; E11.22 Type 2 diabetes mellitus with diabetic chronic kidney disease; N18.6 End stage renal disease; J45.909 Unspecified asthma, uncomplicated; E78.5 Hyperlipidemia, unspecified; M19.90 Unspecified osteoarthritis, unspecified site; Z79.4 Long term (current) use of insulin; Z79.02 Long term (current) use of antithrombotics/antiplatelets; Z85.828 Personal history of other malignant neoplasm of skin; Z85.46 Personal history of malignant neoplasm of prostate; Z85.51 Personal history of malignant neoplasm of bladder; Z87.891 Personal history of nicotine dependence; Z96.642 Presence of left artificial hip joint
CPT/HCPCS: 36415; 70450; 71046; 80053; 81001; 83605; 83735; 85025; 85610; 85730; 93005; 99285